=== PATIENT | female | born 1955 | race Hispanic/Latino ===

== ENCOUNTER 2018-07-06 09:24 | Emergency (ER) | payer OTHER ==
--- OUTSIDE RECORDS SUMMARY | 2018-07-06 09:28 | XMS REPORT ---
:1955 [facility] Address [address] [place] [address] Care Team Providers Name Role Phone Unavailable Unavailable Unavailable Problems This patient has no known problems. Allergies, Adverse Reactions, Alerts This patient has no known allergies or adverse reactions. Medications This patient has no known medications.
--- NOTE | 2018-07-06 10:18 | EDPHYS ---
Physician Documentation [facility] Name: Loly Hermosillo Age: 63 yrs Sex: Female : 1955 Arrival Date: 07/06/2018 Time: 09:26 Bed 8 Private MD: out of town, doctor ED Physician Hermilo Rodriguez HPI: 07/06 10:10 This 63 yrs old Female presents to ER via Ambulatory with complaints of Leg ps1 Swelling. 10:10 patient states that she has started a new workout regimen and now has swelling to ps1 medial aspect of right knee. Atraumatic. States that she took one ibuprofen without relief. No fever, chills, rash. . Historical: - Allergies: 09:36 No Known Allergies; aj1 - Home Meds: 09:36 Haloperidol Oral [Active]; Benztropine Mesylate Oral [Active]; Hydroxyzine Oral aj1 [Active]; losartan oral oral [Active]; atorvastatin oral oral [Active]; - PMHx: 09:36 Hypertension; Hyperlipidemia; Anxiety; cyst in right kidney; aj1 - PSHx: 09:36 None; aj1 - Immunization history:: Flu vaccine is not up to date. - Social history:: Smoking status: Patient/guardian denies using tobacco. - Ebola Screening: : Patient denies travel to an Ebola-affected area in the 21 days before illness onset. ROS: 10:10 Constitutional: Negative for fever, chills, and weight loss, Eyes: Negative for injury, ps1 pain, redness, and discharge, ENT: Negative for injury, pain, and discharge, Cardiovascular: Negative for chest pain, palpitations, and edema, Respiratory: Negative for shortness of breath, cough, wheezing, and pleuritic chest pain, Abdomen/GI: Negative for abdominal pain, nausea, vomiting, diarrhea, and constipation, Skin: Negative for injury, rash, and discoloration, Neuro: Negative for headache, weakness, numbness, tingling, and seizure. 10:10 MS/extremity: Positive for pain, swelling, tenderness, of the right knee. Exam: 10:10 Constitutional: This is a well developed, well nourished patient who is awake, alert, ps1 and in no acute distress. Head/Face: Normocephalic, atraumatic. Eyes: Pupils equal round and reactive to light, extra-ocular motions intact. Lids and lashes normal. Conjunctiva and sclera are non-icteric and not injected. ENT: Nares patent. No nasal discharge, no septal abnormalities noted. Tympanic membranes are normal and external auditory canals are clear. Oropharynx with no redness, swelling, or masses, exudates, or evidence of obstruction, uvula midline. Mucous membranes moist. Chest/axilla: Normal chest wall appearance and motion. Nontender with no deformity. No lesions are appreciated. Cardiovascular: Regular rate and rhythm. No gallops, murmurs, or rubs. Normal PMI, no JVD. No pulse deficits. Respiratory: Lungs have equal breath sounds bilaterally, clear to auscultation and percussion. No rales, rhonchi or wheezes noted. No increased work of breathing, no retractions or nasal flaring. Abdomen/GI: Soft, non-tender, with normal bowel sounds. No distension or tympany. No guarding or rebound. No evidence of tenderness throughout. Neuro: Awake and alert, GCS 15, oriented to person, place, time, and situation. Cranial nerves II-XII grossly intact. Sensory grossly intact. Psych: Awake, alert, with orientation to person, place and time. Behavior, mood, and affect are within normal limits. 10:10 Musculoskeletal/extremity: Extremities: grossly normal except: noted in the right knee: pain, There is no evidence of contusion, effusion or rash.. Vital Signs: 09:36 BP 112 / 84; Pulse 94; Resp 18; Temp 97.4; Pulse Ox 96% on R/A; Weight 79.38 kg (R); aj1 Height 5 ft. 4 in. (162.56 cm) (R); Pain 7/10; 09:36 Body Mass Index 30.04 (79.38 kg, 162.56 cm) aj1 MDM: 10:10 Data reviewed: vital signs, nurses notes, and as a result, I will discharge patient. ED ps1 course: no obvious signs of effusion or fracture. Low probability of fx. Likely sprain. Compression. Aleve 550mg bid. . 10:17 Patient medically screened. ps1 Administered Medications: No medications were administered Disposition: 07/06/18 10:17 Discharged to Home. Impression: Sprain of medial collateral ligament of right knee. - Condition is Stable. - Prescriptions for Anaprox DS 550 mg Oral Tablet - take 1 tablet by ORAL route every 12 hours As needed; 20 tablet. - Medication Reconciliation Form, Thank You Letter, Antibiotic Education, Prescription Opioid Use form. - Follow up: Private Physician; When: As needed; Reason: Recheck today's complaints, Continuance of care, Re-evaluation by your physician. Follow up: Emergency Department; When: As needed; Reason: Fever > 102 F, Worsening of condition. - Problem is new. - Symptoms are unchanged. Signatures: Анна Pena RN RN aj1 Raine Wang RN RN ph Hermilo Rodriguez MD MD ps1 Corrections: (The following items were deleted from the chart) 10:45 10:17 07/06/2018 10:17 Discharged to Home. Impression: Sprain of medial collateral ph ligament of right knee. Condition is Stable. Forms are Medication Reconciliation Form, Thank You Letter, Antibiotic Education, Prescription Opioid Use. Follow up: Private Physician; When: As needed; Reason: Recheck today's complaints, Continuance of care, Re-evaluation by your physician. Follow up: Emergency Department; When: As needed; Reason: Fever > 102 F, Worsening of condition. Problem is new. Symptoms are unchanged. ps1
--- NOTE | 2018-07-06 10:18 | ER ---
Nurse's Notes [facility] Name: Loly Hermosillo Age: 63 yrs Sex: Female : 1955 Arrival Date: 07/06/2018 Time: 09:26 Bed 8 Private MD: out of town, doctor Diagnosis: Sprain of medial collateral ligament of right knee Presentation: 07/06 09:33 Presenting complaint: Patient states: "My leg is swollen, I think I pulled a muscle" aj1 Swelling noted to right knee. Patient reports pain with ambulation and with bending left knee. Transition of care: patient was not received from another setting of care. Onset of symptoms was July 03, 2018. Risk Assessment: Do you want to hurt yourself or someone else? Patient reports no desire to harm self or others. Initial Sepsis Screen: Does the patient meet any 2 criteria? No. Patient's initial sepsis screen is negative. Does the patient have a suspected source of infection? No. Patient's initial sepsis screen is negative. Care prior to arrival: None. 09:33 Method Of Arrival: Ambulatory aj1 09:33 Acuity: SULTA[place] 4 aj1 Triage Assessment: 09:36 General: Appears in no apparent distress. uncomfortable, Behavior is calm, cooperative, aj1 appropriate for age. Pain: Complains of pain in right knee Pain currently is 7 out of 10 on a pain scale. Neuro: Level of Consciousness is awake, alert, obeys commands. Cardiovascular: Patient's skin is warm and dry. Respiratory: Airway is patent Respiratory effort is even, unlabored, Respiratory pattern is regular, symmetrical. Historical: - Allergies: 09:36 No Known Allergies; aj1 - Home Meds: 09:36 Haloperidol Oral [Active]; Benztropine Mesylate Oral [Active]; Hydroxyzine Oral aj1 [Active]; losartan oral oral [Active]; atorvastatin oral oral [Active]; - PMHx: 09:36 Hypertension; Hyperlipidemia; Anxiety; cyst in right kidney; aj1 - PSHx: 09:36 None; aj1 - Immunization history:: Flu vaccine is not up to date. - Social history:: Smoking status: Patient/guardian denies using tobacco. - Ebola Screening: : Patient denies travel to an Ebola-affected area in the 21 days before illness onset. Screenin:12 Abuse screen: Denies threats or abuse. Denies injuries from another. Nutritional ph screening: No deficits noted. Tuberculosis screening: No symptoms or risk factors identified. Fall Risk None identified. Assessment: 10:11 General: Appears in no apparent distress. comfortable, well groomed, Behavior is calm, ph cooperative, appropriate for age, Denies fever, feeling ill. Pain: Complains of pain in right knee. Neuro: Level of Consciousness is awake, alert, obeys commands, Oriented to person, place, time, situation. Cardiovascular: Capillary refill < 3 seconds in bilateral fingers toes Patient's skin is warm and dry. Respiratory: Airway is patent Respiratory effort is even, unlabored, Respiratory pattern is regular, symmetrical. Derm: Skin is intact, is healthy with good turgor, Skin is pink, warm \\T\\ dry. Musculoskeletal: Circulation, motion, and sensation intact. Range of motion: intact in all extremities, Swelling present in right knee. Vital Signs: 09:36 BP 112 / 84; Pulse 94; Resp 18; Temp 97.4; Pulse Ox 96% on R/A; Weight 79.38 kg (R); aj1 Height 5 ft. 4 in. (162.56 cm) (R); Pain 7/10; 09:36 Body Mass Index 30.04 (79.38 kg, 162.56 cm) aj1 ED Course: 09:26 Patient arrived in ED. as 09:27 out of town, doctor is Private Physician. as 09:35 Triage completed. aj1 09:36 Arm band placed on Patient placed in an exam room. aj1 09:45 Patient has correct armband on for positive identification. Bed in low position. Call ph light in reach. Side rails up X 1. 09:50 Raine Wang, MINO is Primary Nurse. ph 10:01 Hermilo Rodriguez MD is Attending Physician. ps1 10:12 No provider procedures requiring assistance completed. Patient did not have IV access ph during this emergency room visit. Administered Medications: No medications were administered Outcome: 10:17 Discharge ordered by . ps1 10:43 Discharged to home ambulatory, with friend. ph 10:43 Condition: good 10:43 Discharge instructions given to patient, Instructed on discharge instructions, follow up and referral plans. medication usage, Demonstrated understanding of instructions, follow-up care, medications, Prescriptions given X 1. 10:45 Patient left the ED. ph Signatures: Анна Pena RN RN aj1 Maricruz Poon as Raine Wang RN RN ph Hermilo Rodriguez MD MD ps1
== END 2018-07-06 10:45 | disposition home or self-care (01) ==
LOC: ER 09:24
DX: S83.411A Sprain of medial collateral ligament of right knee, initial encounter (principal); I10 Essential (primary) hypertension; E78.5 Hyperlipidemia, unspecified; F41.9 Anxiety disorder, unspecified
CPT/HCPCS: 99282

== ENCOUNTER 2019-06-29 12:14 | Inpatient (IN) | payer OTHER ==
--- OUTSIDE RECORDS SUMMARY | 2019-06-29 12:15 | XMS REPORT | Summary of Care ---
:1955 Author Organization [facility] Address [address] [place] [id number] Care Team Providers Name Role Phone Dinesh Cervantes [facility], [facility] Primary Care P rovider Reason for Referral MRI/CAT Scan (Routine) Status Reason Specialty Diagnoses / Referred By Referred To Procedures Contact Contact New Request Diagnostic Diagnoses Renal mass, right Cori Villanueva Radiology Procedures CT ABDOMEN PELVIS W WO CONTRAST A, [facility] [address] [place] [address] Reason for Visit Reason Comments Back Pain Encounter Details Date Type Department Care Team Description 05/13/2019 Telephone [facility], Magdalena la A, [facility] - [place] on [address], [address] [place] [address] [place] [address] [phone] Allergies No Known Allergiesdocumented as of this encounter (statuses as of 05/13/2019) Medications Medication Sig Dispensed Refills Start Date End Date Status CHLORHEXIDINE, BULK, 1 Dose. Swish and 0 Active MISC spit 1 cap full by mouth twice daily LOSARTAN POTASSIUM Take 50 mg by 0 Active (LOSARTAN ORAL) mouth daily. ATORVASTATIN CALCIUM Take 20 mg by 0 Active (ATORVASTATIN ORAL) mouth at bedtime. haloperidol 10 mg Take 10 mg by 0 Active tablet mouth at bedtime. hydrOXYzine 25 mg Take 25 mg by 0 Active tablet mouth 2 (two) times daily. BENZTROPINE MESYLATE Take 1 mg by 0 Active (BENZTROPINE ORAL) mouth 2 (two) times daily. sulfamethoxazole-trimet Take 1 tablet by 14 tablet 0 8 Active hoprim (BACTRIM DS) mouth 2 (two) 800-160 mg per times daily. tabletIndications: Urinary tract infection without hematuria, site unspecified documented as of this encounter (statuses as of 05/13/2019) Active Problems Not on filedocumented as of this encounter (statuses as of 05/13/2019) Social History Tobacco Use Types Packs/Day Years Used Date Never Smoker Smokeless Tobacco: Never Used Alcohol Use Drinks/Week oz/Week Comments No Sex Assigned at Date Recorded Not on file Job Start Date Occupation Industry Not on file Not on file Not on file Travel History Travel Start Travel End No recent travel history available. documented as of this encounter Last Filed Vital Signs Not on filedocumented in this encounter Plan of Treatment Date Type Specialty Care Team Description 05/31/2019 Office Visit Urology Cori Villanueva, [facility] [employer] [facility] [address] [address] [phone] Name Type Priority Associated Diagnoses Order S chedule CT ABDOMEN PELVIS W WO IMAGING Routine Renal mass, right Expected: 05/13/2019, CONTRAST Expires: 2020 Health Maintenance Due Date Last Done Comments HEPATITIS C (HCV) SCREEN 1955 DTaP,Tdap,and Td Vaccines (1 - 1967 Tdap) Breast Cancer Screening 1996 (MAMMOGRAM) PAP SMEAR 04/05/2006 04/05/2003 COLONOSCOPY 2006 Zoster Recombinant Vaccine 2006 (SHINGRIX) (1 of 2) INFLUENZA VACCINE (#1) 2018 PNEUMOCOCCAL 0-64 YEARS COMBINED Aged Out No longer eligible based on SERIES patient's age to complete this topic documented as of this encounter Results Not on filedocumented in this encounter Visit Diagnoses Diagnosis Renal mass, right - Primary Unspecified disorder of kidney and urete r documented in this encounter Insurance Payer Benefit Plan / Subscriber ID Effective Phone Address T ype Group Dates [facility] [id number] 2017-Pres Medica re HEALTHCARE - HEALTHCARE ent Adv HM O MANAGED DUAL COMPLETE MEDICARE HMO [place] MEDICAID OF xxxxxxxxx 2018-Pres [phone] [address] Medi caid [facility] [id number] [place] [address] documented as of this encounter
--- OUTSIDE RECORDS SUMMARY | 2019-06-29 12:15 | XMS REPORT ---
:1955 Author Organization [facility] t Address [address] [place] [id number] Care Team Providers Name Role Phone Unavailable Unavailable Unavailable Problems This patient has no known problems. Allergies, Adverse Reactions, Alerts This patient has no known allergies or adverse reactions. Medications This patient has no known medications.
[2019-06-29 13:11] LABS: Absolute Lymphocytes (CBC) 1.3 K/uL (0.7-4.9); Basophils % 0.8 % (0-1.3); Hematocrit 29.5 % (36.0-45.0); Lymphocytes % 23.4 % (15.3-44.8); MPV 7.5 fL (7.6-11.3)
[2019-06-29 13:12] LABS: Protime INR 0.99
--- NOTE | 2019-06-29 13:20 | RAD REPORT ---
EXAM DESCRIPTION: CT - Head Brain Wo Cont - 06/29/2019 1:12 pm CLINICAL HISTORY: MENTAL STATUS CHANGE Headache, drowsiness COMPARISON: No comparisons TECHNIQUE: All CT scans are performed using dose optimization technique as appropriate and may inclu de automated exposure control or mA/KV adjustment according to patient size. FINDINGS: No intracranial hemorrhage, hydrocephalus or extra-axial fluid collection.Moderate periven tricular chronic microvascular ischemic changes suspected.No areas of brain edema or evidence of midl ine shift. The paranasal sinuses and mastoids are clear. The calvarium is intact. IMPRESSION: No acute intracranial abnormality.
[2019-06-29 13:25] LABS: ALT/SGPT 42 U/L (12-78); AST/SGOT 25 U/L (15-37); Albumin 2.5 g/dL (3.4-5.0); Alkaline Phosphatase 94 U/L (45-117); BUN Blood Urea Nitrogen 10 mg/dL (7-18); Bicarbonate 30 mmol/L (21-32); Bilirubin Direct 0.2 mg/dL (0-0.2); Bilirubin Total 0.6 mg/dL (0.2-1.0); Glucose Level 88 mg/dL (74-106); Magnesium 1.6 mg/dL (1.8-2.4); Sodium Level 141 mmol/L (136-145)
[2019-06-29 13:27] LABS: Potassium 2.6 mmol/L (3.5-5.1)
[2019-06-29 13:35] LABS: Urine Blood TRACE (NEG); Urine Glucose NEGATIVE (NEG); Urine Protein 1+ (NEG); Urine pH 5.5 (5.0-7.0)
[2019-06-29 13:39] LABS: Barbiturates NEGATIVE (NEGATIVE); Benzodiazepines NEGATIVE (NEGATIVE); Cocaine NEGATIVE (NEGATIVE); METHAMPHETAM NEGATIVE (NEGATIVE); Methadone NEGATIVE (NEGATIVE); Opiates NEGATIVE (NEGATIVE); Phencyclidine NEGATIVE (NEGATIVE); THC Cannibis NEGATIVE (NEGATIVE)
[2019-06-29] MEDS ORDERED: NA CHLORIDE 0.9% 500 ML ONE (13:50)
[2019-06-29] MEDS ORDERED: POTASSIUM CL SA 10 MEQ TAB PO ONE (13:50)
[2019-06-29] MEDS ORDERED: Magnesium Sulfate 2gm IVPB 2 G/50 ML BAG IV ONE (13:51)
[2019-06-29] MEDS ORDERED: KCL 20 MEQ/100 mL IVPB 20 MEQ/100 ML BAG IV ONE (13:51)
[2019-06-29 13:52] LABS: Urine Bacteria LOADED /HPF (<20); Urine Culture Reflex Order REFLEXED; Urine RBC <5 /HPF (NONE SEEN)
--- NOTE | 2019-06-29 15:04 | EDPHYS ---
Physician Documentation [facility] Name: Loly Hermosillo Age: 64 yrs Sex: Female : 1955 Arrival Date: 06/29/2019 Time: 12:18 Bed 13 Private MD: ED Physician Kush Drake HPI: 06/28 14:47 This 64 yrs old Female presents to ER via EMS with complaints of Altered jr8 Mental Status. 14:47 The patient presents with agitation, confusion. Onset: The symptoms/episode jr8 began/occurred gradually, 1 month(s) ago, and became worse and became persistent. Possible causes: unknown. Associated signs and symptoms: The patient has no apparent associated signs or symptoms. Current symptoms: In the emergency department the patient's symptoms are unchanged from the initial presentation. Patient's baseline: Neuro: alert and fully oriented, Motor: no deficits, Ambulation: walks without assistance, Speech: normal. It is unknown whether or not the patient has had similar symptoms in the past. The patient has not recently seen a physician. Patient with history of bipolar disorder. Family told EMS that she has not acted like this in a long time. Stated that she has had slow decline in mental status and behavioral changes over the past month. Acutely worse recently. Patient alert to person and place. Slurring speech . Historical: - Allergies: 12:28 [place] Carbonate; ca1 12:28 Thorazine; ca1 - Home Meds: 12:28 losartan 50 mg oral tab 1 tab once daily [Active]; Haloperidol 10 mg Oral 1 tab nightly ca1 [Active]; tamsulosin 0.4 mg oral cp24 1 cap once daily [Active]; hydroxyzine HCl 25 mg oral tab 1 tab twice a day [Active]; - PMHx: 12:28 Anxiety; cyst in right kidney; Hyperlipidemia; Hypertension; Bipolar disorder; ca1 - PSHx: 12:28 None; ca1 - Immunization history:: Adult Immunizations up to date. - Social history:: Smoking status: Patient denies any tobacco usage or history of. ROS: 14:47 Eyes: Negative for injury, pain, redness, and discharge, ENT: Negative for injury, jr8 pain, and discharge, Neck: Negative for injury, pain, and swelling, Cardiovascular: Negative for chest pain, palpitations, and edema, Respiratory: Negative for shortness of breath, cough, wheezing, and pleuritic chest pain, Abdomen/GI: Negative for abdominal pain, nausea, vomiting, diarrhea, and constipation, Back: Negative for injury and pain, MS/Extremity: Negative for injury and deformity, Skin: Negative for injury, rash, and discoloration. 14:47 Neuro: Positive for altered mental status. Exam: 14:47 Eyes: Pupils equal round and reactive to light, extra-ocular motions intact. Lids and jr8 lashes normal. Conjunctiva and sclera are non-icteric and not injected. Cornea within normal limits. Periorbital areas with no swelling, redness, or edema. ENT: Nares patent. No nasal discharge, no septal abnormalities noted. Tympanic membranes are normal and external auditory canals are clear. Oropharynx with no redness, swelling, or masses, exudates, or evidence of obstruction, uvula midline. Mucous membranes moist. Neck: Trachea midline, no thyromegaly or masses palpated, and no cervical lymphadenopathy. Supple, full range of motion without nuchal rigidity, or vertebral point tenderness. No Meningismus. Cardiovascular: Regular rate and rhythm with a normal S1 and S2. No gallops, murmurs, or rubs. Normal PMI, no JVD. No pulse deficits. Respiratory: Lungs have equal breath sounds bilaterally, clear to auscultation and percussion. No rales, rhonchi or wheezes noted. No increased work of breathing, no retractions or nasal flaring. Abdomen/GI: Soft, non-tender, with normal bowel sounds. No distension or tympany. No guarding or rebound. No evidence of tenderness throughout. Back: No spinal tenderness. No costovertebral tenderness. Full range of motion. Skin: Warm, dry with normal turgor. Normal color with no rashes, no lesions, and no evidence of cellulitis. MS/ Extremity: Pulses equal, no cyanosis. Neurovascular intact. Full, normal range of motion. 14:47 ECG was reviewed by the Attending Physician. 14:47 Neuro: Orientation: to person, place, Mentation: able to follow commands, slow to respond, confused, Cranial nerves: CN I not tested, CN II- XII are normal as tested, visual edge are intact. extraocular movements are intact, Facial palsy and sensory deficits are absent. Speech is slowed, slurred, Tongue strength is normal, Motor: moves all fours, strength is 5/5 in all extremities, Sensation: is normal, seizure activity, is not displayed by the patient, Abnormal movements: there are no abnormal movements. Vital Signs: 12:19 BP 117 / 85; Pulse 86; Resp 16 S; Temp 98(O); Pulse Ox 100% on R/A; ca1 14:51 BP 103 / 73; Pulse 84; Resp 20; Pulse Ox 100% on R/A; ca1 15:56 BP 108 / 67; Pulse 86; Resp 18 S; Pulse Ox 100% on R/A; ca1 16:27 BP 124 / 64; Pulse 96; Resp 20 S; Pulse Ox 99% on R/A; ca1 MDM: 12:30 Patient medically screened. jr8 14:47 Data reviewed: vital signs, nurses notes, lab test result(s), EKG, radiologic studies, jr8 CT scan. Data interpreted: Pulse oximetry: on room air is 100 %. Interpretation: normal. Counseling: I had a detailed discussion with the patient and/or guardian regarding: the historical points, exam findings, and any diagnostic results supporting the discharge/admit diagnosis, lab results, radiology results. 15:03 Physician consultation: Cosme Garcia DO was called at 15:03, was contacted at 15:03, jr8 regarding admission, to the medical/surgical unit. patient's condition, and will see patient in ED. 06/28 12:32 Order name: Acetaminophen; Complete Time: 13:30 8 06/28 12:32 Order name: Basic Metabolic Panel; Complete Time: 13:30 8 06/28 12:32 Order name: CBC with Diff; Complete Time: 13:30 8 06/28 12:32 Order name: ETOH Level; Complete Time: 13:30 8 06/28 12:32 Order name: Hepatic Function; Complete Time: 13:30 8 06/28 12:32 Order name: PT-INR; Complete Time: 13:30 8 06/28 12:32 Order name: Ptt, Activated; Complete Time: 13:30 8 06/28 12:32 Order name: Salicylate; Complete Time: 13:30 8 06/28 12:32 Order name: Urine Drug Screen; Complete Time: 14:55 8 06/28 12:32 Order name: Urine Microscopic Only; Complete Time: 14:55 jr8 06/28 12:32 Order name: Magnesium; Complete Time: 13:30 8 06/28 12:32 Order name: CT Head Brain wo Cont; Complete Time: 13:30 [facility] 06/28 13:19 Order name: Urine Dipstick--Ancillary (enter results); Complete Time: 14:55 bd 06/28 13:54 Order name: Urine Culture [facility] 06/28 12:32 Order name: EKG; Complete Time: 12:33 [facility] 06/28 12:32 Order name: EKG - Nurse/Tech; Complete Time: 12:52 8 06/28 12:32 Order name: IV Saline Lock; Complete Time: 12:52 [facility] 06/28 12:32 Order name: Labs collected and sent; Complete Time: 12:52 [facility] 06/28 12:32 Order name: Urine Dipstick-Ancillary (obtain specimen); Complete Time: 13:14 8 06/28 12:32 Order name: Straight Cath - Urine; Complete Time: 13:14 [facility] 06/28 15:50 Order name: Social Service Consult EDWA EC:47 Rate is 97 beats/min. Rhythm is regular, Normal Sinus Rhythm. QRS [place] is Normal. NV jr8 interval is normal at 142 msec. QRS interval is normal at 104 msec. QT interval is prolonged at 533 msec. Q waves are Present in lead V1. T waves are Normal. No ST changes noted. Clinical impression: Abnormal EKG without significant change and Prolonged QT. Interpreted by me. Reviewed by me. Administered Medications: 13:45 Drug: Potassium Chloride 40 mEq Route: PO; ca1 15:13 Follow up: Response: No adverse reaction ca1 13:45 Drug: NS 0.9% 1000 ml Route: IV; Rate: 125 ml/hr; Site: right antecubital; ca1 15:13 Follow up: IV Status: Infusion continued upon admission ca1 13:50 Drug: Potassium Chloride 20 mEq Route: IV; Rate: calculated rate; Site: right ca1 antecubital; 16:00 Follow up: Response: No adverse reaction; IV Status: Completed infusion ca1 14:12 Drug: Magnesium Sulfate 2 grams Route: IVPB; Infused Over: 2 hrs; Site: right ca1 antecubital; 15:12 Follow up: Response: No adverse reaction; IV Status: Completed infusion ca1 15:12 Drug: Rocephin 1 grams Route: IV; Rate: calculated rate; Site: right antecubital; ca1 15:30 Follow up: Response: No adverse reaction; IV Status: Completed infusion ca1 Disposition: 06/29 08:17 Co-signature as Attending Physician, Kush Drake MD I agree with the assessment and kdr plan of care. Disposition: 06/29/19 15:03 Hospitalization ordered by Cosme Garcia for Inpatient Admission. Preliminary diagnosis are Altered mental status, unspecified, Urinary tract infection, site not specified. - Bed requested for Telemetry/MedSurg (Inpatient). - Status is Inpatient Admission. ca1 - Condition is Stable. - Problem is new. - Symptoms are unchanged. Signatures: Dispatcher [employer] EDMS Kush Drake MD MD [facility] Bradly Oropeza PA PA jr8 Leticia Valerio RN RN tl1 Nichelle Bermudez RN RN ca1 Corrections: (The following items were deleted from the chart) 06/28 16:11 15:03 Hospitalization Ordered by Cosme Garcia DO for Inpatient Admission. Preliminary tl1 diagnosis is Altered mental status, unspecified; Urinary tract infection, site not specified. Bed requested for Telemetry/MedSurg (Inpatient). Status is Inpatient Admission. Condition is Stable. Problem is new. Symptoms are unchanged. jr8 17:19 16:11 06/29/2019 15:03 Hospitalization Ordered by Cosme Garcia DO for Inpatient ca1 Admission. Preliminary diagnosis is Altered mental status, unspecified; Urinary tract infection, site not specified. Bed requested for Telemetry/MedSurg (Inpatient). Status is Inpatient Admission. Condition is Stable. Problem is new. Symptoms are unchanged. tl1
--- NOTE | 2019-06-29 15:04 | ER ---
Nurse's Notes [facility] Name: Loly Hermosillo Age: 64 yrs Sex: Female : 1955 Arrival Date: 06/29/2019 Time: 12:18 Bed 13 Private MD: Diagnosis: Altered mental status, unspecified;Urinary tract infection, site not specified Presentation: 06/28 12:19 Chief complaint: EMS states: Pt is Bipolar, not cooperating with family, refuses to ca1 eat, laying down on the floor. She keeps destroying her bedroom. They said she has gone for years without symptoms but this past month she has been deteriorating and has gotten worse the past few weeks. Ativan 2mg given IV. Coronavirus screen: Proceed with normal triage. Patient denies a cough. Patient denies shortness of breath or difficulty breathing. Patient denies measured and/or subjective temperature greater than 100.4F prior to today's visit. Patient denies travel on a cruise ship or to a country the [facility] currently lists as an affected area. Patient denies contact with known and/or suspected case of COVID-19. Ebola Screen: Patient negative for fever greater than or equal to 101.5 degrees Fahrenheit, and additional compatible Ebola Virus Disease symptoms Patient denies exposure to infectious person. Patient denies travel to an Ebola-affected area in the 21 days before illness onset. No symptoms or risks identified at this time. Initial Sepsis Screen: Does the patient meet any 2 criteria? No. Patient's initial sepsis screen is negative. Does the patient have a suspected source of infection? No. Patient's initial sepsis screen is negative. Risk Assessment: Do you want to hurt yourself or someone else? Patient reports no desire to harm self or others. Onset of symptoms was June 29, 2019. 12:19 Method Of Arrival: EMS: [facility] ca1 12:19 Acuity: [place] 3 ca1 12:19 Care prior to arrival: Medication(s) given: Ativan 2mg IV initiated. 20 GA, in the left ca1 antecubital area. Triage Assessment: 12:28 General: Appears in no apparent distress. unkempt, Behavior is calm, cooperative, ca1 drowsy. Pain: Denies pain. EENT: No signs and/or symptoms were reported regarding the EENT system. Neuro: Level of Consciousness is obeys commands, lethargic, Oriented to person, place, situation. Cardiovascular: Heart tones S1 S2 present Capillary refill < 3 seconds Patient's skin is warm and dry. Rhythm is sinus rhythm. Respiratory: Airway is patent Respiratory effort is even, unlabored, Respiratory pattern is regular, symmetrical, Breath sounds are clear bilaterally. GI: Abdomen is round non-distended, Bowel sounds present X 4 quads. Abd is soft and non tender X 4 quads. : No signs and/or symptoms were reported regarding the genitourinary system. Derm: Skin is intact, is healthy with good turgor, Skin is pink, warm \T\ dry. Musculoskeletal: Circulation, motion, and sensation intact. Capillary refill < 3 seconds. Historical: - Allergies: 12:28 [place] Carbonate; ca1 12:28 Thorazine; ca1 - Home Meds: 12:28 losartan 50 mg oral tab 1 tab once daily [Active]; Haloperidol 10 mg Oral 1 tab nightly ca1 [Active]; tamsulosin 0.4 mg oral cp24 1 cap once daily [Active]; hydroxyzine HCl 25 mg oral tab 1 tab twice a day [Active]; - PMHx: 12:28 Anxiety; cyst in right kidney; Hyperlipidemia; Hypertension; Bipolar disorder; ca1 - PSHx: 12:28 None; ca1 - Immunization history:: Adult Immunizations up to date. - Social history:: Smoking status: Patient denies any tobacco usage or history of. Screenin:31 Abuse screen: Denies threats or abuse. Denies injuries from another. Nutritional ca1 screening: No deficits noted. Tuberculosis screening: No symptoms or risk factors identified. Fall Risk IV access (20 points). Mental Status- Overestimates/Forgets Limitations (15 pts.). Total Walker Fall Scale indicates Low Risk Score (25-44 pts). Fall prevention measures have been instituted. Side Rails Up X 2 Frequent Obs/Assesments occuring As available Patient and Family Educated on Fall Prevention Program and strategies. Assessment: 12:31 Reassessment: SEE TRIAGE NOTES. ca1 13:15 Reassessment: Patient appears in no apparent distress at this time. No changes from ca1 previously documented assessment. Patient and/or family updated on plan of care and expected duration. Pain level reassessed. 14:33 Reassessment: Patient appears in no apparent distress at this time. No changes from ca1 previously documented assessment. Patient and/or family updated on plan of care and expected duration. Pain level reassessed. 15:29 Reassessment: Patient appears in no apparent distress at this time. No changes from ca1 previously documented assessment. Patient and/or family updated on plan of care and expected duration. Pain level reassessed. Dr. Garcia at bedside. 16:27 Reassessment: Patient appears in no apparent distress at this time. No changes from ca1 previously documented assessment. Patient and/or family updated on plan of care and expected duration. Pain level reassessed. 16:28 Reassessment: Called for report, nurse will call back in 10 minutes. ca1 16:50 General: Appears in no apparent distress. comfortable, Behavior is calm, cooperative, ca1 appropriate for age. Neuro: Level of Consciousness is awake, alert, obeys commands, Oriented to person, place. Vital Signs: 12:19 BP 117 / 85; Pulse 86; Resp 16 S; Temp 98(O); Pulse Ox 100% on R/A; ca1 14:51 BP 103 / 73; Pulse 84; Resp 20; Pulse Ox 100% on R/A; ca1 15:56 BP 108 / 67; Pulse 86; Resp 18 S; Pulse Ox 100% on R/A; ca1 16:27 BP 124 / 64; Pulse 96; Resp 20 S; Pulse Ox 99% on R/A; ca1 ED Course: 12:18 Patient arrived in ED. ca1 12:23 Triage completed. ca1 12:23 Patient has correct armband on for positive identification. Placed in gown. Bed in low sv position. Call light in reach. Side rails up X2. city wellness coordinator on. Pulse ox on. NIBP on. 12:28 Arm band placed on right wrist. ca1 12:30 Bradly Oropeza PA is PHCP. jr8 12:30 Kush Drake MD is Attending Physician. jr8 12:31 Door closed. Noise minimized. Lights dimmed. Warm blanket given. ca1 12:50 Nichelle Bermudez, MINO is Primary Nurse. ca1 12:50 No provider procedures requiring assistance completed. Maintain EMS IV. Dressing ca1 intact. Good blood return noted. Site clean \T\ dry. Gauge \T\ site: g20 LAC. 12:53 Initial lab(s) drawn, by me, sent to lab. Inserted saline lock: 22 gauge in right lt1 antecubital area, using aseptic technique. 13:00 Straight cath inserted, using sterile technique, 16 Fr. Specimen obtained. by Jamilah, ED ca1 Tech Returned gayle urine. Patient tolerated well. 13:13 CT Head Brain wo Cont In Process Unspecified. EDMS 15:03 Cosme Garcia DO is Hospitalizing Provider. jr8 15:30 Patient admitted, IV remains in place. ca1 Administered Medications: 13:45 Drug: Potassium Chloride 40 mEq Route: PO; ca1 15:13 Follow up: Response: No adverse reaction ca1 13:45 Drug: NS 0.9% 1000 ml Route: IV; Rate: 125 ml/hr; Site: right antecubital; ca1 15:13 Follow up: IV Status: Infusion continued upon admission ca1 13:50 Drug: Potassium Chloride 20 mEq Route: IV; Rate: calculated rate; Site: right ca1 antecubital; 16:00 Follow up: Response: No adverse reaction; IV Status: Completed infusion ca1 14:12 Drug: Magnesium Sulfate 2 grams Route: IVPB; Infused Over: 2 hrs; Site: right ca1 antecubital; 15:12 Follow up: Response: No adverse reaction; IV Status: Completed infusion ca1 15:12 Drug: Rocephin 1 grams Route: IV; Rate: calculated rate; Site: right antecubital; ca1 15:30 Follow up: Response: No adverse reaction; IV Status: Completed infusion ca1 Outcome: 15:03 Decision to Hospitalize by Provider. jr8 17:19 Admitted to Med/surg accompanied by norman, via stretcher, room 204, with chart, Report ca1 called to MINO Collier 17:19 Condition: stable 17:19 Instructed on the need for admit. 17:19 Patient left the ED. ca1 Signatures: Dispatcher [employer] EDAL Hemalatha Mccray RN RN sv Roszak, Josh, PA PA jr8 Nichelle Bermudez RN RN ca1 Tran, Leah lt1 Corrections: (The following items were deleted from the chart) 15:29 13:15 Reassessment: Patient appears in no apparent distress at this time. No changes ca1 from previously documented assessment. Patient and/or family updated on plan of care and expected duration. Pain level reassessed. Patient is alert, oriented x 3, equal unlabored respirations, skin warm/dry/pink. ca1 15:29 14:33 Reassessment: Patient appears in no apparent distress at this time. No changes ca1 from previously documented assessment. Patient and/or family updated on plan of care and expected duration. Pain level reassessed. Patient is alert, oriented x 3, equal unlabored respirations, skin warm/dry/pink. ca1 16:50 16:27 Reassessment: Patient appears in no apparent distress at this time. No changes ca1 from previously documented assessment. Patient and/or family updated on plan of care and expected duration. Pain level reassessed. ca1 16:51 16:27 BP 124 / 64; Pulse 96bpm; Resp 20bpm; Pulse Ox 99% RA; ca1 ca1
[2019-06-29] MEDS ORDERED: CEFTRIAXONE/SWI 1gm 1 GM/10 ML SYR ONE (15:08)
--- NOTE | 2019-06-29 15:49 | P.HP ---
Certification for Inpatient Patient admitted to: Observation With expected LOS: <2 Midnights Patient will require the following post-hospital care: Other (Psychiatric evaluation) Practitioner: I am a practitioner with admitting privileges, knowledge of patient current condition, hospital course, and medical plan of care. Services: Services provided to patient in accordance with Admission requirements found in Title 42 Section 412.3 of the Code of Federal Regulations Patient History Date of Service: 06/29/19 Primary Care Provider: Jeffrey Machado NP; [facility] Reason for admission: Altered mental status History of Present Illness: 64-year-old female with history of paranoid schizophrenia, bipolar disorder and hypertension. Patient presented to the emergency room with altered mental status. Patient is not able to give a full history. ER reports patient was brought in due to altered mental status. Apparently mental health officer was sent to evaluate patient. There was some concern of psychosis related to her mental illness. There was no suicide ideation. No significant agitation noted they felt patient need to be sent to the ER for further evaluation of altered mental status. They suspected infectious process as etiology. When I spoke to the daughter the daughter reported that over the past several weeks the patient has not been taking her psychiatric medications. She has been ruled destructive in the house. Daughter feels sees a danger to others. She apparently called [facility] to have the patient evaluated. That is when mental health officer went to visit. In the ER patient was evaluated. CT head unremarkable. Patient found to have UTI. White counts 5.7. Hemoglobin 10.1. Sodium 141, potassium 2.7. Glucose 75. Patient admitted for further evaluation and treatment. When I saw the patient she was more alert. Patient appeared slightly agitated. Patient does not appear septic. Home medications list reviewed: Yes - Past Medical/Surgical History Diabetic: No -: Hypertension -: Paranoid schizophrenia -: Bipolar disorder -: History of UTI Past Surgical History: Unable to obtain Psychosocial/ Personal History: Patient lives at home - Family History Family History: Reviewed- Non-Contributory - Social History Smoking Status: Never smoker Alcohol use: No CD- Drugs: No Caffeine use: No Place of Residence: Home Review of Systems is unable to be obtained Physical Examination - Physical Exam General: Alert, In no apparent distress, Cooperative, Other (Patient with increased agitation.) HEENT: Atraumatic, Normocephalic, Mucous membr. moist/pink Neck: Supple, No Thyromegaly Respiratory: Clear to auscultation bilaterally, Normal air movement Cardiovascular: Normal pulses, Regular rate/rhythm Gastrointestinal: Normal bowel sounds, Soft and benign, Non-distended, No ascites, No tenderness, No masses, No rebound, No guarding Musculoskeletal: No erythema, No tenderness, No warmth Neurological: Normal speech, Normal strength at 5/5 x4 extr, Normal tone, Abnormal affect (Patient with increased anxiety. Patient does not appear suicidal or wanting to hurt others.) - Studies Laboratory Data (last 24 hrs) 06/29/19 12:51: PT 11.7, INR 0.99, APTT 27.2 06/29/19 12:51: WBC 5.7, Hgb 10.1 L, Hct 29.5 L, Plt Count 439 H 06/29/19 12:51: Sodium 141, Potassium 2.6 L*, BUN 10, Creatinine 0.78, Glucose 88, Magnesium 1.6 L, Total Bilirubin 0.6, AST 25, ALT 42, Alkaline Phosphatase 94 Assessment and Plan - Plan Impression: Toxic encephalopathy likely related to UTI Hypokalemia likely from dehydration Bipolar disorder Paranoid schizophrenia Hypertension Plan: Toxic encephalopathy likely related to UTI: Patient will be admitted for further evaluation and treatment. Will obtain blood and urine culture. Patient be started on Rocephin. Will monitor lab closely. Potassium to be replaced. Will continue with IV fluids. Will continue to monitor and assess. Once the patient is medically stable will have MR reassess patient for suicidal ideation, danger to others. Will need to assess if patient will require psychiatric inpatient evaluation and treatment at discharge. Hypokalemia likely from dehydration: Continue IV fluids. Will monitor and replace appropriately. Bipolar disorder: Patient has been non compliant with her medications as her family. Will restart home medication. Will have psychiatry-[facility] evaluate patient once medically stable to determine if patient will require inpatient psych evaluation and treatment. Paranoid schizophrenia: Continue as above Hypertension: Restart home medication. Will monitor closely. Discharge Plan: Home Plan to discharge in: 48 Hours - Advance Directives Does patient have a Living Will: No Does patient have a Durable POA for Healthcare: No - Code Status/Comfort Care Code Status Assessed: No (Will need to assess code status.) Time Spent Managing Pts Care (In Minutes): 55
[2019-06-29] MEDS ORDERED: ACETAMINOPHEN 500 MG TAB PO PRN (17:55)
[2019-06-29] MEDS ORDERED: ONDANSETRON 4 MG/2 ML VIAL IV PRN (17:55)
[2019-06-29] MEDS ORDERED: haloperidoL 5 MG TAB PO PRN (17:55)
[2019-06-29] MEDS: NA CHLORIDE 0.9% 1,000 ML IV SCH (18:12)
[2019-06-29] MEDS: LORazepam 2 MG/ML VIAL IV PRN (18:12)
[2019-06-29 19:38] VITALS: BMI 33.3
[2019-06-29] MEDS: FAMOTIDINE 20 MG TAB PO SCH (20:16)
[2019-06-29] MEDS: ENOXAPARIN 40 MG/0.4 ML SQ SCH (20:24)
[2019-06-30] MEDS ORDERED: POTASSIUM 25 MEQ EFFERV TAB PO ONE ×2 (03:08→09:00)
[2019-06-30] MEDS: NA CHLORIDE 0.9% 1,000 ML IV SCH ×3 (03:55→23:55)
[2019-06-30 05:21] LABS: Absolute Lymphocytes (CBC) 1.2 K/uL (0.7-4.9); Basophils % 0.8 % (0-1.3); Hematocrit 29.3 % (36.0-45.0); Lymphocytes % 20.4 % (15.3-44.8); MPV 7.7 fL (7.6-11.3); RBC Red Blood Cell Count 3.24 M/uL (3.86-4.86)
[2019-06-30] MEDS: LORazepam 2 MG/ML VIAL IV PRN ×3 (05:22→22:23)
[2019-06-30 05:50] LABS: Magnesium 2.1 mg/dL (1.8-2.4); Potassium 3.9 mmol/L (3.5-5.1); Thyroid Stimulating Hormone 3.44 uIU/mL (0.360-3.740)
[2019-06-30] MEDS ORDERED: CEFTRIAXONE/SWI 1gm 1 GM/10 ML SYR IVP SCH (09:00)
[2019-06-30] MEDS: ENOXAPARIN 40 MG/0.4 ML SQ SCH (09:18)
[2019-06-30] MEDS: FAMOTIDINE 20 MG TAB PO SCH ×2 (09:18→21:03)
[2019-06-30] MEDS: LOSARTAN POTASSIUM 50 MG TABLET PO SCH (09:18)
--- NOTE | 2019-06-30 13:01 | EKG ---
Test Date: 2019-06-29 Test Time: 12:49:47 Telephone Directory Distributor Driver: NUHA MEASUREMENT RESULTS: Intervals: Rate: 97 NV: 142 QRSD: 104 QT: 420 QTc: 533 [place]: P: 71 NV: 142 QRS: -11 T: 96 INTERPRETIVE STATEMENTS: Undetermined rhythm Low voltage QRS Cannot rule out Anterior infarct, age undetermined Prolonged QT Abnormal ECG No previous ECG available for comparison Electronically Signed On 06-30-19 12:58:31 CDT by Andrés Rosas
--- NOTE | 2019-06-30 17:11 | P.PN ---
Subjective Date of Service: 06/30/19 Primary Care Provider: Jeffrey Machado NP; [facility] Chief Complaint: Altered mental status Subjective: Improving Physical Examination - Vital Signs Temperature: 96.8 F Blood Pressure: 124/80 Pulse: 87 Respirations: 18 Pulse Ox (%): 100 - Physical Exam General: Alert, Other (Less agitated today) Neck: Supple Respiratory: Clear to auscultation bilaterally, Normal air movement Cardiovascular: Normal pulses, Regular rate/rhythm Gastrointestinal: Normal bowel sounds, No tenderness, No masses, No rebound, No guarding Neurological: Normal speech, Normal strength at 5/5 x4 extr, Abnormal affect (Less agitation.) - Studies Laboratory Data (last 24 hrs) 06/30/19 05:03: Sodium 139, Potassium 3.9, BUN 9, Creatinine 0.75, Glucose 108 H, Magnesium 2.1 D 06/30/19 05:03: WBC 6.0, Hgb 10.1 L, Hct 29.3 L, Plt Count 403 06/30/19 00:25: Potassium 3.1 L Microbiology Data (last 24 hrs): 06/29/19 19:51 Blood - Blood Anaerobic Blood Culture - Final Medications List Reviewed: Yes Assessment & Plan Discharge Plan: Psychiatry Plan to discharge in: 72 Hours Physician Review Additional Text: Impression: Toxic encephalopathy likely related to UTI Hypokalemia likely from dehydration Bipolar disorder Paranoid schizophrenia Hypertension Plan: Toxic encephalopathy likely related to UTI: Continue IV antibiotic therapy. Await blood and urine culture results. Continue IV fluids. Urine culture shows Gram negative rods. Once the patient is medically stable will have [facility] reassess patient for suicidal ideation, danger to others. Will need to assess if patient will require psychiatric inpatient evaluation and treatment at discharge. Case discussed with social work. Hypokalemia likely from dehydration: Continue IV fluids. Will monitor and replace appropriately. Bipolar disorder: Patient has been non compliant with her medications as her family. Continue medication. Will have psychiatry-[facility] evaluate patient once medically stable to determine if patient will require inpatient psych evaluation and treatment. Paranoid schizophrenia: Continue as above Hypertension: Restart home medication. Will monitor closely. Time Spent Managing Pts Care (In Minutes): 55
[2019-06-30] MEDS ORDERED: HALOPERIDOL LACT 5 MG/ML INJ IM PRN (20:44)
[2019-07-01 06:08] LABS: Absolute Lymphocytes (CBC) 1.3 K/uL (0.7-4.9); Basophils % 0.7 % (0-1.3); Hematocrit 27.9 % (36.0-45.0); Lymphocytes % 24.7 % (15.3-44.8); MPV 7.9 fL (7.6-11.3); RBC Red Blood Cell Count 3.12 M/uL (3.86-4.86)
[2019-07-01 06:54] LABS: Magnesium 1.8 mg/dL (1.8-2.4)
[2019-07-01 07:32] LABS: Potassium 2.9 mmol/L (3.5-5.1)
[2019-07-01] MEDS: LOSARTAN POTASSIUM 50 MG TABLET PO SCH (07:47)
[2019-07-01] MEDS: SMZ./TMP. 800/160 MG TABLET PO SCH ×2 (07:47→20:03)
[2019-07-01] MEDS: ENOXAPARIN 40 MG/0.4 ML SQ SCH (07:47)
[2019-07-01] MEDS: FAMOTIDINE 20 MG TAB PO SCH ×2 (07:47→20:02)
[2019-07-01] MEDS ORDERED: POTASSIUM CL 60 MEQ in NA CHLORIDE 0.9% 1,000 ML IV ONE (08:00)
[2019-07-01] MEDS ORDERED: MAGNESIUM SULFATE 1 gm IVPB 1 GM/100 ML BAG IV ONE (09:07)
[2019-07-01] MEDS: LORazepam 2 MG/ML VIAL IV PRN ×2 (10:39→22:25)
--- NOTE | 2019-07-01 18:13 | P.PN ---
Subjective Date of Service: 07/01/19 Primary Care Provider: Jeffrey Machado NP; [facility] Chief Complaint: Altered mental status Subjective: Improving Physical Examination - Vital Signs Temperature: 97.6 F Blood Pressure: 127/79 Pulse: 95 Respirations: 16 Pulse Ox (%): 96 - Physical Exam General: Alert, Other (Still with some anxiety) HEENT: Atraumatic Neck: Supple Respiratory: Clear to auscultation bilaterally, Normal air movement Cardiovascular: Normal pulses, Regular rate/rhythm Neurological: Normal speech, Normal strength at 5/5 x4 extr, Normal tone, Abnormal affect (Increase anxiety) - Studies Microbiology Data (last 24 hrs): 06/29/19 13:07 Clean Catch Urine H[place]gins Count - Final >100,000 CFU/ML. 06/29/19 13:07 Clean Catch Urine - Final Escherichia Coli 06/29/19 19:51 Blood - Blood Anaerobic Blood Culture - Final Medications List Reviewed: Yes Assessment & Plan Discharge Plan: Other (Home versus inpatient psych) Plan to discharge in: 24 Hours Physician Review Additional Text: Impression: Toxic encephalopathy likely related to UTI Hypokalemia likely from dehydration Bipolar disorder Paranoid schizophrenia Hypertension Plan: Toxic encephalopathy likely related to UTI: Will adjust antibiotic therapy. Will review urine culture. Case discussed with pharmacy. Patient appears medically stable. Will have family welfare social work professor contact mental health services to evaluate patient for possible inpatient psychiatry transfer.. There is plan for video conference seen with the patient for psychiatric evaluation and transfer. Hypokalemia likely from dehydration: Discontinue IV fluids. Will monitor and replace appropriately. Bipolar disorder: Patient has been non compliant with her medications as her family. Continue medication. Will have psychiatry-[facility] evaluate patient once m edically stable to determine if patient will require inpatient psych evaluation and treatment. Paranoid schizophrenia: Continue as above Hypertension: Continue home medication. Will monitor closely. Time Spent Managing Pts Care (In Minutes): 55
[2019-07-02] MEDS ORDERED: HALOPERIDOL LACT 5 MG/ML INJ IV ONE ×3 (03:24→14:00)
[2019-07-02 06:19] LABS: Absolute Lymphocytes (CBC) 1.6 K/uL (0.7-4.9); Basophils % 0.8 % (0-1.3); Hematocrit 30.2 % (36.0-45.0); Lymphocytes % 23.9 % (15.3-44.8); MPV 8.2 fL (7.6-11.3); RBC Red Blood Cell Count 3.35 M/uL (3.86-4.86)
[2019-07-02 06:21] LABS: Magnesium 1.8 mg/dL (1.8-2.4); Potassium 3.8 mmol/L (3.5-5.1)
[2019-07-02] MEDS ORDERED: MAGNESIUM SULFATE 1 gm IVPB 1 GM/100 ML BAG IV ONE (08:00)
[2019-07-02] MEDS ORDERED: POTASSIUM CL SA 10 MEQ TAB PO ONE (08:00)
[2019-07-02] MEDS: LORazepam 2 MG/ML VIAL IV PRN ×2 (08:52→20:18)
[2019-07-02] MEDS: SMZ./TMP. 800/160 MG TABLET PO SCH ×2 (08:53→20:17)
[2019-07-02] MEDS: FAMOTIDINE 20 MG TAB PO SCH ×2 (08:53→20:17)
[2019-07-02] MEDS: LOSARTAN POTASSIUM 50 MG TABLET PO SCH (08:54)
[2019-07-02] MEDS: ENOXAPARIN 40 MG/0.4 ML SQ SCH (08:54)
--- NOTE | 2019-07-02 11:36 | P.PN ---
Subjective Date of Service: 07/02/19 Primary Care Provider: Jeffrey Machado NP; [facility] Chief Complaint: Altered mental status Subjective: Improving, Doing well Physical Examination - Vital Signs Temperature: 97.0 F Blood Pressure: 116/73 Pulse: 89 Respirations: 17 Pulse Ox (%): 98 - Physical Exam General: Alert, In no apparent distress, Cooperative HEENT: Atraumatic Neck: Supple Respiratory: Clear to auscultation bilaterally, Normal air movement Cardiovascular: Normal pulses, Regular rate/rhythm Gastrointestinal: Normal bowel sounds Neurological: Normal speech, Normal strength at 5/5 x4 extr, Normal tone, Abnormal affect (less agitated today. No significant agitation. ) - Studies Microbiology Data (last 24 hrs): 06/29/19 13:07 Clean Catch Urine Renick Count - Final >100,000 CFU/ML. 06/29/19 13:07 Clean Catch Urine - Final Escherichia Coli Medications List Reviewed: Yes Assessment & Plan Discharge Plan: Home Physician Review Additional Text: Impression: Toxic encephalopathy likely related to UTI, urine culture-E. Coli Hypokalemia likely from dehydration, resolved Bipolar disorder Paranoid schizophrenia Hypertension Plan: Toxic encephalopathy likely related to UTI, urine culture-E. Coli: Patient now on Bactrim. Patient medically stable at this time. Will reach out to Psychiatry-[facility] for evaluation of patient as the patient has underlying bipolar disorder and paranoid schizophrenia. Social work spoke to somebody yesterday. They were to have a video conference. Would prefer one on one evaluation of patient. Will call [facility] to further discuss. If they are not able to come will consider getting PSYC here if available to assess. I would recommend inpatient PSYC treatment and transfer at this time. Patient is medically stable. Will try to reach out to family. I was able to speak to [facility] screening representative Teresa. Phone number [phone]. Will try to arrange for video conference to evaluate patient. I will update charge nurse to help in this process. Hypokalemia likely from dehydration,resolved: She remains stable. IV fluids discontinued. Bipolar disorder: Patient has been non compliant with her medications as her family. Continue current medication. Spoke with [facility] screening representative this morning. They will do a video conference. Will discuss further with charge nurse to help arrange this. Paranoid schizophrenia: Continue as above Hypertension: Continue home medication. Will monitor closely. Time Spent Managing Pts Care (In Minutes): 55
[2019-07-02] MEDS ORDERED: WATER FOR INJ,STERILE 10 ML IM PRN (23:30)
[2019-07-02] MEDS ORDERED: ZIPRASIDONE MESYLA 20 MG/VIAL IM ONE (23:30)
[2019-07-02] MEDS ORDERED: WATER FOR INJ,STERILE 10 ML ONE (23:44)
[2019-07-03] MEDS: LORazepam 2 MG/ML VIAL IV PRN ×3 (03:29→17:12)
[2019-07-03 07:47] LABS: Magnesium 2.1 mg/dL (1.8-2.4); Potassium 3.9 mmol/L (3.5-5.1)
[2019-07-03] MEDS: ENOXAPARIN 40 MG/0.4 ML SQ SCH (09:01)
[2019-07-03] MEDS: LOSARTAN POTASSIUM 50 MG TABLET PO SCH (09:01)
[2019-07-03] MEDS: FAMOTIDINE 20 MG TAB PO SCH ×2 (09:02→20:41)
[2019-07-03] MEDS: SMZ./TMP. 800/160 MG TABLET PO SCH ×2 (09:02→20:41)
[2019-07-03] MEDS ORDERED: POTASSIUM CL SA 10 MEQ TAB PO ONE (10:00)
--- NOTE | 2019-07-03 11:43 | P.PN ---
Subjective Date of Service: 07/03/19 Primary Care Provider: Jeffrey Machado NP; [facility] Chief Complaint: Altered mental status Subjective: Improving (BP still slightly elevated) Physical Examination - Vital Signs Temperature: 97.5 F Blood Pressure: 163/88 Pulse: 91 Respirations: 20 Pulse Ox (%): 93 - Physical Exam General: Alert, Other (still with increased anxiety) Neck: Supple Respiratory: Clear to auscultation bilaterally, Normal air movement Cardiovascular: Normal pulses, Regular rate/rhythm Neurological: Normal speech, Normal strength at 5/5 x4 extr, Normal tone, Abnormal affect - Studies Medications List Reviewed: Yes Assessment & Plan Discharge Plan: Psychiatry Plan to discharge in: 24 Hours Physician Review Additional Text: Impression: Toxic encephalopathy likely related to UTI, urine culture-E. Coli Hypokalemia likely from dehydration, resolved Bipolar disorder Paranoid schizophrenia Hypertension Plan: Toxic encephalopathy likely related to UTI, urine culture-E. Coli: Patient now on Bactrim. She will need 3 day treatment for UTI. Patient medically stable at this time. [facility] has evaluated patient. They are recommending inpatient psych evaluation. Currently trying to reach out to multiple inpatient facilities for acceptance. I was able to speak to [facility] patient admitting representative Teresa. Phone number [phone]. Continue physical therapy. Encourage ambulation. Hypokalemia likely from dehydration,resolved: Resolved. Bipolar disorder: Patient has been non compliant with her medications as her family. Continue current medication. Spoke with [facility] patient admitting representative yesterday. She is recommending inpatient psych evaluation and treatment. Currently trying to reach out to multiple inpatient facilities for acceptance. Patient medically stable to be discharged to facility once approved. Paranoid schizophrenia: Continue as above Hypertension: Slightly elevated. Will add metoprolol 25 mg daily. Patient currently on losartan 25 mg daily. Time Spent Managing Pts Care (In Minutes): 55
[2019-07-03] MEDS ORDERED: LORazepam 2 MG/ML VIAL IV ONE (13:00)
[2019-07-03 23:48] VITALS: BP 147/98; TEMP 98.2
[2019-07-04 00:39] VITALS: O2SAT 96
[2019-07-04] MEDS: LORazepam 2 MG/ML VIAL IV PRN (02:37)
[2019-07-04 05:56] LABS: Potassium 4.9 mmol/L (3.5-5.1)
--- NOTE | 2019-07-04 08:58 | P.DS ---
Admission Date: 06/30/19 Discharge Date: 07/04/19 Primary Care Provider: Jeffrey Machado NP; [facility] Disposition: TRANSFR TO OTHER-PSY/CD/REHAB Discharge Condition: GOOD Reason for Admission: Altered mental status Consultations: PS[facility]C-[facility] Procedures: CT Head: Medical Problem List: Toxic encephalopathy likely related to UTI, urine culture-E. Coli Hypokalemia likely from dehydration, resolved Bipolar disorder Paranoid schizophrenia Hypertension Brief History of Present Illness: 64-year-old female with history of paranoid schizophrenia, bipolar disorder and hypertension. Patient presented to the emergency room with altered mental status. Patient is not able to give a full history. ER reports patient was brought in due to altered mental status. Apparently mental health officer was sent to evaluate patient. There was some concern of psychosis related to her mental illness. There was no suicide ideation. No significant agitation noted they felt patient need to be sent to the ER for further evaluation of altered mental status. They suspected infectious process as etiology. When I spoke to the daughter the daughter reported that over the past several weeks the patient has not been taking her psychiatric medications. She has been ruled destructive in the house. Daughter feels sees a danger to others. She apparently called [facility] to have the patient evaluated. That is when mental health officer went to visit. In the ER patient was evaluated. CT head unremarkable. Patient found to have UTI. White counts 5.7. Hemoglobin 10.1. Sodium 141, potassium 2.7. Glucose 75. Patient admitted for further evaluation and treatment. When I saw the patient she was more alert. Patient appeared slightly agitated. Patient does not appear septic. Hospital Course: Patient presented with altered mental status. Patient with underlying bipolar disorder, paranoid schizophrenia and hypertension. Mental health officer when out to the home as family reported that she was being very destructive. She was sent to the ER for further evaluation as they felt altered mental status was related to something else. She was found to have toxic encephalopathy related to UTI. Urine culture was positive for E coli. She was treated in the course of her stay. Her condition improved. Patient was back to her baseline mental status. [facility] evaluated the patient as she is seen by them as an outpatient. [facility] recommended inpatient psych facility transfer to continue further evaluation and treatment. Case discussed with psychiatrist from [facility]. Psychiatrist has accepted the patient. Patient transferr ed to the facility continue care. Patient still slightly agitated currently on Haldol. Patient mainly is in bed. Patient required sitter but she is able to ambulate. Mild hallucinations noted. Patient medically stable for transfer. At discharge patient will continue with Bactrim DS 1 pill twice daily for 3 more days. UTI prevention will be provided. Patient currently on Haldol at night. Further evaluation and treatment by inpatient psychiatry will be done. For her hypertension patient will continue with losartan 25 mg daily. At this time patient being transferred to inpatient psych. Vital Signs/Physical Exam: Temp Pulse Resp BP Pulse Ox 98.2 F 91 H 20 147/98 H 91 07/03/19 23:47 07/03/19 23:47 07/03/19 23:47 07/03/19 23:47 07/03/19 23:47 General: Alert, In no apparent distress, Cooperative, Other (increased anxiety. primarily in bed. able to ambulate but aid is present) HEENT: Atraumatic Neck: Supple Respiratory: Clear to auscultation bilaterally, Normal air movement Cardiovascular: Normal pulses, Regular rate/rhythm Gastrointestinal: Normal bowel sounds, Soft and benign, Non-distended Musculoskeletal: No erythema, No tenderness, No warmth Integumentary: No tenderness/swelling, No erythema, No warmth, No cyanosis Neurological: Normal speech, Normal strength at 5/5 x4 extr, Abnormal affect (increased anxiety. less agitation.) Laboratory Data at Discharge: WBC 6.7 K/uL (4.3-10.9) D 07/02/19 05:21 Hgb 10.3 g/dL (12.0-15.0) L 07/02/19 05:21 Hct 30.2 % (36.0-45.0) L 07/02/19 05:21 Plt Count 402 K/uL (152-406) 07/02/19 05:21 PT 11.7 SECONDS (9.5-12.5) 06/29/19 12:51 INR 0.99 06/29/19 12:51 APTT 27.2 SECONDS (24.3-36.9) 06/29/19 12:51 Sodium 131 mmol/L (136-145) L 07/04/19 05:14 Potassium 4.9 mmol/L (3.5-5.1) 07/04/19 05:14 BUN 8 mg/dL (7-18) 07/04/19 05:14 Creatinine 0.94 mg/dL (0.55-1.3) 07/04/19 05:14 Glucose 97 mg/dL (74-106) 07/04/19 05:14 Magnesium 2.1 mg/dL (1.8-2.4) 07/03/19 07:22 Total Bilirubin 0.6 mg/dL (0.2-1.0) 06/29/19 12:51 AST 25 U/L (15-37) 06/29/19 12:51 ALT 42 U/L (12-78) 06/29/19 12:51 Alkaline Phosphatase 94 U/L (45-117) 06/29/19 12:51 Home Medications: Losartan Potassium 50 mg PO DAILY 07/02/19 haloperidoL [Haldol*] 10 mg PO DAILY 07/02/19 Sulfamethoxazole/Trimethoprim [Bactrim Ds Tablet] 1 each PO BID #6 tablet 07/04/19 New Medications: Sulfamethoxazole/Trimethoprim [Bactrim Ds Tablet] 1 each PO BID #6 tablet Patient Discharge Instructions: Patient will be transferred to inpatient psych facility to continue further evaluation and treatment. Patient currently on Haldol at night. Patient with underlying hypertension. Patient may continue with losartan 25 mg daily. Patient with UTI-urine culture positive for E coli. Patient will continue with Bactrim D 1 pill twice a day for 3 more days. UTI prevention education will be provided. Diet: AHA Activity: Fall precautions Time spent managing pt's care (in minutes): 55
[2019-07-04] MEDS ORDERED: METOPROLOL TAR 25 MG TAB PO SCH (12:00)
== END 2019-07-04 07:06 | DRG 689 ==
LOC: ER 12:14 → ERHOLD 15:30 → 2ND 17:16 → OBSVTOIN 06-30 10:58
PROVIDERS: ADMIT Family Medicine; ATTEND Family Medicine
DX: N39.0 Urinary tract infection, site not specified (principal); G92 Toxic encephalopathy; F20.0 Paranoid schizophrenia; I10 Essential (primary) hypertension; E87.6 Hypokalemia; E86.0 Dehydration; E78.5 Hyperlipidemia, unspecified; F29 Unspecified psychosis not due to a substance or known physiological condition; F31.9 Bipolar disorder, unspecified; Z88.8 Allergy status to other drugs, medicaments and biological substances; Z79.899 Other long term (current) drug therapy; B96.20 Unspecified Escherichia coli [E. coli] as the cause of diseases classified elsewhere
CPT/HCPCS: 36415; 51702; 70450; 80048; 80076; 80307; 80320; 80329; 81003; 81015; 83735; 84132; 84439; 84443; 85025; 85610; 85730; 87040; 87077; 87086; 87088; 87186; 93005; 96365; 96367; 97116; 97161; 99285; G0378; J0696; J1630; J1650; J3475; J3486; J7030; J7040

== ENCOUNTER 2020-02-07 12:38 | Inpatient (IN) | payer OTHER ==
--- OUTSIDE RECORDS SUMMARY | 2020-02-07 13:09 | XMS REPORT | Summary of Care ---
:1955 Author Name Green Address [facility] Unavailable , Care Team Providers Name Role Phone Green Unavailable Unavailable BARBARA SINGH [place] Unavailable Unavailable Unavailable Unavailable Unavailable Functional Status Name Dates Details Functional status health issues are not documented Status: Name Dates Details Cognitive status health issues are not documented Status: Problems Name Dates Details Pain of left femur (733.90, M89.8X5) Sta tus: Active Closed displaced intertrochanteric fract ure of left femur, initial encounter (820.21, S72.142A) Status: Active Medications Name Dates Details Medications not documented Allergies and Adverse Reactions Name Dates Details Allergy history not documented Status: Procedures Procedure Dates Details Post Op Promis 29 Survey Date: 19-Oct-2019 Immunization Name Dates Details Immunizations not documented Social History Name Dates Details Tobacco smoking consumption unknown (finding) Vital Signs Date Test Result Details No Known Vitals to report Results Date Description Value Details Results not documented Plan of Care Name Dates Details Planned Observations Planned Goals not documented Planned Encounters Appointment; JANNIE CASTREJON APRN On: 17-Nov-2019 9:45 Instructions Name Dates Details Instructions not documented Encounters Appointment; VINICIO JIMENEZ M.D. On: 27-Sep-2019 9:00 Encounter Diagnosis: Problem not documented Appointment; JANNIE CASTREJON APRN On: 13-Oct-2019 10:00 Encounter Diagnosis: Problem not documented
--- OUTSIDE RECORDS SUMMARY | 2020-02-07 13:09 | XMS REPORT | Summary of Care ---
:1955 Author Name LUCÍA VIC Address Unavailable Unavailable , Care Team Providers Name Role Phone LUCÍA HO Unavailable Unavailable BARBARA SINGH [place] Unavailable Unavailable Unavailable Unavailable Unavailable Functional Status [...] to report Results Date Description Value Details [id number] [U] XRAY HIP UNILATERAL MIN 2 VWS LEFT 7 3502 XR HIP UNILATERAL MIN 2 VWS LEFT Images acquired, not reported on this accession number. Plan of Care Name Dates Details Planned Observations Planned Goals not documented Interventions Provided Labs/Procedures/Imaging[U] XRAY HIP UNILATERAL MIN 2 VWS LEFT [id number]; Done: 17 Nov 2019SuPanfilo w/Wheels; To Be Done: 17 Nov 2019PlanXray's reviewed with PhysicianWe discussed the importance of continued exercise and conditioning Walker given to patient todayDiscussed fall prevention and safetyPatient [place] and will f/u with physician closer to home for future needs.Opportunity for questions was given.Verbalized understanding of plan. Instructions Name Dates Details Instructions not documented Encounters Appointment; VINICIO JIMENEZ M.D. On: 27-Sep-2019 9:00 Encounter Diagnosis: Problem not documented Appointment; JANNIE CASTREJON APRN On: 13-Oct-2019 10:00 Encounter Diagnosis: Problem not documented Appointment; JANNIE CASTREJON APRN On: 17-Nov-2019 9:45 Encounter Diagnosis: Problem not documented
--- OUTSIDE RECORDS SUMMARY | 2020-02-07 13:09 | XMS REPORT | Summary of Care ---
:1955 Author Name LUCÍA VIC Address Unavailable Unavailable , Care Team Providers Name Role Phone LUCÍA HO Unavailable Unavailable BARBARA SINGH [place] Unavailable Unavailable Unavailable Unavailable Unavailable Functional Status [...] to report Results Date Description Value Details [id number] [U] XRAY HIP UNILATERAL MIN 2 VWS LEFT 7 3502 XR HIP UNILATERAL MIN 2 VWS LEFT Images acquired, not reported on this accession number. Plan of Care Name Dates Details Planned Observations Planned Goals not documented Interventions Provided Labs/Procedures/Imaging[U] XRAY HIP UNILATERAL MIN 2 VWS LEFT [id number]; Done: 17 Nov 2019SuPanfilo w/Wheels; To Be Done: 17 Nov 2019PlanXray's reviewed with PhysicianWe discussed the importance of continued exercise and conditioning Walker given to patient todayDiscussed fall prevention and safetyPatient is moving to [place] next week and will f/u with physician closer to home for future needs.Opportunity for questions was given.Verbalized understanding of plan. Instructions Name Dates Details Instructions not documented Encounters Appointment; VINICIO JIMENEZ M.D. On: 27-Sep-2019 9:00 Encounter Diagnosis: Problem not documented Appointment; JANNIE CASTREJON APRN On: 13-Oct-2019 10:00 Encounter Diagnosis: Problem not documented Appointment; JANNEI CASTREJON APRN On: 17-Nov-2019 9:45 Encounter Diagnosis: Problem not documented
--- OUTSIDE RECORDS SUMMARY | 2020-02-07 13:09 | XMS REPORT | Summary of Care ---
:1955 Author Name Rodolfo Garcia Address Unavailable Unavailable , Care Team Providers Name Role Phone LUCÍA HO Unavailable Unavailable BARBARA SINGH [place] Unavailable Unavailable Unavailable Unavailable Unavailable Functional Status [...] to report Results Date Description Value Details [id number] [U] XRAY HIP UNILATERAL MIN 2 VWS LEFT 7 3502 XR HIP UNILATERAL MIN 2 VWS LEFT Images acquired, not reported on this accession number. Plan of Care Name Dates Details Planned Observations Planned Goals not documented Interventions Provided Labs/Procedures/Imaging[U] XRAY HIP UNILATERAL MIN 2 VWS LEFT [id number]; Done: 17 Nov 2019SuPanfilo w/Wheels; To Be Done: 17 Nov 2019 Instructions Name Dates Details Instructions not documented Encounters Appointment; VINICIO JIMENEZ M.D. On: 27-Sep-2019 9:00 Encounter Diagnosis: Problem not documented Appointment; JANNIE CASTREJON APRN On: 13-Oct-2019 10:00 Encounter Diagnosis: Problem not documented Appointment; JANNIE CASTREJON APRN On: 17-Nov-2019 9:45 Encounter Diagnosis: Problem not documented
--- OUTSIDE RECORDS SUMMARY | 2020-02-07 13:09 | XMS REPORT | Summary of Care ---
:1955 Author Name Rodolfo Garcia Address Unavailable Unavailable , Care Team Providers Name Role Phone LUCÍA HO Unavailable Unavailable BARBARA SINGH [place] Unavailable Unavailable Unavailable Unavailable Unavailable Functional Status [...] to report Results Date Description Value Details [id number] [U] XRAY HIP UNILATERAL MIN 2 VWS LEFT 7 3502 XR HIP UNILATERAL MIN 2 VWS LEFT Images acquired, not reported on this accession number. Plan of Care Name Dates Details Planned Observations Planned Goals not documented Interventions Provided Labs/Procedures/Imaging[U] XRAY HIP UNILATERAL MIN 2 VWS LEFT [id number]; Done: 17 Nov 2019 Instructions Name Dates Details Instructions not documented Encounters Appointment; VINICIO JIMENEZ M.D. On: 27-Sep-2019 9:00 Encounter Diagnosis: Problem not documented Appointment; JANNIE CASTREJON APRN On: 13-Oct-2019 10:00 Encounter Diagnosis: Problem not documented Appointment; JANNIE CASTREJON APRN On: 17-Nov-2019 9:45 Encounter Diagnosis: Problem not documented
--- OUTSIDE RECORDS SUMMARY | 2020-02-07 13:11 | XMS REPORT | Continuity of Care Document ---
:1955 Author Organization [facility] t Address [address] [place] [address] Care Team Providers Name Role Phone Stacey RN, L Attending Clinician Unavailable LUCÍA Attending Clinician Unavailable BARBARA Attending Clinician Unavailable Problems Condition Condition Condition Status Onset Resolution Last Treating Co mments Source Name Details Category Date Date Treatment Clinician Date Pain of Pain of Problem Active [facility] left femur left femur [facility] [place] [facility] Closed Closed Problem Active [facility] displaced displaced [facility] [facility] fracture fracture ans of left of left femur, femur, initial initial encounter encounter Allergies, Adverse Reactions, Alerts This patient has no known allergies or adverse reactions. Medications This patient has no known medications. Procedures Procedure Date / Time Performed Performing Clinician Sourc e Post Op Promis 29 2019-10-19 00:00:00 [facility] [U] XRAY HIP 2019-10-12 00:00:00 [place] [facility] [place] UNILATERAL MIN 2 VWS Physicians LEFT [id number] Encounters Start End Encounter Admission Attending Care Care Encounter Source Date/Time Date/Time Type Type Clinicians Facility Department ID 2020-02-06 2020-02-06 Transition Gretchen Ibarra [id number] 00:00:00 00:00:00 of Care Gris Gonsalves [id number] [place] [id number] 2019-11-17 2019-11-17 Appointmen TRES CASTREJON [facility] [id number] Univers 09:45:00 09:45:00 t; [facility] 2019-10-13 2019-10-13 Appointmen [facility]ES [facility]RE[facility] [id number] Univers 10:00:00 10:00:00 t; JANNIE CASTREJON APRN [facility], [address] 2019-09-27 2019-09-27 Appointmen VINICIO JIMENEZ, [facility] [id number] Univers 09:00:00 09:00:00 t; Hussain JIMENEZ M.D. [facility] Results Test Description Test Time Test Comments Results Result Sour e Comments [U] XRAY HIP 2019-11-17 [facility] o f UNILATERAL MIN 2 10:36:00 [facility] not [facility] LEFT [id number] reported on Physician s this accession number.
--- OUTSIDE RECORDS SUMMARY | 2020-02-07 13:11 | XMS REPORT | Summary of Care ---
:1955 Author Organization [facility] Address [address] [place] [id number] Care Team Providers Name Role Phone Gissel Jackson Primary Care Provider Reason for Visit Reason Comments Transition Of Care Encounter Details Date Type Department Care Team Description 02/06/2020 Transition [facility] Care [facility] [address] [address] Allergies No Known Allergiesdocumented as of this encounter (statuses as of 02/07/2020) Medications Medication Sig Dispensed Refills Start Date End Date Status LOSARTAN POTASSIUM Take 50 mg by 0 Active (LOSARTAN ORAL) mouth daily. ATORVASTATIN CALCIUM Take 20 mg by 0 Active (ATORVASTATIN ORAL) mouth at bedtime. BENZTROPINE MESYLATE Take 1 mg by 0 Active (BENZTROPINE ORAL) mouth 2 (two) times daily. documented as of this encounter (statuses as of 02/07/2020) Active Problems Problem Noted Date Hyponatremia 01/30/2020 Obesity (BMI 30-39.9) 01/30/2020 documented as of this encounter (statuses as of 02/07/2020) Social History Tobacco Use Types Packs/Day Years Used Date Never Smoker Smokeless Tobacco: Never Used Alcohol Use Drinks/Week oz/Week Comments No Sex Assigned at Date Recorded Not on file COVID-19 Exposure Response Date Recorded In the last month, have you been in contact Unable to assess 01/29/2020 6:44 PM RADIOGRAPHER CARDIAC CATHETERIZATION with someone who was confirmed or suspected to have Coronavirus / COVID-19? documented as of this encounter Last Filed Vital Signs Not on filedocumented in this encounter Miscellaneous Notes Telephone Encounter - Gris Ibarra RN - 02/07/2020 10:55 AM CST TRANSITIONAL CARE MANAGEMENT ASSESSMENT 02/07/2020 Loly Hermosillo [id number] Loly Hermosillo is a 64 year old /White female was admitted on 01/29/20 to [facility] ([facility]. She was discharged on 02/04/20 with discharge disposition of HR- Routine Discharge. Admitting Physician: Irina Bashir Discharge Diagnosis: Linked Episodes Type: Episode: Status: Noted: Resolved: Last update: Updated by: TRANSITION OF CARE tcm Active 02/03/2020 02/07/2020 10:54 AM Gris Ibarra RN Comments:02/03/2020 TCM Eyl-nglr-nv-face outreach documentation: Discharge Assessment Chart Assessed: 02/07/20 TCM Outreach Completed: 02/07/20 Care Transitions Nurse CM attempted to reach patient via telephone. No answer, voicemail full/not set up. Unable to leave message. THIERRY Maurice, RN, CCRN Liquor Runner- DEERK Future Appointments: OGRAPHER CARDIAC CATHETERIZATION Telephone Encounter - Gris Ibarra RN - 02/06/2020 4:26 PM RADIOGRAPHER CARDIAC CATHETERIZATION TRANSITIONAL CARE MANAGEMENT ASSESSMENT 02/06/2020 Loly Hermosillo [id number] Loly Hermosillo is a 64 year old /White female was admitted on 01/29/20 to [facility] ([facility]. She was discharged on 02/04/20 with discharge disposition of HR- Routine Discharge. Admitting Physician: Irina Bashir Discharge Diagnosis: Hyponatremia SIADH No linked episodes TCM Bvx-kjjl-ru-face outreach documentation: No valid phone number, unable to complete DEREK call. THIERRY Maurice, RN, CCRN Liquor Runner- DEREK Future Appointments: OGRAPHER CARDIAC CATHETERIZATION documented in this encounter Plan of Treatment Health Maintenance Due Date Last Done Comments HEPATITIS C (HCV) SCREEN 1955 Depression Screening 1968 DTaP,Tdap,and Td Vaccines (1 - 1975 Tdap) Breast Cancer Screening 1996 (MAMMOGRAM) PAP SMEAR 04/05/2006 04/05/2003 COLON CANCER SCREENING ANNUAL 2006 FIT/FOBT COLON CANCER SCREENING FIT DNA 2006 EVERY 3 YEARS COLON CANCER SCREENING 2006 SIGMOIDOSCOPY EVERY 5 YEARS COLONOSCOPY 2006 Colorectal Cancer Screening 2006 Zoster Recombinant Vaccine 2006 (SHINGRIX) (1 of 2) INFLUENZA VACCINE (#1) 2019 PNEUMOCOCCAL 0-64 YEARS COMBINED Aged Out No longer eligible based on SERIES patient's age to complete this topic documented as of this encounter Results Not on filedocumented in this encounter Insurance Payer Benefit Plan / Subscriber ID Effective Phone Address T e Group Dates [facility] [id number] 2017-Pres [facility]ARE ent Adv HM O MANAGED DUAL COMPLETE MEDICARE HMO [employer] [id number] 2008-Pres [address] [facility] ent [id number] [place] [address] [facility] MEDICAID OF [id number] 2019-Pre [phone] [address] [facility] [place] sent [phone] [place] [address] documented as of this encounter Advance Directives Name Relationship Healthcare Agent Communication Relationship Lizette Graham Child Health Care Agent Darleen Graham Sibling [facility] [phone] Brenda Care Agent (Mobile)
--- OUTSIDE RECORDS SUMMARY | 2020-02-07 13:11 | XMS REPORT | Summary of Care ---
:1955 Author Organization [facility] - [facility] Address [address] [place] [id number] Care Team Providers Name Role Phone Rodger Jackson Primary Care Provider Reason for Referral (Routine) Status Reason Specialty Diagnoses / Referred By Referred To Procedures Contact Contact Open IM-NEPHROLOGY Diagnoses Hyponatremia Agraharkar, Procedures Discharge Follow-Up: Specialty Service IM-NEPHROLOGY; 1 Week MD Heath [address] [place] [address] (Routine) Status Reason Specialty Diagnoses / Referred By Referred To Procedures Contact Contact Open PN-PSYCHIATRY Diagnoses Hyponatremia Pettit, Lola, Procedures Discharge Follow-Up: Specialty Service PN-PSYCHIATRY; 1 Week ALANA [address] [place], [place] [address] (Routine) Status Reason Specialty Diagnoses / Procedures Referred By C ontact Referred To Contact Open Diagnoses Hyponatremia Lola Pettit, Rodger Jackson Procedures Discharge Follow-up: PCP RODGER JACKSON; 3-5 Days ALANA [address] [facility] [address] [place] [address] [facility] [place], [place] [address] Phone: Radiology Services (STAT) Status Reason Specialty Diagnoses / Referred By Referred To Procedures Contact Contact New Request Diagnostic Diagnoses Hyponatremia Krysten, Radiology Procedures XR KUB MD Irina [address] [place] [id number] Radiology Services (STAT) Status Reason Specialty Diagnoses / Referred By Referred To Procedures Contact Contact New Request Diagnostic Diagnoses Hyponatremia Krysten, Radiology Procedures XR CHEST 1 VW MD Irina [address] [place] [phone] MRI/CAT Scan (STAT) Status Reason Specialty Diagnoses / Referred By Referred To Procedures Contact Contact New Request Diagnostic Diagnoses Lynette Johnson Radiology Procedures CT CERVICAL SPINE WO CONTRAST G, AUTOMATIC QUILLING MACHINE OPERATOR [id number] [place] [address] MRI/CAT Scan (STAT) Status Reason Specialty Diagnoses / Referred By Referred To Procedures Contact Contact New Request Diagnostic Diagnoses Lynette Johnson Radiology Procedures CT Head W/O Contrast G, AUTOMATIC QUILLING MACHINE OPERATOR [address] [id number] [place] [address] Reason for Visit Reason Comments Vomiting Fall Auth/Cert Status Reason Specialty Diagnoses / Referred By Referred To Procedures Contact Contact Emergency Medicine [facility] Em ergency Dept [address] [place] [address] Fax: Encounter Details Date Type Department Care Team Description 01/29/2020 - Hospital Encounter [facility] Galileo Rojas a G, AUTOMATIC QUILLING MACHINE OPERATOR [id number] [place], [place] [phone] Hyponatremia 02/04/2020 Medicine/Surgery [facility] Irina Bashir MD [address] [place] [address] [id number] Faustino Perez MD [address] [place] [address] [phone] [place] [address] Allergies No Known Allergiesdocumented as of this encounter (statuses as of 02/04/2020) Medications Medication Sig Dispensed Refills Start Date End Date Status LOSARTAN POTASSIUM Take 50 mg by 0 Active (LOSARTAN ORAL) mouth daily. ATORVASTATIN Take 20 mg by 0 Act mela CALCIUM mouth at (ATORVASTATIN ORAL) bedtime. BENZTROPINE Take 1 mg by 0 Activ e MESYLATE mouth 2 (two) (BENZTROPINE ORAL) times daily. CHLORHEXIDINE, 1 Dose. Swish 0 02/02/2020 Discontinued BULK, MISC and spit 1 cap full by mouth twice daily haloperidol 10 mg Take 10 mg by 0 02/02/20 20 Discontinued tablet mouth at bedtime. hydrOXYzine 25 mg Take 25 mg by 0 02/02/20 20 Discontinued tablet mouth 2 (two) times daily. sulfamethoxazole-tr Take 1 tablet 14 tablet 0 08/13/201702/01 Discontinued imethoprim (BACTRIM by mouth 2 DS) 800-160 mg per (two) times tabletIndications: daily. Urinary tract infection without hematuria, site unspecified documented as of this encounter (statuses as of 02/04/2020) Active Problems Problem Noted Date Hyponatremia 01/30/2020 Obesity (BMI 30-39.9) 01/30/2020 documented as of this encounter (statuses as of 02/04/2020) Social History Tobacco Use Types Packs/Day Years Used Date Never Smoker Smokeless Tobacco: Never Used Alcohol Use Drinks/Week oz/Week Comments No Sex Assigned at Date Recorded Not on file COVID-19 Exposure Response Date Recorded In the last month, have you been in contact Unable to assess 01/29/2020 6:44 PM PSYCHOLOGIST [employer]RI[employer]ATIONAL with someone who was confirmed or suspected to have Coronavirus / COVID-19? documented as of this encounter Last Filed Vital Signs Vital Sign Reading Time Taken Comments Blood Pressure 112/69 02/04/2020 3:32 AM PSYCHOLOGIST [employer]RIAL [employer]GANIZATIONAL Pulse 75 02/04/2020 3:32 AM PSYCHOLOGIST [employer]RIAL [employer]GANIZATIONAL Temperature 36.6 C (97.9 F) 02/04/2020 3:32 AM PSYCHOLOGIST [employer]RIAL [employer]GANIZATIONAL Respiratory Rate 17 02/04/2020 3:32 AM PSYCHOLOGIST INDUSTRIAL ORGANIZATIONAL Oxygen Saturation 93% 02/04/2020 3:32 AM PSYCHOLOGIST INDUSTRIAL ORGANIZATIONAL Inhaled Oxygen Concentration - - Weight 102.1 kg (225 lb) 01/29/2020 6:58 PM PSYCHOLOGIST INDUSTRIAL ORGANIZATIONAL Height 167.6 cm (5' 6") 01/30/2020 12:30 AM PSYCHOLOGIST INDUSTRIAL ORGANIZATIONAL Body Mass Index 36.32 01/29/2020 6:58 PM PSYCHOLOGIST IND[employer]RIAL [employer]GANIZATIONAL documented in this encounter Discharge Summaries Lola Pettit PA-C - 02/02/2020 10:25 AM CST [facility] Discharge Summary Admission Date: 01/29/2020 Discharge Date: 02/03/2020 Attending Physician: Faustino Perez MD Discharge Physician: Lola Pettit PA-C for Dr. Perez Primary Care Physician at Discharge: Rodger Jackson [phone] Consultants: Orders Placed This Encounter CONSULT NEPHROLOGY CONSULT ADULT PHYSICAL THERAPY CONSULT ADULT OCCUPATIONAL THERAPY Discharge Follow-up: PCP RODGER JACKSON; 3-5 Days Presenting Problem/History of Present Illness: stupor Primary Discharge Diagnosis: Hyponatremia SIADH Hospital Course: 1. 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 BPD I May need medication adjustment due to severe hyponatremia Multiple admissions 3. Acute metabolic encephalopathy Due to hyponatremia 4. 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 02/02 Psych consulted and deemed that patient does not have capacity to make decisions Patient will return to [place] today BMP remains stable Daughter not answering when called x2 Discussed with case management Discussed with patient at bedside and she is aware Discharge Disposition: PCP in 3-5 days to repeat labs psych as outpatient Medications at Discharge: Loly Hermosillo [place] Medication Instructions ZEINAB:[id number] Printed on:02/02/20 1025 Medication Information ATORVASTATIN CALCIUM (ATORVASTATIN ORAL) Take 20 mg by mouth at bedtime. BENZTROPINE MESYLATE (BENZTROPINE ORAL) Take 1 mg by mouth 2 (two) times daily. LOSARTAN POTASSIUM (LOSARTAN ORAL) Take 50 mg by mouth daily. Patient Instructions: Discharge Procedure Orders Discharge Follow-up: PCP RODGER JACKSON; 3-5 Days Order Specific Question Answer Comments To PCP: RODGER JACKSON [[id number]] Patient's Preferred Location: [place] Discharge Disposition: Home Health not related to Admit, (ARS) When (Patients with risk for unplanned readmission score over 16 or those noted as Hospital Dependent should follow up within 7 days with PCP or primary DX specialist): 3-5 Days Risk of Unplanned Readmission:( Score greater than 16 indicates high risk) 13 Regular Diet; Texture: Regular. Order Specific Question Answer Comments Texture Regular. Diabetic: Unobtainable Discharge Condition - Order Specific Question Answer Comments Discharge Condition: GOOD Discharge Activity Order Specific Question Answer Comments Discharge Activity: As Tolerated Discharge Follow-Up: Specialty Service PN-PSYCHIATRY; 1 Week Order Comments: With her own psychiatrist Order Specific Question Answer Comments Specialty: PN-PSYCHIATRY [40] Patient's Preferred Location: [place] Discharge Disposition: Home Health not related to Admit, (ARS) When (Patients with risk for unplanned readmission score over 16 or those noted as Hospital Dependent should follow up within 7 days with PCP or primary DX specialist): 1 Week Risk of Unplanned Readmission:( Score greater than 16 indicates high risk) 13 Discharge Follow-Up: Specialty Service IM-NEPHROLOGY; 1 Week Order Specific Question Answer Comments Specialty: IM-NEPHROLOGY [18] Patient's Preferred Location: [place] Discharge Disposition: Home Health not related to Admit, (ARS) When (Patients with risk for unplanned readmission score over 16 or those noted as Hospital Dependent should follow up within 7 days with PCP or primary DX specialist): 1 Week Risk of Unplanned Readmission:( Score greater than 16 indicates high risk) 13 VTE Propylaxis- Was ordered during hospitalization ? Discharge planning including time spent reviewing the chart, preparing the discharge, discussing theplan of care with patient, staff and consultants was 35 minutes. HOLOGIST [employer] Associated attestation - Consuelo Hancock MD - 02/03/2020 1:59 PM PSYCHOLOGIST [employer]GANIZATIONAL Consuelo Hancock MD [facility] Internal Medicine documented in this encounter Discharge Instructions AttachmentsThe following attachments cannot be sent through Care Everywhere. Anemia (Citizen Of [place])Bariatric (Obesity) Surgery, Discharge Instructions for (Citizen Of [place])Healthcare Providers Who Specialize in Obesity (Citizen Of [place])Dehydration (Adult) (Citizen Of [place])Atorvastatin tablets (Citizen Of [place])documented in this encounter Progress Notes Lacey Bess RN - 02/03/2020 5:09 PM PSYCHOLOGIST [employer]USTRIAL [employer]GANIZATIONAL Care Management Discharge Disposition Note (DCDN) -2-1 Interventions: Disease specific education;Intensive medication reconciliation/management;Home visit/home health referral;Clear discharge plan;Follow-up appointments;Follow-up phone calls -2- Providers: Physician;Drywall Taper/Supervisor Assembly Stock;Nurse 5-2-1 Patient Capacity Improvements: Transportation arrangements Discharge Plan for ongoing care and services: Home Health (HH);Home/Caregiver Home Patient Choice completed for referred services: Yes Discussed with patient/patients family involved in decision making: Patient or family caregiver understands, and agrees with discharge plan Patient's family or support contact: Discharge Plan: Home Health (HH);Home/Caregiver Home Receiving facility was provided the following clinical documentation at discharge- CM Facesheet, Consult notes, Labs, Progress Notes, MAR: DME location: Other DME location: Durable Medical Equipment: Home Health location: [place] [address] (P) [phone] (F) [phone]. Discharge location(s): Home Health location: [place] [address] (P) [phone] (F) [phone]. Community resources/referrals made or provided to patient: Resources/Referrals: Mental Status: Psychosocial issues and/or concerns resulting in patient being a high risk for re-admission: Manage ADL indepentdly: Yes Living Arrangement: Apartment Other living arrangement: Address of living arrangement: [id number], [place] [address] Funding Resources: Medicare Replacement;Medicaid Has patient been referred to [facility] [place]? Nursing informed of discharge plan: CHP referral sent? CM medication request completed (if appropriate): PCP: Transportation: Wheelchair Van Prior authorization obtained for ambulance: Authorization number: CPT code: Discharge Medications Will the patient be able to obtain his medications? Does the patient have transportation to to obtain the prescription medications? CM Medication Request completed (if appropriate): Name of RN informed: Expected discharge date: 02/02/2020 Time: Midday [20] Additional Information: CM/SW Name & Contact number: Lacey Bess RN Ph. [phone] The following information has been provided to the facility noted above: reason for the patient discharge or transfer; patients physical and psychosocial status; summary of care, treatment, servicesprovided to patient; and the patient progress toward goals. acey Bess RN - 02/03/2020 3:44 PM PSYCHOLOGIST [employer]GAN[employer]ATIONAL Loly Hermosillo [id number] 1955 RE: Care Management Patient Choice Notification Your doctor has recommended that you have post-hospital care services at discharge. You can choose the provider you want, regardless of its relationship with [facility]. We will contact any of the agencieswithin the [facility] network, or any other agency upon your request. Based on where you live and agency service areas, a list was generated from: Your insurance company's in-network provider list Disclosure: [facility] owns or is affiliated with the following facilities/agencies: [facility] (snf and rehabilitation) If you are being referred to a home health agency or snf facility, you will also be given a [facility] Beneficiary Notification Letter (Kaptphe-hp-Hpcl Profile Supplement) informing you about [facility]'s preferred partners. Patient Choice Acknowledgement I, Loly Hermosillo / authorized health and safety representative, am aware that I have choice in selecting post-hospital care providers. [facility] has given me a list of providers in the area available to me and/or my authorized health and safety representative. My choice(s) are listed below: ? HH: [facility] Staff [address] (Ph) [phone] (F) [phone] Your signature on this form indicates that you have been given the following information: ? I have been advised of my right to choose the providers I wish ? If snf facilities, long-term acute care hospitals, personal care homes, or home healthagencies were recommended, I was given a list of facilities/agencies in my geographic area that deliver these services or ? I have pre-selected or am an established client with a facility/agency and choose to initiate/continue services verbal with daughter 02/03/20 Patient/Guardian/Responsible Democrat Signature Date Lacey Hutton RN - 02/03/2020 1:58 PM CSTCARE MANAGEMENT NOTE Spoke with patient, sister and daughter about LTC facility versus home. Ultimate decision was made for home with daughter for home health. [facility] doesn't service her area so daughter is OK with [facility] Relief in [place], faxed order. Pt will need WC Van ride home. Scheduled for 1500. Lacey Bess RN, BSN, CRRN Dean Of Graduate Studies [facility] [employer] Lacey Hutton RN - 02/03/2020 10:32 AM CSTCARE MANAGEMENT NOTE Attempted to call daughter yesterday afternoon to discuss psych consult, no answer and no ability toleave voice mail. Have tried to call daughter x4 this morning, no answer, no ability to leave voice mail. Sent pager message to her phone. Called sister per patient's request who also did not answer, let voice mail asking for call back. Lacey Bess RN, BSN, CRRN Dean Of Graduate Studies [facility] [employer] Heath Stephenson MD - 02/03/2020 9:24 AM CST [facility] Nephrology Progress Note 01/31/2020 9:16 AM Cristine Hermosillo is a 64 year old female with significant psychiatry history on multiple psychotropicmedications, who presented to [facility] ED with AMS at home. Per charted history patient has been in multiple hospitals and facilities over the past one year, has had issues with bipolar disorder. In the ED patient was found to be hyponatremic and lethargic. She was given IVF by ED AUTOMATIC QUILLING MACHINE OPERATOR and transferred to [facility] for admission. Patient is currently drowsy, but arousable, following commands and protecting airway. She was found to be severely hyponatremic with a serum sodium of 111 mEq/L hence this renal consult. Patient has been started on NS at 30 cc per hour and 4 hourly sodium determination. Patient now appears awake, alert and quite coherent. According to the family, patient is a compulsivewater drinker and has been asking water. Also she is taking many psych medications. Today she alert awake and oriented. She is receiving D5W at 150 cc per hour. Objective Vitals Vitals: 02/02/20200302/03/20 0016 02/03/20 0442 02/03/20 0756 BP: 117/78 108/75 110/75 126/84 Patient Position: Sitting Sitting Sitting Sitting BP CUFF SIZE: Adult Large Adult Large Adult Large Adult Large Pulse: 85 73 84 78 Resp: 18 20 16 18 Temp: 36.5 C (97.7 F) 36.9 C (98.4 F) 36.6 C (97.8 F) 36.5 C (97.7 F) TempSrc: Oral Oral Oral Oral SpO2: 96% 97% 98% 90% Weight: Height: I/O No intake/output data recorded. I/O last 3 completed shifts: In: 240 [Oral:240] Out: 2300 [Urine:2300] Physical Exam General: Appropriate for age, no acute distress, well-developed and well-nourished. HENT: Head: Normocephalic and atraumatic. Eyes: Conjunctivae and EOM are normal. Pupils are equal, round, and reactive to light. Neck: Neck supple. No jugular venous distention Cardiovascular: Normal rate, rhythm and heart sounds. No gallop, rub or murmur. Chest: CTA. No wheezes or rales. Abdominal: Soft. BS are normal. Extremities: Normal range of motion, no edema, tenderness or deformity. Neurological: Alert and oriented. Cranial nerves intact Psych: Appropriate mood and response Medications Current Facility-Administered Medications Medication Dose Route Frequency Last Rate Last Admin acetaminophen (TYLENOL) tablet 650 mg 650 mg Oral Q6HPRN 650 mg at 02/02/202009 enoxaparin (LOVENOX) injection 40 mg 40 mg Subcutaneous Q24H 40 mg at 02/02/202009 atorvastatin (LIPITOR) tablet 20 mg 20 mg Oral QHS 20 mg at 02/02/202009 dextrose 50 % in water (D50W) injection 25 mL 25 mL Slow IV Push PRN docusate (COLACE) capsule 100 mg 100 mg Oral BID 100 mg at 02/03/20 08 glucagon (GLUCAGEN DIAGNOSTIC KIT) injection 1 mg 1 mg Intramuscular PRN ipratropium-albuteroL (DUONEB) 0.5 mg-3 mg(2.5 mg base)/3 mL nebulizer solution 3 mL 3 mL Inhalation Q6HPRN losartan (COZAAR) tablet 50 mg 50 mg Oral DAILY 50 mg at 02/03/20 08 ondansetron (ZOFRAN (PF)) injection 4 mg 4 mg Slow IV Push Q6HPRN Labs and Radiology CMP NA (mmol/L) Date Value 02/03/2020 132 (L) 02/02/2020 133 (L) 02/01/2020 131 (L) 01/31/2020 132 (L) 01/31/2020 125 (L) K (mmol/L) Date Value 02/03/2020 3.7 02/02/2020 3.8 02/01/2020 3.6 01/31/2020 3.9 01/31/2020 3.2 (L) CALCIUM (mg/dL) Date Value 02/03/2020 9.0 02/02/2020 9.0 02/01/2020 9.0 01/31/2020 9.1 01/31/2020 8.5 (L) CL (mmol/L) Date Value 02/03/2020 99 02/02/2020 101 02/01/2020 99 01/31/2020 101 01/31/2020 91 (L) BUN (mg/dL) Date Value 02/03/2020 14 02/02/2020 10 02/01/2020 9 01/31/2020 8 01/31/2020 9 CREATININE (mg/dL) Date Value 02/03/2020 0.75 02/02/2020 0.67 02/01/2020 0.72 01/31/2020 0.59 01/31/2020 0.64 GLUCOSE (mg/dL) Date Value 02/03/2020 103 02/02/2020 100 02/01/2020 119 (H) 01/31/2020 96 01/31/2020 107 CO2 TOTAL (mmol/L) Date Value 02/03/2020 26 02/02/2020 25 02/01/2020 23 01/31/2020 23 01/31/2020 25 ALBUMIN (g/dL) Date Value 01/30/2020 3.6 01/29/2020 3.7 T PROTEIN (g/dL) Date Value 01/30/2020 6.7 01/29/2020 6.5 TOTAL BILI (mg/dL) Date Value 01/30/2020 0.9 01/29/2020 0.8 BILI UNCON (mg/dL) Date Value 01/30/2020 0.8 01/29/2020 0.8 BILI CONJ (mg/dL) Date Value 01/30/2020 0.0 01/29/2020 0.0 ALTv (U/L) Date Value 01/30/2020 15 01/29/2020 13 AST(SGOT) (U/L) Date Value 01/30/2020 19 01/29/2020 19 ALK PHOS (U/L) Date Value 01/30/2020 166 (H) 01/29/2020 172 (H) PHOSPHORUS Date Value Ref Range Status 01/30/2020 2.8 2.5 - 5.0 mg/dL Final CBC withoutdiff WBC (10*3/L) Date Value 02/01/2020 5.22 01/31/2020 4.91 01/30/2020 6.69 01/29/2020 6.39 HGB (g/dL) Date Value 02/01/2020 11.3 (L) 01/31/2020 10.3 (L) 01/30/2020 10.2 (L) 01/29/2020 10.1 (L) HCT (%) Date Value 02/01/2020 33.2 (L) 01/31/2020 28.6 (L) 01/30/2020 27.4 (L) 01/29/2020 27.8 (L) MCV (fL) Date Value 02/01/2020 88.3 01/31/2020 85.1 01/30/2020 83.8 01/29/2020 84.8 PLT (10*3/L) Date Value 02/01/2020 268 01/31/2020 226 01/30/2020 169 01/29/2020 189 No results found for: UPROTEIN No results found for: UPH No results found for: UGLUCOSE No results found for: UKETONES No results found for: UBILI No results found for: UBLOOD No results found for: UUROBILIN No results found for: ULEUKEST No results found for: UNITRITE No results found for: USPGRAV Xr Chest 1 Vw Result Date: 01/30/2020 Impression: 1. No acute abnormalities evident. 2. Tortuosity of the thoracic aorta may reflect atherosclerosis or hypertension. AFC: [id number] RL: [address] Cervical Spine Wo Contrast Result Date: 01/30/2020 No acute intracranial abnormality. No acute fracture or traumatic malalignment of the cervical spine. Preliminary Report Dictated by Resident: Joseluis Heart MD., have reviewed thisstudy and agree with the above report. Ct Head W/o Contrast Result Date: 01/30/2020 No acute intracranial abnormality. No acute fracture or traumatic malalignment of the cervical spine. Preliminary Report Dictated by Resident: Joseluis Heart MD., have reviewed thisstudy and agree with the above report. Xr Kub Result Date: 01/30/2020 Impression: 1. No evidence of bowel obstruction. 2. Extensive colonic stool suggests constipation. RL: [id number] AFC: [id number] End of Report Problem List: Problem Obesity (Bmi 30-39.9) Assessment Severe Hyponatremia Hypochloremia Hypomagnesemia Compulsive water drinker Likely SIADH Hypokalemia: Will replace. Plan I agree that the correction of sodium is bit rapid but was without any intervention except restricting free water intake. So the correction is mostly physiological and may not require reversal or even negate free water restriction. Will cut down the infusion to 50 mls per hour this will avoid further rise of sodium or slow the rate of correction.. 02/01/20: Patient seen and examined. In the recliner and does not like that. She wants to be in bed. No new complaints and not asking for water. She still is getting D5W and now that can be stopped. Her serum sodium is almost normalized and once the infusion is stopped will be normalized. Renal alexander no other suggestions. 02/02/20: Patient seen and examined. Doing well. No new complaints. She wants to go home and does not want to be in a senior living. Serum sodium trending towards normal. Will follow. 02/03/20: Patient seen and examined. I gather that she is for discharge today. She continues to be hypotensivethat very well could be reset osmostat as the serum sodium is marginally low. Renal alexander ok to DC. Since her daughter is not responding, she feels that her sister needs to be contacted and she thinks she has her number. I asked her that it is better that she calls. Heath Stephenson MD [facility] Adjunct rn perinatal [facility] eslie Landers OTA - 02/02/2020 4:34 PM PSYCHOLOGIST [employer] OCCUPATIONAL THERAPY NOTE: Discharge Recommendations: Therapy Needs and Potential:- Patient would benefit from continued skilled occupational therapy services to address: Decline in basic activities of daily living, Decline in instrumental activities of daily living, Decline in cognition, Decreased strength and Decreased endurance - Patient demonstrates good potential to improve and meet therapy goals with further skilled occupational therapy services. - Patient reports she is motivated to improve their B/IADLs and return to their previous level of function, however demos self limiting behavior with OOB activity at this time. - Patient demonstrates ability to tolerate at least 30-60 minutes of active participation in occupational therapy. - Patient able to follow commands: 1-step Yes, Multi-step No, Inconsistencies Yes Challenges to Home Transition:- Requires physical assistance for BADLS - Requires physical assistance for IADLS - Requires supervision or verbal cues for BADLS - Limited caregiver availability - Decreased safety awareness/judgement - Increased risk of falls Equipment Recommendations:Bedside commode, Tub transfer bench, Grab bars, Hand held shower and Precautions: Weight bearing status: NA General: PPE Utilized: Gloves and Surgical mask and Fall Bracing: N/A S: Patient agreeable to participate in occupational therapy. Cleared by RN for OT follow up treatment. PAIN Pre-treatment: denies pain Post-treatment: denies pain O: Patient found semireclining in bed. Vital signs stable and Bed alarm engaged, nursing staff notified. . Patient seen this date for the following: ADL Training Grooming: SBA/Setup, standing at sink with use of RW Toilet Transfer: SBA/Setup. Use of RW and grab bars Patient educated about the following: Adaptive equipment , ADL training, Compensatory techniques/adaptive strategies, Energy conservation, Fall prevention, Relaxation/breathing techniques, Role of OT and Safety awareness. Therapeutic Exercise/Procedure Educated Patient about Deep breathing General strengthening and Towel/dowel for LIZZY UE: Patient instructed on Shoulder flexion/extension/abduction/adduction, Elbow flexion/extension, scapular protra ction/retraction sitting EOB unsupported Patient/caregiver instructed to perform HEP 10 times per day, 10-15 repetitions. Patient/caregiver returns demonstration x 10 repetitions as follows: Tactile and verbal cues provided for correct technique. Provided patient/caregiver with comprehensive HEP along with detailed instructions (visual/verbaldemonstration) on how to correctly perform each exercise. Educated about the importance of complying with all exercises to help increase overall strength, endurance, flexibility, and ROM for self-care independence. Patient/caregiver verbalized understanding to all discussed. Functional Motor Treatment Patient engaged in the following bilateral UE dynamic activities to improve functional performance: Reaching outside of [place]MENT[place] in various planes. Patient transferred from supine to sitting EOB unsupported SBA <> standing with use of RW SBA, no LOB noted Patient left semireclining in bed with call martinez in reach. Vital signs stable and Bed alarm engaged, nursing staff notified. . A: Patient exhibited Good participation in therapy and responded well to treatment this session. Patient is progressing toward goal(s) 2 and 3. Patient met goal(s) 1, 4, 5 and 6. Poor endurance and Persistent weakness remain(s) a limiting factor. Patient continues to present with Decreased independence with ADL, Decreased strength/endurance for functional activity, Impaired safety awareness and Impaired Cognition and will benefit from continued OT services to address above areas and improve functional status. P: Functional motor treatment, Patient/Caregivier Education, Equipment recommendations, Daily livingactivities, Therapeutic exercises and Neuromuscular Re-Education MAIRA Coleman Supervising OTR Rina Ruiz Total Timed Treatment Codes: 48 Min Total Treatment Time: 48 Min Lacey Hutton RN - 02/02/2020 3:13 PM [facility] MANAGEMENT NOTE Spoke with daughter who states her mother just had been in a facility for 90 days and if she can't take care of herself she can't go home. She does not like nearby and her mother will not be staying with her. She asked for a call from physician to discuss her mothers status, discussed with physician who did call daughter. The facility patient was at [facility] and called facility who statespatient had been there for 90 days and used her skilled days, she would be medicaid pending. They are willing to accept her back if patient is willing to go back. Discussed with daughter who was OK with this. Daughter says patient can't remember to take her medications at home, recently spent some time in psychiatric wards until they couldn't keep her anymore. She feels patient is not decisional Or competent. Pt was AAOx3 for physician this morning but per nursing not always so. Pt is refusing to go back to a facility. Pt used a Christy Steady to go to restroom with tech earlier. CM discussed with patient her not being safe to go home alone right now. Pt states she has enough friends. CM discussed her friendsnot being there at night or helping her to the bathroom when she needed help just today. Pt says shecan do it but she's not going to a senior living. Pending psych consult for determination of patient's competency. If patient is competent she can refuse SNF and CM can set up HH and make APS referral. If patient is not competent daughter can decide to send her to the facility again. Lacey Bess, RN, BSN, CRRN Dean Of Graduate Studies [facility] [place] Heath Degroot MD - 02/02/2020 10:07 AM CST [facility] Nephrology Progress Note 01/31/2020 9:16 AM Subjective Loly Hermosillo is a 64 year old female with significant psychiatry history on multiple psychotropicmedications, who presented to [facility] ED with AMS at home. Per charted history patient has been in multiple hospitals and facilities over the past one year, has had issues with bipolar disorder. In the ED patient was found to be hyponatremic and lethargic. She was given IVF by ED AUTOMATIC QUILLING MACHINE OPERATOR and transferred to [facility] for admission. Patient is currently drowsy, but arousable, following commands and protecting airway. She was found to be severely hyponatremic with a serum sodium of 111 mEq/L hence this renal consult. Patient has been started on NS at 30 cc per hour and 4 hourly sodium determination. Patient now appears awake, alert and quite coherent. According to the family, patient is a compulsivewater drinker and has been asking water. Also she is taking many psych medications. Today she alert awake and oriented. She is receiving D5W at 150 cc per hour. Objective Vitals Vitals: 02/02/20 0007 02/02/20 0324 02/02/20 0816 02/02/20 0900 BP: (!) 136/98 120/86 123/83 Patient Position: Sitting Sitting Sitting BP CUFF SIZE: Adult Large Adult Large Adult Large Pulse: 86 75 82 Resp: 18 18 18 Temp: 36.8 C (98.2 F) 36.6 C (97.9 F) 36.6 C (97.9 F) TempSrc: Oral Oral Oral SpO2: 90% 93% (!) 89% 91% Weight: Height: I/O I/O this shift: In: - Out: 800 [Urine:800] I/O last 3 completed shifts: In: 550 [Oral:550] Out: 2000 [Urine:2000] Physical Exam General: Appropriate for age, no acute distress, well-developed and well-nourished. HENT: Head: Normocephalic and atraumatic. Eyes: Conjunctivae and EOM are normal. Pupils are equal, round, and reactive to light. Neck: Neck supple. No jugular venous distention Cardiovascular: Normal rate, rhythm and heart sounds. No gallop, rub or murmur. Chest: CTA. No wheezes or rales. Abdominal: Soft. BS are normal. Extremities: Normal range of motion, no edema, tenderness or deformity. Neurological: Alert and oriented. Cranial nerves intact Psych: Appropriate mood and response Medications Current Facility-Administered Medications Medication Dose Route Frequency Last Rate Last Admin acetaminophen (TYLENOL) tablet 650 mg 650 mg Oral Q6HPRN 650 mg at 02/01/20 0012 enoxaparin (LOVENOX) injection 40 mg 40 mg Subcutaneous Q24H 40 mg at 02/01/202046 atorvastatin (LIPITOR) tablet 20 mg 20 mg Oral QHS 20 mg at 02/01/202046 dextrose 50 % in water (D50W) injection 25 mL 25 mL Slow IV Push PRN docusate (COLACE) capsule 100 mg 100 mg Oral BID 100 mg at 02/02/20 09 glucagon (GLUCAGEN DIAGNOSTIC KIT) injection 1 mg 1 mg Intramuscular PRN ipratropium-albuteroL (DUONEB) 0.5 mg-3 mg(2.5 mg base)/3 mL nebulizer solution 3 mL 3 mL Inhalation Q6HPRN losartan (COZAAR) tablet 50 mg 50 mg Oral DAILY 50 mg at 02/02/20 09 ondansetron (ZOFRAN (PF)) injection 4 mg 4 mg Slow IV Push Q6HPRN Labs and Radiology CMP NA (mmol/L) Date Value 02/02/2020 133 (L) 02/01/2020 131 (L) 01/31/2020 132 (L) 01/31/2020 125 (L) 01/31/2020 126 (L) K (mmol/L) Date Value 02/02/2020 3.8 02/01/2020 3.6 01/31/2020 3.9 01/31/2020 3.2 (L) 01/31/2020 3.1 (L) CALCIUM (mg/dL) Date Value 02/02/2020 9.0 02/01/2020 9.0 01/31/2020 9.1 01/31/2020 8.5 (L) 01/31/2020 8.5 (L) CL (mmol/L) Date Value 02/02/2020 101 02/01/2020 99 01/31/2020 101 01/31/2020 91 (L) 01/31/2020 92 (L) BUN (mg/dL) Date Value 02/02/2020 10 02/01/2020 9 01/31/2020 8 01/31/2020 9 01/31/2020 8 CREATININE (mg/dL) Date Value 02/02/2020 0.67 02/01/2020 0.72 01/31/2020 0.59 01/31/2020 0.64 01/31/2020 0.63 GLUCOSE (mg/dL) Date Value 02/02/2020 100 02/01/2020 119 (H) 01/31/2020 96 01/31/2020 107 01/31/2020 104 CO2 TOTAL (mmol/L) Date Value 02/02/2020 25 02/01/2020 23 01/31/2020 23 01/31/2020 25 01/31/2020 26 ALBUMIN (g/dL) Date Value 01/30/2020 3.6 01/29/2020 3.7 T PROTEIN (g/dL) Date Value 01/30/2020 6.7 01/29/2020 6.5 TOTAL BILI (mg/dL) Date Value 01/30/2020 0.9 01/29/2020 0.8 BILI UNCON (mg/dL) Date Value 01/30/2020 0.8 01/29/2020 0.8 BILI CONJ (mg/dL) Date Value 01/30/2020 0.0 01/29/2020 0.0 ALTv (U/L) Date Value 01/30/2020 15 01/29/2020 13 AST(SGOT) (U/L) Date Value 01/30/2020 19 01/29/2020 19 ALK PHOS (U/L) Date Value 01/30/2020 166 (H) 01/29/2020 172 (H) PHOSPHORUS Date Value Ref Range Status 01/30/2020 2.8 2.5 - 5.0 mg/dL Final CBC withoutdiff WBC (10*3/L) Date Value 02/01/2020 5.22 01/31/2020 4.91 01/30/2020 6.69 01/29/2020 6.39 HGB (g/dL) Date Value 02/01/2020 11.3 (L) 01/31/2020 10.3 (L) 01/30/2020 10.2 (L) 01/29/2020 10.1 (L) HCT (%) Date Value 02/01/2020 33.2 (L) 01/31/2020 28.6 (L) 01/30/2020 27.4 (L) 01/29/2020 27.8 (L) MCV (fL) Date Value 02/01/2020 88.3 01/31/2020 85.1 01/30/2020 83.8 01/29/2020 84.8 PLT (10*3/L) Date Value 02/01/2020 268 01/31/2020 226 01/30/2020 169 01/29/2020 189 No results found for: UPROTEIN No results found for: UPH No results found for: UGLUCOSE No results found for: UKETONES No results found for: UBILI No results found for: UBLOOD No results found for: UUROBILIN No results found for: ULEUKEST No results found for: UNITRITE No results found for: USPGRAV Xr Chest 1 Vw Result Date: 01/30/2020 Impression: 1. No acute abnormalities evident. 2. Tortuosity of the thoracic aorta may reflect atherosclerosis or hypertension. AFC: [id number] RL: [id number] Cervical Spine Wo Contrast Result Date: 01/30/2020 No acute intracranial abnormality. No acute fracture or traumatic malalignment of the cervical spine. Preliminary Report Dictated by Resident: Joseluis Heart MD., have reviewed thisstudy and agree with the above report. Ct Head W/o Contrast Result Date: 01/30/2020 No acute intracranial abnormality. No acute fracture or traumatic malalignment of the cervical spine. Preliminary Report Dictated by Resident: Joseluis Heart MD., have reviewed thisstudy and agree with the above report. Xr Kub Result Date: 01/30/2020 Impression: 1. No evidence of bowel obstruction. 2. Extensive colonic stool suggests constipation. 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 Plan I agree that the correction of sodium is bit rapid but was without any intervention except restricting free water intake. So the correction is mostly physiological and may not require reversal or even negate free water restriction. Will cut down the infusion to 50 mls per hour this will avoid further rise of sodium or slow the rate of correction.. 02/01/20: Patient seen and examined. In the recliner and does not like that. She wants to be in bed. No new complaints and not asking for water. She still is getting D5W and now that can be stopped. Her serum sodium is almost normalized and once the infusion is stopped will be normalized. Renal alexander no other suggestions. 02/02/20: Patient seen and examined. Doing well. No new complaints. She wants to go home and does not want to be in a senior living. Serum sodium trending towards normal. Will follow. Heath Stephenson MD FACP [facility] Adjunct rn perinatal [facility] uMontana Kaminski MD - 02/01/2020 1:53 PM PSYCH[employer]IST [employer] Pulmonary and Critical Care Medicine Critical Care Consult/Progress Note Date of Service: 02/01/2020 ICU Day: #2 Last 24 hour events (major events): No acute issues overnight. Na improved. Hemodynamically stable. Transfer to floor today. REVIEW OF SYSTEMS (-)=Negative,(+)=Positive General: (-) fever, (-) chills Skin: (-) rash, (-) lesion HEENT: (-) headache, (-) change in hearing Neck: (-) pain, (-) difficulty swallowing Heme: (-) bleeding disorder Resp: (-) cough, (-) shortness of breath Cardio: (-) chest pain, (-) palpitations GI: (-) abdominal pain, (-) nausea, (-) vomiting : (-) dysuria, (-) hematuria Endo: (-) heat intolerance, (-) diabetes, (-) cold intolerance Neuro: (-) numbness, (-) tingling Back: (-) pain, (-)spasms SOLE: (-) muscle pain, (-) joint pain Psych: (-) anxiety, (-) depression Lines (with dates): PIV Webber: 01/30/2020 Intake/Output: Intake/Output Summary (Last 24 hours) at 02/01/2020 1353 Last data filed at 02/01/2020 0536 Gross per 24 hour Intake 1000 ml Output 1300 ml Net -300 ml PHYSICAL EXAMINATION Vitals: 02/01/20 0500 02/01/20 0600 02/01/20 0800 02/01/20 1200 BP: 101/63 105/60 115/76 137/79 Pulse: 89 86 88 84 Resp: 19 (!) 48 20 18 Temp: 37.2 C (99 F) 37.2 C (99 F) 36.4 C (97.6 F) 36.8 C (98.3 F) TempSrc: Oral Oral SpO2: 99% 95% 100% 100% Weight: Height: General: alert and oriented x 4 (person, place, date/time and situation); no apparent distress HEENT: pupils equal, round, reactive to light; extraocular movements intact; oropharynx clear; moistmucous membranes, normocephalic atraumatic Neck: supple, no lymphadenopathy, no bruits, no JVD Lungs: clear to auscultation bilaterally Cardio: S1, S2 normal; no murmurs, rubs or gallops Abdomen: soft; non-tender; non-distended; normoactive bowel sounds : not examined Rectal: not examined Extremities: no clubbing, cyanosis, or edema Skin: no rashes Neuro: cranial nerves II through XII grossly intact; sensation grossly intact; muscle strength 5 outof 5 in all four extremities Labs (pertinent only)/Imaging: Recent Results (from the past 24 hour(s)) BASIC METABOLIC PANEL (NA, K, CL, CO2, GLUCOSE, BUN, CREATININE, CA) Collection Time: 01/31/20 5:48 PM Result Value Ref Range NA 132 (L) 135 - 145 mmol/L K 3.9 3.5 - 5.0 mmol/L CL 101 98 - 108 mmol/L CO2 TOTAL 23 23 - 31 mmol/L AGAP 8 2 - 16 BUN 8 7 - 23 mg/dL GLUCOSE 96 70 - 110 mg/dL CREATININE 0.59 0.50 - 1.04 mg/dL CALCIUM 9.1 8.6 - 10.6 mg/dL eGFR Calculation (Non-) 102.9 mL/min/1.73m2 eGFR Calculation () 124.8 mL/min/1.73m2 CBC WITH DIFF Collection Time: 02/01/20 5:31 AM Result Value Ref Range WBC 5.22 4.30 - 11.10 10*3/L RBC 3.76 (L) 3.93 - 5.25 10*6/L HGB 11.3 (L) 11.6 - 15.0 g/dL HCT 33.2 (L) 35.7 - 45.2 % MCV 88.3 80.6 - 95.5 fL MCH 30.1 25.9 - 32.8 pg MCHC 34.0 31.6 - 35.1 g/dL RDW-SD 41.9 39.0 - 49.9 fL RDW-CV 13.1 12.0 - 15.5 % PLT 268 166 - 358 10*3/L MPV 9.7 9.5 - 12.9 fL NRBC/100 WBC 0.0 0.0 - 10.0 /100 WBCs NRBC x10^3 <0.01 10*3/L GRAN MAT (NEUT) % 45.0 % IMM GRAN % 0.40 % LYMPH % 38.1 % MONO % 12.6 % EOS % 3.3 % BASO % 0.6 % GRAN MAT x10^3(ANC) 2.35 1.88 - 7.09 10*3/uL IMM GRAN x10^3 <0.03 0.00 - 0.06 10*3/uL LYMPH x10^3 1.99 1.32 - 3.29 10*3/uL MONO x10^3 0.66 0.33 - 0.92 10*3/uL EOS x10^3 0.17 0.03 - 0.39 10*3/uL BASO x10^3 0.03 0.01 - 0.07 10*3/uL BASIC METABOLIC PANEL (NA, K, CL, CO2, GLUCOSE, BUN, CREATININE, CA) Collection Time: 02/01/20 5:31 AM Result Value Ref Range NA 131 (L) 135 - 145 mmol/L K 3.6 3.5 - 5.0 mmol/L CL 99 98 - 108 mmol/L CO2 TOTAL 23 23 - 31 mmol/L AGAP 9 2 - 16 BUN 9 7 - 23 mg/dL GLUCOSE 119 (H) 70 - 110 mg/dL CREATININE 0.72 0.50 - 1.04 mg/dL CALCIUM 9.0 8.6 - 10.6 mg/dL eGFR Calculation (Non-) 81.8 mL/min/1.73m2 eGFR Calculation () 99.2 mL/min/1.73m2 Xr Chest 1 Vw Result Date: 01/30/2020 Impression: 1. No acute abnormalities evident. 2. Tortuosity of the thoracic aorta may reflect atherosclerosis or hypertension. AFC: [id number] RL: [address] Cervical Spine Wo Contrast Result Date: 01/30/2020 No acute intracranial abnormality. No acute fracture or traumatic malalignment of the cervical spine. Preliminary Report Dictated by Resident: Joseluis Heart MD., have reviewed thisstudy and agree with the above report. Ct Head W/o Contrast Result Date: 01/30/2020 No acute intracranial abnormality. No acute fracture or traumatic malalignment of the cervical spine. Preliminary Report Dictated by Resident: Joseluis Heart MD., have reviewed thisstudy and agree with the above report. Xr Kub Result Date: 01/30/2020 Impression: 1. No evidence of bowel obstruction. 2. Extensive colonic stool suggests constipation. 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 Improvement with fluid restriction. Continue and transfer to floor today. ID: #No active issues Heme: #Anemia of chronic disease Endo: #No active issues MSK: #Deconditioning - PT OT ICU Patient Safety Checklist: Nutrition: Regular / NPO / Cardiac / Diabetic Pain: Tylenol for minimal pain, Melvin 5 for moderate and Morphine for severe / breakthrough pain /fentanyl infusion + PRN pushes Sedation: N/A / Propofol / Precedex / Versed Ulcer prophylaxis: Pepcid / PPI / not required DVT / PE prophylaxis: SCD / Heparin / Lovenox SAT/SBT: In the AM, per protocol / not a candidate / not required Mobility: Early mobilization is highly encouraged - OT/PT consulted Vascular access: PIVs / CVC / PICC Webber: In place Code status: Full / DNR / Hospice / Comfort measures Next of kin: Partner / spouse / sibling / parent Fall risk: High / Moderate Restraint: Not required at this juncture / Required due to patient's attempt to remove lifesaving lines and catheters Pressure Ulcer: No sign of pressure ulcer on my today's examination / Prognosis: Good / Fair / Poor Condition: Critical / Serious / Fair Medications: All medications were reviewed in details and required changes were made Disposition: ICU / IMU Due to a high probability of clinically significant, life threatening deterioration, the patient required my highest level of preparedness to intervene emergently and I personally spent 35 minutes of critical care time directly and personally managing the patient. This critical care time included obtaining a history; examining the patient; pulse oximetry; ordering and review of studies; arranging urgent treatment with development of a management plan; evaluation of patient's response to treatment; frequent reassessment; and, discussions with other providers. This critical care time was performed to assess and manage the high probability of imminent, life-threatening deterioration that could result in multi-organ failure. It was exclusive of separately billable procedures and treating other patients and teaching time. Montana Stewart MD Pulmonary and Critical Care Medicine [facility] [employer] Siri Trujillo, VACUUM FORMING MACHINE OPERATOR - 02/01/2020 10:28 AM CSTPhysical Therapy Progress Note: Discharge Recommendations: Therapy Needs and Potential: Patient would benefit from continued physical therapy services to address: decline in bed mobility decline in transfers decline in gait and/or balance decreased strength decreased range of motion decreased endurance Patient demonstrates good potential to improve and meet therapy goals with further physical therapy services. Patient appears motivated to improve their functional mobility and return to their previous levelof function. Patient demonstrates ability to tolerate atleast 30-60 minutes of physical therapy with active participation. Challenges to Home Transition: increased risk of falls decreased caregiver availability Equipment recommendations: TBD as patient OOB mobility is assessed PAIN: -Pain Description: aching -Pain Location: right leg, lower back -Pain rating before treatment: does not rate, After treatment: does not rate -Pain Management: Nursing Notified PRECAUTIONS: Weight Bearing Precaution: WBAT General Precautions: PPE used:Gloves and Surgical mask, General, Fall, Lines/Tubes, Webber catheter, IV x 1 Bracing/Cast present or required:N/A S: Patient agreeable to working with PT. RN clear PT to work with patient. O: Patient met Semi reclined in bed. Patient seen for the following: Bed mobility: educated patient on logroll technique to help decrease lower back pain Rolling: SBA/Setup Cued provided for correct logroll technique Supine to sit: SBA/Setup Scooting to edge of bed: SBA/Setup analyzed patient's static/dynamic sitting balance: Fair + Transfers: Sit to stand: CGA using Rolling Walker Stand to sit: CGA using Rolling Walker Static/dynamic standing balance: Fair Verbal cueing provided for correct hand placement and correct use of AD cued provided for postural adjustment Gait: Assisted patient with ambulation as follows: 4 feet using Rolling Walker and CGA Patient presenting with Step-through gait pattern. with minimal instability and no LOB Cued provided for rolling walker management and lizzy LE sequence Cued provided for postural adjustment Therapeutic exercise: instructed patient in the following: ankle pumps, long arc quads, seated marching patient instructed to perform HEP 3 times per day, 10 repetitions. introduced sitting therex above to help improve lizzy LE strength Educated the importance of compliance with performance of all exercises to help with increasing overall strength, endurance, flexibility, and ROM patient verbalizing understanding to all discussed Patient provided with preferred teaching of verbal information on functional mobility, gait training, rolling walker education, logroll technique, lizzy LE therex, balance, and safety awareness. Shows readiness to learn. Verbal instruction teaching provided. Individual is able to read and verbalizes unde rstanding of teaching provided. After session, patient Up in chair, Bullock alarm in place and turned on and call martinez provided. RN notified. A: Patient tolerated session well. Patient progressing toward goals #1, #2, #3, #4. Patient with improved functional mobility since evaluation. However, patient limited with gait due to c/o fatigue. P: PT will - attempt to progress ambulation next session. Total Timed Tx Codes in Minutes: 33 Min Total Treatment Time in Minutes: 33 Min Siri Trujillo PTA Supervising PT Wen Mooney PT [employer] Heath Stephenson MD - 02/01/2020 10:18 AM CST [facility] Nephrology Progress Note 01/31/2020 9:16 AM Cristine eHrmosillo is a 64 year old female with significant psychiatry history on multiple psychotropicmedications, who presented to [facility] ED with AMS at home. Per charted history patient has been in multiple hospitals and facilities over the past one year, has had issues with bipolar disorder. In the ED patient was found to be hyponatremic and lethargic. She was given IVF by ED AUTOMATIC QUILLING MACHINE OPERATOR and transferred to [facility] for admission. Patient is currently drowsy, but arousable, following commands and protecting airway. She was found to be severely hyponatremic with a serum sodium of 111 mEq/L hence this renal consult. Patient has been started on NS at 30 cc per hour and 4 hourly sodium determination. Patient now appears awake, alert and quite coherent. According to the family, patient is a compulsivewater drinker and has been asking water. Also she is taking many psych medications. Today she alert awake and oriented. She is receiving D5W at 150 cc per hour. Objective Vitals Vitals: 02/01/20 0400 02/01/20 0500 02/01/20 0600 02/01/20 0800 BP: 94/62 101/63 105/60 115/76 Pulse: 86 89 86 88 Resp: 20 19 (!) 48 20 Temp: 37.1 C (98.8 F) 37.2 C (99 F) 37.2 C (99 F) 36.4 C (97.6 F) TempSrc: Oral SpO2: 99% 99% 95% 100% Weight: Height: I/O No intake/output data recorded. I/O last 3 completed shifts: In: 1250 [Oral:700; I.V.:550] Out: 2800 [Urine:2800] Physical Exam General: Appropriate for age, no acute distress, well-developed and well-nourished. HENT: Head: Normocephalic and atraumatic. Eyes: Conjunctivae and EOM are normal. Pupils are equal, round, and reactive to light. Neck: Neck supple. No jugular venous distention Cardiovascular: Normal rate, rhythm and heart sounds. No gallop, rub or murmur. Chest: CTA. No wheezes or rales. Abdominal: Soft. BS are normal. Extremities: Normal range of motion, no edema, tenderness or deformity. Neurological: Alert and oriented. Cranial nerves intact Psych: Appropriate mood and response Medications Current Facility-Administered Medications Medication Dose Route Frequency Last Rate Last Admin acetaminophen (TYLENOL) tablet 650 mg 650 mg Oral Q6HPRN 650 mg at 02/01/20 0012 D5W IV infusion 1,000 mL 1,000 mL IV Infusion CONTINUOUS 50 mL/hr at 01/31/202028 1,000 mL at 01/31/202028 enoxaparin (LOVENOX) injection 40 mg 40 mg Subcutaneous Q24H 40 mg at 01/31/202023 atorvastatin (LIPITOR) tablet 20 mg 20 mg Oral QHS 20 mg at 01/31/202023 dextrose 50 % in water (D50W) injection 25 mL 25 mL Slow IV Push PRN docusate (COLACE) capsule 100 mg 100 mg Oral BID 100 mg at 01/31/202023 glucagon (GLUCAGEN DIAGNOSTIC KIT) injection 1 mg 1 mg Intramuscular PRN ipratropium-albuteroL (DUONEB) 0.5 mg-3 mg(2.5 mg base)/3 mL nebulizer solution 3 mL 3 mL Inhalation Q6HPRN losartan (COZAAR) tablet 50 mg 50 mg Oral DAILY Stopped at 02/01/20 0900 ondansetron (ZOFRAN (PF)) injection 4 mg 4 mg Slow IV Push Q6HPRN Labs and Radiology CMP NA (mmol/L) Date Value 02/01/2020 131 (L) 01/31/2020 132 (L) 01/31/2020 125 (L) 01/31/2020 126 (L) 01/30/2020 125 (L) K (mmol/L) Date Value 02/01/2020 3.6 01/31/2020 3.9 01/31/2020 3.2 (L) 01/31/2020 3.1 (L) 01/30/2020 3.0 (L) CALCIUM (mg/dL) Date Value 02/01/2020 9.0 01/31/2020 9.1 01/31/2020 8.5 (L) 01/31/2020 8.5 (L) 01/30/2020 8.5 (L) CL (mmol/L) Date Value 02/01/2020 99 01/31/2020 101 01/31/2020 91 (L) 01/31/2020 92 (L) 01/30/2020 92 (L) BUN (mg/dL) Date Value 02/01/2020 9 01/31/2020 8 01/31/2020 9 01/31/2020 8 01/30/2020 8 CREATININE (mg/dL) Date Value 02/01/2020 0.72 01/31/2020 0.59 01/31/2020 0.64 01/31/2020 0.63 01/30/2020 0.61 GLUCOSE (mg/dL) Date Value 02/01/2020 119 (H) 01/31/2020 96 01/31/2020 107 01/31/2020 104 01/30/2020 95 CO2 TOTAL (mmol/L) Date Value 02/01/2020 23 01/31/2020 23 01/31/2020 25 01/31/2020 26 01/30/2020 25 ALBUMIN (g/dL) Date Value 01/30/2020 3.6 01/29/2020 3.7 T PROTEIN (g/dL) Date Value 01/30/2020 6.7 01/29/2020 6.5 TOTAL BILI (mg/dL) Date Value 01/30/2020 0.9 01/29/2020 0.8 BILI UNCON (mg/dL) Date Value 01/30/2020 0.8 01/29/2020 0.8 BILI CONJ (mg/dL) Date Value 01/30/2020 0.0 01/29/2020 0.0 ALTv (U/L) Date Value 01/30/2020 15 01/29/2020 13 AST(SGOT) (U/L) Date Value 01/30/2020 19 01/29/2020 19 ALK PHOS (U/L) Date Value 01/30/2020 166 (H) 01/29/2020 172 (H) PHOSPHORUS Date Value Ref Range Status 01/30/2020 2.8 2.5 - 5.0 mg/dL Final CBC withoutdiff WBC (10*3/L) Date Value 02/01/2020 5.22 01/31/2020 4.91 01/30/2020 6.69 01/29/2020 6.39 HGB (g/dL) Date Value 02/01/2020 11.3 (L) 01/31/2020 10.3 (L) 01/30/2020 10.2 (L) 01/29/2020 10.1 (L) HCT (%) Date Value 02/01/2020 33.2 (L) 01/31/2020 28.6 (L) 01/30/2020 27.4 (L) 01/29/2020 27.8 (L) MCV (fL) Date Value 02/01/2020 88.3 01/31/2020 85.1 01/30/2020 83.8 01/29/2020 84.8 PLT (10*3/L) Date Value 02/01/2020 268 01/31/2020 226 01/30/2020 169 01/29/2020 189 No results found for: UPROTEIN No results found for: UPH No results found for: UGLUCOSE No results found for: UKETONES No results found for: UBILI No results found for: UBLOOD No results found for: UUROBILIN No results found for: ULEUKEST No results found for: UNITRITE No results found for: USPGRAV Xr Chest 1 Vw Result Date: 01/30/2020 Impression: 1. No acute abnormalities evident. 2. Tortuosity of the thoracic aorta may reflect atherosclerosis or hypertension. [facility]: [id number] RL: [id number] Cervical Spine Wo Contrast Result Date: 01/30/2020 No acute intracranial abnormality. No acute fracture or traumatic malalignment of the cervical spine. Preliminary Report Dictated by Resident: Mike Andres I, Joseluis Denson MD., have reviewed thisstudy and agree with the above report. Ct Head W/o Contrast Result Date: 01/30/2020 No acute intracranial abnormality. No acute fracture or traumatic malalignment of the cervical spine. Preliminary Report Dictated by Resident: Mike Andres I, Joseluis Denson MD., have reviewed thisstudy and agree with the above report. Xr Kub Result Date: 01/30/2020 Impression: 1. No evidence of bowel obstruction. 2. Extensive colonic stool suggests constipation. RL: [id number] AFC: [id number] End of Report Problem List: Problem Obesity (Bmi 30-39.9) Assessment Severe Hyponatremia Hypochloremia Hypomagnesemia Compulsive water drinker Likely SIADH Hypokalemia: Will replace. Plan I agree that the correction of sodium is bit rapid but was without any intervention except restricting free water intake. So the correction is mostly physiological and may not require reversal or even negate free water restriction. Will cut down the infusion to 50 mls per hour this will avoid further rise of sodium or slow the rate of correction.. 02/01/20: Patient seen and examined. In the recliner and does not like that. She wants to be in bed. No new complaints and not asking for water. She still is getting D5W and now that can be stopped. Her serum sodium is almost normalized and once the infusion is stopped will be normalized. Renal alexander no other suggestions. Heath Stephenson MD [facility] Adjunct rn perinatal [facility] austino Perez MD - 01/31/2020 9:55 AM CST [facility] Progress Note Dr. Faustino Perez MD 01/31/2020 9:56 AM Subjective: Chart reviewed. Patient seen in follow up for mental status due to hyponatremia Objective: Vitals: 01/31/20 0600 01/31/20 0700 01/31/20 0800 01/31/20 0900 BP: 111/67 102/68 112/76 Pulse: 75 76 80 74 Resp: 19 24 (!) 62 24 Temp: 36.7 C (98.1 F) 36.7 C (98.1 F) 36.8 C (98.2 F) 37 C (98.6 F) TempSrc: SpO2: 100% 100% 97% 100% Weight: Height: General: awake, alert, no distress HEENT: NC, AT, PERRLA, EOMI, MMM, anicteric sclera Neck: no JVD/lymphadenopathy CV: RRR, no murmurs, rubs, gallops Lungs: clear to auscultation bilaterally Abdomen: soft, NT, ND, (+)BS Skin: no rashes Extremities: no clubbing, cyanosis, edema Neuro: CN 2-12 intact, no focal deficits Psych: oriented x 3, normal affect Current Facility-Administered Medications: acetaminophen (TYLENOL) tablet 650 mg, 650 mg, Oral, Q6HPRN, Estephania Fitzpatrick MD, 650 mg at 01/31/20 0110 D5W IV infusion 1,000 mL, 1,000 mL, IV Infusion, CONTINUOUS, Estephania Fitzpatrick MD, Last Rate:125 mL/hr at 01/31/20 0547, 1,000 mL at 01/31/20 0547 enoxaparin (LOVENOX) injection 40 mg, 40 mg, Subcutaneous, Q24H, Montana Turcios MD atorvastatin (LIPITOR) tablet 20 mg, 20 mg, Oral, QHS, Consuelo Hancock MD dextrose 50 % in water (D50W) injection 25 mL, 25 mL, Slow IV Push, PRN, Irina Bashir MD docusate (COLACE) capsule 100 mg, 100 mg, Oral, BID, Irina Bashir MD, 100 mg at 01/31/20 0915 glucagon (GLUCAGEN DIAGNOSTIC KIT) injection 1 mg, 1 mg, Intramuscular, PRN, Irina Bashir MD ipratropium-albuteroL (DUONEB) 0.5 mg-3 mg(2.5 mg base)/3 mL nebulizer solution 3 mL, 3 mL, Inhalation, Q6HPRN, Irina Bashir MD losartan (COZAAR) tablet 50 mg, 50 mg, Oral, DAILY, Consuelo Hancock MD, 50 mg at 01/31/20 0915 ondansetron (ZOFRAN (PF)) injection 4 mg, 4 mg, Slow IV Push, Q6HPRN, Irina Bashir MD Labs Lab Results Component Value Date WBC 4.91 01/31/2020 HGB 10.3 (L) 01/31/2020 HCT 28.6 (L) 01/31/2020 PLT 226 01/31/2020 ALT 15 01/30/2020 AST 19 01/30/2020 NA 125 (L) 01/31/2020 K 3.2 (L) 01/31/2020 CL 91 (L) 01/31/2020 BUN 9 01/31/2020 A/P Loly Hermosillo is a 64 year old female admitted with: 1. 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 BPD I May need medication adjustment due to severe hyponatremia Multiple admissions 3. Acute metabolic encephalopathy Due to hyponatremia 4. 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 Faustino Perez [phone] [id number] signed by Faustino Perez MD at 01/31/2020 10:30 AM Heath Dixon MD - 01/31/2020 9:15 AM CST [facility] Nephrology Progress Note 01/31/2020 9:16 AM Subjective Loly Hermosillo is a 64 year old female with significant psychiatry history on multiple psychotropicmedications, who presented to [facility] ED with AMS at home. Per charted history patient has been in multiple hospitals and facilities over the past one year, has had issues with bipolar disorder. In the ED patient was found to be hyponatremic and lethargic. She was given IVF by ED [employer]IC [employer]ACH[employer]PERATOR and transferred to [facility] for admission. Patient is currently drowsy, but arousable, following commands and protecting airway. She was found to be severely hyponatremic with a serum sodium of 111 mEq/L hence this renal consult. Patient has been started on NS at 30 cc per hour and 4 hourly sodium determination. Patient now appears awake, alert and quite coherent. According to the family, patient is a compulsivewater drinker and has been asking water. Also she is taking many psych medications. Today she alert awake and oriented. She is receiving D5W at 150 cc per hour. Objective Vitals Vitals: 01/31/20 0300 01/31/20 0400 01/31/20 0500 01/31/20 0600 BP: 100/58 117/75 109/60 111/67 Pulse: 74 73 73 75 Resp: 8 12 16 19 Temp: 36.7 C (98.1 F) 36.6 C (97.9 F) 36.6 C (97.9 F) 36.7 C (98.1 F) TempSrc: SpO2: 100% 99% 98% 100% Weight: Height: I/O No intake/output data recorded. I/O last 3 completed shifts: In: 1026 [Oral:300; I.V.:726] Out: 3450 [Urine:3150; Emesis:300] Physical Exam General: Appropriate for age, no acute distress, well-developed and well-nourished. HENT: Head: Normocephalic and atraumatic. Eyes: Conjunctivae and EOM are normal. Pupils are equal, round, and reactive to light. Neck: Neck supple. No jugular venous distention Cardiovascular: Normal rate, rhythm and heart sounds. No gallop, rub or murmur. Chest: CTA. No wheezes or rales. Abdominal: Soft. BS are normal. Extremities: Normal range of motion, no edema, tenderness or deformity. Neurological: Alert and oriented. Cranial nerves intact Psych: Appropriate mood and response Medications Current Facility-Administered Medications Medication Dose Route Frequency Last Rate Last Admin acetaminophen (TYLENOL) tablet 650 mg 650 mg Oral Q6HPRN 650 mg at 01/31/20 0110 D5W IV infusion 1,000 mL 1,000 mL IV Infusion CONTINUOUS 125 mL/hr at 01/31/20 0547 1,000 mL at104/02/19 0547 atorvastatin (LIPITOR) tablet 20 mg 20 mg Oral QHS dextrose 50 % in water (D50W) injection 25 mL 25 mL Slow IV Push PRN docusate (COLACE) capsule 100 mg 100 mg Oral BID 100 mg at 01/31/20 0915 glucagon (GLUCAGEN DIAGNOSTIC KIT) injection 1 mg 1 mg Intramuscular PRN heparin (porcine) injection 5,000 Units 5,000 Units Subcutaneous Q8H 5,000 Units at 01/31/20 0556 ipratropium-albuteroL (DUONEB) 0.5 mg-3 mg(2.5 mg base)/3 mL nebulizer solution 3 mL 3 mL Inhalation Q6HPRN losartan (COZAAR) tablet 50 mg 50 mg Oral DAILY 50 mg at 01/31/20 0915 ondansetron (ZOFRAN (PF)) injection 4 mg 4 mg Slow IV Push Q6HPRN pantoprazole (PROTONIX) EC tablet 20 mg 20 mg Oral DAILY 20 mg at 01/31/20 0915 Labs and Radiology CMP NA (mmol/L) Date Value 01/31/2020 125 (L) 01/31/2020 126 (L) 01/30/2020 125 (L) 01/30/2020 124 (L) 01/30/2020 115 (LL) K (mmol/L) Date Value 01/31/2020 3.2 (L) 01/31/2020 3.1 (L) 01/30/2020 3.0 (L) 01/30/2020 3.5 01/30/2020 3.6 CALCIUM (mg/dL) Date Value 01/31/2020 8.5 (L) 01/31/2020 8.5 (L) 01/30/2020 8.5 (L) 01/30/2020 8.5 (L) 01/30/2020 8.0 (L) CL (mmol/L) Date Value 01/31/2020 91 (L) 01/31/2020 92 (L) 01/30/2020 92 (L) 01/30/2020 91 (L) 01/30/2020 82 (L) BUN (mg/dL) Date Value 01/31/2020 9 01/31/2020 8 01/30/2020 8 01/30/2020 7 01/30/2020 7 CREATININE (mg/dL) Date Value 01/31/2020 0.64 01/31/2020 0.63 01/30/2020 0.61 01/30/2020 0.59 01/30/2020 0.48 (L) GLUCOSE (mg/dL) Date Value 01/31/2020 107 01/31/2020 104 01/30/2020 95 01/30/2020 90 01/30/2020 109 CO2 TOTAL (mmol/L) Date Value 01/31/2020 25 01/31/2020 26 01/30/2020 25 01/30/2020 25 01/30/2020 24 ALBUMIN (g/dL) Date Value 01/30/2020 3.6 01/29/2020 3.7 T PROTEIN (g/dL) Date Value 01/30/2020 6.7 01/29/2020 6.5 TOTAL BILI (mg/dL) Date Value 01/30/2020 0.9 01/29/2020 0.8 BILI UNCON (mg/dL) Date Value 01/30/2020 0.8 01/29/2020 0.8 BILI CONJ (mg/dL) Date Value 01/30/2020 0.0 01/29/2020 0.0 ALTv (U/L) Date Value 01/30/2020 15 01/29/2020 13 AST(SGOT) (U/L) Date Value 01/30/2020 19 01/29/2020 19 ALK PHOS (U/L) Date Value 01/30/2020 166 (H) 01/29/2020 172 (H) PHOSPHORUS Date Value Ref Range Status 01/30/2020 2.8 2.5 - 5.0 mg/dL Final CBC withoutdiff WBC (10*3/L) Date Value 01/31/2020 4.91 01/30/2020 6.69 01/29/2020 6.39 HGB (g/dL) Date Value 01/31/2020 10.3 (L) 01/30/2020 10.2 (L) 01/29/2020 10.1 (L) HCT (%) Date Value 01/31/2020 28.6 (L) 01/30/2020 27.4 (L) 01/29/2020 27.8 (L) MCV (fL) Date Value 01/31/2020 85.1 01/30/2020 83.8 01/29/2020 84.8 PLT (10*3/L) Date Value 01/31/2020 226 01/30/2020 169 01/29/2020 189 No results found for: UPROTEIN No results found for: UPH No results found for: UGLUCOSE No results found for: UKETONES No results found for: UBILI No results found for: UBLOOD No results found for: UUROBILIN No results found for: ULEUKEST No results found for: UNITRITE No results found for: USPGRAV Xr Chest 1 Vw Result Date: 01/30/2020 Impression: 1. No acute abnormalities evident. 2. Tortuosity of the thoracic aorta may reflect atherosclerosis or hypertension. AFC: [id number] RL: [address] Cervical Spine Wo Contrast Result Date: 01/30/2020 No acute intracranial abnormality. No acute fracture or traumatic malalignment of the cervical spine. Preliminary Report Dictated by Resident: Joseluis Heart MD., have reviewed thisstudy and agree with the above report. Ct Head W/o Contrast Result Date: 01/30/2020 No acute intracranial abnormality. No acute fracture or traumatic malalignment of the cervical spine. Preliminary Report Dictated by Resident: Joseluis Heart MD., have reviewed thisstudy and agree with the above report. Xr Kub Result Date: 01/30/2020 Impression: 1. No evidence of bowel obstruction. 2. Extensive colonic stool suggests constipation. RL: [id number] AFC: [id number] End of Report Problem List: Problem Obesity (Bmi 30-39.9) Assessment Severe Hyponatremia Hypochloremia Hypomagnesemia Compulsive water drinker Likely SIADH Hypokalemia: Will replace. Plan I agree that the correction of sodium is bit rapid but was without any intervention except restricting free water intake. So the correction is mostly physiological and may not require reversal or even negate free water restriction. Will cut down the infusion to 50 mls per hour this will avoid further rise of sodium or slow the rate of correction.. Heath Stephenson MD FACP [facility] Adjunct rn perinatal [facility] ontana Turcios MD - 01/31/2020 8:36 AM PSYCHOLOGIST [employer] Pulmonary and Critical Care Medicine Critical Care Consult/Progress Note Date of Service: 01/31/2020 ICU Day: #1 Last 24 hour events (major events): No acute issues overnight. Na trending up, placed on D5W. No other issues reported. REVIEW OF SYSTEMS (-)=Negative,(+)=Positive General: (-) fever, (-) chills Skin: (-) rash, (-) lesion HEENT: (-) headache, (-) change in hearing Neck: (-) pain, (-) difficulty swallowing Heme: (-) bleeding disorder Resp: (-) cough, (-) shortness of breath Cardio: (-) chest pain, (-) palpitations GI: (-) abdominal pain, (-) nausea, (-) vomiting : (-) dysuria, (-) hematuria Endo: (-) heat intolerance, (-) diabetes, (-) cold intolerance Neuro: (-) numbness, (-) tingling Back: (-) pain, (-)spasms SOLE: (-) muscle pain, (-) joint pain Psych: (-) anxiety, (-) depression Lines (with dates): ELY Webber: 01/30/2020 Intake/Output: Intake/Output Summary (Last 24 hours) at 01/31/2020 0836 Last data filed at 01/31/2020 0547 Gross per 24 hour Intake 1026 ml Output 3450 ml Net -2424 ml PHYSICAL EXAMINATION Vitals: 01/31/20 0300 01/31/20 0400 01/31/20 0500 01/31/20 0600 BP: 100/58 117/75 109/60 111/67 Pulse: 74 73 73 75 Resp: 8 12 16 19 Temp: 36.7 C (98.1 F) 36.6 C (97.9 F) 36.6 C (97.9 F) 36.7 C (98.1 F) TempSrc: SpO2: 100% 99% 98% 100% Weight: Height: General: alert and oriented x 4 (person, place, date/time and situation); no apparent distress HEENT: pupils equal, round, reactive to light; extraocular movements intact; oropharynx clear; moistmucous membranes, normocephalic atraumatic Neck: supple, no lymphadenopathy, no bruits, no JVD Lungs: clear to auscultation bilaterally Cardio: S1, S2 normal; no murmurs, rubs or gallops Abdomen: soft; non-tender; non-distended; normoactive bowel sounds : not examined Rectal: not examined Extremities: no clubbing, cyanosis, or edema Skin: no rashes Neuro: cranial nerves II through XII grossly intact; sensation grossly intact; muscle strength 5 outof 5 in all four extremities Labs (pertinent only)/Imaging: Recent Results (from the past 24 hour(s)) BASIC METABOLIC PANEL (NA, K, CL, CO2, GLUCOSE, BUN, CREATININE, CA) Collection Time: 01/30/20 9:10 AM Result Value Ref Range NA 114 (LL) 135 - 145 mmol/L K 3.7 3.5 - 5.0 mmol/L CL 82 (L) 98 - 108 mmol/L CO2 TOTAL 22 (L) 23 - 31 mmol/L AGAP 10 2 - 16 BUN 8 7 - 23 mg/dL GLUCOSE 123 (H) 70 - 110 mg/dL CREATININE 0.47 (L) 0.50 - 1.04 mg/dL CALCIUM 8.0 (L) 8.6 - 10.6 mg/dL eGFR Calculation (Non-) 133.8 mL/min/1.73m2 eGFR Calculation () 162.2 mL/min/1.73m2 BASIC METABOLIC PANEL (NA, K, CL, CO2, GLUCOSE, BUN, CREATININE, CA) Collection Time: 01/30/20 12:25 PM Result Value Ref Range NA 115 (LL) 135 - 145 mmol/L K 3.6 3.5 - 5.0 mmol/L CL 82 (L) 98 - 108 mmol/L CO2 TOTAL 24 23 - 31 mmol/L AGAP 9 2 - 16 BUN 7 7 - 23 mg/dL GLUCOSE 109 70 - 110 mg/dL CREATININE 0.48 (L) 0.50 - 1.04 mg/dL CALCIUM 8.0 (L) 8.6 - 10.6 mg/dL eGFR Calculation (Non-) 130.6 mL/min/1.73m2 eGFR Calculation () 158.3 mL/min/1.73m2 SODIUM, URINE RANDOM Collection Time: 01/30/20 12:25 PM Result Value Ref Range NA URINE 77 mmol/L BASIC METABOLIC PANEL (NA, K, CL, CO2, GLUCOSE, BUN, CREATININE, CA) Collection Time: 01/30/20 5:01 PM Result Value Ref Range NA 124 (L) 135 - 145 mmol/L K 3.5 3.5 - 5.0 mmol/L CL 91 (L) 98 - 108 mmol/L CO2 TOTAL 25 23 - 31 mmol/L AGAP 8 2 - 16 BUN 7 7 - 23 mg/dL GLUCOSE 90 70 - 110 mg/dL CREATININE 0.59 0.50 - 1.04 mg/dL CALCIUM 8.5 (L) 8.6 - 10.6 mg/dL eGFR Calculation (Non-) 102.9 mL/min/1.73m2 eGFR Calculation () 124.8 mL/min/1.73m2 BASIC METABOLIC PANEL (NA, K, CL, CO2, GLUCOSE, BUN, CREATININE, CA) Collection Time: 01/30/20 9:51 PM Result Value Ref Range NA 125 (L) 135 - 145 mmol/L K 3.0 (L) 3.5 - 5.0 mmol/L CL 92 (L) 98 - 108 mmol/L CO2 TOTAL 25 23 - 31 mmol/L AGAP 8 2 - 16 BUN 8 7 - 23 mg/dL GLUCOSE 95 70 - 110 mg/dL CREATININE 0.61 0.50 - 1.04 mg/dL CALCIUM 8.5 (L) 8.6 - 10.6 mg/dL eGFR Calculation (Non-) 99.1 mL/min/1.73m2 eGFR Calculation () 120.1 mL/min/1.73m2 BASIC METABOLIC PANEL (NA, K, CL, CO2, GLUCOSE, BUN, CREATININE, CA) Collection Time: 01/31/20 12:38 AM Result Value Ref Range NA 126 (L) 135 - 145 mmol/L K 3.1 (L) 3.5 - 5.0 mmol/L CL 92 (L) 98 - 108 mmol/L CO2 TOTAL 26 23 - 31 mmol/L AGAP 8 2 - 16 BUN 8 7 - 23 mg/dL GLUCOSE 104 70 - 110 mg/dL CREATININE 0.63 0.50 - 1.04 mg/dL CALCIUM 8.5 (L) 8.6 - 10.6 mg/dL eGFR Calculation (Non-) 95.4 mL/min/1.73m2 eGFR Calculation () 115.7 mL/min/1.73m2 BASIC METABOLIC PANEL (NA, K, CL, CO2, GLUCOSE, BUN, CREATININE, CA) Collection Time: 01/31/20 4:04 AM Result Value Ref Range NA 125 (L) 135 - 145 mmol/L K 3.2 (L) 3.5 - 5.0 mmol/L CL 91 (L) 98 - 108 mmol/L CO2 TOTAL 25 23 - 31 mmol/L AGAP 9 2 - 16 BUN 9 7 - 23 mg/dL GLUCOSE 107 70 - 110 mg/dL CREATININE 0.64 0.50 - 1.04 mg/dL CALCIUM 8.5 (L) 8.6 - 10.6 mg/dL eGFR Calculation (Non-) 93.7 mL/min/1.73m2 eGFR Calculation () 113.6 mL/min/1.73m2 CBC WITH DIFF Collection Time: 01/31/20 4:04 AM Result Value Ref Range WBC 4.91 4.30 - 11.10 10*3/L RBC 3.36 (L) 3.93 - 5.25 10*6/L HGB 10.3 (L) 11.6 - 15.0 g/dL HCT 28.6 (L) 35.7 - 45.2 % MCV 85.1 80.6 - 95.5 fL MCH 30.7 25.9 - 32.8 pg MCHC 36.0 (H) 31.6 - 35.1 g/dL RDW-SD 39.2 39.0 - 49.9 fL RDW-CV 12.6 12.0 - 15.5 % PLT 226 166 - 358 10*3/L MPV 10.0 9.5 - 12.9 fL NRBC/100 WBC 0.0 0.0 - 10.0 /100 WBCs NRBC x10^3 <0.01 10*3/L GRAN MAT (NEUT) % 47.1 % IMM GRAN % 0.20 % LYMPH % 39.9 % MONO % 10.0 % EOS % 2.2 % BASO % 0.6 % GRAN MAT x10^3(ANC) 2.31 1.88 - 7.09 10*3/uL IMM GRAN x10^3 <0.03 0.00 - 0.06 10*3/uL LYMPH x10^3 1.96 1.32 - 3.29 10*3/uL MONO x10^3 0.49 0.33 - 0.92 10*3/uL EOS x10^3 0.11 0.03 - 0.39 10*3/uL BASO x10^3 0.03 0.01 - 0.07 10*3/uL MAGNESIUM Collection Time: 01/31/20 4:04 AM Result Value Ref Range MAGNESIUM 2.2 1.7 - 2.4 mg/dL Xr Chest 1 Vw Result Date: 01/30/2020 Impression: 1. No acute abnormalities evident. 2. Tortuosity of the thoracic aorta may reflect atherosclerosis or hypertension. AFC: [id number] RL: [address] Cervical Spine Wo Contrast Result Date: 01/30/2020 No acute intracranial abnormality. No acute fracture or traumatic malalignment of the cervical spine. Preliminary Report Dictated by Resident: Joseluis Heart MD., have reviewed thisstudy and agree with the above report. Ct Head W/o Contrast Result Date: 01/30/2020 No acute intracranial abnormality. No acute fracture or traumatic malalignment of the cervical spine. Preliminary Report Dictated by Resident: Joseluis Heart MD., have reviewed thisstudy and agree with the above report. Xr Kub Result Date: 01/30/2020 Impression: 1. No evidence of bowel obstruction. 2. Extensive colonic stool suggests constipation. RL: [id number] AFC: [id number] End of Report I have reviewed all labs and imaging Assessment/Plan: Loly Hermosillo is a 64 year old female Neuro: #Analgesia and sedation #Delirium management - Avoid deliriogenic medications (benzodiazepines, ambien, anticholinergics and fluoroquinolones) #Bipolar disorder - CV: #Hypertension - On losartan, can restart if required Respiratory: #Acute hypoxemic respiratory failure - No oxygen requirements at this time - Monitor GI: #Stress ulcer prophylaxis - Not required #Nutrition - Regular diet with fluid restriction Renal: #Hyponatremia #Hypokalemia #Hypochloremia - Nephrology consulted; agree that D5W is unnecessary, can cut down and monitor BMP - 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 - Fluid restriction and monitor for symptoms ID: #No active issues Heme: #Anemia of chronic disease Endo: #No active issues MSK: #Deconditioning - PT OT ICU Patient Safety Checklist: Nutrition: Regular / NPO / Cardiac / Diabetic Pain: Tylenol for minimal pain, Melvin 5 for moderate and Morphine for severe / breakthrough pain /fentanyl infusion + PRN pushes Sedation: N/A / Propofol / Precedex / Versed Ulcer prophylaxis: Pepcid / PPI / not required DVT / PE prophylaxis: SCD / Heparin / Lovenox SAT/SBT: In the AM, per protocol / not a candidate / not required Mobility: Early mobilization is highly encouraged - OT/PT consulted Vascular access: PIVs / CVC / PICC Webber: In place Code status: Full / DNR / Hospice / Comfort measures Next of kin: Partner / spouse / sibling / parent Fall risk: High / Moderate Restraint: Not required at this juncture / Required due to patient's attempt to remove lifesaving lines and catheters Pressure Ulcer: No sign of pressure ulcer on my today's examination / Prognosis: Good / Fair / Poor Condition: Critical / Serious / Fair Medications: All medications were reviewed in details and required changes were made Disposition: ICU / IMU Due to a high probability of clinically significant, life threatening deterioration, the patient required my highest level of preparedness to intervene emergently and I personally spent 35 minutes of critical care time directly and personally managing the patient. This critical care time included obtaining a history; examining the patient; pulse oximetry; ordering and review of studies; arranging urgent treatment with development of a management plan; evaluation of patient's response to treatment; frequent reassessment; and, discussions with other providers. This critical care time was performed to assess and manage the high probability of imminent, life-threatening deterioration that could result in multi-organ failure. It was exclusive of separately billable procedures and treating other patients and teaching time. Montana Stewart MD Pulmonary and Critical Care Medicine [facility] Loy Vaca SW - 01/30/2020 2:25 PM CSTCare Management Social Functional Assessment Patient Name: Loly Hermosillo Age: [age] year old Sex: female Previous admit date: N/A Current diagnosis and co-morbidities: SEVERE HYPONATREMIA Readmission Questions: Was patient discharged from any acute care hospital within the last 30 days: No Social Functional Assessment: Primary language spoken/preferred: Citizen Of [place] Information given by: Child Name and phone number of person giving information: OTILIO BUCKLEY DAUGHTER [phone] Patient's support system: Child Name and number of support system: OTILIO BUCKLEY DAUGHTER [phone] Primary Bend Sorter: Self;Child MPOA: Same as support system Living Arrangement: Apartment Address of living arrangement : [id number], [facility] [address] Persons living in home: Self;Child Names & numbers of persons living in home: OTILIO BUCKLEY DAUGHTER [phone] Barriers to returning home: Declining function Baseline functional status- ambulation: Requires minimal to moderate assistance Functional status-baseline personal care: Requires minimal to moderate assistance Baseline functional status- driving: Dependent Baseline functional status- grocery shopping: Requires minimal to moderate assistance Functional status-baseline housekeeping: Requires minimal to moderate assistance Functional status-baseline meal prep: Requires minimal to moderate assistance Current functional status same as prior: No Current functional status- ambulation: Dependent Current functional status- personal care: Dependent Current functional status- driving: Dependent Current functional status- grocery shopping: Dependent Current functional status-house keeping: Dependent Current functional status- meal preparation: Dependent Do you have a PCP?: Yes Name of PCP: RODGER JACKSON MD Home Health Care Agency: Yes Name of Home Health Agency: [facility] (Initial Referral) [address] [place] [address] () [phone] (F) [phone] Previous or current Home Health Care Agency: Current Provider Services: No(PT DAUGHTER STATES THAT [facility] IS APPLYING FOR PROVIDER SERVICES) DME Company: No Equipment: Shower bench;[facility] Hemodialysis: No Funding Resources: Medicare Replacement;Medicaid Medicare Replacement name and information: [facility] MEDICARE Prescription coverage plan: Medicare Part D;Medicaid unlimited slots Pharmacy where meds are filled: Other Other pharmacy: [facility] Anticipated services prior to disharge: Continue Medical Eval;Reassess prior to discharge;PT/OT/ST Expected mode of discharge transportation: Family Name and phone number of the friend or family member picking up the patient: OTILIO [phone] Additional Recommendations for DC: DC HOME WITH DAUGHTER WITH [facility]. [facility] H[facility] PT WAS DC ON Thursday01/27/20 FROM SNF Additional info required for discharge planning: Pending medical evaluation;Pending P/T O/T recommendation Recommended discharge plan: Home;Update/Resume HH orders SFA Complete: Social Functional Assessment complete: Yes Alcohol Use Screening (AUDIT-C) How often do you have a drink containing alcohol?: Never SCORE: 0 Role of Care Management explained. CHELO Murphy [employer] documented in this encounter H&P Notes Irina Bashir MD - 01/30/2020 12:23 AM CST Critical Care Medicine History and Physical Note Date of Service: 01/30/2020 00:23 ICU day: 1 Intubation Day: 0 CHIEF COMPLAINT: altered mental status HISTORY OF PRESENT ILLNESS Loly Hermosillo is a 64 year old female with significant psychiatry history on multiple psychotropicmedications, who presented to [facility] ED with AMS at home. Per charted history patient has been in multiple hospitals and facilities over the past one year, has had issues with bipolar disorder. In the ED patient was found to be hyponatremic and lethargic. 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 Patient is currently drowsy, but arousable, following commands and protecting airway. PAST MEDICAL HISTORY History reviewed. No pertinent past medical history. PAST SURGICAL HISTORY History reviewed. No pertinent surgical history. FAMILY HISTORY No family history on file. SOCIAL HISTORY Social History Socioeconomic History Marital status: Spouse name: Not on file Number of children: Not on file Years of education: Not on file Highest education level: Not on file Occupational History Not on file Social Needs Financial resource strain: Not on file Food insecurity Worry: Not on file Inability: Not on file Transportation needs Medical: Not on file Non-medical: Not on file Tobacco Use Smoking status: Never Smoker Smokeless tobacco: Never Used Substance and Sexual Activity Alcohol use: No Drug use: No Sexual activity: Never Lifestyle Physical activity Days per week: Not on file Minutes per session: Not on file Stress: Not on file Relationships Social connections Talks on phone: Not on file Gets together: Not on file Attends yarsanism service: Not on file Active member of club or organization: Not on file Attends meetings of clubs or organizations: Not on file Relationship status: Not on file Intimate partner violence Fear of current or ex partner: Not on file Emotionally abused: Not on file Physically abused: Not on file Forced sexual activity: Not on file Other Topics Concern Not on file Social History Narrative Not on file ALLERGIES No Known Allergies REVIEW OF SYSTEMS Unobtainable PHYSICAL EXAMINATION Vitals: 01/29/20 2036 01/29/20 2146 01/29/20 2200 01/29/20 2245 BP: (!) 154/96 112/78 97/73 129/88 Pulse: 88 71 71 79 Resp: 14 15 14 16 Temp: SpO2: 97% 94% 96% 95% Weight: General: well developed, well nourished, disoriented, not in distress HEENT: normocephalic atraumatic, pupils equal, round, reactive to light Neck: supple, no lymphadenopathy, no bruits, no JVD Lungs: clear to auscultation bilaterally Cardio: S1, S2 normal; no murmurs, rubs or gallops, regular rate and rhythm Abdomen: soft; non-tender; non-distended; normoactive bowel sounds : not examined Rectal: not examined Extremities: no clubbing, cyanosis, or edema Skin: no rashes Neuro: confused, follows commands Labs (pertinent only)/Imaging: Recent Results (from the past 24 hour(s)) CBC with Differential Collection Time: 01/29/20 7:28 PM Result Value Ref Range WBC 6.39 4.30 - 11.10 10*3/L RBC 3.28 (L) 3.93 - 5.25 10*6/L HGB 10.1 (L) 11.6 - 15.0 g/dL HCT 27.8 (L) 35.7 - 45.2 % MCV 84.8 80.6 - 95.5 fL MCH 30.8 25.9 - 32.8 pg MCHC 36.3 (H) 31.6 - 35.1 g/dL RDW-SD 37.3 (L) 39.0 - 49.9 fL RDW-CV 12.2 12.0 - 15.5 % PLT 189 166 - 358 10*3/L MPV 10.0 9.5 - 12.9 fL NRBC/100 WBC 0.0 0.0 - 10.0 /100 WBCs NRBC x10^3 <0.01 10*3/L GRAN MAT (NEUT) % 74.0 % IMM GRAN % 0.50 % LYMPH % 14.4 % MONO % 9.4 % EOS % 1.4 % BASO % 0.3 % GRAN MAT x10^3(ANC) 4.73 1.88 - 7.09 10*3/uL IMM GRAN x10^3 0.03 0.00 - 0.06 10*3/uL LYMPH x10^3 0.92 (L) 1.32 - 3.29 10*3/uL MONO x10^3 0.60 0.33 - 0.92 10*3/uL EOS x10^3 0.09 0.03 - 0.39 10*3/uL BASO x10^3 <0.03 0.01 - 0.07 10*3/uL Basic Metabolic Panel (NA, K, CL, CO2, GLUCOSE, BUN, CREATININE, CA) Collection Time: 01/29/20 7:28 PM Result Value Ref Range NA 111 (LL) 135 - 145 mmol/L K 3.6 3.5 - 5.0 mmol/L CL 79 (L) 98 - 108 mmol/L CO2 TOTAL 25 23 - 31 mmol/L AGAP 7 2 - 16 BUN 14 7 - 23 mg/dL GLUCOSE 116 (H) 70 - 110 mg/dL CREATININE 0.56 0.50 - 1.04 mg/dL CALCIUM 8.2 (L) 8.6 - 10.6 mg/dL eGFR Calculation (Non-) 109.3 mL/min/1.73m2 eGFR Calculation () 132.5 mL/min/1.73m2 Hepatic Function Panel (ALB, T.PRO, BILI T, BU/BC, ALT, AST, ALK PHOS) Collection Time: 01/29/20 7:28 PM Result Value Ref Range TOTAL BILI 0.8 0.1 - 1.1 mg/dL BILI UNCON 0.8 0.1 - 1.1 mg/dL BILI CONJ 0.0 0.0 - 0.3 mg/dL T PROTEIN 6.5 6.3 - 8.2 g/dL ALBUMIN 3.7 3.5 - 5.0 g/dL ALK PHOS 172 (H) 34 - 122 U/L ALTv 13 5 - 35 U/L AST(SGOT) 19 13 - 40 U/L Lipase Serum Collection Time: 01/29/20 7:28 PM Result Value Ref Range LIPASE 30 0 - 220 U/L Troponin I Collection Time: 01/29/20 7:28 PM Result Value Ref Range TROPONIN I <0.012 <=0.034 ng/mL Ethanol Level Collection Time: 01/29/20 7:28 PM Result Value Ref Range ALCOHOL <10 mg/dL Prothrombin Time (PT) / INR Collection Time: 01/29/20 7:28 PM Result Value Ref Range PROTIME PATIENT 13.2 12.0 - 14.7 Seconds INR 1.1 aPTT Collection Time: 01/29/20 7:28 PM Result Value Ref Range APTT Patient 26 23 - 38 Seconds MAGNESIUM Collection Time: 01/29/20 7:28 PM Result Value Ref Range MAGNESIUM 1.6 (L) 1.7 - 2.4 mg/dL PHOSPHORUS Collection Time: 01/29/20 7:28 PM Result Value Ref Range PHOSPHORUS 3.2 2.5 - 5.0 mg/dL ADC / LCC - DRUG SCREEN TRIAGE Collection Time: 01/29/20 7:29 PM Result Value Ref Range BENZO U Presumptive Positive (A) Negative YENNY U Negative Negative AMPHET Negative Negative THC Negative Negative METHADONE Negative Negative Meth U Negative Negative OPIATES Negative Negative Cocaine Metabolite Negative Negative PROPOXY Negative Negative Tric U Negative Negative PCP Negative Negative OXYCOD Negative Negative COVID-19 (ID NOW RAPID TESTING) Collection Time: 01/29/20 7:29 PM Specimen: NASOPHARYNGEAL SWAB Result Value Ref Range SARS-CoV-2 Rapid ID NOW Not Detected Not Detected BLOOD CULTURE SCREEN Collection Time: 01/29/20 7:45 PM Specimen: VENOUS; Blood Result Value Ref Range Blood Culture-Aerobic Culture In Progress No growth Blood Culture-Anaerobic Culture In Progress No growth AC ABG + LACTIC ACID Collection Time: 01/29/20 8:03 PM Result Value Ref Range PH 7.50 (H) 7.35 - 7.45 PCO2 31 (L) 35 - 45 mmHg PO2 67 (L) 80 - 100 mmHg HCO3 24 22 - 26 mEq/L BE 1.5 -3.0 - 3.0 mEq/L LACTIC ACID 0.74 mmol/L POCT GLUCOSE (AUTOMATED) Collection Time: 01/29/20 8:12 PM Result Value Ref Range POCT GLU 123 (H) 70 - 110 mg/dL BLOOD CULTURE SCREEN Collection Time: 01/29/20 8:15 PM Specimen: VENOUS; Blood Result Value Ref Range Blood Culture-Aerobic Culture In Progress No growth Blood Culture-Anaerobic Culture In Progress No growth POCT GLUCOSE(AGE >30DAYS) Collection Time: 01/29/20 8:32 PM Result Value Ref Range POCT Glu (age>30days) 123 (A) 70 - 110 mg/dL No final results containing an impression from the past 2 days were found. Current Facility-Administered Medications: dextrose 50 % in water (D50W) injection 25 mL, 25 mL, Slow IV Push, PRN, Irina Bashir MD glucagon (GLUCAGEN DIAGNOSTIC KIT) injection 1 mg, 1 mg, Intramuscular, PRN, Irina Bashir MD heparin (porcine) injection 5,000 Units, 5,000 Units, Subcutaneous, Q8H, Irina Bashir MD ipratropium-albuteroL (DUONEB) 0.5 mg-3 mg(2.5 mg base)/3 mL nebulizer solution 3 mL, 3 mL, Inhalation, Q6HPRN, Irina Bashir MD pantoprazole (PROTONIX) 40 mg in NaCl 0.9% (NS) 100 mL MINI-BAG, 40 mg, IV Piggyback, Q24H, Irina Bashir MD NaCl 0.9% (NS) IV infusion 1,000 mL, 1,000 mL, Intravenous, CONTINUOUS, Lynette Rojas, AUTOMATIC QUILLING MACHINE OPERATOR, Last Rate: 250 mL/hr at 01/29/202257, 1,000 mL at 01/29/202257 Assessment/Plan: Loly Hermosillo is a 64 year old female Neuro: Altered mental status most likely due to hyponatremia with sodium of 111, CT head and cervical spine negative for any acute pathology, c/w neuro checks, urine toxicology positive for benzodiazepines, and monitor in ICU. CV: No active issues Respiratory: Acute respiratory failure with hypoxia noted on ABG, keep SpO2>92%, get CXR now and ABG. GI: No active issues : Hyponatremia in setting of anti psychotic treatment now with AMS, add IVNS at 30 cc/hr, BMP Q4H,nephrology consulted, slow increase in Na, 8 meq in 24 hours. Check urine electrolytes. ID: No active issues Heme:No active issues= Endo:No active issues MSK:No active issues Ventilator Bundle: Sedation/Analgesia + RASS: N/A Stress ulcer prophylaxis:PPI DVT prophylaxis: Heparin Nutrition:NPO Code status:Full Disposition:ICU Irina Bashir MD [employer] documented in this encounter Consult Notes Wendi Lee, RD - 02/03/2020 12:07 PM CST MEDICAL NUTRITION THERAPY FOLLOW UP NOTE NUTRITION ASSESSMENT: Pt with ok appetite. No N/V/D/C reported. PO Intake: 50-75% Dx: Active Problems: Hyponatremia Obesity (BMI 30-39.9) PMH/PSH: History reviewed. No pertinent past medical history. History reviewed. No pertinent surgical history. Medications: Scheduled meds: enoxaparin (LOVENOX) SC Syringe, 40 mg, Q24H atorvastatin, 20 mg, QHS docusate, 100 mg, BID losartan, 50 mg, DAILY IV meds: PRN meds: acetaminophen, 650 mg, Q6HPRN dextrose 50 % in water (D50W), 25 mL, PRN glucagon, 1 mg, PRN ipratropium-albuteroL, 3 mL, Q6HPRN ondansetron, 4 mg, Q6HPRN Lab and Medical Test Results: CBC: Recent Labs 02/01/20 0531 WBC 5.22 HGB 11.3* HCT 33.2* Diabetes Related Labs: Recent Labs 02/03/20 0148 GLU 103 No results found for: [id number], HGBA1C Intake/Output Summary (Last 24 hours) at 02/03/2020 1207 Last data filed at 02/03/2020 0512 Gross per 24 hour Intake 240 ml Output 1500 ml Net -1260 ml Weight History: Wt Readings from Last 3 Encounters: 01/29/20 102.1 kg (225 lb) 05/25/18 80 kg (176 lb 6.4 oz) 08/06/17 84.4 kg (186 lb) Current Dietary Order(s): Regular Diet; Texture: Regular Regular Diet; Texture: Regular. Nutrition Diagnosis: No nutrition diagnosis at this time. Nutrition Interventions: 1. Continue with current medical nutrition therapy. 2. Monitor po intake, weight, labs Goals: 1. Patient will consume at least 75% of meals during admission Nutrition Monitoring and Evaluation: A registered dietitian will f/u as indicated to report nutrition related information and to revise the recommended nutrition intervention(s); please call with questions or concerns, thank-you. Anticipated d/c needs: Regular Diet Wendi Lee RD,PHILLY Clinical Dietitian Office: [phone] regory Miles MD - 02/03/2020 7:45 AM CSTAssociated Order(s): CONSULT PSYCHIATRY DEPARTMENT OF PSYCHIATRY AND BEHAVIORAL SCIENCE Inpatient Psych/Consult Evaluation [id number] Loly Hermosillo 1955 [id number] [facility] [address] 02/03/2020 REASON FOR CONSULT: "Reason for consult - please give recommendation or opinion on: Competency " REQUESTING PHYSICIAN/ CONTACT INFORMATION: RACHEAL Pettit CHIEF COMPLAINT: "I want to go home." HISTORY OF PRESENT ILLNESS: Loly Hermosillo is a 64 year old woman with a history per chart review of mood disorder admitted foraltered mental status with electrolyte abnormalities. Mental status improved with treatment, psychiatry consulted for evaluation of the patient's capacity to determine disposition. Per chart review, primary services recommend facility for continued therapy and management of medicines, with daughter in agreement on discussion, since she notes the patient cannot care for herself nor manage her own medicines. On interview, the patient is oriented to person, place, and time. When asked about what brought herto the hospital, she explains she fell because she was "sick," but when asked what conditions were making her sick or made her fall she does not know. She cannot relate her diagnoses or treatment while here. She does not know what disposition the treatment team recommends nor why when asked. She prefers to go home to "get established and get better," but cannot relate any risks of going home when asked. When asked her plan to continue to get better, the patient cannot elaborate. She recalls a history of anxiety and was previously on psychotropics, but is unsure if they helped, denies current mood/anxiety concerns and would prefer to establish outpatient before considering starting a medicine if indicated. PAST PSYCHIATRIC HISTORY: The patient recalls an unspecified anxiety disorder with previous treatment with unknown medicine through [facility], medicine discontinued because the patient missed her last appointment; per chart review, patient previously on haldol; she is unsure of benefit of medicine, unsure of she would like to starta psychotropic, and would prefer to establish outpatient with another clinic first. Per chart review, the patient has a history of bipolar disorder and hospitalizations. PAST MEDICAL HISTORY: History reviewed. No pertinent past medical history. History reviewed. No pertinent surgical history. MEDICATIONS: Current Facility-Administered Medications Medication Dose Route Frequency Last Rate Last Admin acetaminophen (TYLENOL) tablet 650 mg 650 mg Oral Q6HPRN 650 mg at 02/02/202009 enoxaparin (LOVENOX) injection 40 mg 40 mg Subcutaneous Q24H 40 mg at 02/02/202009 atorvastatin (LIPITOR) tablet 20 mg 20 mg Oral QHS 20 mg at 02/02/202009 dextrose 50 % in water (D50W) injection 25 mL 25 mL Slow IV Push PRN docusate (COLACE) capsule 100 mg 100 mg Oral BID 100 mg at 02/02/202009 glucagon (GLUCAGEN DIAGNOSTIC KIT) injection 1 mg 1 mg Intramuscular PRN ipratropium-albuteroL (DUONEB) 0.5 mg-3 mg(2.5 mg base)/3 mL nebulizer solution 3 mL 3 mL Inhalation Q6HPRN losartan (COZAAR) tablet 50 mg 50 mg Oral DAILY 50 mg at 02/02/20 0902 ondansetron (ZOFRAN (PF)) injection 4 mg 4 mg Slow IV Push Q6HPRN SIDE EFFECTS/ALLERGIES: No Known Allergies SOCIAL HISTORY: Previously in nursing facility. Medicaid pending per chart. FAMILY PSYCHIATRIC HISTORY: Denies FAMILY MEDICAL HISTORY: No family history on file. VITAL SIGNS: BP 110/75 (Patient Position: Sitting, BP CUFF SIZE: Adult Large) | Pulse 84 | Temp 36.6 C (97.8 F) (Oral) | Resp 16 | Ht 1.676 m (5' 6") | Wt 102.1 kg (225 lb) | SpO2 98% | BMI 36.32 kg/m LAB DATA CBC BMP PT/INR WBC (10*3/L) Date Value 02/01/2020 5.22 NA (mmol/L) Date Value 02/03/2020 132 (L) No results found for: PT RBC (10*6/L) Date Value 02/01/2020 3.76 (L) K (mmol/L) Date Value 02/03/2020 3.7 INR (no units) Date Value 01/30/2020 1.0 PLT (10*3/L) Date Value 02/01/2020 268 CALCIUM (mg/dL) Date Value 02/03/2020 9.0 HGB (g/dL) Date Value 02/01/2020 11.3 (L) CL (mmol/L) Date Value 02/03/2020 99 aPTT HCT (%) Date Value 02/01/2020 33.2 (L) BUN (mg/dL) Date Value 02/03/2020 14 APTT Patient (Seconds) Date Value 01/30/2020 29 CREATININE (mg/dL) Date Value 02/03/2020 0.75 MENTAL STATUS EXAM: The patient is not interested in talking at length at this time. Calm demeanor, limited psychomotormovement. Speech is soft and strained with limited mouth movement. Good eye contact, lying in bed in no apparent distress with limited grooming in hospital gown. [place] mood with blunted affect. Alert, oriented to person, place, and time, with impaired recall of recent events. Thought processes are logical, linear, and coherent, with content: denies suicidal thoughts, denies homicidal thoughts, denies hallucinations or delusions. Insight poor (cannot recall why in the hospital or dispo treatment team recommends), judgment poor (cannot relate plan to "get better") ASSESSMENT/FORMULATION: Loly Hermosillo is a 64 year old woman with a history of an unspecified anxiety disorder and mood disorder with no current acute symptoms and no interest in starting psychotropics [facility]. The patient cannot recall the cause for her hospitalization (i.e., her diagnoses and treatment), nor can she recall the disposition recommended by primary team, nor can she relate her plan forhow she continues to recover and heal once she returns home. For these reasons, she does not have the capacity to determine her own disposition at this time. DIAGNOSES/PLAN: 1) unspecified anxiety disorder / history of bipolar disorder - no acute concerns on interview and chart review, the patient prefers to establish outpatient before restarting medicines, so recommend establishing with outpatient for reassessment to guide diagnosisand treatment 2) capacity evaluation -the patient does not have the capacity to determine disposition at this time, so a surrogate is needed - Patient recommended to follow up with [facility] Outpatient Psychiatry ([place]): [phone], ([place]): [phone] or [facility]: or [facility]: or [facility]: [phone] s/p hospital discharge. - No more psychiatric intervention is needed at this moment, psychiatry will sign off. Please contact the psychiatry consult pager with any questions. I am the attending, and I personally examined this patient. Gregory Miles MD [employer] Issac Nicole, OT - 01/31/2020 3:02 PM CSTAssociated Order(s): CONSULT ADULT OCCUPATIONAL THERAPY OT GENERAL EVALUATION Consult received via [employer], EMR reviewed and evaluation completed 01/31/20. Patient referred to occupational therapy for evaluation and treatment secondary to severe hyponatremia. Patient agreeable to participate in occupational therapy. Discharge Recommendations: Therapy Needs and Potential:- Patient would benefit from continued skilled occupational therapy services to address: Decline in basic activities of daily living, Decline in instrumental activities of daily living, Decline in cognition, Decreased strength and Decreased endurance - Patient demonstrates good potential to improve and meet therapy goals with further skilled occupational therapy services. - Patient reports she is motivated to improve their B/IADLs and return to their previous level of function, however demos self limiting behavior with OOB activity at this time. - Patient demonstrates ability to tolerate at least 30-60 minutes of active participation in occupational therapy. - Patient able to follow commands: 1-step Yes, Multi-step No, Inconsistencies Yes Challenges to Home Transition:- Requires physical assistance for BADLS - Requires physical assistance for IADLS - Requires supervision or verbal cues for BADLS - Limited caregiver availability - Decreased safety awareness/judgement - Increased risk of falls Equipment Recommendations:Bedside commode, Tub transfer bench, Grab bars, Hand held shower and I certify that Loly Hermosillo is under my care and that I had a [id number] encounter with this patient on: 01/31/20 . The primary reason for the durable medical equipment: limited functional mobility, high fall/safety risk. I am recomending that, based on my findings, the following is medically necessary durable medical equipment: 3 in 1 bedside commode. Height: Ht Readings from Last 1 Encounters: 01/30/20 5' 6" (1.676 m) Weight: Wt Readings from Last 1 Encounters: 01/29/20 225 lb (102.1 kg) Duration of need: 99 months. Patient does not have access to regular toilet facilities because he/she is confined to: A single room. PLAN OF CARE: At least 2x/week Precautions: Weight bearing status: NA General: PPE Utilized: Gloves and Surgical mask and Fall Bracing: N/A Current Occupational Performance and/or Treatment: Feeding: SBA/Setup Grooming: SBA/Setup for facial hygiene LB Dressing: Dependent to manage LIZZY socks Toileting Hygiene: Dependent, webber catheter Functional Mobility: Pt scoots HOB SBA. Pt refuses to complete OOB at this time despite encouragement from therapist secondary to stomach ache, pain in BLEs, and fatigue from previous PT session. Nursing notified. Patient/caregiver educated on: General strengthening and Role of OT Patient left semireclining in bed with call martinez in reach. Vital signs stable . Please, see full evaluation below for more detail. OT EVALUATION: 64 year old female Admit date: 01/29/2020 Date of onset: 01/29/2020 Admit Diagnosis: SEVERE HYPONATREMIA OT Diagnosis: Impaired BADL independence, Impaired IADL independence, Weakness, Activity intolerance, Decreased endurance, Impaired self-care mobility and Impaired cognition PMH: History reviewed. No pertinent past medical history. PSH: History reviewed. No pertinent surgical history. PAIN: Before assessment: 10/02 After assessment: 10/02 Location: abdomen, right leg and left leg Pain Management: Nursing Notified OCCUPATIONAL ROLES/HOME ENVIRONMENT: Home environment: Upstairs apartment with elevator access, patient lives alone however reports daughter as been assisting recently as needed. Bathroom access: Yes Bathroom setup: Combo Occupation(s): Disabled Function prior to admission: Pt reports prior to fall and stay at SNF, she was Household ambulation,Assistance with IADL and Modified independent with BADLs. Daughter has been providing assist at homesince discharge from SNF on 01/26. Equipment prior to admission: 4 wheeled walker, patient states instead of shower chair she has chairthat she uses on outside of shower so it doesn't rust PERFORMANCE SKILLS/FACTORS: UE Muscle Tone: bilateral WNL UE ROM: bilateral AROM WFL UE Strength: LIZZY UE 3+/5 Hand dominance: right Dexterity/Coordination: bilateral Intact Endurance - Sitting: NT Standing: NT Sitting Balance - Static: NT Dynamic: NT Standing: Balance - Static NT Dynamic: NT Dizziness: No Skin Integrity: No breakdown noted Sensation: bilateral Intact to light touch Oral Motor: Poor dentition Communication: Able to verbalize needs Yes Other: patient frequently off topic, perseverating on ordering dinner though nurse and nurse already told patient he had ordered multiple times Vision: WFL Yes Other: N/A Hearing: good; no issues reported COGNITION: Orientation: person, place, date/time and situation Follows Commands: 1-step Yes Multi-step No Inconsistencies Yes Safety Awareness/Judgment: Fair and Requires frequent cueing Pt highly distractible and frequently off topic, requires cueing for redirection and attention totask. Noted perseveration on certain topics and deficits with short term memory requiring frequent repetition. PROBLEM LIST: Decreased independence with ADL, Decreased strength/endurance for functional activity,Impaired safety awareness and Impaired Cognition REHAB POTENTIAL/PROGNOSIS: fair PATIENT/FAMILY GOALS: to get better and return home TREATMENT/INTERVENTION PLAN: Functional motor treatment, Patient/Caregivier Education, Equipment recommendations, Daily living activities, Therapeutic exercises and Neuromuscular Re-Education GOAL(S): By discharge, patient will increase independence in daily living skills as follows: 1 Patient will perform 3 in 1 BSC transfer with SBA/Setup. 2 Patient will perform UB dressing with SBA/Setup. 3 Patient will perform LB dressing with minimal assistance. 4 Patient will complete grooming tasks with SBA/Setup while seated. 5 Patient will increase endurance for functional activity as evidenced by ability to sustain 20 minutes of active participation. 6 Patient/caregiver will verbalize/demonstrate understanding/proficiency in the following home programs: Adaptive equipment , ADL training, Fall prevention, General strengthening and Relaxation/breathing techniques PATIENT-FAMILY TEACHING Patient provided with preferred teaching of verbal information on General strengthening and Role of OT. Barriers to learning include self limiting behaviors. Verbal instruction teaching provided. Individual needs reinforcement of teaching. Rodrigo NicoleDIMASR Pager [phone] Total Timed Treatment Codes: 5 Min Total Treatment Time: 15 Min Patient Complexity Level High - An occupational therapy evaluation of high complexity was completed using the above tests and measures. The following information was obtained: An occupational profile and medical and therapy history, including review of medical and/or therapy records and extensive favian tional review of physical, cognitive, or psychosocial history related to current functional performance, Various standardized and non-standardized assessments were used to identify at least 5 or more performance deficits related to physical, cognitive, or psychosocial skills that result in activity limitations and/or participation restrictions and Clinical decision-making is of high analytic complexity, which includes an analysis of the patient profile, analysis of data from comprehensive assessment(s), and consideration of multiple treatment options. Patient present with comorbidities that affect occupational performance. Significant modification of tasks or assistance (e.g., physical or verbal) with assessment(s) is necessary to enable patient to complete evaluation component. Janet Jett PT - 01/31/2020 1:51 PM CSTAssociated Order(s): CONSULT ADULT PHYSICAL THERAPY Patient agreeable to working with physical therapy. Patient met Semi reclined in bed. PHYSICAL THERAPY EVALUATION Consult received, chart reviewed and evaluation complete this date. Patient is referred to PT for evaluation and treatment. Patient is a 64 year old female who presents to hospital for SEVERE HYPONATREMIA. Discharge Recommendations: Therapy Needs and Potential: Patient would benefit from continued physical therapy services to address: decline in bed mobility decline in transfers decline in gait and/or balance decreased strength decreased range of motion decreased endurance Patient demonstrates good potential to improve and meet therapy goals with further physical therapy services. Patient appears motivated to improve their functional mobility and return to their previous levelof function. Patient demonstrates ability to tolerate atleast 30-60 minutes of physical therapy with active participation. Challenges to Home Transition: increased risk of falls decreased caregiver availability Equipment recommendations: TBD as patient OOB mobility is assessed Current Functional Status and/or Treatment:Functional mobility training, Transfer training, Gait training, Patient/Family/Caregiver education, Therapeutic exercise and Neuromuscular Re-Education Bed Mobility: Supine-sit: Minimal assist for trunk and cueing for technique with use of bedrails Patient sitting EOB x 5 minutes and reports lightheadedness. Patient educated on focused breathing however reports still feeling lightheaded. BP assessed at 135/68. Patient requesting to return to supine Sit to supine: Modified independent Therapeutic exercise: patient educated in Adaptive equipment , Compensatory techniques/adaptive strategies, Deep breathing, Energy conservation, Fall prevention and General strengthening., instructed patient in the following: ankle pumps, heel slides, hip abduction/adduction, straight leg raises, bilateral LE bridging- patient instructed to do x30 every day and she reported understanding. After session, patient Semi reclined in bed. Call button provided. PLAN OF CARE: At least 2 times per week, once or twice a day (while in hospital) per patient's tolerance and medical needs. See below for complete details. Admit Date: 01/29/2020 Hospital Diagnosis:SEVERE HYPONATREMIA PT Diagnosis: Difficulty walking, Weakness, Malaise/fatigue, Pain and Abnormality of gait and balance Weight Bearing Precaution: WBAT General Precautions: PPE used:Gloves and Surgical mask, General, Fall,Webber catheter, IV , all lines/tubes for vitals monitoring in ICU Bracing/Cast present or required:N/A PMH: History reviewed. No pertinent past medical history. PSH: History reviewed. No pertinent surgical history. Prior Living Situation: lives alone and apartment ([address]), elevators DME: Four wheeled walker with seat Prior level of Mobility: community ambulation Subjective: Patient reports that she was independent prior however she was recently admitted to the hospital and discharged to SNF where she was receiving PT and then she discharged home and reports that she had a fall and passed out. She was then using a Rollator. Patient/Family Goals: to get better and return home. Patient/Family verbalizes understanding of condition: Yes PAIN: -Pain Description: aching -Pain Location: head, lower back, right leg and left leg -Pain rating before treatment: 8, After treatment: 8 COMMUNICATION Primary Language: Citizen Of [place] Able to Verbalize needs: Yes Vision:good; no issues reported Hearing:good; no issues reported ORIENTATION/COGNITION: Oriented to: person and place Awake: Yes Alert: Yes Dizzy: No Follows Commands: Yes 1-Step Yes Multi-Step Yes Inconsistent: No NEUROLOGICAL Light Touch: within functional limits bilateral LE BALANCE: Sitting: Static: Good Dynamic: Fair+ Standing: Static: NT Dynamic: NT RANGE OF MOTION: within functional limits bilateral LE STRENGTH: 3/5 (F), bilateral LE ENDURANCE: Poor plus, Room air SKIN INTEGRITY: intact PROBLEM LIST: Decline in bed mobility, Decline in gait, Decline in transfers, Decreased strength, Decreased endurance, Decreased balance and Pain ASSESSMENT: Patient is a 64 year old female seen secondary to the above listed diagnosis. Patient would benefit from continued PT to address the above listed deficits to maximize independence and safety with functional mobility. Rehabilitation Potential: good Goals: The following goals are to maximize independence and safety with functional mobility to eventually return to prior living situation and prior functional status. Upon discharge, patient and/or family will demonstrate the followin. Supine-sit: Independent 2. sit-stand: Modified independent 3. Modified independent with ambulation, Feet: 250 using least assistive device. 4. Demonstrate or verbalize understanding of home exercise program in order to continue with their rehab on their own. Treatment Plan: Gait training, Therapeutic exercise, Transfer training, Balance training, Bed mobility training, Equipment needs assessment and Safety education, patient/caregiver education PATIENT EDUCATION: Patient provided with preferred teaching of verbal information on role of PT, plan of care, goals, safety. Shows readiness to learn. Verbal instruction teaching provided. Individual is able to read and verbalizes understanding of teaching provided. Total Time Tx Codes in Minutes: 19 min Total Treatment Time in Minutes: 28 min JANTE ENAMORADO PT, DPT [employer] Wendi Lee RD - 01/30/2020 11:29 AM CST MEDICAL NUTRITION THERAPY ASSESSMENT NOTE Reason for Encounter: Nutritional Risk Screening Nutritional Risk Screening: NRS: Reduced Dietary Intake and NRS: Disease Severity Dx: Active Problems: Hyponatremia Obesity (BMI 30-39.9) PMH/PSH: History reviewed. No pertinent past medical history. History reviewed. No pertinent surgical history. NUTRITION ASSESSMENT Pt currently unable to answer questions appropriate 2' AMS, but RN reports mentation is improving. Per RN, last emesis was last night. PO intake: NPO GI and Nutrition Related Findings: Symptoms: Vomiting Difficulty: N/A GI tract alteration: N/A Alternative means of nutrition: N/A General (documented on admission) N/A Malnutrition Assessment: Nutritional Diagnosis: None SGA Rating: At Risk Medications: Scheduled meds: atorvastatin, 20 mg, QHS docusate, 100 mg, BID heparin (porcine) 5,000 units subcutaneous injection, 5,000 Units, Q8H [START ON 01/31/2020] losartan, 50 mg, DAILY [START ON 01/31/2020] pantoprazole, 20 mg, DAILY IV meds: PRN meds: dextrose 50 % in water (D50W), 25 mL, PRN glucagon, 1 mg, PRN ipratropium-albuteroL, 3 mL, Q6HPRN ondansetron, 4 mg, Q6HPRN Lab and Medical Test Results: CBC: Recent Labs 01/30/20 0041 WBC 6.69 HGB 10.2* HCT 27.4* Diabetes Related Labs: Recent Labs 01/30/20 0910 GLU 123* No results found for: YOQUAAB2V, HGBA1C FSBS: 123 BMP: Recent Labs 01/29/20 1928 01/30/20 0041 01/30/20 0910 NA 111* 112* < > 114* K 3.6 3.2* < > 3.7 CL 79* 81* < > 82* MG 1.6* 1.3* -- -- PHOS 3.2 2.8 -- -- BUN 14 10 < > 8 CREAT 0.56 0.39* < > 0.47* EGFR 109.3 166.0 < > 133.8 CA 8.2* 7.8* < > 8.0* LIPASE 30 -- -- -- < > = values in this interval not displayed. Lipid Panel: No results for input(s): CHOL, LDL, HDL, TRIG in the last 72 hours. Intake/Output Summary (Last 24 hours) at 01/30/2020 1129 Last data filed at 01/30/2020 0600 Gross per 24 hour Intake 100 ml Output 3850 ml Net -3750 ml Anthropometrics Age: [age] year old Sex: female Ht Readings from Last 1 Encounters: 01/30/20 1.676 m (5' 6") BMI: Body mass index is 36.32 kg/m. (Obesity (BMI 30-39.9)) Weight History: Wt Readings from Last 3 Encounters: 01/29/20 102.1 kg (225 lb) 05/25/18 80 kg (176 lb 6.4 oz) 08/06/17 84.4 kg (186 lb) Estimated Energy Needs Calories: 2324-9987 kcal/day; [place]-St. Jeor current weight x 1.2-1.4 PAL - 250 kcals per day for weight loss Protein: 70-82 g/day, 1.2-1.4 g/kg IBW Fluid: 2987-1475 ml/day or per MD/Medical Team; adjust per acute needs Current Dietary Order(s): Orders Placed This Encounter Procedures NPO Except Meds Diet. EMR Documented Food Allergies/Intolerance/Cultural Preferences: No Known Allergies Nutrition Diagnosis: PES Inadequate oral food/beverage intake related to AMS as evidenced by NPO status. Nutrition Intervention: 1. Recommend advance to clear liquids to full liquids to regular diet as tolerated, when medically appropriate 2. Monitor po intake, weight, labs Goals: 1. Patient will consume at least 75% of meals during admission Nutrition Monitoring and Evaluation: A registered dietitian will f/u in as indicated and review patients progress towards nutrition goals, report nutrition related information and to revise the nutrition recommendations and interventions Discharge Needs: Regular diet Wendi Lee RD, [facility] Clinical Dietitian Office Consuelo Feliciano MD - 01/30/2020 10:48 AM CST [facility] CONSULT NOTE Loly Hermosillo [id number] CHIEF COMPLAINT: ams HISTORY OF PRESENT ILLNESS Loly Hermosillo is a 64 year old female w hx of bipolar do and multiple hospitalizations this year for varying things. She was brought in by EMS for AMS. Unsure of who called or what the backstory is as patient doesn't remember. Currently she seems better, complaining of back pain from lying in bed all night. Denies SI or HI. PMH: Bipolar disorder Obesity PSH: reviewed FamHX: reviewed SocHX: No etoh or smoking ALLERGIES: No Known Allergies MEDICATIONS No current facility-administered medications on file prior to encounter. Current Outpatient Medications on File Prior to Encounter Medication Sig Dispense Refill sulfamethoxazole-trimethoprim (BACTRIM DS) 800-160 mg per tablet Take 1 tablet by mouth 2 (two) times daily. 14 tablet 0 ATORVASTATIN CALCIUM (ATORVASTATIN ORAL) Take 20 mg by mouth at bedtime. BENZTROPINE MESYLATE (BENZTROPINE ORAL) Take 1 mg by mouth 2 (two) times daily. CHLORHEXIDINE, BULK, MISC 1 Dose. Swish and spit 1 cap full by mouth twice daily haloperidol 10 mg tablet Take 10 mg by mouth at bedtime. hydrOXYzine 25 mg tablet Take 25 mg by mouth 2 (two) times daily. LOSARTAN POTASSIUM (LOSARTAN ORAL) Take 50 mg by mouth daily. REVIEW OF SYSTEMS (-)=Negative,(+)=Positive General: (-) fever, (-) chills, (-) weight loss, (-) weight gain Skin: (-) rash, (-) lesion HEENT: (-) headache, (-) change in hearing, (-) change in vision, (-) nasal discharge Neck: (-) pain, (-) difficulty swallowing, (-) mass Heme: (-) bleeding disorder Resp: (-) cough, (-) shortness of breath, (-) dyspnea on exertion Cardio: (-) chest pain, (-) palpitations, (-) syncope GI: (-) abdominal pain, (-) nausea, (-) vomiting, (-) diarrhea, (-) constipation : (-) dysuria, (-) hematuria, (-) increased frequency, (-) difficulty urinating Endo: (-) heat intolerance, (-) diabetes, (-) cold intolerance, (-) polyuria, (- ) polydipsia Neuro: (-) numbness, (-) tingling, (-) weakness Back: (-) pain, (-)spasms SOLE: (-) muscle pain, (-) joint pain, (-) claudication Psych: (-) anxiety, (-) depression, (-) psychiatric disorder PHYSICAL EXAMINATION BP (!) 144/90 | Pulse 81 | Temp 36.3 C (97.3 F) | Resp 17 | Ht 1.676 m (5' 6") | Wt 102.1 kg (225 lb) | SpO2 100% | BMI 36.32 kg/m General: alert and oriented x 4 (person, place, date/time and situation); no apparent distress HEENT: pupils equal, round, reactive to light; extraocular movements intact; oropharynx clear; moistmucous membranes Neck: supple, no lymphadenopathy, no bruits, no JVD Lungs: clear to auscultation bilaterally, no wheezing rhonchi or rales, normal work of breathing Cardio: S1, S2 normal; no murmurs, rubs or gallops Abdomen: soft; non-tender; non-distended; normoactive bowel sounds Rectal: normal tone, no hemorrhoids, no masses Extremities: no clubbing, cyanosis, or edema Skin: no rashes Neuro: cranial nerves II through XII grossly intact; sensation grossly intact; muscle strength 5 outof 5 in all four extremities LABS - reviewed pertinent labs as below: Recent Results (from the past 24 hour(s)) CBC with Differential Collection Time: 01/29/20 7:28 PM Result Value Ref Range WBC 6.39 4.30 - 11.10 10*3/L RBC 3.28 (L) 3.93 - 5.25 10*6/L HGB 10.1 (L) 11.6 - 15.0 g/dL HCT 27.8 (L) 35.7 - 45.2 % MCV 84.8 80.6 - 95.5 fL MCH 30.8 25.9 - 32.8 pg MCHC 36.3 (H) 31.6 - 35.1 g/dL RDW-SD 37.3 (L) 39.0 - 49.9 fL RDW-CV 12.2 12.0 - 15.5 % PLT 189 166 - 358 10*3/L MPV 10.0 9.5 - 12.9 fL NRBC/100 WBC 0.0 0.0 - 10.0 /100 WBCs NRBC x10^3 <0.01 10*3/L GRAN MAT (NEUT) % 74.0 % IMM GRAN % 0.50 % LYMPH % 14.4 % MONO % 9.4 % EOS % 1.4 % BASO % 0.3 % GRAN MAT x10^3(ANC) 4.73 1.88 - 7.09 10*3/uL IMM GRAN x10^3 0.03 0.00 - 0.06 10*3/uL LYMPH x10^3 0.92 (L) 1.32 - 3.29 10*3/uL MONO x10^3 0.60 0.33 - 0.92 10*3/uL EOS x10^3 0.09 0.03 - 0.39 10*3/uL BASO x10^3 <0.03 0.01 - 0.07 10*3/uL Basic Metabolic Panel (NA, K, CL, CO2, GLUCOSE, BUN, CREATININE, CA) Collection Time: 01/29/20 7:28 PM Result Value Ref Range NA 111 (LL) 135 - 145 mmol/L K 3.6 3.5 - 5.0 mmol/L CL 79 (L) 98 - 108 mmol/L CO2 TOTAL 25 23 - 31 mmol/L AGAP 7 2 - 16 BUN 14 7 - 23 mg/dL GLUCOSE 116 (H) 70 - 110 mg/dL CREATININE 0.56 0.50 - 1.04 mg/dL CALCIUM 8.2 (L) 8.6 - 10.6 mg/dL eGFR Calculation (Non-) 109.3 mL/min/1.73m2 eGFR Calculation () 132.5 mL/min/1.73m2 Hepatic Function Panel (ALB, T.PRO, BILI T, BU/BC, ALT, AST, ALK PHOS) Collection Time: 01/29/20 7:28 PM Result Value Ref Range TOTAL BILI 0.8 0.1 - 1.1 mg/dL BILI UNCON 0.8 0.1 - 1.1 mg/dL BILI CONJ 0.0 0.0 - 0.3 mg/dL T PROTEIN 6.5 6.3 - 8.2 g/dL ALBUMIN 3.7 3.5 - 5.0 g/dL ALK PHOS 172 (H) 34 - 122 U/L ALTv 13 5 - 35 U/L AST(SGOT) 19 13 - 40 U/L Lipase Serum Collection Time: 01/29/20 7:28 PM Result Value Ref Range LIPASE 30 0 - 220 U/L Troponin I Collection Time: 01/29/20 7:28 PM Result Value Ref Range TROPONIN I <0.012 <=0.034 ng/mL Ethanol Level Collection Time: 01/29/20 7:28 PM Result Value Ref Range ALCOHOL <10 mg/dL Prothrombin Time (PT) / INR Collection Time: 01/29/20 7:28 PM Result Value Ref Range PROTIME PATIENT 13.2 12.0 - 14.7 Seconds INR 1.1 aPTT Collection Time: 01/29/20 7:28 PM Result Value Ref Range APTT Patient 26 23 - 38 Seconds MAGNESIUM Collection Time: 01/29/20 7:28 PM Result Value Ref Range MAGNESIUM 1.6 (L) 1.7 - 2.4 mg/dL PHOSPHORUS Collection Time: 01/29/20 7:28 PM Result Value Ref Range PHOSPHORUS 3.2 2.5 - 5.0 mg/dL ADC / LCC - DRUG SCREEN TRIAGE Collection Time: 01/29/20 7:29 PM Result Value Ref Range BENZO U Presumptive Positive (A) Negative YENNY U Negative Negative AMPHET Negative Negative THC Negative Negative METHADONE Negative Negative Meth U Negative Negative OPIATES Negative Negative Cocaine Metabolite Negative Negative PROPOXY Negative Negative Tric U Negative Negative PCP Negative Negative OXYCOD Negative Negative COVID-19 (ID NOW RAPID TESTING) Collection Time: 01/29/20 7:29 PM Specimen: NASOPHARYNGEAL SWAB Result Value Ref Range SARS-CoV-2 Rapid ID NOW Not Detected Not Detected BLOOD CULTURE SCREEN Collection Time: 01/29/20 7:45 PM Specimen: VENOUS; Blood Result Value Ref Range Blood Culture-Aerobic Culture In Progress No growth Blood Culture-Anaerobic Culture In Progress No growth AC ABG + LACTIC ACID Collection Time: 01/29/20 8:03 PM Result Value Ref Range PH 7.50 (H) 7.35 - 7.45 PCO2 31 (L) 35 - 45 mmHg PO2 67 (L) 80 - 100 mmHg HCO3 24 22 - 26 mEq/L BE 1.5 -3.0 - 3.0 mEq/L LACTIC ACID 0.74 mmol/L POCT GLUCOSE (AUTOMATED) Collection Time: 01/29/20 8:12 PM Result Value Ref Range POCT GLU 123 (H) 70 - 110 mg/dL BLOOD CULTURE SCREEN Collection Time: 01/29/20 8:15 PM Specimen: VENOUS; Blood Result Value Ref Range Blood Culture-Aerobic Culture In Progress No growth Blood Culture-Anaerobic Culture In Progress No growth OSMOLALITY SERUM Collection Time: 01/29/20 8:21 PM Result Value Ref Range OSMOLALITY 236 (LL) 278 - 305 mOsm/kg OSMOLALITY URINE Collection Time: 01/29/20 8:23 PM Result Value Ref Range OSMO U 272 50-1,100 mOsm/kg POCT GLUCOSE(AGE >30DAYS) Collection Time: 01/29/20 8:32 PM Result Value Ref Range POCT Glu (age>30days) 123 (A) 70 - 110 mg/dL CBC with Differential Collection Time: 01/30/20 12:41 AM Result Value Ref Range WBC 6.69 4.30 - 11.10 10*3/L RBC 3.27 (L) 3.93 - 5.25 10*6/L HGB 10.2 (L) 11.6 - 15.0 g/dL HCT 27.4 (L) 35.7 - 45.2 % MCV 83.8 80.6 - 95.5 fL MCH 31.2 25.9 - 32.8 pg MCHC 37.2 (H) 31.6 - 35.1 g/dL RDW-SD 37.2 (L) 39.0 - 49.9 fL RDW-CV 12.2 12.0 - 15.5 % PLT 169 166 - 358 10*3/L MPV 9.7 9.5 - 12.9 fL NRBC/100 WBC 0.0 0.0 - 10.0 /100 WBCs NRBC x10^3 <0.01 10*3/L GRAN MAT (NEUT) % 80.7 % IMM GRAN % 0.30 % LYMPH % 12.4 % MONO % 6.0 % EOS % 0.3 % BASO % 0.3 % GRAN MAT x10^3(ANC) 5.40 1.88 - 7.09 10*3/uL IMM GRAN x10^3 <0.03 0.00 - 0.06 10*3/uL LYMPH x10^3 0.83 (L) 1.32 - 3.29 10*3/uL MONO x10^3 0.40 0.33 - 0.92 10*3/uL EOS x10^3 <0.03 (L) 0.03 - 0.39 10*3/uL BASO x10^3 <0.03 0.01 - 0.07 10*3/uL aPTT Collection Time: 01/30/20 12:41 AM Result Value Ref Range APTT Patient 29 26 - 36 Seconds Prothrombin Time / INR Collection Time: 01/30/20 12:41 AM Result Value Ref Range PROTIME PATIENT 11.7 10.1 - 12.6 Seconds INR 1.0 Basic Metabolic Panel (NA, K, CL, CO2, Glucose, BUN, Creatinine, CA) Collection Time: 01/30/20 12:41 AM Result Value Ref Range NA 112 (LL) 135 - 145 mmol/L K 3.2 (L) 3.5 - 5.0 mmol/L CL 81 (L) 98 - 108 mmol/L CO2 TOTAL 19 (L) 23 - 31 mmol/L AGAP 12 2 - 16 BUN 10 7 - 23 mg/dL GLUCOSE 163 (H) 70 - 110 mg/dL CREATININE 0.39 (L) 0.50 - 1.04 mg/dL CALCIUM 7.8 (L) 8.6 - 10.6 mg/dL eGFR Calculation (Non-) 166.0 mL/min/1.73m2 eGFR Calculation () 201.2 mL/min/1.73m2 Magnesium Serum Collection Time: 01/30/20 12:41 AM Result Value Ref Range MAGNESIUM 1.3 (L) 1.7 - 2.4 mg/dL Phosphorus Serum Collection Time: 01/30/20 12:41 AM Result Value Ref Range PHOSPHORUS 2.8 2.5 - 5.0 mg/dL Hepatic Function Panel (ALB, T.PRO, BILI T, BU/BC, ALT, AST, ALK, PHOS) Collection Time: 01/30/20 12:41 AM Result Value Ref Range TOTAL BILI 0.9 0.1 - 1.1 mg/dL BILI UNCON 0.8 0.1 - 1.1 mg/dL BILI CONJ 0.0 0.0 - 0.3 mg/dL T PROTEIN 6.7 6.3 - 8.2 g/dL ALBUMIN 3.6 3.5 - 5.0 g/dL ALK PHOS 166 (H) 34 - 122 U/L ALTv 15 5 - 35 U/L AST(SGOT) 19 13 - 40 U/L Acute Care Arterial Blood Gas. Collection Time: 01/30/20 12:42 AM Result Value Ref Range PH 7.41 7.35 - 7.45 PCO2 35 35 - 45 mmHg PO2 78 (L) 80 - 100 mmHg HCO3 21 (L) 22 - 26 mEq/L BE -2.8 -3.0 - 3.0 mEq/L BASIC METABOLIC PANEL (NA, K, CL, CO2, GLUCOSE, BUN, CREATININE, CA) Collection Time: 01/30/20 5:15 AM Result Value Ref Range NA 112 (LL) 135 - 145 mmol/L K 3.6 3.5 - 5.0 mmol/L CL 81 (L) 98 - 108 mmol/L CO2 TOTAL 21 (L) 23 - 31 mmol/L AGAP 10 2 - 16 BUN 9 7 - 23 mg/dL GLUCOSE 151 (H) 70 - 110 mg/dL CREATININE 0.45 (L) 0.50 - 1.04 mg/dL CALCIUM 7.9 (L) 8.6 - 10.6 mg/dL eGFR Calculation (Non-) 140.7 mL/min/1.73m2 eGFR Calculation () 170.6 mL/min/1.73m2 BASIC METABOLIC PANEL (NA, K, CL, CO2, GLUCOSE, BUN, CREATININE, CA) Collection Time: 01/30/20 9:10 AM Result Value Ref Range NA 114 (LL) 135 - 145 mmol/L K 3.7 3.5 - 5.0 mmol/L CL 82 (L) 98 - 108 mmol/L CO2 TOTAL 22 (L) 23 - 31 mmol/L AGAP 10 2 - 16 BUN 8 7 - 23 mg/dL GLUCOSE 123 (H) 70 - 110 mg/dL CREATININE 0.47 (L) 0.50 - 1.04 mg/dL CALCIUM 8.0 (L) 8.6 - 10.6 mg/dL eGFR Calculation (Non-) 133.8 mL/min/1.73m2 eGFR Calculation () 162.2 mL/min/1.73m2 Intake/Output Summary (Last 24 hours) at 01/30/2020 1048 Last data filed at 01/30/2020 0600 Gross per 24 hour Intake 100 ml Output 3850 ml Net -3750 ml IMAGING - reviewed, pertinent results as below: Xr Chest 1 Vw Result Date: 01/30/2020 Impression: 1. No acute abnormalities evident. 2. Tortuosity of the thoracic aorta may reflect atherosclerosis or hypertension. AFC: [id number] RL: [id number] Cervical Spine Wo Contrast Result Date: 01/30/2020 No acute intracranial abnormality. No acute fracture or traumatic malalignment of the cervical spine. Preliminary Report Dictated by Resident: Joseluis Heart MD., have reviewed thisstudy and agree with the above report. Ct Head W/o Contrast Result Date: 01/30/2020 No acute intracranial abnormality. No acute fracture or traumatic malalignment of the cervical spine. Preliminary Report Dictated by Resident: Joseluis Heart MD., have reviewed thisstudy and agree with the above report. Xr Kub Result Date: 01/30/2020 Impression: 1. No evidence of bowel obstruction. 2. Extensive colonic stool suggests constipation. RL: [id number] AFC: [id number] End of Report SSMENT/PLAN Loly Hermosillo is a 64 year old female with PMH as listed above, admitted to the hospital with: 1. 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 BPD I May need medication adjustment due to severe hyponatremia Multiple admissions 3. Acute metabolic encephalopathy Due to hyponatremia 4. Hip Pain Fracture previously this year Pain control Consuelo Hancock MD [facility] Internal Medicine [employer] Heath Stephenson MD - 01/30/2020 9:31 AM CSTAssociated Order(s): CONSULT NEPHROLOGY [facility] Nephrology Consult Note 01/30/2020 9:32 AM Subjective Admission Date: 01/29/2020 Consult Date: 01/30/20 Reason for Consult Severe Hyponatremia Requesting Provider Faustino Perez MD Chief Complaint Acute Confusional State. History of Present Illness Loly Hermosillo is a 64 year old female with significant psychiatry history on multiple psychotropicmedications, who presented to [facility] ED with AMS at home. Per charted history patient has been in multiple hospitals and facilities over the past one year, has had issues with bipolar disorder. In the ED patient was found to be hyponatremic and lethargic. 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 Patient is currently drowsy, but arousable, following commands and protecting airway. She was found to be severely hyponatremic with a serum sodium of 111 mEq/L hence this renal consult. Patient has been started on NS at 30 cc per hour and 4 hourly sodium determination. Patient now appears awake, alert and quite coherent. According to the family, patient is a compulsive water drinker and has been asking water. Also she is taking many psych medications. History reviewed. No pertinent past medical history. History reviewed. No pertinent surgical history. Medications Prior to Admission Medication Sig Dispense Refill Last Dose sulfamethoxazole-trimethoprim (BACTRIM DS) 800-160 mg per tablet Take 1 tablet by mouth 2 (two) times daily. 14 tablet 0 ATORVASTATIN CALCIUM (ATORVASTATIN ORAL) Take 20 mg by mouth at bedtime. BENZTROPINE MESYLATE (BENZTROPINE ORAL) Take 1 mg by mouth 2 (two) times daily. CHLORHEXIDINE, BULK, MISC 1 Dose. Swish and spit 1 cap full by mouth twice daily haloperidol 10 mg tablet Take 10 mg by mouth at bedtime. hydrOXYzine 25 mg tablet Take 25 mg by mouth 2 (two) times daily. LOSARTAN POTASSIUM (LOSARTAN ORAL) Take 50 mg by mouth daily. Current Facility-Administered Medications Medication Dose Route Frequency Last Rate Last Admin dextrose 50 % in water (D50W) injection 25 mL 25 mL Slow IV Push PRN docusate (COLACE) capsule 100 mg 100 mg Oral BID 100 mg at 01/30/20 0818 glucagon (GLUCAGEN DIAGNOSTIC KIT) injection 1 mg 1 mg Intramuscular PRN heparin (porcine) injection 5,000 Units 5,000 Units Subcutaneous Q8H 5,000 Units at 01/30/20 0519 ipratropium-albuteroL (DUONEB) 0.5 mg-3 mg(2.5 mg base)/3 mL nebulizer solution 3 mL 3 mL Inhalation Q6HPRN ondansetron (ZOFRAN (PF)) injection 4 mg 4 mg Slow IV Push Q6HPRN pantoprazole (PROTONIX) 40 mg in NaCl 0.9% (NS) 100 mL MINI-BAG 40 mg IV Piggyback Q24H 40 mgat 01/30/20 0124 No Known Allergies No family history on file. Social History Socioeconomic History Marital status: Spouse name: Not on file Number of children: Not on file Years of education: Not on file Highest education level: Not on file Occupational History Not on file Social Needs Financial resource strain: Not on file Food insecurity Worry: Not on file Inability: Not on file Transportation needs Medical: Not on file Non-medical: Not on file Tobacco Use Smoking status: Never Smoker Smokeless tobacco: Never Used Substance and Sexual Activity Alcohol use: No Drug use: No Sexual activity: Never Lifestyle Physical activity Days per week: Not on file Minutes per session: Not on file Stress: Not on file Relationships Social connections Talks on phone: Not on file Gets together: Not on file Attends yarsanism service: Not on file Active member of club or organization: Not on file Attends meetings of clubs or organizations: Not on file Relationship status: Not on file Intimate partner violence Fear of current or ex partner: Not on file Emotionally abused: Not on file Physically abused: Not on file Forced sexual activity: Not on file Other Topics Concern Not on file Social History Narrative Not on file Review of Systems A 12 point ROS was performed and pertinent positives as per HPI. Objective Physical Exam General: Appropriate for age, no acute distress, well-developed and well-nourished. HENT: Head: Normocephalic and atraumatic. Eyes: Conjunctivae and EOM are normal. Pupils are equal, round, and reactive to light. Neck: Neck supple. No jugular venous distention Cardiovascular: Normal rate, rhythm and heart sounds. No gallop, rub or murmur. Chest: CTA. No wheezes or rales. Abdominal: Soft. BS are normal. Extremities: Normal range of motion, no edema, tenderness or deformity. Neurological: Alert and oriented. Cranial nerves intact Labs/Radiology/Diagnostics .curr CMP NA (mmol/L) Date Value 01/30/2020 112 (LL) 01/30/2020 112 (LL) 01/29/2020 111 (LL) K (mmol/L) Date Value 01/30/2020 3.6 01/30/2020 3.2 (L) 01/29/2020 3.6 CALCIUM (mg/dL) Date Value 01/30/2020 7.9 (L) 01/30/2020 7.8 (L) 01/29/2020 8.2 (L) CL (mmol/L) Date Value 01/30/2020 81 (L) 01/30/2020 81 (L) 01/29/2020 79 (L) BUN (mg/dL) Date Value 01/30/2020 9 01/30/2020 10 01/29/2020 14 CREATININE (mg/dL) Date Value 01/30/2020 0.45 (L) 01/30/2020 0.39 (L) 01/29/2020 0.56 GLUCOSE (mg/dL) Date Value 01/30/2020 151 (H) 01/30/2020 163 (H) 01/29/2020 116 (H) CO2 TOTAL (mmol/L) Date Value 01/30/2020 21 (L) 01/30/2020 19 (L) 01/29/2020 25 ALBUMIN (g/dL) Date Value 01/30/2020 3.6 01/29/2020 3.7 T PROTEIN (g/dL) Date Value 01/30/2020 6.7 01/29/2020 6.5 TOTAL BILI (mg/dL) Date Value 01/30/2020 0.9 01/29/2020 0.8 BILI UNCON (mg/dL) Date Value 01/30/2020 0.8 01/29/2020 0.8 BILI CONJ (mg/dL) Date Value 01/30/2020 0.0 01/29/2020 0.0 ALTv (U/L) Date Value 01/30/2020 15 01/29/2020 13 AST(SGOT) (U/L) Date Value 01/30/2020 19 01/29/2020 19 ALK PHOS (U/L) Date Value 01/30/2020 166 (H) 01/29/2020 172 (H) PHOSPHORUS Date Value Ref Range Status 01/30/2020 2.8 2.5 - 5.0 mg/dL Final CBC withoutdiff WBC (10*3/L) Date Value 01/30/2020 6.69 01/29/2020 6.39 HGB (g/dL) Date Value 01/30/2020 10.2 (L) 01/29/2020 10.1 (L) HCT (%) Date Value 01/30/2020 27.4 (L) 01/29/2020 27.8 (L) MCV (fL) Date Value 01/30/2020 83.8 01/29/2020 84.8 PLT (10*3/L) Date Value 01/30/2020 169 01/29/2020 189 No results found for: UPROTEIN No results found for: UPH No results found for: UGLUCOSE No results found for: UKETONES No results found for: UBILI No results found for: UBLOOD No results found for: UUROBILIN No results found for: ULEUKEST No results found for: UNITRITE No results found for: USPGRAV Xr Chest 1 Vw Result Date: 01/30/2020 Impression: 1. No acute abnormalities evident. 2. Tortuosity of the thoracic aorta may reflect atherosclerosis or hypertension. AFC: [id number] RL: [address] Cervical Spine Wo Contrast Result Date: 01/30/2020 No acute intracranial abnormality. No acute fracture or traumatic malalignment of the cervical spine. Preliminary Report Dictated by Resident: Joseluis Heart MD., have reviewed thisstudy and agree with the above report. Ct Head W/o Contrast Result Date: 01/30/2020 No acute intracranial abnormality. No acute fracture or traumatic malalignment of the cervical spine. Preliminary Report Dictated by Resident: Joseluis Heart MD., have reviewed thisstudy and agree with the above report. Xr Kub Result Date: 01/30/2020 Impression: 1. No evidence of bowel obstruction. 2. Extensive colonic stool suggests constipation. RL: [id number] AFC: [id number] End of Report Problem List Problem Obesity (Bmi 30-39.9) Impression and Plan Severe Hyponatremia Hypochloremia Hypomagnesemia Compulsive water drinker Likely SIADH I will order STAT SPOT serum sodium and osmolality. Strict free water restriction to 1 liter May want to with hold saline infusion Discussed with Dr. Noel. We both agreed with the plan of care. Finally thank you very much for this consult, I will be happy to follow this patient with you. Heath Stephenson MD [facility] Adjunct rn perinatal [facility] documented in this encounter Nursing Notes Annie Orlando RN - 02/01/2020 3:24 PM CSTTelephone called daughter April to inform her that to has been moved to [place] [facility] rm [id number]. She verbalized understanding. documented in this encounter ED Notes Corina Zarate RN - 01/29/2020 6:51 PM CSTSummary: Triage CC: Patient brought in by EMS for vomiting, EMS was called for lift assist initially they were assisted and called the family called back and stated she was vomiting. Unknown if any injury from the fall. 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 Patient is aware of where she is but is lethargic. Patient did vomit again after medication was given. Daughter is suppose to call with more information PMHx: Bipolar and kidney cyst PSH: unknown MEDS: unknown LMP: NA Tetanus: unknown Awake, alert, oriented, resp reg unlabored, skin warm, color appropriate for race, moves all ext without difficulty, unknown if normally ambulates Appears in no distress ynette Rojas NP - 01/29/2020 6:45 PM CSTAssociated Order(s): Critical CarePost- Procedure Diagnose(s): Stupor; Acute hyponatremia; Hypomagnesemia; Hypochloremia; Respiratory alkalosis [facility] EMERGENCY DEPARTMENT ENCOUNTER Patient Name: Loly Hermosillo Date of : 1955 64 year old Treatment Room: TR11/TR11 Primary Care Physician: Lindsey Cervantes [facility] Patient Escorted by: Self [9] Mode of Arrival: EMS - [place] [51] EMS Treatment Prior to ED Arrival: VACUUM FORMING MACHINE OPERATOR treatment: Antipyretic;Saline lock VACUUM FORMING MACHINE OPERATOR treatment comments: phenagran 12.5mg Chief complaint Chief Complaint Patient presents with Vomiting Fall History of present illness Loly Hermosillo is a 64 year old female who is brought in by EMS from home, unresponsive except to pain. EMS reports called to her house earlier today for a fall assist , called back a second time for AMS and vomiting. No further information. Attempted to call home phone , no answer, called contact # of child and non-working number. GCS of 7, localizes pain. History provided by: EMS personnel Altered mental status Presenting symptoms: unresponsiveness Severity: Severe Most recent episode: Today Episode number: unable to determine rest of history Past Medical History No past medical history on file. Past Surgical History No past surgical history on file. Medications Ativan 1mg q8 hrs Tamsulosin 0.4 qd Haldol 5 mg hs Benztropine 1mg bid Tegretol 400 mg TID Thorazine 50 mg TID Lactulose 10 ml QD Allergies No Known Allergies Review of Systems Review of Systems Unable to perform ROS: Other Genitourinary: Dysuria: GCS 7. Physical Exam BP 129/88 | Pulse 79 | Temp 35.8 C (96.5 F) | Resp 16 | Wt 102.1 kg (225 lb) | SpO2 95% | BMI 36.32 kg/m Physical Exam Vitals signs and nursing note reviewed. Constitutional: Appearance: She is ill-appearing. HENT: Head: Comments: Right Ear: Tympanic membrane normal. Left Ear: Tympanic membrane normal. Nose: Nose normal. Mouth/Throat: Mouth: Mucous membranes are moist. Comments: + gag reflex Eyes: Pupils: Pupils are equal, round, and reactive to light. Cardiovascular: Rate and Rhythm: Normal rate. Pulses: Normal pulses. Heart sounds: Normal heart sounds. No murmur. No friction rub. No gallop. Pulmonary: Effort: Pulmonary effort is normal. No respiratory distress. Breath sounds: Normal breath sounds. No stridor. No wheezing, rhonchi or rales. Chest: Chest wall: No tenderness. Abdominal: General: Bowel sounds are normal. There is no distension. Musculoskeletal: Right lower leg: No edema. Left lower leg: No edema. Skin: General: Skin is warm and dry. Capillary Refill: Capillary refill takes less than 2 seconds. Coloration: Skin is pale. Findings: No erythema or rash. Neurological: Mental Status: She is unresponsive. GCS: GCS eye subscore is 1. GCS verbal subscore is 1. GCS motor subscore is 4. Psychiatric: Comments: Unable to determine GCS7 Labs and Studies Reviewed: Severe hyponatremia , hypochloremia, hypomagnesia , hypocalcemia , mild anemia . UDS + benzo's on ativan, ABG respiratory alkalosis Recent Results (from the past 24 hour(s)) CBC with Differential Collection Time: 01/29/20 7:28 PM Result Value Ref Range WBC 6.39 4.30 - 11.10 10*3/L RBC 3.28 (L) 3.93 - 5.25 10*6/L HGB 10.1 (L) 11.6 - 15.0 g/dL HCT 27.8 (L) 35.7 - 45.2 % MCV 84.8 80.6 - 95.5 fL MCH 30.8 25.9 - 32.8 pg MCHC 36.3 (H) 31.6 - 35.1 g/dL RDW-SD 37.3 (L) 39.0 - 49.9 fL RDW-CV 12.2 12.0 - 15.5 % PLT 189 166 - 358 10*3/L MPV 10.0 9.5 - 12.9 fL NRBC/100 WBC 0.0 0.0 - 10.0 /100 WBCs NRBC x10^3 <0.01 10*3/L GRAN MAT (NEUT) % 74.0 % IMM GRAN % 0.50 % LYMPH % 14.4 % MONO % 9.4 % EOS % 1.4 % BASO % 0.3 % GRAN MAT x10^3(ANC) 4.73 1.88 - 7.09 10*3/uL IMM GRAN x10^3 0.03 0.00 - 0.06 10*3/uL LYMPH x10^3 0.92 (L) 1.32 - 3.29 10*3/uL MONO x10^3 0.60 0.33 - 0.92 10*3/uL EOS x10^3 0.09 0.03 - 0.39 10*3/uL BASO x10^3 <0.03 0.01 - 0.07 10*3/uL Basic Metabolic Panel (NA, K, CL, CO2, GLUCOSE, BUN, CREATININE, CA) Collection Time: 01/29/20 7:28 PM Result Value Ref Range NA 111 (LL) 135 - 145 mmol/L K 3.6 3.5 - 5.0 mmol/L CL 79 (L) 98 - 108 mmol/L CO2 TOTAL 25 23 - 31 mmol/L AGAP 7 2 - 16 BUN 14 7 - 23 mg/dL GLUCOSE 116 (H) 70 - 110 mg/dL CREATININE 0.56 0.50 - 1.04 mg/dL CALCIUM 8.2 (L) 8.6 - 10.6 mg/dL eGFR Calculation (Non-) 109.3 mL/min/1.73m2 eGFR Calculation () 132.5 mL/min/1.73m2 Hepatic Function Panel (ALB, T.PRO, BILI T, BU/BC, ALT, AST, ALK PHOS) Collection Time: 01/29/20 7:28 PM Result Value Ref Range TOTAL BILI 0.8 0.1 - 1.1 mg/dL BILI UNCON 0.8 0.1 - 1.1 mg/dL BILI CONJ 0.0 0.0 - 0.3 mg/dL T PROTEIN 6.5 6.3 - 8.2 g/dL ALBUMIN 3.7 3.5 - 5.0 g/dL ALK PHOS 172 (H) 34 - 122 U/L ALTv 13 5 - 35 U/L AST(SGOT) 19 13 - 40 U/L Lipase Serum Collection Time: 01/29/20 7:28 PM Result Value Ref Range LIPASE 30 0 - 220 U/L Troponin I Collection Time: 01/29/20 7:28 PM Result Value Ref Range TROPONIN I <0.012 <=0.034 ng/mL Ethanol Level Collection Time: 01/29/20 7:28 PM Result Value Ref Range ALCOHOL <10 mg/dL Prothrombin Time (PT) / INR Collection Time: 01/29/20 7:28 PM Result Value Ref Range PROTIME PATIENT 13.2 12.0 - 14.7 Seconds INR 1.1 aPTT Collection Time: 01/29/20 7:28 PM Result Value Ref Range APTT Patient 26 23 - 38 Seconds MAGNESIUM Collection Time: 01/29/20 7:28 PM Result Value Ref Range MAGNESIUM 1.6 (L) 1.7 - 2.4 mg/dL PHOSPHORUS Collection Time: 01/29/20 7:28 PM Result Value Ref Range PHOSPHORUS 3.2 2.5 - 5.0 mg/dL ADC / LCC - DRUG SCREEN TRIAGE Collection Time: 01/29/20 7:29 PM Result Value Ref Range BENZO U Presumptive Positive (A) Negative YENNY U Negative Negative AMPHET Negative Negative THC Negative Negative METHADONE Negative Negative Meth U Negative Negative OPIATES Negative Negative Cocaine Metabolite Negative Negative PROPOXY Negative Negative Tric U Negative Negative PCP Negative Negative OXYCOD Negative Negative COVID-19 (ID NOW RAPID TESTING) Collection Time: 01/29/20 7:29 PM Specimen: NASOPHARYNGEAL SWAB Result Value Ref Range SARS-CoV-2 Rapid ID NOW Not Detected Not Detected BLOOD CULTURE SCREEN Collection Time: 01/29/20 7:45 PM Specimen: VENOUS; Blood Result Value Ref Range Blood Culture-Aerobic Culture In Progress No growth Blood Culture-Anaerobic Culture In Progress No growth AC ABG + LACTIC ACID Collection Time: 01/29/20 8:03 PM Result Value Ref Range PH 7.50 (H) 7.35 - 7.45 PCO2 31 (L) 35 - 45 mmHg PO2 67 (L) 80 - 100 mmHg HCO3 24 22 - 26 mEq/L BE 1.5 -3.0 - 3.0 mEq/L LACTIC ACID 0.74 mmol/L POCT GLUCOSE (AUTOMATED) Collection Time: 01/29/20 8:12 PM Result Value Ref Range POCT GLU 123 (H) 70 - 110 mg/dL POCT GLUCOSE(AGE >30DAYS) Collection Time: 01/29/20 8:32 PM Result Value Ref Range POCT Glu (age>30days) 123 (A) 70 - 110 mg/dL Hospital Encounter on 01/29/20 CT Head W/O Contrast Narrative Exam: CT HEAD WITHOUT CONTRAST Exam: CT C-SPINE WITHOUT CONTRAST HISTORY: Altered mental status (AMS), unclear cause COMPARISON: None. TECHNIQUE: Routine CTs of the head and cervical spine were performed without intravenous contrast, and coronal and sagittal reformatted images were generated. FINDINGS: CT HEAD: The ventricles and cerebral sulci are normal in caliber and configuration. No hydrocephalus, midline shift or pathological extra-axial fluid collection is present. The basal cisterns are unremarkable. There is no acute intracranial hemorrhage or significant mass effect. No acute transcortical infarct. Chronic appearing but age indeterminant right anterior capsule lacunar infarct is noted. Mild scattered deep and periventricular white matter hypoattenuating foci are noted most prominent in the right frontal centrum semiovale. Findings are nonspecific but likely represent microvascular ischemic changes. No calvarial fracture. The mastoid air cells and visualized paranasal air sinuses are clear. 0.6 cm mid occipital enostosis is noted. CT CERVICAL SPINE: Mild straightening of the normal anatomic cervical lordosis is noted. The vertebral bodies are normal in height and alignment. No facet fracture or subluxation is present. The craniocervical junction is intact. No more than mild spondylotic changes of the cervical spine are noted. Mild nonspecific thickening of the cervical esophagus is noted. The prevertebral soft tissues are unremarkable. Impression Technically age indeterminate right anterior capsule lacunar infarct. If high clinical suspicion for acute ischemia, MRI can be obtained for further evaluation. No transcortical infarct, intracranial hemorrhage, or extra axial fluid collection. No acute fracture or traumatic malalignment of the cervical spine. Preliminary Report Dictated by Resident: Mike Andres CT CERVICAL SPINE WO CONTRAST Narrative Exam: CT HEAD WITHOUT CONTRAST Exam: CT C-SPINE WITHOUT CONTRAST HISTORY: Altered mental status (AMS), unclear cause COMPARISON: None. TECHNIQUE: Routine CTs of the head and cervical spine were performed without intravenous contrast, and coronal and sagittal reformatted images were generated. FINDINGS: CT HEAD: The ventricles and cerebral sulci are normal in caliber and configuration. No hydrocephalus, midline shift or pathological extra-axial fluid collection is present. The basal cisterns are unremarkable. There is no acute intracranial hemorrhage or significant mass effect. No acute transcortical infarct. Chronic appearing but age indeterminant right anterior capsule lacunar infarct is noted. Mild scattered deep and periventricular white matter hypoattenuating foci are noted most prominent in the right frontal centrum semiovale. Findings are nonspecific but likely represent microvascular ischemic changes. No calvarial fracture. The mastoid air cells and visualized paranasal air sinuses are clear. 0.6 cm mid occipital enostosis is noted. CT CERVICAL SPINE: Mild straightening of the normal anatomic cervical lordosis is noted. The vertebral bodies are normal in height and alignment. No facet fracture or subluxation is present. The craniocervical junction is intact. No more than mild spondylotic changes of the cervical spine are noted. Mild nonspecific thickening of the cervical esophagus is noted. The prevertebral soft tissues are unremarkable. Impression Technically age indeterminate right anterior capsule lacunar infarct. If high clinical suspicion for acute ischemia, MRI can be obtained for further evaluation. No transcortical infarct, intracranial hemorrhage, or extra axial fluid collection. No acute fracture or traumatic malalignment of the cervical spine. Preliminary Report Dictated by Resident: Mike Andres Orders and Treatments Orders Placed This Encounter Procedures Critical Care CT Head W/O Contrast CT CERVICAL SPINE WO CONTRAST CBC with Differential Basic Metabolic Panel (NA, K, CL, CO2, GLUCOSE, BUN, CREATININE, CA) Hepatic Function Panel (ALB, T.PRO, BILI T, BU/BC, ALT, AST, ALK PHOS) Lipase Serum Troponin I Ethanol Level Prothrombin Time (PT) / INR aPTT ADC / LCC - DRUG SCREEN TRIAGE POCT GLUCOSE(AGE >30DAYS) AC ABG + LACTIC ACID MAGNESIUM PHOSPHORUS BLOOD CULTURE SCREEN BLOOD CULTURE SCREEN URINE CULTURE COVID-19 (ID NOW RAPID TESTING) LAB ONLY COVID INTERPRETATION OSMOLALITY SERUM OSMOLALITY URINE POCT GLUCOSE (AUTOMATED) CARBAMZEPINE, FREE AND TOTAL Orders Placed This Encounter Medications NaCl 0.9% (NS) bolus infusion 1,000 mL naloxone (NARCAN) injection 1 mg DISCONTD: sodium chloride 3 % HYPERTONIC infusion 500 mL DISCONTD: sodium chloride 2 % HYPERTONIC infusion 500 mL DISCONTD: NaCl 0.9% (NS) IV infusion 250 mL ondansetron (ZOFRAN (PF)) injection 4 mg NaCl 0.9% (NS) IV infusion 1,000 mL Notes Loly Hermosillo is a 64 year old female who is brought in by EMS from home, unresponsive except to pain. EMS reports called to her house earlier today for a fall assist , called back a second time forAMS and vomiting. No further information. Attempted to call home phone , no answer, called contact #of child and non-working number. GCS of 7, localizes pain. Plan: CT Head W/O Contrast XR CERVICAL SPINE 2 VW CBC with Differential Basic Metabolic Panel (NA, K, CL, CO2, GLUCOSE, BUN, CREATININE, CA) Hepatic Function Panel (ALB, T.PRO, BILI T, BU/BC, ALT, AST, ALK PHOS) Lipase Serum Troponin I Ethanol Level Prothrombin Time (PT) / INR aPTT ADC / LCC - DRUG SCREEN TRIAGE POCT GLUCOSE(AGE >30DAYS) AC ABG + LACTIC ACID Lactic Acid Whole Blood MAGNESIUM PHOSPHORUS BLOOD CULTURE SCREEN BLOOD CULTURE SCREEN URINE CULTURE COVID-19 (ID NOW RAPID TESTING) Orders Placed This Encounter Medications NaCl 0.9% (NS) bolus infusion 1,000 mL naloxone (NARCAN) injection 1 mg ED Course as of Jan 28 2315 Sun Jan 29, [id number] Bashir ICU Fiscal Specialist [facility] who recommends discontinue hypertonic saline and transfer , he will accept. [PD] 2050 Spoke with daughter who has no preference as to placement. [PD] 2045 Contacted [facility] regarding transfer [PD] 1944 Spoke with daughter April Buckley @ [phone] who reports mother came to stay with her last Thursday ( 2 days ago) She has been in and out of multiple hospitals / mental health facilities/ and SNF for the past 8 months . Daughter mentions bi-polar history, and kidney issue, unclear as to what,also mentions blood pressure issues but not on any meds for that. Today mother went to lay down andupon her daughter going to wake her found her on the floor by the bed. Loly told her she rolled off the bed. 911 was called to assist with lifting off floor but she began vomiting what her daughter thinks was blood prior to EMS arrival. Denies history of ETOH/ drug use/ cirrhosis . No prior historyof GI bleed . Daughter notes mother was awake alert and talking prior to getting in the ambulance, but looked pale and confused upon leaving in EMS [PD] ED Course User Index [PD] Lynette Rojas NP Procedures Critical Care Performed by: Lynette Rojas NP Authorized by: Lynette Rojas NP Critical care provider statement: Critical care time (minutes): 40 Critical care was necessary to treat or prevent imminent or life-threatening deterioration of the following conditions: Circulatory failure, PLASMA SPECIALIST failure or compromise, dehydration, endocrine crisis and metabolic crisis Critical care was time spent personally by me on the following activities: Ordering and performing treatments and interventions, ordering and review of laboratory studies, ordering and review of radiographic studies, development of treatment plan with patient or surrogate, discussions with consultants, evaluation of patient's response to treatment, examination of patient and obtaining history frompatient or surrogate I assumed direction of critical care for this patient from another provider in my specialty: no EKG normal sinus rhythm , LBBB rate of 80 bpm,QTc 491, no prior to compare. Abnormal EKG Sa O2 RA 95% Diagnosis ICD-10-CM ICD-9-CM 1. Stupor R40.1 780.09 2. Acute hyponatremia E87.1 276.1 3. Hypomagnesemia E83.42 275.2 4. Hypochloremia E87.8 276.9 5. Respiratory alkalosis E87.3 276.3 6. Anemia, unspecified type D64.9 285.9 MDM MDM Reviewed: previous chart, nursing note and vitals Patient Vitals for the past 24 hrs: BP Temp Pulse Resp SpO2 Weight 01/29/20 2245 129/88 79 16 95 % 01/29/202199 97/73 71 14 96 % 01/29/202145 112/78 71 15 94 % 01/29/202035 (!) 154/96 88 14 97 % 01/29/202013 123/84 72 10 97 % 01/29/20 1932 77 01/29/20 1858 110/77 35.8 C (96.5 F) 84 14 95 % 102.1 kg (225 lb) No history of polydipsia, perhaps hyponatremia secondary to her multiple antipsychotics Repeat GCS following narcan and one liter of fluid, 13, opens eyes to verbal stimuli, confused but follows commands , will need frequent redirection . Contacted daughter to advised of transfer to [facility] Disposition and Condition ED Disposition ED Disposition Condition Comment Transfer - [facility]/Obs Lynette Rojas [employer]- Faculty [facility] T6 HOLOGIST [employer]GANIZATIONAL Associated attestation - Berry Pandya MD - 01/31/2020 7:26 PM CSTAddendum I was personally available for consultation in the Emergency Department during this encounter and patient evaluation by SANTA Rojas. documented in this encounter Miscellaneous Notes Nursing Note - Amira Estrada RN - 02/04/2020 7:12 AM CSTContacted April patient's daughter by charge nurse Flako Noguera,informing her that patient is on her way home with wheelchair one by the [facility]adian. ursing Note - Amira Estrada RN - 02/04/2020 6:54 AM CSTPatient left the unit at this time,per wheelchair escorted by EMT in stable condition with all her belongings and paper works. ursing Note - Mahi Lopes RN - 02/03/2020 10:29 PM CSTSummary: supervisor This nurse called daughter to update on status of nut picker by Kyra. Daughter verbalized understanding. Kyra will pick Ms. Hermosillo up between 0700 - 0800 tomorrow morning to transport home. are Plan - Ebony Tripathi RN - 02/03/2020 11:09 AM PSYCHOLOGIST INDUSTRIAL ORGANIZATIONAL Problem: Falls, Risk of Goal: Absence of falls Outcome: Adequate for discharge Problem: Infection, Risk of or Actual Goal: Absence of infection Outcome: Adequate for discharge Problem: Mental Status - Impaired, Risk of Goal: Mental status restored to baseline Outcome: Adequate for discharge Goal: Absence of physical injury Outcome: Adequate for discharge Problem: Pain Goal: Control of pain at or below patient's documented comfort goal Outcome: Adequate for discharge Problem: Respiratory Function - Impaired Goal: Able to cough effectively Outcome: Adequate for discharge Goal: Adequate oxygenation Outcome: Adequate for discharge Goal: Adequate work of breathing Outcome: Adequate for discharge Goal: Patent airway Outcome: Adequate for discharge are Plan - Amira Estrada RN - 02/02/2020 9:25 PM PSYCHOLOGIST INDUSTRIAL ORGANIZATIONAL Problem: Falls, Risk of Goal: Absence of falls Outcome: Progressing as expected Problem: Infection, Risk of or Actual Goal: Absence of infection Outcome: Progressing as expected Problem: Mental Status - Impaired, Risk of Goal: Mental status restored to baseline Outcome: Progressing as expected Goal: Absence of physical injury Outcome: Progressing as expected Problem: Pain Goal: Control of pain at or below patient's documented comfort goal Outcome: Progressing as expected Problem: Respiratory Function - Impaired Goal: Able to cough effectively Outcome: Progressing as expected Goal: Adequate oxygenation Outcome: Progressing as expected Goal: Adequate work of breathing Outcome: Progressing as expected Goal: Patent airway Outcome: Progressing as expected Problem: Tissue Perfusion - Altered, Risk of Goal: Hemodynamically stable Outcome: Progressing as expected are Anselmo - Ebony Tripathi RN - 02/02/2020 4:36 PM PSYCHOLOGIST INDUSTRIAL ORGANIZATIONAL Problem: Falls, Risk of Goal: Absence of falls Outcome: Progressing as expected Problem: Infection, Risk of or Actual Goal: Absence of infection Outcome: Progressing as expected Problem: Mental Status - Impaired, Risk of Goal: Mental status restored to baseline Outcome: Progressing as expected Goal: Absence of physical injury Outcome: Progressing as expected Problem: Pain Goal: Control of pain at or below patient's documented comfort goal Outcome: Progressing as expected Problem: Respiratory Function - Impaired Goal: Able to cough effectively Outcome: Progressing as expected Goal: Adequate oxygenation Outcome: Progressing as expected Goal: Adequate work of breathing Outcome: Progressing as expected Goal: Patent airway Outcome: Progressing as expected are Plan - Adwoa Tapia RN - 02/01/2020 8:47 PM PSYCHOLOGIST INDUSTRIAL ORGANIZATIONAL Problem: Falls, Risk of Goal: Absence of falls Outcome: Progressing as expected Problem: Infection, Risk of or Actual Goal: Absence of infection Outcome: Progressing as expected Problem: Mental Status - Impaired, Risk of Goal: Mental status restored to baseline Outcome: Progressing as expected Goal: Absence of physical injury Outcome: Progressing as expected Problem: Pain Goal: Control of pain at or below patient's documented comfort goal Outcome: Progressing as expected Problem: Respiratory Function - Impaired Goal: Able to cough effectively Outcome: Progressing as expected Goal: Adequate oxygenation Outcome: Progressing as expected Goal: Adequate work of breathing Outcome: Progressing as expected Goal: Patent airway Outcome: Progressing as expected Problem: Tissue Perfusion - Altered, Risk of Goal: Hemodynamically stable Outcome: Progressing as expected are Socorro Miller RN - 02/01/2020 5:16 PM PSYCHOLOGIST INDUSTRIAL ORGANIZATIONAL Problem: Falls, Risk of Goal: Absence of falls Outcome: Progressing as expected Problem: Infection, Risk of or Actual Goal: Absence of infection Outcome: Progressing as expected Problem: Mental Status - Impaired, Risk of Goal: Mental status restored to baseline Outcome: Progressing as expected Goal: Absence of physical injury Outcome: Progressing as expected Problem: Pain Goal: Control of pain at or below patient's documented comfort goal Outcome: Progressing as expected Problem: Respiratory Function - Impaired Goal: Able to cough effectively Outcome: Progressing as expected Goal: Adequate oxygenation Outcome: Progressing as expected Goal: Adequate work of breathing Outcome: Progressing as expected Goal: Patent airway Outcome: Progressing as expected Problem: Tissue Perfusion - Altered, Risk of Goal: Hemodynamically stable Outcome: Progressing as expected are Plan - Augie Velasquez RN - 01/31/2020 7:51 PM PSYCHOLOGIST INDUSTRIAL ORGANIZATIONAL Problem: Falls, Risk of Goal: Absence of falls Outcome: Progressing as expected Problem: Infection, Risk of or Actual Goal: Absence of infection Outcome: Progressing as expected Problem: Mental Status - Impaired, Risk of Goal: Mental status restored to baseline Outcome: Progressing as expected Goal: Absence of physical injury Outcome: Progressing as expected Problem: Pain Goal: Control of pain at or below patient's documented comfort goal Outcome: Progressing as expected Problem: Respiratory Function - Impaired Goal: Able to cough effectively Outcome: Progressing as expected Goal: Adequate oxygenation Outcome: Progressing as expected Goal: Adequate work of breathing Outcome: Progressing as expected Goal: Patent airway Outcome: Progressing as expected are Plan - Zehra Muhammad RN - 01/30/2020 11:02 PM PSYCHOLOGIST INDUSTRIAL ORGANIZATIONAL Problem: Falls, Risk of Goal: Absence of falls Outcome: Progressing as expected Problem: Infection, Risk of or Actual Goal: Absence of infection Outcome: Progressing as expected Problem: Mental Status - Impaired, Risk of Goal: Mental status restored to baseline Outcome: Progressing as expected Goal: Absence of physical injury Outcome: Progressing as expected Problem: Pain Goal: Control of pain at or below patient's documented comfort goal Outcome: Progressing as expected Problem: Respiratory Function - Impaired Goal: Able to cough effectively Outcome: Progressing as expected Goal: Adequate oxygenation Outcome: Progressing as expected Goal: Adequate work of breathing Outcome: Progressing as expected Goal: Patent airway Outcome: Progressing as expected Problem: Tissue Perfusion - Altered, Risk of Goal: Hemodynamically stable Outcome: Progressing as expected are Plan - Anaid Stuart RN - 01/30/2020 8:43 AM CSTCare plan updated are Plan - Fran Montes RN - 01/30/2020 2:16 AM PSYCHOLOGIST INDUSTRIAL ORGANIZATIONAL Problem: Falls, Risk of Goal: Absence of falls Outcome: Progressing as expected Problem: Pain Goal: Control of pain at or below patient's documented comfort goal Outcome: Progressing as expected Problem: Respiratory Function - Impaired Goal: Able to cough effectively Outcome: Progressing as expected Goal: Adequate oxygenation Outcome: Progressing as expected Goal: Adequate work of breathing Outcome: Progressing as expected Goal: Patent airway Outcome: Progressing as expected Problem: Tissue Perfusion - Altered, Risk of Goal: Hemodynamically stable Outcome: Progressing as expected D Nurse Note - Corina Zarate RN - 01/29/2020 11:18 PM CSTSummary: Admit transfer Patient admitted to [address] [place] [address] for diagnosis of Hyponatremia Patient agrees to admission, discussed plan of care with patient and family. Patient is awake, alert, oriented, resp reg unlabored, color appropriate for race, PIV intact No adverse reaction to medications administered while in ED Belongings with patient to unit Report to [facility] and MINO Love at [facility] D Nurse Note - Corina Zarate RN - 01/29/2020 11:02 PM CSTSummary: report called Report called to MINO Love in [facility]. D Nurse Note - Corina Zarate RN - 01/29/2020 11:00 PM CSTSummary: EMS [facility] ambulance here to take patient to [facility]. Patient was transferred over to the stretcher and vomited. Patient given zofran 4mg SIVP, new liter of fluid hung on a dial a flow to run at 250 ml/hr. D Nurse Note - Corina Zarate RN - 01/29/2020 9:47 PM CSTPatient sleeping at this no distress patient to be transferred to [facility]. D Nurse Note - Aisha Guillen PCT - 01/29/2020 9:40 PM CSTSpoke with [facility] E[facility] 40-45 minutes. HOLOGIST INDUSTRIAL ORGANIZATIONAL ED Nurse Note - Corina Zarate RN - 01/29/2020 8:51 PM CSTSummary: patient safety Patient seen taking off clothes and trying to get out of bed, patient is still confused but awakening more after Narcan. Patient safety considered and patient moved to the front room 4 where patient can be seen more clearly. Attempted to call pharmacy for IV fluids and no answer, COA called and informed COA will contact pharmacy to get IV fluids of hypertonic infusion. D Nurse Note - Corina Zarate RN - 01/29/2020 7:53 PM CSTSummary: gag reflex and ABG Patient returned from CT still sleeping Patient has gag reflex and ABG with lactic being drawn at this time D Nurse Note - Corina Zarate RN - 01/29/2020 7:34 PM CSTSummary: provider recieving more information Provider An talking with family to get more information about the patient due to patient not being able to give information due to GCS D Nurse Note - Corina Zarate RN - 01/29/2020 7:33 PM CSTSummary: To CT Patient taken to CT via strecher D Nurse Note - Corina Zarate RN - 01/29/2020 7:00 PM CSTSummary: patient arrival Patient arrived via EMS for vomiting patient has vomit on herself, patient placed on the monitor andin a gown and provided with a blanket. documented in this encounter Plan of Treatment Name Type Priority Associated Diagnoses Order S chedule Transfusion Reaction LAB Routine FOR FOL LOW-UP TESTING Investigation until disconti nued starting 2019 Urinalysis (Spun) LAB NEEMA FOR FOLLOW -UP TESTING until discontin ued starting 2019 SODIUM URINE LAB NEEMA ONCE for 1 Occu rrences starting 2019 until 0 Health Maintenance Due Date Last Done Comments [...] this topic documented as of this encounter Procedures Procedure Name Priority Date/Time Associated Diagnosis Comme nts BASIC METABOLIC PANEL Routine 02/03/2020 1:48 Re sults for this (NA, K, CL, CO2, AM PSYCHOLOGIST INDUSTRIAL ORGANIZATIONAL procedure a re in GLUCOSE, BUN, the results CREATININE, CA) section. BASIC METABOLIC PANEL Routine 02/02/2020 3:37 Re sults for this (NA, K, CL, CO2, AM PSYCHOLOGIST INDUSTRIAL ORGANIZATIONAL procedure a re in GLUCOSE, BUN, the results CREATININE, CA) section. CBC WITH DIFF NEEMA 02/01/2020 5:31 Results fo r this AM PSYCHOLOGIST [employer]USTRIAL [employer]GANIZATIONAL procedure are i n the results section. BASIC METABOLIC PANEL NEEMA 02/01/2020 5:31 Re sults for this (NA, K, CL, CO2, AM PSYCHOLOGIST INDUSTRIAL ORGANIZATIONAL procedure a re in GLUCOSE, BUN, the results CREATININE, CA) section. BASIC METABOLIC PANEL NEEMA 01/31/2020 5:48 Re sults for this (NA, K, CL, CO2, PM PSYCHOLOGIST INDUSTRIAL ORGANIZATIONAL procedure a re in GLUCOSE, BUN, the results CREATININE, CA) section. CBC WITH DIFF [facility] 01/31/2020 4:04 Results fo r this AM PSYCHOLOGIST INDUSTRIAL ORGANIZATIONAL procedure are i n the results section. BASIC METABOLIC PANEL [facility] 01/31/2020 4:04 Re sults for this (NA, K, CL, CO2, AM PSYCHOLOGIST INDUSTRIAL ORGANIZATIONAL procedure a re in GLUCOSE, BUN, the results CREATININE, CA) section. MAGNESIUM NEEMA 01/31/2020 4:04 Results for this AM PSYCHOLOGIST INDUSTRIAL ORGANIZATIONAL procedure are i n the results section. BASIC METABOLIC PANEL [facility] 01/31/2020 12:38 Re sults for this (NA, K, CL, CO2, AM PSYCHOLOGIST INDUSTRIAL ORGANIZATIONAL procedure a re in GLUCOSE, BUN, the results CREATININE, CA) section. BASIC METABOLIC PANEL [facility] 01/30/2020 9:51 Re sults for this (NA, K, CL, CO2, PM PSYCHOLOGIST INDUSTRIAL ORGANIZATIONAL procedure a re in GLUCOSE, BUN, the results CREATININE, CA) section. BASIC METABOLIC PANEL [facility] 01/30/2020 5:01 Re sults for this (NA, K, CL, CO2, PM PSYCHOLOGIST INDUSTRIAL ORGANIZATIONAL procedure a re in GLUCOSE, BUN, the results CREATININE, CA) section. SODIUM, URINE RANDOM [facility] 01/30/2020 12:25 Res ults for this PM PSYCHOLOGIST INDUSTRIAL [employer]GANIZATIONAL procedure are i n the results section. BASIC METABOLIC PANEL [facility] 01/30/2020 12:25 Re sults for this (NA, K, CL, CO2, PM PSYCHOLOGIST INDUSTRIAL ORGANIZATIONAL procedure a re in GLUCOSE, BUN, the results CREATININE, CA) section. BASIC METABOLIC PANEL [facility] 01/30/2020 9:10 Re sults for this (NA, K, CL, CO2, AM PSYCHOLOGIST INDUSTRIAL ORGANIZATIONAL procedure a re in GLUCOSE, BUN, the results CREATININE, CA) section. EXTRA TUBE LAV [facility] 01/30/2020 5:15 AM PSYCHOLOGIST INDUSTRIAL ORGANIZATIONAL BASIC METABOLIC PANEL [facility] 01/30/2020 5:15 Re sults for this (NA, K, CL, CO2, AM PSYCHOLOGIST INDUSTRIAL ORGANIZATIONAL procedure a re in GLUCOSE, BUN, the results CREATININE, CA) section. XR KUB STAT 01/30/2020 1:29 Hyponatremia Results for this AM PSYCHOLOGIST [employer]GAN[employer]ATIONAL procedure are i n the results section. XR CHEST 1 VW STAT 01/30/2020 12:45 Hyponatremia Results fo r this AM PSYCHOLOGIST [employer]RI[employer]GANIZATIONAL procedure are i n the results section. ACUTE CARE ARTERIAL STAT 01/30/2020 12:42 Resu lts for this BLOOD GAS AM PSYCHOLOGIST [employer]GAN[employer]ATIONAL procedure are i n the results section. ACTIVATED PARTIAL STAT 01/30/2020 12:41 Result s for this THRMPLAS JANIYA AM PSYCHOLOGIST INDUSTRIAL ORGANIZATIONAL procedure are i n the results section. PROTHROMBIN TIME / INR STAT 01/30/2020 12:41 R esults for this AM PSYCHOLOGIST [employer]GANIZATIONAL procedure are i n the results section. CBC WITH DIFF STAT 01/30/2020 12:41 Results fo r this AM PSYCHOLOGIST [employer]GANIZATIONAL procedure are i n the results section. BASIC METABOLIC PANEL STAT 01/30/2020 12:41 Re sults for this (NA, K, CL, CO2, AM PSYCHOLOGIST INDUSTRIAL ORGANIZATIONAL procedure a re in GLUCOSE, BUN, the results CREATININE, CA) section. HEPATIC FUNCTION PANEL STAT 01/30/2020 12:41 R esults for this ([id number]) AM PSYCHOLOGIST [employer]USTRIAL [employer]GANIZATIONAL procedure are i n (ALB,T.PRO,BILI the results T,BU/BC,ALT,AST,ALK section. PHOS) MAGNESIUM STAT 01/30/2020 12:41 Results for this AM PSYCHOLOGIST [employer]GANIZATIONAL procedure are i n the results section. PHOSPHORUS STAT 01/30/2020 12:41 Results for this AM PSYCHOLOGIST [employer]GAN[employer]ATIONAL procedure are i n the results section. HOSPITAL ADMISSION Routine 01/30/2020 12:01 [facility] [place] - MEDICARE AM PSYCHOLOGIST INDUSTRIAL ORGANIZATIONAL PATIENTS RIGHTS IMPORTANT MESSAGE CARBAMZEPINE, FREE AND STAT 01/29/2020 9:06 Stupor R esults for this TOTAL PM PSYCHOLOGIST [employer]GAN[employer]ATIONAL procedure are i n the results section. POCT GLUCOSE(AGE NEEMA 01/29/2020 8:32 Stupor Results for this >30DAYS) PM PSYCHOLOGIST [employer]ATIONAL procedure are i n the results section. OSMOLALITY URINE STAT 01/29/2020 8:23 Stupor Results for this PM PSYCHOLOGIST [employer] procedure are i n the results section. OSMOLALITY SERUM STAT 01/29/2020 8:21 Stupor Results for this PM PSYCH[employer] procedure are i n the results section. BLOOD CULTURE SCREEN STAT 01/29/2020 8:15 Stupor Res ults for this PM PSYCHOLOGIST [employer]GAN[employer]ATIONAL procedure are i n the results section. POCT GLUCOSE Routine 01/29/2020 8:12 Results for this (AUTOMATED) PM PSYCHOLOGIST [employer]ATIONAL procedure are i n the results section. AC ABG + LACTIC ACID STAT 01/29/2020 8:03 Stupor Res ults for this PM PSYCHOLOGIST [employer]GAN[employer]ATIONAL procedure are i n the results section. BLOOD CULTURE SCREEN STAT 01/29/2020 7:45 Stupor Res ults for this PM PSYCHOLOGIST [employer]RI[employer]GANIZATIONAL procedure are i n the results section. CT CERVICAL SPINE WO STAT 01/29/2020 7:43 Stupor Res ults for this CONTRAST PM PSYCHOLOGIST [employer]GAN[employer]ATIONAL procedure are i n the results section. CT HEAD WO CONTRAST STAT 01/29/2020 7:42 Stupor Resu lts for this PM PSYCHOLOGIST [employer]ATIONAL procedure are i n the results section. LAB ONLY COVID Routine 01/29/2020 7:29 Stupor Results f or this INTERPRETATION PM PSYCHOLOGIST [employer]ATIONAL procedure are in the results section. COVID-19 (ID NOW RAPID STAT 01/29/2020 7:29 Stupor R esults for this TESTING) PM PSYCHOLOGIST [employer]ATIONAL procedure are i n the results section. ADC / LCC - DRUG STAT 01/29/2020 7:29 Stupor Results for this SCREEN TRIAGE PM PSYCHOLOGIST [employer]ATIONAL procedure are in the results section. URINE CULTURE STAT 01/29/2020 7:29 Stupor Results fo r this PM PSYCHOLOGIST [employer]ATIONAL procedure are i n the results section. ACTIVATED PARTIAL STAT 01/29/2020 7:28 Stupor Result s for this THRMPLAS JANIYA PM PSYCHOLOGIST [employer]RI[employer]IZATIONAL procedure are i n the results section. PROTHROMBIN TIME / INR STAT 01/29/2020 7:28 Stupor R esults for this PM PSYCHOLOGIST [employer]ATIONAL procedure are i n the results section. CBC WITH DIFF STAT 01/29/2020 7:28 Stupor Results fo r this PM PSYCHOLOGIST [employer]ATIONAL procedure are i n the results section. ETHANOL STAT 01/29/2020 7:28 Stupor Results for this PM PSYCHOLOGIST [employer]ATIONAL procedure are i n the results section. BASIC METABOLIC PANEL STAT 01/29/2020 7:28 Stupor Re sults for this (NA, K, CL, CO2, PM PSYCHOLOGIST [employer]RIAL [employer]GANIZATIONAL procedure a re in GLUCOSE, BUN, the results CREATININE, CA) section. HEPATIC FUNCTION PANEL STAT 01/29/2020 7:28 Stupor R esults for this ([id number]) PM PSYCHOLOGIST [employer]GANIZATIONAL procedure are i n (ALB,T.PRO,BILI the results T,BU/BC,ALT,AST,ALK section. PHOS) TROPONIN I STAT 01/29/2020 7:28 Stupor Results for this PM PSYCHOLOGIST [employer]ATIONAL procedure are i n the results section. MAGNESIUM STAT 01/29/2020 7:28 Stupor Results for this PM PSYCHOLOG[employer] procedure are i n the results section. LIPASE STAT 01/29/2020 7:28 Stupor Results for this PM PSYCHOLOGIST [employer]ATIONAL procedure are i n the results section. PHOSPHORUS STAT 01/29/2020 7:28 Stupor Results for this PM PSYCHOLOGIST [employer]ATIONAL procedure are i n the results section. HB ECG ROUTINE & STAT 01/29/2020 7:12 Stupor RHYTHM STRIP PM PSYCHOLOGIST [employer]GANIZATIONAL CRITICAL CARE Routine 01/29/2020 6:45 Stupor Results for this PM PSYCHOLOGIST [employer]ATIONAL Acute hyponatrem ia procedure are in Hypomagnesemia the results Hypochloremia section. Respiratory alkalosis EM[facility]Y [facility] Routine 01/29/2020 12:01 AGREEMENTS AND AM PSYCHOLOGIST INDUSTRIAL ORGANIZATIONAL AUTHORIZATIONS documented in this encounter Results BASIC METABOLIC PANEL (NA, K, CL, CO2, GLUCOSE, BUN, CREATININE, CA) (02/03/2020 1:48 AM PSYCHOLOGIST INDUSTRIAL ORGANIZATIONAL) [facility] NA 132 (L) 135 - 145 [facility] mmol/L [facility] K 3.7 3.5 - 5.0 [facility] mmol/L [facility] CL 99 98 - 108 mmol/L [facility] CO2 TOTAL 26 23 - 31 mmol/L [facility] AGAP 7 2 - 16 [facility] BUN 14 7 - 23 mg/dL [facility] GLUCOSE 103 70 - 110 mg/dL [facility] CREATININE 0.75 0.50 - 1.04 [facility] mg/dL [facility] CALCIUM 9.0 8.6 - 10.6 [facility] mg/dL [facility] eGFR Calculation 78.0 mL/min/1.73m2 [facility] (Non- [facility]) NEON eGFR Calculation 94.6 mL/min/1.73m2 [facility] () [facility] Specimen Blood - ARM, RIGHT Narrative Performed At [facility] [employer] Rate [facility] (GFR) and Staging of Kidney Disease* NEON + + --+ + | GFR (mL/min/1.73 m2) | With Kidney Damage | Without Kidney Damage + + --+ + | >90 | Stage one | Normal + + --+ + | 60-89 | Stage two | Decreased GFR + + --+ + | 30-59 | Stage three | Stage three + + --+ + | 15-29 | Stage four | Stage four + + --+ + | <15 (or dialysis) | Stage five | Stage five + + --+ + *Each stage assumes the associated GFR level has been in effect for at least three months. Stages 1 to 5, with or without kidney disease, indicate chronic kidney disease. Notes: Determination of stages one and two (with eGFR >59mL/min/1.73 m2) requires estimation of kidney damage for at least three months as defined by structural or functional abnormalities of the kidney, manifested by either: Pathological abnormalities or Markers of kidney damage (including abnormalities in the composition of the blood or urine or abnormalities in imaging tests). Performing Organization Address City/State/Zipcode Phone Number [facility] CLIA: [id number] [place] [address] [facility] [address] BASIC METABOLIC PANEL (NA, K, CL, CO2, GLUCOSE, BUN, CREATININE, CA) (02/02/2020 3:37 AM PSYCHOLOGIST [employer]ATIONAL) [facility] NA 133 (L) 135 - 145 [facility] mmol/L [facility] K 3.8 3.5 - 5.0 [facility] mmol/L [facility] CL 101 98 - 108 mmol/L [facility] CO2 TOTAL 25 23 - 31 mmol/L [facility] AGAP 7 2 - 16 [facility] BUN 10 7 - 23 mg/dL [facility] GLUCOSE 100 70 - 110 mg/dL [facility] CREATININE 0.67 0.50 - 1.04 [facility] mg/dL [facility] CALCIUM 9.0 8.6 - 10.6 [facility] mg/dL [facility] eGFR Calculation 88.9 mL/min/1.73m2 [facility] (Non- [facility]) NEON eGFR Calculation 107.7 mL/min/1.73m2 [facility] () [facility] Specimen Blood - ARM, LEFT Narrative Performed At [facility] [employer] [facility] (GFR) and Staging of Kidney Disease* NEON + + --+ + | GFR (mL/min/1.73 m2) | With Kidney Damage | Without Kidney Damage + + --+ + | >90 | Stage one | Normal + + --+ + | 60-89 | Stage two | Decreased GFR + + --+ + | 30-59 | Stage three | Stage three + + --+ + | 15-29 | Stage four | Stage four + + --+ + | <15 (or dialysis) | Stage five | Stage five + + --+ + *Each stage assumes the associated GFR level has been in effect for at least three months. Stages 1 to 5, with or without kidney disease, indicate chronic kidney disease. Notes: Determination of stages one and two (with eGFR >59mL/min/1.73 m2) requires estimation of kidney damage for at least three months as defined by structural or functional abnormalities of the kidney, manifested by either: Pathological abnormalities or Markers of kidney damage (including abnormalities in the composition of the blood or urine or abnormalities in imaging tests). Performing Organization Address City/State/Zipcode Phone Number [facility] CLIA: [id number] [place] [address] [facility] [address] BASIC METABOLIC PANEL (NA, K, CL, CO2, GLUCOSE, BUN, CREATININE, CA) (02/01/2020 5:31 AM PSYCHOLOGIST [employer]ATIONAL) Pathologist [facility] NA 131 (L) 135 - 145 [facility] mmol/L [facility] K 3.6 3.5 - 5.0 [facility] mmol/L [facility] CL 99 98 - 108 mmol/L [facility] CO2 TOTAL 23 23 - 31 mmol/L [facility] AGAP 9 2 - 16 [facility] BUN 9 7 - 23 mg/dL [facility] GLUCOSE 119 (H) 70 - 110 mg/dL [facility] CREATININE 0.72 0.50 - 1.04 [facility] mg/dL [facility] CALCIUM 9.0 8.6 - 10.6 [facility] mg/dL [facility] eGFR Calculation 81.8 mL/min/1.73m2 [facility] (Non- [facility] Citizen Of [place]) NEON eGFR Calculation 99.2 mL/min/1.73m2 [facility] () [facility] Specimen Blood - HAND, LEFT Narrative Performed At [facility] [employer] Rate [facility] (GFR) and Staging of Kidney Disease* CAMPUS + + --+ + | GFR (mL/min/1.73 m2) | With Kidney Damage | Without Kidney Damage + + --+ + | >90 | Stage one | Normal + + --+ + | 60-89 | Stage two | Decreased GFR + + --+ + | 30-59 | Stage three | Stage three + + --+ + | 15-29 | Stage four | Stage four + + --+ + | <15 (or dialysis) | Stage five | Stage five + + --+ + *Each stage assumes the associated GFR level has been in effect for at least three months. Stages 1 to 5, with or without kidney disease, indicate chronic kidney disease. Notes: Determination of stages one and two (with eGFR >59mL/min/1.73 m2) requires estimation of kidney damage for at least three months as defined by structural or functional abnormalities of the kidney, manifested by either: Pathological abnormalities or Markers of kidney damage (including abnormalities in the composition of the blood or urine or abnormalities in imaging tests). Performing Organization Address City/State/Zipcode Phone Number [facility] CLIA: [id number] [place] [address] [facility] [address] CBC WITH DIFF (02/01/2020 5:31 AM PSYCHOLOGIST [employer]ATIONAL) [facility] WBC 5.22 4.30 - 11.10 [facility] 10*3/L [facility] RBC 3.76 (L) 3.93 - 5.25 [facility] 10*6/L [facility] HGB 11.3 (L) 11.6 - 15.0 [facility] g/dL [facility] HCT 33.2 (L) 35.7 - 45.2 % [facility] MCV 88.3 80.6 - 95.5 fL [facility] MCH 30.1 25.9 - 32.8 pg [facility] MCHC 34.0 31.6 - 35.1 [facility] g/dL [facility] RDW-SD 41.9 39.0 - 49.9 fL [facility] RDW-CV 13.1 12.0 - 15.5 % [facility] PLT 268 166 - 358 [facility] 10*3/L [facility] MPV 9.7 9.5 - 12.9 fL [facility] NRBC/100 WBC 0.0 0.0 - 10.0 /100 [facility] WBCs [facility] NRBC x10^3 <0.01 10*3/L [facility] GRAN MAT (NEUT) % 45.0 % [facility] I[facility] GRAN % 0.40 % [facility] LYMPH % 38.1 % [facility] MONO % 12.6 % [facility] EOS % 3.3 % [facility] BASO % 0.6 % [facility] GRAN MAT x10^3(ANC) 2.35 1.88 - 7.09 [facility] 10*3/uL [facility] I[facility] GRAN x10^3 <0.03 0.00 - 0.06 [facility] 10*3/uL [facility] LYMPH x10^3 1.99 1.32 - 3.29 [facility] 10*3/uL [facility] MONO x10^3 0.66 0.33 - 0.92 [facility] 10*3/uL [facility] EOS x10^3 0.17 0.03 - 0.39 [facility] 10*3/uL [facility] BASO x10^3 0.03 0.01 - 0.07 [facility] 10*3/uL [facility] Specimen Blood - HAND, LEFT Performing Organization Address City/State/Zipcode Phone Number [facility] CLIA: [id number] [place] [address] [facility] [address] BASIC METABOLIC PANEL (NA, K, CL, CO2, GLUCOSE, BUN, CREATININE, CA) (01/31/2020 5:48 PM PSYCHOLOGIST [employer]GAN[employer]ATIONAL) [facility] NA 132 (L) 135 - 145 [facility] mmol/L [facility] K 3.9 3.5 - 5.0 [facility] mmol/L [facility] CL 101 98 - 108 mmol/L [facility] CO2 TOTAL 23 23 - 31 mmol/L [facility] AGAP 8 2 - 16 [facility] BUN 8 7 - 23 mg/dL [facility] GLUCOSE 96 70 - 110 mg/dL [facility] CREATININE 0.59 0.50 - 1.04 [facility] mg/dL [facility] CALCIUM 9.1 8.6 - 10.6 [facility] mg/dL [facility] eGFR Calculation 102.9 mL/min/1.73m2 [facility] (Non- [facility]) NEON eGFR Calculation 124.8 mL/min/1.73m2 [facility] () [facility] Specimen Blood - ARM, LEFT Narrative Performed At [facility] [employer] Rate [facility] (GFR) and Staging of Kidney Disease* CAMPUS + + --+ + | GFR (mL/min/1.73 m2) | With Kidney Damage | Without Kidney Damage + + --+ + | >90 | Stage one | Normal + + --+ + | 60-89 | Stage two | Decreased GFR + + --+ + | 30-59 | Stage three | Stage three + + --+ + | 15-29 | Stage four | Stage four + + --+ + | <15 (or dialysis) | Stage five | Stage five + + --+ + *Each stage assumes the associated GFR level has been in effect for at least three months. Stages 1 to 5, with or without kidney disease, indicate chronic kidney disease. Notes: Determination of stages one and two (with eGFR >59mL/min/1.73 m2) requires estimation of kidney damage for at least three months as defined by structural or functional abnormalities of the kidney, manifested by either: Pathological abnormalities or Markers of kidney damage (including abnormalities in the composition of the blood or urine or abnormalities in imaging tests). Performing Organization Address City/[facility] Phone Number [facility] CLIA: [id number] [place] [address] [facility] [address] MAGNESIUM (01/31/2020 4:04 AM PSYCHOLOGIST [employer]ATIONAL) Pathologist Sig nature MAGNESIUM 2.2 1.7 - 2.4 mg/dL [facility] Specimen Blood - ARM, LEFT Performing Organization Address [facility]/Zipcode Phone Number [facility] CLIA: [id number] [place] [address] [facility] [address] CBC WITH DIFF (01/31/2020 4:04 AM PSYCHOLOGIST [employer]ATIONAL) Pathologist Sig nature WBC 4.91 4.30 - 11.10 [facility] 10*3/L [facility] RBC 3.36 (L) 3.93 - 5.25 [facility] 10*6/L [facility] HGB 10.3 (L) 11.6 - 15.0 [facility] g/dL [facility] HCT 28.6 (L) 35.7 - 45.2 % [facility] MCV 85.1 80.6 - 95.5 fL [facility] MCH 30.7 25.9 - 32.8 pg [facility] MCHC 36.0 (H) 31.6 - 35.1 [facility] g/dL [facility] RDW-SD 39.2 39.0 - 49.9 fL [facility] RDW-CV 12.6 12.0 - 15.5 % [facility] PLT 226 166 - 358 [facility] 10*3/L [facility] MPV 10.0 9.5 - 12.9 fL [facility] NRBC/100 WBC 0.0 0.0 - 10.0 /100 [facility] WBCs [facility] NRBC x10^3 <0.01 10*3/L [facility] GRAN MAT (NEUT) % 47.1 % [facility] IMM GRAN % 0.20 % [facility] LYMPH % 39.9 % [facility] MONO % 10.0 % [facility] EOS % 2.2 % [facility] BASO % 0.6 % [facility] GRAN MAT x10^3(ANC) 2.31 1.88 - 7.09 [facility] 10*3/uL [facility] I[facility]AN x10^3 <0.03 0.00 - 0.06 [facility] 10*3/uL [facility] LYMPH x10^3 1.96 1.32 - 3.29 [facility] 10*3/uL [facility] MONO x10^3 0.49 0.33 - 0.92 [facility] 10*3/uL [facility] EOS x10^3 0.11 0.03 - 0.39 [facility] 10*3/uL [facility] BASO x10^3 0.03 0.01 - 0.07 [facility] 10*3/uL [facility] Specimen Blood - ARM, LEFT Performing Organization Address City/State/Zipcode Phone Number [facility] CLIA: [id number] [place] [address] [facility] [address] BASIC METABOLIC PANEL (NA, K, CL, CO2, GLUCOSE, BUN, CREATININE, CA) (01/31/2020 4:04 AM PSYCHOLOGIST [employer]GANIZATIONAL) Pathologist [facility] nature NA 125 (L) 135 - 145 [facility] mmol/L [facility] K 3.2 (L) 3.5 - 5.0 [facility] mmol/L [facility] CL 91 (L) 98 - 108 mmol/L [facility] CO2 TOTAL 25 23 - 31 mmol/L [facility] AGAP 9 2 - 16 [facility] BUN 9 7 - 23 mg/dL [facility] GLUCOSE 107 70 - 110 mg/dL [facility] CREATININE 0.64 0.50 - 1.04 [facility] mg/dL [facility] CALCIUM 8.5 (L) 8.6 - 10.6 [facility] mg/dL [facility] eGFR Calculation 93.7 mL/min/1.73m2 [facility] (Non- [facility] Citizen Of [place]) NEON eGFR Calculation 113.6 mL/min/1.73m2 [facility] () [facility] Specimen Blood - ARM, LEFT Narrative Performed At [facility] (GFR) and Staging of Kidney Disease* CAMPUS + + --+ + | GFR (mL/min/1.73 m2) | With Kidney Damage | Without Kidney Damage + + --+ + | >90 | Stage one | Normal + + --+ + | 60-89 | Stage two | Decreased GFR + + --+ + | 30-59 | Stage three | Stage three + + --+ + | 15-29 | Stage four | Stage four + + --+ + | <15 (or dialysis) | Stage five | Stage five + + --+ + *Each stage assumes the associated GFR level has been in effect for at least three months. Stages 1 to 5, with or without kidney disease, indicate chronic kidney disease. Notes: Determination of stages one and two (with eGFR >59mL/min/1.73 m2) requires estimation of kidney damage for at least three months as defined by structural or functional abnormalities of the kidney, manifested by either: Pathological abnormalities or Markers of kidney damage (including abnormalities in the composition of the blood or urine or abnormalities in imaging tests). Performing Organization Address City/State/Zipcode Phone Number [facility] CLIA: [id number] [place] [address] [facility] [address] BASIC METABOLIC PANEL (NA, K, CL, CO2, GLUCOSE, BUN, CREATININE, CA) (01/31/2020 12:38 AM PSYCHOLOGIST [employer]ATIONAL) Pathologist [facility] nature NA 126 (L) 135 - 145 [facility] mmol/L [facility] K 3.1 (L) 3.5 - 5.0 [facility] mmol/L [facility] CL 92 (L) 98 - 108 mmol/L [facility] CO2 TOTAL 26 23 - 31 mmol/L [facility] AGAP 8 2 - 16 [facility] BUN 8 7 - 23 mg/dL [facility] GLUCOSE 104 70 - 110 mg/dL [facility] CREATININE 0.63 0.50 - 1.04 [facility] mg/dL [facility] CALCIUM 8.5 (L) 8.6 - 10.6 [facility] mg/dL [facility] eGFR Calculation 95.4 mL/min/1.73m2 [facility] (Non- [facility]) NEON eGFR Calculation 115.7 mL/min/1.73m2 [facility] () [facility] Specimen Blood - ARM, LEFT Narrative Performed At [facility] [employer] Rate [facility] (GFR) and Staging of Kidney Disease* NEON + + --+ + | GFR (mL/min/1.73 m2) | With Kidney Damage | Without Kidney Damage + + --+ + | >90 | Stage one | Normal + + --+ + | 60-89 | Stage two | Decreased GFR + + --+ + | 30-59 | Stage three | Stage three + + --+ + | 15-29 | Stage four | Stage four + + --+ + | <15 (or dialysis) | Stage five | Stage five + + --+ + *Each stage assumes the associated GFR level has been in effect for at least three months. Stages 1 to 5, with or without kidney disease, indicate chronic kidney disease. Notes: Determination of stages one and two (with eGFR >59mL/min/1.73 m2) requires estimation of kidney damage for at least three months as defined by structural or functional abnormalities of the kidney, manifested by either: Pathological abnormalities or Markers of kidney damage (including abnormalities in the composition of the blood or urine or abnormalities in imaging tests). Performing Organization Address City/State/Zipcode Phone Number [facility] CLIA: [id number] [place] [address] [facility] [address] BASIC METABOLIC PANEL (NA, K, CL, CO2, GLUCOSE, BUN, CREATININE, CA) (01/30/2020 9:51 PM PSYCHOLOGIST [employer]RIAL [employer]GANIZATIONAL) [facility] NA 125 (L) 135 - 145 [facility] mmol/L [facility] K 3.0 (L) 3.5 - 5.0 [facility] mmol/L [facility] CL 92 (L) 98 - 108 mmol/L [facility] CO2 TOTAL 25 23 - 31 mmol/L [facility] AGAP 8 2 - 16 [facility] BUN 8 7 - 23 mg/dL [facility] GLUCOSE 95 70 - 110 mg/dL [facility] CREATININE 0.61 0.50 - 1.04 [facility] mg/dL [facility] CALCIUM 8.5 (L) 8.6 - 10.6 [facility] mg/dL [facility] eGFR Calculation 99.1 mL/min/1.73m2 [facility] (Non- [facility] Citizen Of The [place]) NEON eGFR Calculation 120.1 mL/min/1.73m2 [facility] () [facility] Specimen Blood - ARM, LEFT Narrative Performed At [facility] [employer] [facility] (GFR) and Staging of Kidney Disease* CAMPUS + + --+ + | GFR (mL/min/1.73 m2) | With Kidney Damage | Without Kidney Damage + + --+ + | >90 | Stage one | Normal + + --+ + | 60-89 | Stage two | Decreased GFR + + --+ + | 30-59 | Stage three | Stage three + + --+ + | 15-29 | Stage four | Stage four + + --+ + | <15 (or dialysis) | Stage five | Stage five + + --+ + *Each stage assumes the associated GFR level has been in effect for at least three months. Stages 1 to 5, with or without kidney disease, indicate chronic kidney disease. Notes: Determination of stages one and two (with eGFR >59mL/min/1.73 m2) requires estimation of kidney damage for at least three months as defined by structural or functional abnormalities of the kidney, manifested by either: Pathological abnormalities or Markers of kidney damage (including abnormalities in the composition of the blood or urine or abnormalities in imaging tests). Performing Organization Address City/State/Zipcode Phone Number [facility] CLIA: [id number] [place] [address] [facility] [address] BASIC METABOLIC PANEL (NA, K, CL, CO2, GLUCOSE, BUN, CREATININE, CA) (01/30/2020 5:01 PM PSYCHOLOGIST [employer]ATIONAL) Pathologist [facility] NA 124 (L) 135 - 145 [facility] mmol/L [facility] K 3.5 3.5 - 5.0 [facility] mmol/L [facility] CL 91 (L) 98 - 108 mmol/L [facility] CO2 TOTAL 25 23 - 31 mmol/L [facility] AGAP 8 2 - 16 [facility] BUN 7 7 - 23 mg/dL [facility] GLUCOSE 90 70 - 110 mg/dL [facility] CREATININE 0.59 0.50 - 1.04 [facility] mg/dL [facility] CALCIUM 8.5 (L) 8.6 - 10.6 [facility] mg/dL [facility] eGFR Calculation 102.9 mL/min/1.73m2 [facility] (Non- [facility] Citizen Of The [place]) NEON eGFR Calculation 124.8 mL/min/1.73m2 [facility] () [facility] Specimen Blood - ARM, LEFT Narrative Performed At [facility] [employer] [facility] (GFR) and Staging of Kidney Disease* CAMPUS + + --+ + | GFR (mL/min/1.73 m2) | With Kidney Damage | Without Kidney Damage + + --+ + | >90 | Stage one | Normal + + --+ + | 60-89 | Stage two | Decreased GFR + + --+ + | 30-59 | Stage three | Stage three + + --+ + | 15-29 | Stage four | Stage four + + --+ + | <15 (or dialysis) | Stage five | Stage five + + --+ + *Each stage assumes the associated GFR level has been in effect for at least three months. Stages 1 to 5, with or without kidney disease, indicate chronic kidney disease. Notes: Determination of stages one and two (with eGFR >59mL/min/1.73 m2) requires estimation of kidney damage for at least three months as defined by structural or functional abnormalities of the kidney, manifested by either: Pathological abnormalities or Markers of kidney damage (including abnormalities in the composition of the blood or urine or abnormalities in imaging tests). Performing Organization Address City/[facility]/Zipcode Phone Number [facility] CLIA: [id number] [place] [address] [facility] [address] SODIUM, URINE RANDOM (01/30/2020 12:25 PM PSYCHOLOGIST [employer]) Pathologist Sig nature NA URINE 77 mmol/L [facility] Specimen Urine - URINE, CLEAN CATCH Performing Organization Address [facility]/Zipcode Phone Number [facility] [facility] CLIA: [id number] [place] [address] [facility] [address] BASIC METABOLIC PANEL (NA, K, CL, CO2, GLUCOSE, BUN, CREATININE, CA) (01/30/2020 12:25 PM PSYCHOLOGIST [employer]ATIONAL) NA 115 (LL) 135 - 145 [facility] mmol/L [facility] K 3.6 3.5 - 5.0 [facility] mmol/L [facility] CL 82 (L) 98 - 108 mmol/L [facility] CO2 TOTAL 24 23 - 31 mmol/L [facility] AGAP 9 2 - 16 [facility] BUN 7 7 - 23 mg/dL [facility] GLUCOSE 109 70 - 110 mg/dL [facility] CREATININE 0.48 (L) 0.50 - 1.04 [facility] mg/dL [facility] CALCIUM 8.0 (L) 8.6 - 10.6 [facility] mg/dL [facility] eGFR Calculation 130.6 mL/min/1.73m2 [facility] (Non- [facility]) NEON eGFR Calculation 158.3 mL/min/1.73m2 [facility] () [facility] Specimen Blood - ARM, LEFT Narrative Performed At [facility] Glomerular Filtration Rate [facility] (GFR) and Staging of Kidney Disease* NEON + + --+ + | GFR (mL/min/1.73 m2) | With Kidney Damage | Without Kidney Damage + + --+ + | >90 | Stage one | Normal + + --+ + | 60-89 | Stage two | Decreased GFR + + --+ + | 30-59 | Stage three | Stage three + + --+ + | 15-29 | Stage four | Stage four + + --+ + | <15 (or dialysis) | Stage five | Stage five + + --+ + *Each stage assumes the associated GFR level has been in effect for at least three months. Stages 1 to 5, with or without kidney disease, indicate chronic kidney disease. Notes: Determination of stages one and two (with eGFR >59mL/min/1.73 m2) requires estimation of kidney damage for at least three months as defined by structural or functional abnormalities of the kidney, manifested by either: Pathological abnormalities or Markers of kidney damage (including abnormalities in the composition of the blood or urine or abnormalities in imaging tests). Performing Organization Address City/State/Zipcode Phone Number [facility] CLIA: [id number] [place] [address] [facility] [address] BASIC METABOLIC PANEL (NA, K, CL, CO2, GLUCOSE, BUN, CREATININE, CA) (01/30/2020 9:10 AM PSYCHOLOGIST [employer]) NA 114 (LL) 135 - 145 [facility] mmol/L [facility] K 3.7 3.5 - 5.0 [facility] mmol/L [facility] CL 82 (L) 98 - 108 mmol/L [facility] CO2 TOTAL 22 (L) 23 - 31 mmol/L [facility] AGAP 10 2 - 16 [facility] BUN 8 7 - 23 mg/dL [facility] GLUCOSE 123 (H) 70 - 110 mg/dL [facility] CREATININE 0.47 (L) 0.50 - 1.04 [facility] mg/dL [facility] CALCIUM 8.0 (L) 8.6 - 10.6 [facility] mg/dL [facility] eGFR Calculation 133.8 mL/min/1.73m2 [facility] (Non- [facility] Citizen Of [place]) NEON eGFR Calculation 162.2 mL/min/1.73m2 [facility] () [facility] Specimen Blood - ARM, LEFT Narrative Performed At [facility] (GFR) and Staging of Kidney Disease* NEON + + --+ + | GFR (mL/min/1.73 m2) | With Kidney Damage | Without Kidney Damage + + --+ + | >90 | Stage one | Normal + + --+ + | 60-89 | Stage two | Decreased GFR + + --+ + | 30-59 | Stage three | Stage three + + --+ + | 15-29 | Stage four | Stage four + + --+ + | <15 (or dialysis) | Stage five | Stage five + + --+ + *Each stage assumes the associated GFR level has been in effect for at least three months. Stages 1 to 5, with or without kidney disease, indicate chronic kidney disease. Notes: Determination of stages one and two (with eGFR >59mL/min/1.73 m2) requires estimation of kidney damage for at least three months as defined by structural or functional abnormalities of the kidney, manifested by either: Pathological abnormalities or Markers of kidney damage (including abnormalities in the composition of the blood or urine or abnormalities in imaging tests). Performing Organization Address City/[facility]/Zipcode Phone Number [facility] CLIA: [id number] [place], [place] [address] [facility] [address] EXTRA TUBE LAV (01/30/2020 5:15 AM PSYCHOLOGIST [employer]) Specimen Blood Performing Organization Address [facility]/Zipcode Phone Number [facility] CLIA: [id number] [place] [address] [facility] [address] BASIC METABOLIC PANEL (NA, K, CL, CO2, GLUCOSE, BUN, CREATININE, CA) (01/30/2020 5:15 AM PSYCHOLOGIST [employer]ATIONAL) NA 112 (LL) 135 - 145 [facility] mmol/L [facility] K 3.6 3.5 - 5.0 [facility] mmol/L [facility] CL 81 (L) 98 - 108 mmol/L [facility] CO2 TOTAL 21 (L) 23 - 31 mmol/L [facility] AGAP 10 2 - 16 [facility] BUN 9 7 - 23 mg/dL [facility] GLUCOSE 151 (H) 70 - 110 mg/dL [facility] CREATININE 0.45 (L) 0.50 - 1.04 [facility] mg/dL [facility] CALCIUM 7.9 (L) 8.6 - 10.6 [facility] mg/dL [facility] eGFR Calculation 140.7 mL/min/1.73m2 [facility] (Non- [facility] Citizen Of [place]) NEON eGFR Calculation 170.6 mL/min/1.73m2 [facility] () [facility] Specimen Blood - ARM, LEFT Narrative Performed At [facility] (GFR) and Staging of Kidney Disease* CAMPUS + + --+ + | GFR (mL/min/1.73 m2) | With Kidney Damage | Without Kidney Damage + + --+ + | >90 | Stage one | Normal + + --+ + | 60-89 | Stage two | Decreased GFR + + --+ + | 30-59 | Stage three | Stage three + + --+ + | 15-29 | Stage four | Stage four + + --+ + | <15 (or dialysis) | Stage five | Stage five + + --+ + *Each stage assumes the associated GFR level has been in effect for at least three months. Stages 1 to 5, with or without kidney disease, indicate chronic kidney disease. Notes: Determination of stages one and two (with eGFR >59mL/min/1.73 m2) requires estimation of kidney damage for at least three months as defined by structural or functional abnormalities of the kidney, manifested by either: Pathological abnormalities or Markers of kidney damage (including abnormalities in the composition of the blood or urine or abnormalities in imaging tests). Performing Organization Address City/State/Zipcode Phone Number [facility] CLIA: [id number] [place] [address] [facility] [address] XR KUB (01/30/2020 1:29 AM PSYCHOLOGIST [employer]ATIONAL) Specimen Impressions Performed At Impression: PACS/VR/DOSE 1. No evidence of bowel obstruction. 2. Extensive colonic stool suggests cons tipation. RL: [id number] AFC: [id number] End of Report 1 :48 AM Narrative Performed At Exam: Abdomen (1 View), 01/30/2020 1:15 A M. PACS/VR/DOSE Ordering Physician: IRINA BASHIR. History: Vomiting. Technique: One view of the abdomen. Comparison: None. Findings: There is no organomegaly or abdominal mass effect. Pso as and renal outlines are unremarkable. There is no abnormal abdominal calci fication. Bowel gas pattern is nonobstructive. There is extensive colonic stool. Calcifications in the pelvis likely represent phlebolit hs. Visualized lungs are clear. Osseous structures show degenerative changes. There is diffuse osteopenia. There are changes of left hip internal f ixation. Procedure Note [facility], Radiant Results Inft User - 2019 1:49 AM PSYCHOLOGIST [employer]IZATIONAL Exam: Abdomen (1 View), 01/30/2020 1:15 AM. Ordering Physician: IRINA BASHIR. History: Vomiting. Technique: One view of the abdomen. Comparison: None. Findings: There is no organomegaly or abdominal ma ss effect. Psoas and renal outlines are unremarkable. There is no abnormal a bdominal calcification. Bowel gas pattern is nonobstructive. There is exte nsive colonic stool. Calcifications in the pelvis likely represent phlebolit hs. Visualized lungs are clear. Osseous structures show degenerative kayy nges. There is diffuse osteopenia. There are changes of left hip internal f ixation. IMPRESSION Impression: 1. No evidence of bowel obstruction. 2. Extensive colonic stool suggests cons tipation. RL: [id number] AFC: [id number] End of Report Performing Organization Address City/State/Zipcode Phone Number PACS/VR/DOSE XR CHEST 1 VW (01/30/2020 12:45 AM PSYCHOLOGIST [employer]) Specimen Impressions Performed At Impression: PACS/VR/DOSE 1. No acute abnormalities evident. 2. Tortuosity of the thoracic aorta may reflect atherosclerosis or hypertension. AFC: [id number] RL: [id number] End of Report 20 1:01 AM Narrative Performed At This result has an attachment that is no t available. Ordering Physician: IRINA BASHIR PACS/VR/DOSE History: Hyponatremia. Hypoxia. Technique: Chest, single view Comparison: None Findings: The lungs are clear. No pleural effusions are evident. Heart size is normal. Tortuosity of the thoracic aorta is noted, wit h displacement of the trachea to the right. No acute bony abnormalities are evident. Procedure Note [facility], Radiant Results Inft User - 2019 1:02 AM PSYCHOLOGIST [employer]GANIZATIONAL Ordering Physician: IRINA BSAHIR History: Hyponatremia. Hypoxia. Technique: Chest, single view Comparison: None Findings: The lungs are clear. No pleural effusion s are evident. Heart size is normal. Tortuosity of the thoracic aorta is noted, with displacement of the trachea to the right. No acute bony abno rmalities are evident. IMPRESSION Impression: 1. No acute abnormalities evident. 2. Tortuosity of the thoracic aorta may reflect atherosclerosis or hypertension. AFC: [id number] RL: [id number] End of Report Performing Organization Address City/State/Zipcode Phone Number PACS/VR/DOSE Acute Care Arterial Blood Gas. (01/30/2020 12:42 AM PSYCHOLOGIST [employer]ATIONAL) [facility] PH 7.41 7.35 - 7.45 [facility] PCO2 35 35 - 45 mmHg [facility] PO2 78 (L) 80 - 100 mmHg [facility] HCO3 21 (L) 22 - 26 mEq/L [facility] BE -2.8 -3.0 - 3.0 mEq/L [facility] Specimen Blood - ARM, RIGHT Performing Organization Address City/[facility]/Zipcode Phone Number [facility] CLIA: [id number] [place] [address] [facility] [address] Hepatic Function Panel (ALB, T.PRO, BILI T, BU/BC, ALT, AST, ALK, PHOS) (01/30/2020 12:41 AM PSYCHOLOGIST [employer]RIAL [employer]GANIZATIONAL) [facility] TOTAL BILI 0.9 0.1 - 1.1 mg/dL [facility] BILI UNCON 0.8 0.1 - 1.1 mg/dL [facility] BILI CONJ 0.0 0.0 - 0.3 mg/dL [facility] T PROTEIN 6.7 6.3 - 8.2 g/dL [facility] ALBUMIN 3.6 3.5 - 5.0 g/dL [facility] ALK PHOS 166 (H) 34 - 122 U/L [facility] ALTv 15 5 - 35 U/L [facility] AST(SGOT) 19 13 - 40 U/L [facility] Specimen Blood - ARTERIAL Performing Organization Address City/[facility]/Zipcode Phone Number [facility] CLIA: [id number] [place] [address] [facility] [address] Phosphorus Serum (01/30/2020 12:41 AM PSYCHOLOGIST [employer]) Pathologist Sig nature PHOSPHORUS 2.8 2.5 - 5.0 mg/dL [facility] Specimen Blood - ARTERIAL Performing Organization Address City/[facility] Phone Number [facility] CLIA: [id number] [place] [address] [facility] [address] Magnesium Serum (01/30/2020 12:41 AM PSYCHOLOGIST [employer]) Pathologist Sig nature MAGNESIUM 1.3 (L) 1.7 - 2.4 mg/dL [facility] Specimen Blood - ARTERIAL Performing Organization Address City/[facility] Phone Number [facility] CLIA: [id number] [place] [address] [facility] [address] Basic Metabolic Panel (NA, K, CL, CO2, Glucose, BUN, Creatinine, CA) (01/30/2020 12:41 AM PSYCHOLOGIST [employer]GANIZATIONAL) NA 112 (LL) 135 - 145 [facility] mmol/L [facility] K 3.2 (L) 3.5 - 5.0 [facility] mmol/L [facility] CL 81 (L) 98 - 108 mmol/L [facility] CO2 TOTAL 19 (L) 23 - 31 mmol/L [facility] AGAP 12 2 - 16 [facility] BUN 10 7 - 23 mg/dL [facility] GLUCOSE 163 (H) 70 - 110 mg/dL [facility] CREATININE 0.39 (L) 0.50 - 1.04 [facility] mg/dL [facility] CALCIUM 7.8 (L) 8.6 - 10.6 [facility] mg/dL [facility] eGFR Calculation 166.0 mL/min/1.73m2 [facility] (Non- [facility] Citizen Of [place]) NEON eGFR Calculation 201.2 mL/min/1.73m2 [facility] () [facility] Specimen Blood - ARTERIAL Narrative Performed At [facility] (GFR) and Staging of Kidney Disease* CAMPUS + + --+ + | GFR (mL/min/1.73 m2) | With Kidney Damage | Without Kidney Damage + + --+ + | >90 | Stage one | Normal + + --+ + | 60-89 | Stage two | Decreased GFR + + --+ + | 30-59 | Stage three | Stage three + + --+ + | 15-29 | Stage four | Stage four + + --+ + | <15 (or dialysis) | Stage five | Stage five + + --+ + *Each stage assumes the associated GFR level has been in effect for at least three months. Stages 1 to 5, with or without kidney disease, indicate chronic kidney disease. Notes: Determination of stages one and two (with eGFR >59mL/min/1.73 m2) requires estimation of kidney damage for at least three months as defined by structural or functional abnormalities of the kidney, manifested by either: Pathological abnormalities or Markers of kidney damage (including abnormalities in the composition of the blood or urine or abnormalities in imaging tests). Performing Organization Address City/State/Zipcode Phone Number [facility] CLIA: [id number] [place] [address] [facility] [address] Prothrombin Time / INR (01/30/2020 12:41 AM PSYCHOLOGIST [employer]ATIONAL) PROTIME PATIENT 11.7 10.1 - 12.6 [facility] Seconds [facility] INR 1.0Comment: Normal [facility] INR <1.1; Warfarin [facility] Therapeutic range [facility] 2.0 to 3.0 or 2.5 to 3.5, depending upon the indications. Specimen Blood - ARTERIAL Performing Organization Address City/State/Zipcode Phone Number [facility] CLIA: [id number] [place] [address] [facility] [address] aPTT (01/30/2020 12:41 AM PSYCHOLOGIST [employer]ATIONAL) Pathologist Sig nature APTT Patient 29 26 - 36 Seconds [facility] Specimen Blood - ARTERIAL Performing Organization Address City/[facility]/Zipcode Phone Number [facility] CLIA: [id number] [place] [address] [facility] [address] CBC with Differential (01/30/2020 12:41 AM PSYCHOLOGIST [employer]) Pathologist [facility] nature WBC 6.69 4.30 - 11.10 [facility] 10*3/L [facility] RBC 3.27 (L) 3.93 - 5.25 [facility] 10*6/L [facility] HGB 10.2 (L) 11.6 - 15.0 [facility] g/dL [facility] HCT 27.4 (L) 35.7 - 45.2 % [facility] MCV 83.8 80.6 - 95.5 fL [facility] MCH 31.2 25.9 - 32.8 pg [facility] MCHC 37.2 (H) 31.6 - 35.1 [facility] g/dL [facility] RDW-SD 37.2 (L) 39.0 - 49.9 fL [facility] RDW-CV 12.2 12.0 - 15.5 % [facility] PLT 169 166 - 358 [facility] 10*3/L [facility] MPV 9.7 9.5 - 12.9 fL [facility] NRBC/100 WBC 0.0 0.0 - 10.0 /100 [facility] WBCs [facility] NRBC x10^3 <0.01 10*3/L [facility] GRAN MAT (NEUT) % 80.7 % [facility] IMM GRAN % 0.30 % [facility] LYMPH % 12.4 % [facility] MONO % 6.0 % [facility] EOS % 0.3 % [facility] BASO % 0.3 % [facility] GRAN MAT x10^3(ANC) 5.40 1.88 - 7.09 [facility] 10*3/uL [facility] IMM GRAN x10^3 <0.03 0.00 - 0.06 [facility] 10*3/uL [facility] LYMPH x10^3 0.83 (L) 1.32 - 3.29 [facility] 10*3/uL [facility] MONO x10^3 0.40 0.33 - 0.92 [facility] 10*3/uL [facility] EOS x10^3 <0.03 (L) 0.03 - 0.39 [facility] 10*3/uL [facility] BASO x10^3 <0.03 0.01 - 0.07 [facility] 10*3/uL [facility] Specimen Blood - ARTERIAL Performing Organization Address City/State/Zipcode Phone Number [facility] CLIA: [id number] [place] [address] [facility] [address] CARBAMZEPINE, FREE AND TOTAL (01/29/2020 9:06 PM PSYCHOLOGIST [employer]ATIONAL) Carbamazepine, Total 16.6 (H) 4.0 - 12.0 [facility] Comment: ug/mL Total drug analysis is used as first line testing to d etermine adequate dosing. Free drug analysis is used after adeq uate dosing has been established for the at risk patient (renal, h epatic, protein diseases etc.) to determine the degree of prot ein binding problems to more specifically adjust dosage. Carbamazepine, Free 3.8 (H) 1.0 - 3.0 [facility] ug/mL % Free Carbamazepine 22.9 8.0 - 35.0 % [facility] Comment: INTERPRETIVE INFORMATION: Carbamazepine, Free and Tota l, Serum or Plasma The therapeutic range is based on serum pre-dose (trou gh) draw at steady-state concentration. Free carbamazepine may be important to monitor in patients with altered or unpredictable prot ein binding capacity. Carbamazepine is also subject to drug-drug i nteractions due to displacement of protein binding and extensive m etabolism. Cross-reactivity with metabolites may account for diff erences in carbamazepine among analytical methods. Calculating pe rcent free attempts to minimize differences in assay cross-reacti vity and may be useful in dose optimization. A rare adverse drug reaction to carbamazepine therapy includes Blackmon-Jean syndrome or toxic epidermal necrolysis . Patients of ancestry with the presence of the HLA-B*15:02 have an increased risk for this carbamazepine-induced life-thr eatening reaction. Pharmacogenetic testing for HLA-B*15:02 is r ecommended for patients at risk for carbamazepine hypersensitivit y prior to treatment. This information has been included in the F DA-approved label for carbamazepine (https://www.accessdata.fda.gov/scripts/cder/daf/index .cfm?event=ov erview.process&fkiMnnsPu=894376) and guideline from [facility] Clinical Pharmacogenetics Implementation Consortium (https://www.pharmgkb.org/guidelines) [c4cast.com test code 4746433, HLA-B*15:02 Genotyping, Carbamazepine Hypersensitivity .] A combination of therapeutic drug monitoring with HLA-B* 15:02 pharmacogenetics genotyping may benefit patients who a re at increased risk for developing carbamazepine-induced ad verse events due to rare genotypes other than HLA-B*15:02 variant maggie sheffield. Performed By: [facility] [address] [place] [address] [employer] Developer: Jennifer Dee MD Specimen Blood - HAND, LEFT Performing Organization Address City/State/Zipcode Phone Number [address] [phone] POCT GLUCOSE(AGE >30DAYS) (01/29/2020 8:32 PM PSYCHOLOGIST [employer]ATIONAL) [facility] POCT Glu (age>30days) 123 (A) 70 - 110 mg/dL Specimen Blood - VENOUS OSMOLALITY URINE (01/29/2020 8:23 PM PSYCHOLOGIST [employer]AL [employer]GANIZATIONAL) [facility] OSMO U 272 50-1,100 mOsm/kg [facility] Specimen Urine - URINE, CATHETERIZED Performing Organization Address [facility] Phone Number [facility] CLIA: [id number] [place] [address] [address] [facility] OSMOLALITY SERUM (01/29/2020 8:21 PM PSYCHOLOGIST [employer]ATIONAL) Pathologist Sig nature OSMOLALITY 236 (LL) 278 - 305 mOsm/kg [facility] S Specimen Blood - ARM, RIGHT Performing Organization Address [facility] Phone Number [facility] CLIA: [id number] [place] [address] [address] [facility] BLOOD CULTURE SCREEN (01/29/2020 8:15 PM PSYCHOLOGIST [employer]RI[employer]GAN[employer]ATIONAL) Blood No organisms isolated No growth [facility] Culture-Aerobic Comment: [facility] Previous preliminary verifie d result was Culture In Progress on 01/30/2020 at 0001 PSYCHOLOGIST [employer] LAB[facility]ORY Previous preliminary verifie d result was No growth at 24 hours on 01/30/2020 at 2101 PS[employer]CHOLOGIST [employer] Previous preliminary verifie d result was No growth at 48 hours on 01/31/2020 at 2101 PS[employer]CHOLOGIST [employer] Previous preliminary verifie d result was No growth at 72 hours on 02/01/2020 at 2101 PS[employer]OLOGIST [employer] Blood No organisms isolated No growth [facility] Culture-Anaerobic Comment: [facility] Previous preliminary verifie d result was Culture In Progress on 01/30/2020 at 0001 PSYCHOLOGIST [employer]ATIONAL LABORATORY Previous preliminary verifie d result was No growth at 24 hours on 01/30/2020 at 2101 PS[employer]CHOLOGIST [employer] Previous preliminary verifie d result was No growth at 48 hours on 01/31/2020 at 2101 PSYCHOLOGIST [employer]ATIONAL Previous preliminary verifie d result was No growth at 72 hours on 02/01/2020 at 2101 PSYCHOLOGIST [employer]ATIONAL Specimen Blood - VENOUS Performing Organization Address [facility] [place] Phone Number [facility] CLIA: [id number] [place], [place] [id number] LABORATORY [address] POCT GLUCOSE (AUTOMATED) (01/29/2020 8:12 PM PSYCHOLOGIST [employer]) Pathologist [facility] nature POCT GLU 123 (H) 70 - 110 mg/dL [facility]OR[facility] Specimen Blood Performing Organization Address City/[facility] Phone Number [facility] CLIA: [id number] [place] [address] [place] [address] AC ABG + LACTIC ACID (01/29/2020 8:03 PM PSYCHOLOG[employer]) Pathologist Sig nature PH 7.50 (H) 7.35 - 7.45 [facility] PCO2 31 (L) 35 - 45 mmHg [facility] PO2 67 (L) 80 - 100 mmHg [facility] HCO3 24 22 - 26 mEq/L [facility] BE 1.5 -3.0 - 3.0 mEq/L [facility] LABORATORY LACTIC ACID 0.74 mmol/L [facility] Specimen Blood - ARM, RIGHT Performing Organization Address [facility] Phone Number [facility] CLIA: [id number] [place] [address] BLOOD CULTURE SCREEN (01/29/2020 7:45 PM PSYCHOLOGIST [employer]) Blood No organisms isolated No growth [facility] Culture-Aerobic Comment: [facility] Previous preliminary verifie d result was Culture In Progress on 01/29/2020 at 2301 PS[employer]CHOLOGIST [employer] LABORATORY Previous preliminary verifie d result was No growth at 24 hours on 01/30/2020 at 2000 PSYCHOLOGIST [employer] Previous preliminary verifie d result was No growth at 48 hours on 01/31/2020 at 2000 PSYCHOLOGIST [employer] Previous preliminary verifie d result was No growth at 72 hours on 02/01/2020 at 2000 PSYCHOLOGIST [employer]ATIONAL Blood No organisms isolated No growth [facility] Culture-Anaerobic Comment: [facility] Previous preliminary verifie d result was Culture In Progress on 01/29/2020 at 2301 PSYCHOLOGIST [employer] LABORATORY Previous preliminary verifie d result was No growth at 24 hours on 01/30/2020 at 2000 PSYCHOLOGIST [employer] Previous preliminary verifie d result was No growth at 48 hours on 01/31/2020 at 2000 PSYCHOLOGIST [employer] Previous preliminary verifie d result was No growth at 72 hours on 02/01/2020 at 2000 PSYCHOLOGIST [employer] Specimen Blood - VENOUS Performing Organization Address [facility] Phone Number [facility] CLIA: [id number] [place] [address] [place] [address] CT CERVICAL SPINE WO CONTRAST (01/29/2020 7:43 PM PSYCHOLOGIST [employer]) Specimen Impressions Performed At PACS/VR/DOSE No acute intracranial abnormality. No acute fracture or traumatic malalignm ent of the cervical spine. Preliminary Report Dictated by Resident: Mike Andres I, Joseluis Denson MD., have reviewed this study and a gree with the above report. Narrative Performed At Exam: CT HEAD WITHOUT CONTRAST PACS/VR/DOSE Exam: CT C-SPINE WITHOUT CONTRAST HISTORY: Altered mental status (AMS), un clear cause COMPARISON: None. TECHNIQUE: Routine CTs of the head and c ervical spine were performed without intravenous contrast, and coronal and sagittal reformatted images were generated. FINDINGS: CT HEAD: The ventricles and cerebral sulci are normal in calibe r and configuration. No hydrocephalus, midline shift or patho logical extra-axial fluid collection is present. The basal cistern s are unremarkable. There is no acute intracranial hemorrhag e or significant mass effect. No acute transcortical infarct. Few scattered hypodensiti es in the bilateral cerebral white matter, nonspecific likel y present microvascular ischemic changes. Hypodensity is in bilateral basal ganglia lik chantal represent remote lacunar infarcts. No calvarial fracture. The mastoid air cells and visua lized paranasal air sinuses are clear. 0.6 cm mid occipital enostosis is noted. CT CERVICAL SPINE: Mild straightening of the normal anatomic cervical soumya dosis is noted. The vertebral bodies are normal in height and alignment. N o facet fracture or subluxation is present. The craniocervic al junction is intact. Mild spondylotic changes at C5-C6 manife sted by disc space narrowing and marginal osteophytes. Disc spaces are ot herwise a preserved. Mild nonspecific thickening of the cervi yara esophagus is noted. The prevertebral soft tissues are unremarkab le. Procedure Note [facility], Radiant Results Inft User - 2019 9:00 AM PSYCHOLOGIST [employer]GAN[employer]ATIONAL Exam: CT HEAD WITHOUT CONTRAST Exam: CT C-SPINE WITHOUT CONTRAST HISTORY: Altered mental status (AMS), un clear cause COMPARISON: None. TECHNIQUE: Routine CTs of the head and c ervical spine were performed without intravenous contrast, and tapia l and sagittal reformatted images were generated. FINDINGS: CT HEAD: The ventricles and cerebral sulci are no rmal in caliber and configuration. No hydrocephalus, midline shift or patho logical extra-axial fluid collection is present. The basal cistern s are unremarkable. There is no acute intracranial hemorrhag e or significant mass effect. No acute transcortical infarct. Few scatter ed hypodensities in the bilateral cerebral white matter, nonspecific likel y present microvascular ischemic changes. Hypodensity is in bilateral bas al ganglia likely represent remote lacunar infarcts. No calvarial fracture. The mastoid air c ells and visualized paranasal air sinuses are clear. 0.6 cm mid occipital enostosis is noted. CT CERVICAL SPINE: Mild straightening of the normal anatomi c cervical lordosis is noted. The vertebral bodies are normal in height an d alignment. No facet fracture or subluxation is present. The craniocervic al junction is intact. Mild spondylotic changes at C5-C6 manife sted by disc space narrowing and marginal osteophytes. Disc spaces are ot herwise a preserved. Mild nonspecific thickening of the cervi yara esophagus is noted. The prevertebral soft tissues are unremarkab le. IMPRESSION No acute intracranial abnormality. No acute fracture or traumatic malalignm ent of the cervical spine. Preliminary Report Dictated by Resident: Joseluis Heart MD., have reviewed th is study and agree with the above report. Performing Organization Address City/State/Zipcode Phone Number PACS/VR/DOSE CT Head W/O Contrast (01/29/2020 7:42 PM PSYCHOLOGIST [employer]) Specimen Impressions Performed At PACS/VR/DOSE No acute intracranial abnormality. No acute fracture or traumatic malalignm ent of the cervical spine. Preliminary Report Dictated by Resident: Joseluis Heart MD., have reviewed this study and a gree with the above report. Narrative Performed At Exam: CT HEAD WITHOUT CONTRAST PACS/VR/DOSE Exam: CT C-SPINE WITHOUT CONTRAST HISTORY: Altered mental status (AMS), un clear cause COMPARISON: None. TECHNIQUE: Routine CTs of the head and c ervical spine were performed without intravenous contrast, and coronal and sagittal reformatted images were generated. FINDINGS: CT HEAD: The ventricles and cerebral sulci are normal in calibe r and configuration. No hydrocephalus, midline shift or patho logical extra-axial fluid collection is present. The basal cistern s are unremarkable. There is no acute intracranial hemorrhag e or significant mass effect. No acute transcortical infarct. Few scattered hypodensiti es in the bilateral cerebral white matter, nonspecific likel y present microvascular ischemic changes. Hypodensity is in bilateral basal ganglia lik chantal represent remote lacunar infarcts. No calvarial fracture. The mastoid air cells and visua lized paranasal air sinuses are clear. 0.6 cm mid occipital enostosis is noted. CT CERVICAL SPINE: Mild straightening of the normal anatomic cervical soumya dosis is noted. The vertebral bodies are normal in height and alignment. N o facet fracture or subluxation is present. The craniocervic al junction is intact. Mild spondylotic changes at C5-C6 manife sted by disc space narrowing and marginal osteophytes. Disc spaces are ot herwise a preserved. Mild nonspecific thickening of the cervi yara esophagus is noted. The prevertebral soft tissues are unremarkab le. Procedure Note [facility], Radiant Results Inft User - 2019 9:00 AM PSYCHOLOGIST [employer]ATIONAL Exam: CT HEAD WITHOUT CONTRAST Exam: CT C-SPINE WITHOUT CONTRAST HISTORY: Altered mental status (AMS), un clear cause COMPARISON: None. TECHNIQUE: Routine CTs of the head and c ervical spine were performed without intravenous contrast, and tapia l and sagittal reformatted images were generated. FINDINGS: CT HEAD: The ventricles and cerebral sulci are no rmal in caliber and configuration. No hydrocephalus, midline shift or patho logical extra-axial fluid collection is present. The basal cistern s are unremarkable. There is no acute intracranial hemorrhag e or significant mass effect. No acute transcortical infarct. Few scatter ed hypodensities in the bilateral cerebral white matter, nonspecific likel y present microvascular ischemic changes. Hypodensity is in bilateral bas al ganglia likely represent remote lacunar infarcts. No calvarial fracture. The mastoid air c ells and visualized paranasal air sinuses are clear. 0.6 cm mid occipital enostosis is noted. CT CERVICAL SPINE: Mild straightening of the normal anatomi c cervical lordosis is noted. The vertebral bodies are normal in height an d alignment. No facet fracture or subluxation is present. The craniocervic al junction is intact. Mild spondylotic changes at C5-C6 manife sted by disc space narrowing and marginal osteophytes. Disc spaces are ot herwise a preserved. Mild nonspecific thickening of the cervi yara esophagus is noted. The prevertebral soft tissues are unremarkab le. IMPRESSION No acute intracranial abnormality. No acute fracture or traumatic malalignm ent of the cervical spine. Preliminary Report Dictated by Resident: Mike Andres I, Joseluis Denson MD., have reviewed th is study and agree with the above report. Performing Organization Address City/State/Zipcode Phone Number PACS/VR/DOSE LAB ONLY COVID INTERPRETATION (01/29/2020 7:29 PM PSYCHOLOGIST [employer]) COVID DMT Interpretation/Recommendations: [facility] LABO RATORY Interpretation SERVICES Molecular NAAT Tests for Active Infection with the KAYLEEN S-CoV-2 Virus: This result indicates that t he patient has tested negative on one occasion for the SARS-CoV-2 virus that causes COVID-19 illness. This most likely indicates that the patient does not have an active infe ction with the SARS-CoV-2 vi destiny. However, infection is not completely ruled out as the false negative rate for molecular NAAT testing using a nasopharyngeal sample can be up to 30%, mostly dependent on the timing of sample collect ion in relation to illness onset and any deficiencies in sampling techniques. If the patient continues to have persistent or worsening symptoms concerning for COVID-19 illnes s, a repeat NAAT test (PCR, Rapid ID Now, etc.) should be performed, at which time the SARS-CoV-2 virus - if present - may have reached a detectable viral load (usually peaking by the end of the first week of symptoms). Tests for IgM and/or IgG Antibodies to SARS-CoV-2 Viru s: Testing for IgM and IgG anti bodies 1-3 weeks after illness onset will indicate whether the patient has produced antibodies to the virus. At this time, it is not known if the production of antibodies - s pecifically IgG antibodies - indicates whether the patient is immune to future infections with the SARS-CoV-2 virus. Interpretation Result Comments: These interpretation comment s are based upon aggregate COVID-19 test results pooled from [facility]. They apply to the following tests offered at [facility] and assume the acceptable specimen type(s) were used: A. Tests for the Identification of SARS-CoV-2 RNA (Mol ecular NAAT Tests): - SARS-CoV-2 PCR assays including Mccausland Aptima, Mccausland Fusion, Granado RealTime, and Quantum Xpert Xpress. - SARS-CoV-2 Rapid ID NOW by the RI NOW as say. B. Tests for the Identification of SARS-CoV-2 Antibodi es: - Chemiluminesce nt immunoassays including Access SARS-CoV-2 IgM (DXI 600), VITROS Yqhy-VDDI-UfA-2 IgG (Vitros 5600 and Vitros 3600), and Granado SARS-CoV-2 IgG (EMERGENCY ROOM ORDERLY I System). These interpretations are au topopulated into [employer] based on computerized algorithms matching an interpretation code to the patient's set of test results, and a clinical pathologist evaluates the comments for accuracy. However, thes e comments do not consider testing a patient may have had outside of the [facility] system. If results for COVID-19 infection continue to be negative in the context of a suspected viral respiratory illness, i t is possible the patient may have an infection with another respiratory virus. Influenza testing and a respiratory pathogen panel if clinically indicated may be beneficial i n this setting. If there con tinues to be a high degree of clinical suspicion for COVID-19 illness despite multiple negative tests on nasopharyngeal specimens, then it may be necessary to test the patien t for the SARS-CoV-2 virus u sing lower respiratory tract samples (such as sputum, bronchoalveolar lavage fluid (BAL), tracheal aspirate, etc.). COVID Results SARS-CoV-2 Rapid ID NOW (no units) [facility] LABORATORY Date Value SERVICES 01/29/2020 Not Detected Specimen Swab - NASOPHARYNGEAL SWAB Performing Organization Address City/State/Zipcode Phone Number [facility] LABORATORY SERVICES CLIA: [id number] [place] [address] [place] [address] COVID-19 (ID NOW RAPID TESTING) (01/29/2020 7:29 PM PSYCHOLOGIST [employer]) SARS-CoV-2 Rapid ID Not Detected Not Detected [facility] LAB[facility] Specimen Swab - NASOPHARYNGEAL SWAB Narrative Performed At [facility] COVID-19 Assay is an isothermal nucleic [facility] LAB[facility]ORY acid amplification test intended for the qualitative detection of nucleic acid from SARS-CoV-2 viral RNA in nasopharyngeal (AUTOMATIC QUILLING MACHINE OPERATOR) specimens. It is used under Emergency Use Authorization (EUA) by FDA. The limit of detection (LOD) of the assay is 125 Genome Equivalents/mL. A positive result is indicative of the presence of SARS-CoV-2 RNA. Clinical correlation with patient history and other diagnostic information is necessary to determine patient infection status. A negative (Not Detected) result does not preclude SARS-CoV-2 infection. In patients with clinical symptoms and other tests that are consistent with SARS-CoV-2 infection, negative results should be treated as presumptive negative and a new specimen should be tested with alternative PCR molecular test. Invalid: Please collect a new specimen for repeat patient testing if clinically indicated. Performing Organization Address [facility]/Zipcode Phone Number [facility] CLIA: [id number] [place] [address] URINE CULTURE (01/29/2020 7:29 PM PSYCHOLOGIST [employer]) Pathologist Sig nature URINE CULTURE No aerobic growth [facility] LAB[facility]AT[facility] (< 1000 CFU/mL) SERVICES Specimen Urine - URINE, CATHETERIZED Performing Organization Address City/[facility]/Zipcode Phone Number [facility]ORATORY SERVICES CLIA: [id number] [place] [address] [place] [address] ADC / LCC - DRUG SCREEN TRIAGE (01/29/2020 7:29 PM PSYCHOLOGIST [employer]) BENZO U Presumptive Negative [facility] Positive (A) HOSPITAL LABORATORY YENNY U Negative Negative [facility] AMPHET Negative Negative [facility] THC Negative Negative [facility] METHADONE Negative Negative [facility] Meth U Negative Negative [facility] OPIATES Negative Negative [facility] Cocaine Metabolite Negative Negative [facility] PROPOXY Negative Negative [facility] Tric U Negative Negative [facility] PCP Negative Negative [facility] OXYCOD Negative Negative [facility] Specimen Urine - URINE, CLEAN CATCH Narrative Performed At Urine Drug Cutoff Ranges [facility] Benzodiazepines: 150 ng/mL Barbiturates: 200 ng/mL Amphetamine: 500 ng/mL Cannabinoids: 50 ng/mL Methadone: 200 ng/mL Methamphetamine: 500 ng/mL Opiates: 100 ng/mL or 2000 ng/mL Cocaine: 150 ng/mL Propoxyphene: 300 ng/mL Tricyclics: 300 ng/mL Oxycodone: 100 ng/mL PCP: 25 ng/mL The results are to be used only for medical (i.e., treatment) purposes. Unconfirmed screening results must not be used for non-medical purposes (e.g., employment testing, legal testing). Performing Organization Address [facility] Phone Number [facility] CLIA: [id number] [place] [address] PHOSPHORUS (01/29/2020 7:28 PM PSYCHOLOGIST [employer]) Pathologist Sig nature PHOSPHORUS 3.2 2.5 - 5.0 mg/dL [facility] LAB[facility] Specimen Blood - ARM, RIGHT Performing Organization Address [facility] [place] Phone Number [facility] CLIA: [id number] [place] [address] MAGNESIUM (01/29/2020 7:28 PM PSYCHOLOGIST [employer]) Pathologist Sig nature MAGNESIUM 1.6 (L) 1.7 - 2.4 mg/dL [facility] Specimen Blood - ARM, RIGHT Performing Organization Address [facility] [place] Phone Number [facility] CLIA: [id number] [place] [address] aPTT (01/29/2020 7:28 PM PSYCHOLOGIST [employer]) Pathologist Sig nature APTT Patient 26 23 - 38 Seconds [facility] LABOR[facility] Specimen Blood - ARM, RIGHT Narrative Performed At The [facility] patient population mean normal value [facility] for aPTT is 30 seconds. Performing Organization Address [facility] [place] Phone Number [facility] CLIA: [id number] [place] [address] Prothrombin Time (PT) / INR (01/29/2020 7:28 PM PSYCHOLOGIST [employer]ATIONAL) PROTIME PATIENT 13.2 12.0 - 14.7 [facility] LABORATORY INR 1.1Comment: Normal [facility] INR <1.1; Warfarin [facility] Therapeutic range LABORATORY 2.0 to 3.0 or 2.5 to 3.5, depending upon the indications. Specimen Blood - ARM, RIGHT Performing Organization Address [facility] Phone Number [facility] CLIA: [id number] [place] [address] Ethanol Level (01/29/2020 7:28 PM PSYCHOLOGIST [employer]) Pathologist Sig nature ALCOHOL <10 mg/dL [facility] Specimen Blood - ARM, RIGHT Narrative Performed At <10 Negative [facility] LAB[facility] 50-100 Toxic >100 Depression of PLASMA SPECIALIST >400 Fatalities Reported Performing Organization Address [facility] Phone Number [facility] CLIA: [id number] [place] [address] Troponin I (01/29/2020 7:28 PM PSYCHOLOGIST [employer]) Pathologist Sig nature TROPONIN I <0.012 <=0.034 ng/mL [facility] LAB[facility] Specimen Blood - ARM, RIGHT Narrative Performed At Equal or Less than 0.034 ng/ml---Normal [facility] Note: Cardiac troponin begins to rise 3-4 hours after the onset of ischemia. Repeat in 4-6 hours if the sample was drawn within 3-4 hours of the onset of the symptom and found normal. Between 0.035 and 0.120 ng/mL--- Borderline. Questionable myocardial injury or necros is Note: Serial measurement may be necessary to confirm or exclude the diagnosis of myocardial injury or necrosis; Clinical correlation (symptoms, EKGs, imaging studies, and others) required; Repeat in 4-6 hours if clinically indicated. Equal or Higher than 0.121 ng/mL---Abnormal. Myocardial Injury or Necrosis Likely Biotin has been reported to cause a negative bias, interpret results relative to patient's use of biotin. Performing Organization Address [facility] Phone Number [facility] CLIA: [id number] [place] [address] Lipase Serum (01/29/2020 7:28 PM PSYCHOLOGIST [employer]) Pathologist Sig nature LIPASE 30 0 - 220 U/L [facility] LAB[facility] Specimen Blood - ARM, RIGHT Performing Organization Address [facility] [place] Phone Number [facility] CLIA: [id number] [place] [address] LABORATORY [address] [facility] Hepatic Function Panel (ALB, T.PRO, BILI T, BU/BC, ALT, AST, ALK PHOS) (01/29/2020 7:28 PM PSYCHOLOGIST [employer]ATIONAL) Pathologist Sig nature TOTAL BILI 0.8 0.1 - 1.1 mg/dL [facility] BILI UNCON 0.8 0.1 - 1.1 mg/dL [facility] BILI CONJ 0.0 0.0 - 0.3 mg/dL [facility] T PROTEIN 6.5 6.3 - 8.2 g/dL [facility] ALBUMIN 3.7 3.5 - 5.0 g/dL [facility] ALK PHOS 172 (H) 34 - 122 U/L [facility] ALTv 13 5 - 35 U/L [facility] AST(SGOT) 19 13 - 40 U/L [facility] Specimen Blood - ARM, RIGHT Performing Organization Address City/State/Zipcode Phone Number [facility] CLIA: [id number] [place] [address] LABORATORY [address] [facility] Basic Metabolic Panel (NA, K, CL, CO2, GLUCOSE, BUN, CREATININE, CA) (01/29/2020 7:28 PM PSYCHOLOGIST [employer]GANIZATIONAL) NA 111 (LL) 135 - 145 [facility] mmol/L [facility] LABORATORY K 3.6 3.5 - 5.0 [facility] mmol/L [facility] LABORATORY CL 79 (L) 98 - 108 mmol/L [facility] CO2 TOTAL 25 23 - 31 mmol/L [facility] AGAP 7 2 - 16 [facility] BUN 14 7 - 23 mg/dL [facility] GLUCOSE 116 (H) 70 - 110 mg/dL [facility] CREATININE 0.56 0.50 - 1.04 [facility] mg/dL [facility] CALCIUM 8.2 (L) 8.6 - 10.6 [facility] mg/dL [facility] eGFR Calculation 109.3 mL/min/1.73m2 [facility] (Non- HOSPITAL LABORATORY Citizen Of [place]) eGFR Calculation 132.5 mL/min/1.73m2 [facility] Specimen Blood - ARM, RIGHT Narrative Performed At Association of Glomerular Filtration Rate (GFR) [facility] and Staging of Kidney Disease* + + +- + | GFR (mL/min/1.73 m2) | With Kidney Damage | Without Kidney Damage + + +- + | >90 | Stage one | Normal + + +- + | 60-89 | Stage two | Decreased GFR + + +- + | 30-59 | Stage three | Stage three + + +- + | 15-29 | Stage four | Stage four + + +- + | <15 (or dialysis) | Stage five | Stage five + + +- + *Each stage assumes the associated GFR level has been in effect for at least three months. Stages 1 to 5, with or without kidney disease, indicate chronic kidney disease. Notes: Determination of stages one and two (with eGFR >59mL/min/1.73 m2) requires estimation of kidney damage for at least three months as defined by structural or functional abnormalities of the kidney, manifested by either: Pathological abnormalities or Markers of kidney damage (including abnormalities in the composition of the blood or urine or abnormalities in imaging tests). Performing Organization Address City/State/Zipcode Phone Number [facility] CLIA: [id number] [place], [place] [id number] LABORATORY [address] CBC with Differential (01/29/2020 7:28 PM PSYCHOLOGIST [employer]) [facility] WBC 6.39 4.30 - 11.10 [facility] 10*3/L [facility] RBC 3.28 (L) 3.93 - 5.25 [facility] 10*6/L [facility] HGB 10.1 (L) 11.6 - 15.0 [facility] g/dL [facility] HCT 27.8 (L) 35.7 - 45.2 % [facility] MCV 84.8 80.6 - 95.5 fL [facility] MCH 30.8 25.9 - 32.8 pg [facility] MCHC 36.3 (H) 31.6 - 35.1 [facility] g/dL [facility] RDW-SD 37.3 (L) 39.0 - 49.9 fL [facility] RDW-CV 12.2 12.0 - 15.5 % [facility] PLT 189 166 - 358 [facility] 10*3/L HOSPITAL LAB[facility]ATORY MPV 10.0 9.5 - 12.9 fL [facility] NRBC/100 WBC 0.0 0.0 - 10.0 /100 [facility] WBCs [facility] NRBC x10^3 <0.01 10*3/L [facility] GRAN MAT (NEUT) % 74.0 % [facility] IMM GRAN % 0.50 % [facility] LYMPH % 14.4 % [facility] MONO % 9.4 % [facility] EOS % 1.4 % [facility] BASO % 0.3 % [facility] GRAN MAT x10^3(ANC) 4.73 1.88 - 7.09 [facility] 10*3/uL [facility] IMM GRAN x10^3 0.03 0.00 - 0.06 [facility] 10*3/uL [facility] LYMPH x10^3 0.92 (L) 1.32 - 3.29 [facility] 10*3/uL [facility] MONO x10^3 0.60 0.33 - 0.92 [facility] 10*3/uL [facility] EOS x10^3 0.09 0.03 - 0.39 [facility] 10*3/uL [facility] BASO x10^3 <0.03 0.01 - 0.07 [facility] 10*3/uL [facility] Specimen Blood - ARM, RIGHT Performing Organization Address City/State/Zipcode Phone Number [facility] CLIA: [id number] [place] [address] LABORATORY [address] Critical Care (01/29/2020 6:45 PM PSYCHOLOGIST [employer]ATIONAL) Narrative Performed At Lynette Rojas NP 01/29/2020 11: 31 PM Critical Care Performed by: Lynette Rojas NP Authorized by: Lynette Rojas NP Critical care provider statement: Critical care time (minutes): 40 Critical care was necessary to treat or prevent imminent or life-threatening deterioration of the following condit ions: Circulatory failure, PLASMA SPECIALIST failure or compromise, dehy dration, endocrine crisis and metabolic crisis Critical care was time spent personal ly by me on the following activities: Ordering and performing tr eatments and interventions, ordering and review of laboratory studie s, ordering and review of radiographic studies, development of rosalva atment plan with patient or surrogate, discussions with consultants, evaluation of patient's response to treatment, examination of patient and obtaining his tory from patient or surrogate I assumed direction of critical care for this patient from another provider in my specialty: no documented in this encounter Visit Diagnoses Diagnosis Stupor - Primary Other alteration of consciousness Acute hyponatremia Hyposmolality and/or hyponatremia Hypomagnesemia Disorders of magnesium metabolism Hypochloremia Electrolyte and fluid disorders not else where classified Respiratory alkalosis Alkalosis Anemia, unspecified type Hyponatremia Hyposmolality and/or hyponatremia Obesity (BMI 30-39.9) Obesity, unspecified documented in this encounter Administered Medications Medication Order MAR Action Action Date Dose Rate Site acetaminophen (TYLENOL) tablet Given 02/02/2020 8:10 PM PSYCHOLOGIST [employer] 650 mg 650 mg 650 mg, Oral, Q6HPRN, Starting Thu01/31/20 at 0105, Until Discontinued, Routine, Pain (scale 1-3) Given 02/01/2020 12:12 AM PSYCHOLOGIST [employer] 650 mg Given 01/31/2020 1:10 AM PSYCHOLOGIST [employer]AL [employer]ATIONAL 650 mg atorvastatin (LIPITOR) tablet 20 mg Given 02/03/2020 8:14 PM PSYCHOLOGIST [employer]ATIONAL 20 mg 20 mg, Oral, QHS, First dose on Thu01/30/20 at 2100, Until Discontinued Given 02/02/2020 8:10 PM PSYCHOLOGIST [employer] 20 mg Given 02/01/2020 8:47 PM PSYCHOLOGIST [employer]ATIONAL 20 mg dextrose 50 % in water (D50W) injection 25 mL 25 mL, Slow IV Push, PRN, Starting Thu04/01/19 at 0023, Until Discontinued, NEEMA, Blood Glucose < or = 70 mg/dL and patien t is unable to swallow or has mental status changes. docusate (COLACE) capsule 100 mg Given 02/03/2020 8:14 PM PSYCHOLOGIST [employer] 100 mg 100 mg, Oral, BID, First dose on Thu01/30/20 at 0800, Until Discontinued, Routine Given 02/03/2020 8:19 AM PSYCHOLOGIST [employer] 100 mg Given 02/02/2020 8:10 PM PSYCHOLOGIST [employer]ATIONAL 100 mg enoxaparin (LOVENOX) injection 40 mg Given 02/03/2020 8:14 PM PSYCHOLOGIST [employer]ATIONAL 40 mg Abdo men-SC 40 mg, Subcutaneous, Q24H, First dose (after last modification) on Thu01/31/20 at 2000, Until Discontinued, Routine Given 02/02/2020 8:10 PM PSYCHOLOGIST [employer]GAN[employer]ATIONAL 40 mg Abdo men-SC Given 02/01/2020 8:47 PM PSYCHOLOGIST [employer]AL [employer]GAN[employer]ATIONAL 40 mg Abdo men-SC glucagon (GLUCAGEN DIAGNOSTIC KIT) injec tion 1 mg 1 mg, Intramuscular, PRN, Starting Thu04/01/19 at 0023, Until Discontinued, NEEMA, Blood Glucose < or = 70 mg/dL and patient is unable to swallow or has mental changes. ipratropium-albuteroL (DUONEB) 0.5 mg-3 mg(2.5 mg base)/3 mL nebulizer solution 3 mL 3 mL, Inhalation, Q6HPRN, Starting Thu01/30/20 at 0024 , Until Discontinued, Routine, Wheezing losartan (COZAAR) tablet 50 mg Given 02/03/2020 8:19 AM PSYCHOLOGIST [employer] 50 mg 50 mg, Oral, DAILY, First dose on Thu01/31/20 at 0900, Until Discontinued Given 02/02/2020 9:02 AM PSYCHOLOGIST [employer] 50 mg Given 01/31/2020 9:15 AM PSYCHOLOGIST [employer]AL [employer]GAN[employer]ATIONAL 50 mg ondansetron (ZOFRAN (PF)) injection 4 mg 4 mg, Slow IV Push, Q6HPRN, Starting Thu01/30/20 at 0452, Until Discontinued, NEEMA, Nausea and Vomiting (N/V) Medication Order MAR Action Action Date Dose Rate Site D5W IV infusion 1,000 mL New Bag 01/30/2020 7:30 PM PSYCHOLOGIST [employer] 1,000 mL 50 mL/hr at 50 mL/hr, IV Infusion, CONTINUOUS, Starting Thu01/30/20 at 2000, Until Thu01/30/20 at 2229, Routine D5W IV infusion 1,000 mL Rate Change 01/30/2020 10:32 PM PSYCHOLOGIST [employer] 75 mL/hr at 75 mL/hr, IV Infusion, CONTINUOUS, Starting Thu01/30/20 at 2230, Until Thu01/31/20 at 0106, Routine D5W IV infusion 1,000 mL New Bag 01/31/2020 8:29 PM PSYCHOLOGIST [employer] 1,000 mL 50 mL/hr at 125 mL/hr, IV Infusion, CONTINUOUS, Starting Thu01/31/20 at 0115, Until Thu02/01/20 at 1142, Routine Dose/Rate Verify 01/31/2020 10:00 AM PSYCHOLOGIST [employer]ATIONAL 50 mL/hr New Bag 01/31/2020 5:47 AM PSYCHOLOGIST [employer]AL [employer]GAN[employer]ATIONAL 1,000 mL 125 mL/hr heparin (porcine) injection Given 01/31/2020 5:56 AM PSYCHOLOGIST [employer]GAN[employer]ATIONAL 5,000 Units Abdomen-SC 5,000 Units 5,000 Units, Subcutaneous, Q8H, First dose on Thu01/30/20 at 0600, Until Discontinued, Routine Given 01/30/2020 10:02 PM PSYCHOLOGIST [employer]ATIONAL 5,000 Units Abdo men-SC Given 01/30/2020 5:05 PM PSYCHOLOGIST [employer]RIAL [employer]GAN[employer]ATIONAL 5,000 Units Abdo men-SC KCL (KLOR-CON M20) tablet 40 mEq Given 01/31/2020 10:10 AM PSYCHOLOGIST [employer]RIAL [employer]GAN[employer]ATIONAL 40 mEq 40 mEq, Oral, ONCE, 1 dose, [facility] 01/31/20 at 1015, Routine KCL 10 mEq/50 mL Piggyback 10 mEq Given 01/30/2020 2:51 AM PSYCHOLOGIST [employer]RIAL [employer]GAN[employer]ATIONAL 10 mEq 10 mEq, IV Piggyback, ONCE, 1 dose, Thu01/30/20 at 0330, 50 mL magnesium sulfate in water 2 gram/50 mL (4 %) New Bag 2:51 AM PSYCHOLOGIST [employer]RIAL [employer]GANIZATIONAL 2 g infusion 2 g 2 g, IV Piggyback, ONCE, 1 dose, Thu01/30/20 at 0330, Routine NaCl 0.9% (NS) bolus infusion New Bag 01/29/2020 8:13 PM PSYCHOLOGIST [employer]ATIONAL 1,000 mL 999 mL/hr 1,000 mL at 999 mL/hr, 1,000 mL, IV Infusion, ONCE, 1 dose, [facility] 01/29/20 at 1915, NEEMA NaCl 0.9% (NS) IV infusion 1,000 New Bag 01/29/2020 10:[address] 1,000 mL 250 mL/hr mL at 250 mL/hr, Intravenous, CONTINUOUS, Starting [facility] 01/29/20 at 2300, Until Thu01/30/20 at 0033, NEEMA NaCl 0.9% (NS) IV infusion 1,000 New Bag 01/30/2020 1:[address] 1,000 mL 30 mL/hr mL at 30 mL/hr, IV Infusion, ONCE, 1 dose, [facility] 01/30/20 at 0215, Routine NaCl 0.9% (NS) IV infusion 1,000 New Bag 01/30/2020 8:[address] 1,000 mL 30 mL/hr mL at 30 mL/hr, IV Infusion, ONCE, 1 dose, Thu01/30/20 at 0800, Routine naloxone (NARCAN) injection 1 mg Given 01/29/2020 8:13 PM PSYCHOLOGIST [employer] 1 mg Righ t Arm 1 mg, Slow IV Push, ONCE, 1 dose, 01/29/20 at 2015, NEEMA ondansetron (ZOFRAN (PF)) injection 4 mg Given 01/29/2020 10:56 PM PSYCHOLOGIST [employer]ATIONAL 4 mg 4 mg, Slow IV Push, ONCE, 1 dose, 01/29/20 at 2300, NEEMA pantoprazole (PROTONIX) 40 mg in NaCl 0.9% Given 01/30/2020 1:2 4 AM PSYCHOLOGIST [employer]ATIONAL 40 mg (NS) 100 mL MINI-BAG 40 mg, IV Piggyback, Q24H, 3 doses, First dose on Thu01/30/20 at 0030, Last dose on Thu02/01/20 at 0030, 100 mL pantoprazole (PROTONIX) EC tablet 20 mg Given 01/31/2020 9:15 AM PSYCHOLOGIST [employer]ATIONAL 20 mg 20 mg, Oral, DAILY, First dose on Thu01/31/20 at 0900, Until Discontinued, Routine documented in this encounter Additional Health Concerns Infection Onset Date Last Indicated Resolved Time COVID-19 Rule Out 01/29/2020 01/29/2020 01/29/2020 8: 14 PM PSYCHOLOGIST [employer] documented as of this encounter Insurance Payer Benefit Plan / Subscriber ID Effective Phone Address T e Group Dates [facility] [id number] 2017-Pres [facility] - HEALTHCARE ent Adv HM O MANAGED DUAL COMPLETE MEDICARE HMO [facility] MEDICAID OF [id number] 2019-Pre [phone] Medi caid [place] sent [phone] [place] [address] documented as of this encounter Advance Directives Name Relationship Healthcare Agent Communication Relationship Otilio Buckley Child Health Care Agent Darleen Buckley Sibling First [facility] Brenda Care Agent (Mobile)
--- OUTSIDE RECORDS SUMMARY | 2020-02-07 13:11 | XMS REPORT | Summary of Care ---
:1955 Author Organization [facility] Address [address] [place] [address] Care Team Providers Name Role Phone Gissel Jackson Primary Care Provider Reason for Visit Reason Comments Transition Of Care Encounter Details Date Type Department Care Team Description 02/06/2020 Transition of Care [facility] [address] [address] Allergies No Known Allergiesdocumented as of this encounter (statuses as of 02/06/2020) Medications Medication Sig Dispensed Refills Start Date End Date Status LOSARTAN POTASSIUM Take 50 mg by 0 Active (LOSARTAN ORAL) mouth daily. ATORVASTATIN CALCIUM Take 20 mg by 0 Active (ATORVASTATIN ORAL) mouth at bedtime. BENZTROPINE MESYLATE Take 1 mg by 0 Active (BENZTROPINE ORAL) mouth 2 (two) times daily. documented as of this encounter (statuses as of 02/06/2020) Active Problems Problem Noted Date Hyponatremia 01/30/2020 Obesity (BMI 30-39.9) 01/30/2020 documented as of this encounter (statuses as of 02/06/2020) Social History Tobacco Use Types Packs/Day Years Used Date Never Smoker Smokeless Tobacco: Never Used Alcohol Use Drinks/Week oz/Week Comments No Sex Assigned at Date Recorded Not on file COVID-19 Exposure Response Date Recorded In the last month, have you been in contact Unable to assess 01/29/2020 6:44 PM SPECIAL INVESTIGATION UNIT INVESTIGATOR with someone who was confirmed or suspected to have Coronavirus / COVID-19? documented as of this encounter Last Filed Vital Signs Not on filedocumented in this encounter Miscellaneous Notes Telephone Encounter - Gris Ibarra RN - 02/06/2020 4:26 PM SPECIAL INVESTIGATION UNIT INVESTIGATOR TRANSITIONAL CARE MANAGEMENT ASSESSMENT 02/06/2020 Loly Hermosillo [id number] Loly Hermosillo is a 64 year old /White female was admitted on 01/29/20 to [facility] 4B. She was discharged on 02/04/20 with discharge disposition of HR- Routine Discharge. Admitting Physician: Irina Bashir Discharge Diagnosis: Hyponatremia SIADH No linked episodes TCM [id number] outreach documentation: No valid phone number, unable to complete DEREK call. THIERRY Maurice, RN, CCRN Concert Or Lecture Hall Manager- DEREK Future Appointments: IAL INVESTIGATION UNIT INVESTIGATOR documented in this encounter Plan of Treatment Health Maintenance Due Date Last Done Comments HEPATITIS C (HCV) SCREEN 1955 Depression Screening 1968 DTaP,Tdap,and Td Vaccines ( - 1975 Tdap) Breast Cancer Screening 1996 [...] Effective Phone Address T ype Group Dates [facility] [id number] 2017-Pres Medica re HEALTHCARE - HEALTHCARE ent Adv HM O MANAGED DUAL COMPLETE MEDICARE HMO [employer] [id number] 2008-Pres [address] Medicaid [facility] ent [id number] [place] [address] [facility] MEDICAID OF [id number] 2019-Pre [phone] Medi caid [place] sent [phone] [place] [address] documented as of this encounter Advance Directives Name Relationship Healthcare Agent Communication Relationship Lizette Graham Child Health Care Agent Darleen Graham Sibling First [facility] Care Agent (Mobile)
[2020-02-07] MEDS ORDERED: NA CHLORIDE 0.9% 1,000 ML ONE (13:12)
[2020-02-07] MEDS ORDERED: FOLIC ACID 5 MG/ML VIAL ONE (13:14)
[2020-02-07 13:23] LABS: Absolute Lymphocytes (CBC) 1.3 K/uL (0.7-4.9); Basophils % 0.6 % (0-1.3); Hematocrit 30.7 % (36.0-45.0); MPV 7.8 fL (7.6-11.3); RBC Red Blood Cell Count 3.37 M/uL (3.86-4.86)
[2020-02-07 13:27] LABS: Protime INR 0.91
--- NOTE | 2020-02-07 13:37 | RAD REPORT ---
EXAM DESCRIPTION: CT - Head Brain Wo Cont - 02/07/2020 1:18 pm CLINICAL HISTORY: TIA COMPARISON: June 2019 TECHNIQUE: Computed axial tomography of the head was obtained. IV contrast was not requested. All CT scans are performed using dose optimization technique as appropriate and may include automated exposure control or mA/KV adjustment according to patient size. FINDINGS: An intracranial bleed is not seen . The ventricles are normal in caliber. No extra-axial fluid collection is noted. Mild to moderate low-density areas within periventricular, deep and subcortical white matter likely r epresent ischemic changes secondary to small vessel disease. Fluid within the sinuses/ mastoids is not seen. IMPRESSION: No acute intracranial abnormality is seen. If patient's symptoms persist MRI of the bra in would be recommended.
[2020-02-07 13:40] LABS: ALT/SGPT 15 U/L (12-78); AST/SGOT 8 U/L (15-37); Albumin 3.3 g/dL (3.4-5.0); Alkaline Phosphatase 179 U/L (45-117); BUN Blood Urea Nitrogen 17 mg/dL (7-18); Bicarbonate 27 mmol/L (21-32); Bilirubin Direct < 0.1 mg/dL (0-0.2); Bilirubin Total 0.2 mg/dL (0.2-1.0); C-Reactive Protein 7.56 mg/L (<3.00); Glucose Level 119 mg/dL (74-106); Magnesium 2.1 mg/dL (1.8-2.4); NT PRO-BNP 415 pg/mL (<125); Potassium 3.9 mmol/L (3.5-5.1); Protein, Total 6.7 g/dL (6.4-8.2); Sodium Level 132 mmol/L (136-145); Troponin (Emerg Dept Use Only) < 0.02 ng/mL (0.0-0.045)
--- NOTE | 2020-02-07 15:39 | RAD REPORT ---
EXAM DESCRIPTION: [place] Single View02/07/2020 2:20 pm CLINICAL HISTORY: cough COMPARISON: none FINDINGS: The lungs appear clear of acute infiltrate. The heart is normal size IMPRESSION: No acute abnormalities displayed
--- NOTE | 2020-02-07 16:23 | EDPHYS ---
Physician Documentation [facility] Name: Loly Hermosillo Age: 64 yrs Sex: Female : 1955 Arrival Date: 02/07/2020 Time: 12:42 Bed 8 Private MD: ED Physician Mack Gamez HPI: 02/06 15:27 This 64 yrs old Female presents to ER via EMS with complaints of Fall Injury. kayy 15:27 The patient's problem is reported as altered mental status, disoriented to confused, kayy weakness, that is generalized. Onset: The symptoms/episode began/occurred 2 day(s) ago. Duration: The episode is continuous. Context: the episode(s) was witnessed, by family. The symptoms are alleviated by nothing. The symptoms are aggravated by walking. Associated signs and symptoms: Pertinent positives: lightheadedness, weakness. Severity of symptoms: At their worst the symptoms were mild moderate in the emergency department the symptoms are unchanged. Patient's baseline: Neuro: alert and fully oriented, Motor: no deficits, Ambulation: unable to walk, multiple falls. The patient has experienced similar episodes in the past, a few times. Historical: - Allergies: 12:58 [place] Carbonate; ph 12:58 thorazine; ph - Home Meds: 12:58 losartan 50 mg Oral tab 1 tab once daily [Active]; atorvastatin oral oral [Active]; ph Docusate Sodium Oral [Active]; benztropine Oral [Active]; Metoprolol Tartrate Oral [Active]; Thioridazine Oral [Active]; Lorazepam Oral [Active]; Carbamazepine Oral [Active]; - PMHx: 12:58 Anxiety; Bipolar disorder; cyst in right kidney; Hyperlipidemia; Hypertension; ph - PSHx: 12:58 R hip; ph - Immunization history:: Adult Immunizations unknown. - Social history:: Smoking status: Patient denies any tobacco usage or history of. - Family history:: not pertinent. ROS: 15:27 Constitutional: Negative for fever, chills, and weight loss, Eyes: Negative for injury, kayy pain, redness, and discharge, ENT: Negative for injury, pain, and discharge, Neck: Negative for injury, pain, and swelling, Cardiovascular: Negative for chest pain, palpitations, and edema, Respiratory: Negative for shortness of breath, cough, wheezing, and pleuritic chest pain, Abdomen/GI: Negative for abdominal pain, nausea, vomiting, diarrhea, and constipation, Back: Negative for injury and pain, : Negative for injury, bleeding, discharge, and swelling, MS/Extremity: Negative for injury and deformity, Skin: Negative for injury, rash, and discoloration, Psych: Negative for depression, anxiety, suicide ideation, homicidal ideation, and hallucinations, Allergy/Immunology: Negative for hives, rash, and allergies, Endocrine: Negative for neck swelling, polydipsia, polyuria, polyphagia, and marked weight changes, Hematologic/Lymphatic: Negative for swollen nodes, abnormal bleeding, and unusual bruising. 15:27 Neuro: Positive for speech changes, near syncope, weakness. Exam: 12:51 ECG was reviewed by the Attending Physician. kayy 15:32 Constitutional: This is a well developed, well nourished patient who is awake, alert, kayy and in no acute distress. Head/Face: Normocephalic, atraumatic. Eyes: Pupils equal round and reactive to light, extra-ocular motions intact. Lids and lashes normal. Conjunctiva and sclera are non-icteric and not injected. Cornea within normal limits. Periorbital areas with no swelling, redness, or edema. ENT: Nares patent. No nasal discharge, no septal abnormalities noted. Tympanic membranes are normal and external auditory canals are clear. Oropharynx with no redness, swelling, or masses, exudates, or evidence of obstruction, uvula midline. Mucous membranes moist. Neck: Trachea midline, no thyromegaly or masses palpated, and no cervical lymphadenopathy. Supple, full range of motion without nuchal rigidity, or vertebral point tenderness. No Meningismus. Chest/axilla: Normal chest wall appearance and motion. Nontender with no deformity. No lesions are appreciated. Cardiovascular: Regular rate and rhythm with a normal S1 and S2. No gallops, murmurs, or rubs. Normal PMI, no JVD. No pulse deficits. Respiratory: Lungs have equal breath sounds bilaterally, clear to auscultation and percussion. No rales, rhonchi or wheezes noted. No increased work of breathing, no retractions or nasal flaring. Abdomen/GI: Soft, non-tender, with normal bowel sounds. No distension or tympany. No guarding or rebound. No evidence of tenderness throughout. Back: No spinal tenderness. No costovertebral tenderness. Full range of motion. MS/ Extremity: Pulses equal, no cyanosis. Neurovascular intact. Full, normal range of motion. Neuro: Awake and alert, GCS 15, oriented to person, place, time, and situation. Cranial nerves II-XII grossly intact. Motor strength 5/5 in all extremities. Sensory grossly intact. Cerebellar exam normal. Normal gait. Psych: Awake, alert, with orientation to person, place and time. Behavior, mood, and affect are within normal limits. 15:32 Neuro: Orientation: is normal, appropriate for stated age, no acute changes, Mentation: is normal, appropriate for stated age, no acute changes, Memory: immediate memory is intact, remote memory is impaired, recent memory is intact, Cranial nerves: is grossly normal based on the patient's age, no acute changes, CN II- XII are normal as tested, Cerebellar function: is grossly normal based on the patient's age, no acute changes, Motor: moves all fours, strength is 5/5 in all extremities, Sensation: no obvious gross deficits, appropriate no acute changes, Gait: not tested. Deep tendon reflexes are 1 (trace) + in the bilateral brachioradialis, bicep, tricep and patellar and Achilles tendons, Babinski testing is normal, seizure activity, is not displayed by the patient. 15:33 Radiologist reports: na, see report kayy Vital Signs: 12:44 BP 133 / 85; Pulse 68; Resp 12; Temp 97.1(O); Pulse Ox 98% on R/A; Weight 70.76 kg; ph Height 5 ft. 4 in. (162.56 cm); 13:56 BP 132 / 71; Pulse 68; Resp 18; Pulse Ox 99% on R/A; ph 14:58 BP 111 / 73; Pulse 67; Resp 18; Pulse Ox 98% on R/A; ph 15:56 BP 114 / 77; Pulse 67; Resp 17; Pulse Ox 98% on R/A; mh5 16:54 BP 119 / 87; Pulse 63; Resp 18; Pulse Ox 99% on R/A; ph 17:42 BP 124 / 61; Pulse 68; Resp 18; Pulse Ox 99% on R/A; ph 12:44 Body Mass Index 26.78 (70.76 kg, 162.56 cm) ph NIH Stroke Scale Scores: 17:41 NIHSS Score: 2 kayy [place] Coma Score: 17:41 Eye Response: spontaneous(4). Verbal Response: oriented(5). Motor Response: obeys [facility] commands(6). Total: 15. MDM: 12:48 Patient medically screened. kayy 15:30 Differential diagnosis: CVA, TIA, Dementia, metabolic disorder, drug effects. Data [facility] reviewed: vital signs, nurses notes, lab test result(s), EKG, radiologic studies, CT scan, MRI, plain films. Data interpreted: campus monitor: rate is 67 beats/min, rhythm is regular, Pulse oximetry: on room air is 98 %. Test interpretation: by ED physician or midlevel provider: ECG, plain radiologic studies. Counseling: I had a detailed discussion with the patient and/or guardian regarding: the historical points, exam findings, and any diagnostic results supporting the discharge/admit diagnosis, lab results, radiology results. 17:42 ED course: not a TPA candidate, began at 1700 hrs 02/06/20. [facility] 02/06 12:50 Order name: Basic Metabolic Panel [facility] 02/06 12:50 Order name: CBC with Diff [facility] 02/06 12:50 Order name: LFT's; Complete Time: 14:44 [facility] 02/06 12:50 Order name: Magnesium; Complete Time: 14:44 [facility] 02/06 12:50 Order name: NT PRO-BNP; Complete Time: 14:44 [facility] 02/06 12:50 Order name: PT-INR; Complete Time: 14:44 [facility] 02/06 12:50 Order name: Troponin (emerg Dept Use Only); Complete Time: 14:44 [facility] 02/06 12:50 Order name: Sed Rate; Complete Time: 14:44 [facility] 02/06 12:50 Order name: CRP; Complete Time: 14:44 [facility] 02/06 12:51 Order name: Basic Metabolic Panel; Complete Time: 14:44 EDMS 02/06 12:51 Order name: CBC with Automated Diff; Complete Time: 14:44 EDMS 02/06 15:48 Order name: Tegretol Level; Complete Time: 18:35 ph 02/06 16:23 Order name: Urine Culture [facility] 02/06 16:53 Order name: Urine Dipstick--Ancillary (enter results); Complete Time: 18:35 em1 02/06 12:50 Order name: XRAY Chest (1 view); Complete Time: 16:23 [facility] 02/06 12:50 Order name: EKG; Complete Time: 12:51 [facility] 02/06 12:50 Order name: Cardiac monitoring; Complete Time: 12:51 [facility] 02/06 12:50 Order name: EKG - Nurse/Tech; Complete Time: 12:51 [facility] 02/06 12:50 Order name: IV Saline Lock; Complete Time: 13:10 [facility] 02/06 12:50 Order name: Labs collected and sent; Complete Time: 13:10 [facility] 02/06 12:50 Order name: CT Head Brain wo Cont; Complete Time: 14:44 kayy 02/06 15:41 Order name: Brain Wo Cont; Complete Time: 17:43 EDMS 02/06 15:48 Order name: Pelvis XRAY; Complete Time: 17:43 02/06 15:48 Order name: Hip Right 2 View XRAY; Complete Time: 17:43 ph 02/06 16:16 Order name: Hip Left 2 View XRAY; Complete Time: 17:43 [facility] 02/06 17:02 Order name: Diet Heart Healthy; Complete Time: 17:02 ph 02/06 12:50 Order name: O2 Per Protocol; Complete Time: 13:00 [facility] 02/06 12:50 Order name: O2 Sat Monitoring; Complete Time: 13:00 [facility] 02/06 12:50 Order name: Urine Dipstick-Ancillary (obtain specimen); Complete Time: 16:52 [facility] EC:51 Rate is 70 beats/min. Rhythm is regular. QRS [place] is Normal. [place] interval is normal. QRS kayy interval is normal. QT interval is normal. No Q waves. T waves are Normal. No ST changes noted. Clinical impression: NSR w/ Non-specific ST/T Changes and No evidence of ischemia. Interpreted by me. Reviewed by me. Administered Medications: 13:56 Drug: NS 0.9% 1000 ml Route: IV; Rate: 1 bolus; Site: right antecubital; ph 16:30 Follow up: Response: No adverse reaction; IV Status: Completed infusion; IV Intake: ph 1000ml 13:56 Drug: foLIC Acid 1 mg Route: IVPB; Site: right antecubital; ph 14:30 Follow up: Response: No adverse reaction; IV Status: Completed infusion ph 19:08 Drug: Rocephin 2 grams Route: IV; Rate: per protocol; Site: right antecubital; ph 19:13 Follow up: Response: No adverse reaction; IV Status: Completed infusion ph Disposition: 02/07/20 16:23 Hospitalization ordered by Desmond Gorman for Inpatient Admission. Preliminary diagnosis are Altered mental status, unspecified, Repeated falls, Weakness, Mastoiditis and related conditions - left, Pain in left hip - recent fx, repair, Urinary tract infection, site not specified, Poisoning by iminostilbenes, accidental (unintentional) - tegretol toxicity. - Bed requested for Telemetry/MedSurg (Inpatient). - Status is Inpatient Admission. mg2 - Condition is Fair. - Problem is new. - Symptoms have improved. NIH Stroke Scale - NIH Stroke Score Date: 02/07/2020 Time: 17:41 Total Score = 2 1a. Level of Consciousness (LOC) - 0(Alert) 1b. Level of Consciousness (LOC) (Year \T\ Age) - 0(Both) 1c. LOC Commands (Open \T\ Closes Eyes/Box Folding Machine Operator) - 0(Both) 2. Best Gaze (Lateral Gaze Paresis) - 0(Normal) 3. Visual Field Loss - 0(No visual loss) 4. Facial Palsy - 0(Normal) 5a. Left Arm: Motor (10-second hold) - 0(No drift) 5b. Right Arm: Motor (10-second hold) - 0(No drift) 6a. Left Leg: Motor (5-second hold - always test supine) - 0(No drift) 6b. Right Leg: Motor (5-second hold - always test supine) - 0(No drift) 7. Limb Ataxia (finger/nose \T\ heel/samuels - test with eyes open) - 0(Absent) 8. Sensory Loss (pinprick arms/legs/face) - 0(Normal) 9. Best Language: Aphasia (description/naming/reading) - 1(Mild to moderate aphasia) 10. Dysarthria (speech clarity - read or repeat words) - 1(Mild to Moderate) 11. Extinction and Inattention (visual/tactile/auditory/spatial/personal) - 0(No abnormality) Initials: kayy Signatures: Dispatcher [employer] EDMack Schmitz MD MD cha Hall, Patricia, RN RN [place] Menchaca RN RN ja1 Edouard Brown RN RN mg2 Corrections: (The following items were deleted from the chart) 15:41 12:52 MR STROKE PROTOCOL+MRI.RAD.BRZ ordered. [facility] 17:45 16:23 Hospitalization Ordered by Desmond Gorman for Inpatient Admission. [facility] Preliminary diagnosis is Altered mental status, unspecified; Repeated falls; Weakness. Bed requested for Telemetry/MedSurg (Inpatient). Status is Inpatient Admission. Condition is Fair. Problem is new. Symptoms have improved. [facility] 17:46 17:45 02/07/2020 16:23 Hospitalization Ordered by Desmond Gorman for Inpatient kayy Admission. Preliminary diagnosis is Altered mental status, unspecified; Repeated falls; Weakness; Mastoiditis and related conditions - left. Bed requested for Telemetry/MedSurg (Inpatient). Status is Inpatient Admission. Condition is Fair. Problem is new. Symptoms have improved. [facility] 17:53 17:46 02/07/2020 16:23 Hospitalization Ordered by Desmond Gorman for Inpatient ja1 Admission. Preliminary diagnosis is Altered mental status, unspecified; Repeated falls; Weakness; Mastoiditis and related conditions - left; Pain in left hip - recent fx, repair; Urinary tract infection, site not specified. Bed requested for Telemetry/MedSurg (Inpatient). Status is Inpatient Admission. Condition is Fair. Problem is new. Symptoms have improved. [facility] 18:38 17:53 02/07/2020 16:23 Hospitalization Ordered by Desmond Gorman for Inpatient kayy Admission. Preliminary diagnosis is Altered mental status, unspecified; Repeated falls; Weakness; Mastoiditis and related conditions - left; Pain in left hip - recent fx, repair; Urinary tract infection, site not specified. Bed requested for Telemetry/MedSurg (Inpatient). Status is Inpatient Admission. Condition is Fair. Problem is new. Symptoms have improved. [facility] 20:05 18:38 02/07/2020 16:23 Hospitalization Ordered by Desmond Gorman for Inpatient mg2 Admission. Preliminary diagnosis is Altered mental status, unspecified; Repeated falls; Weakness; Mastoiditis and related conditions - left; Pain in left hip - recent fx, repair; Urinary tract infection, site not specified; Poisoning by iminostilbenes, accidental (unintentional) - tegretol toxicity. Bed requested for Telemetry/MedSurg (Inpatient). Status is Inpatient Admission. Condition is Fair. Problem is new. Symptoms have improved. kayy
--- NOTE | 2020-02-07 16:23 | ER ---
Nurse's Notes [facility] Name: Loly Hermosillo Age: 64 yrs Sex: Female : 1955 Arrival Date: 02/07/2020 Time: 12:42 Bed 8 Private MD: Diagnosis: Altered mental status, unspecified;Repeated falls;Weakness;Mastoiditis and related conditions-left;Pain in left hip-recent fx, repair;Urinary tract infection, site not specified;Poisoning by iminostilbenes, accidental (unintentional)-tegretol toxicity Presentation: 02/06 12:44 Chief complaint: EMS states: Pt from home, daughter reports that pt went to bed at ph approx 1700 last night, woke up during night and had 2 falls, also reports that pt has had 7 falls in the last 24 hours, hx of falls and recent R hip fracture, slurred speech and ataxic gait noted by EMS, family also reports that pt took psych medications this morning which include lorazepam, BP 115/65, HR 62 w/ L BBB, oral temp 97.2, and BGL 122, last known well 1700 yesterday. Coronavirus screen: Client denies travel out of the [place] in the last 14 days. At this time, the client does not indicate any symptoms associated with coronavirus-19. Ebola Screen: No symptoms or risks identified at this time. Initial Sepsis Screen: Does the patient meet any 2 criteria? No. Patient's initial sepsis screen is negative. Does the patient have a suspected source of infection? No. Patient's initial sepsis screen is negative. Risk Assessment: Do you want to hurt yourself or someone else? Patient reports no desire to harm self or others. Onset of symptoms was February 07, 2020. 12:44 Method Of Arrival: EMS: [facility] ph 12:44 Acuity: [place] 2 ph Historical: - Allergies: 12:58 [place] Carbonate; ph 12:58 thorazine; ph - Home Meds: 12:58 losartan 50 mg Oral tab 1 tab once daily [Active]; atorvastatin oral oral [Active]; ph Docusate Sodium Oral [Active]; benztropine Oral [Active]; Metoprolol Tartrate Oral [Active]; Thioridazine Oral [Active]; Lorazepam Oral [Active]; Carbamazepine Oral [Active]; - PMHx: 12:58 Anxiety; Bipolar disorder; cyst in right kidney; Hyperlipidemia; Hypertension; ph - PSHx: 12:58 R hip; ph - Immunization history:: Adult Immunizations unknown. - Social history:: Smoking status: Patient denies any tobacco usage or history of. - Family history:: not pertinent. Screenin:53 Abuse screen: Denies threats or abuse. Denies injuries from another. Nutritional ph screening: No deficits noted. Tuberculosis screening: No symptoms or risk factors identified. Fall Risk Fall in past 12 months (25 points). No secondary diagnosis (0 pts). IV access (20 points). Ambulatory Aid- None/Bed Rest/Nurse Assist (0 pts). Gait- Weak (10 pts.). Mental Status- Oriented to own ability (0 pts). Total Walker Fall Scale indicates High Risk Score (45 or more points). Fall prevention measures have been instituted. Side Rails Up X 2 Placed Close to Nursing Station Frequent Obs/Assessments Occuring As available patient and family educated on Fall Prevention Program and Strategies. 14:30 Patient has been NPO before screening. The patient is alert, able to follow commands. ph The patient exhibits slurred or garbled speech. no drooling noted, daughter at bedside reports that speech is close to baseline The patient is not exhibiting difficulty speaking. The patient does not exhibit difficulty understanding words. The patient is able to swallow own secretions with no drooling or need for suction. Patient tolerated one teaspoon of water. No drooling, immediate coughing, gurgling, or clearing of the throat was noted. The patient tolerated 90mL of water. No drooling, immediate coughing, gurgling, or clearing of the throat was noted. The patient passed the bedside swallow screening. Oral medications may be given as ordered. Contact Physician for further diet orders. Assessment: 12:59 General: Appears in no apparent distress. comfortable, well groomed, Behavior is calm, ph cooperative, appropriate for age. Pain: Complains of pain in right hip. Neuro: Level of Consciousness is awake, obeys commands, lethargic, Oriented to person, place, Speech is slurred. Cardiovascular: Capillary refill < 3 seconds in bilateral fingers Patient's skin is warm and dry. Respiratory: Airway is patent Respiratory effort is even, unlabored. GI: No signs and/or symptoms were reported involving the gastrointestinal system. Derm: Skin is pink, warm \T\ dry. Musculoskeletal: Circulation, motion, and sensation intact. 13:11 Reassessment: Pt taken to CT and MRI via stretcher. ph 14:51 Reassessment: provider at bedside at this time. tw2 15:45 Reassessment: Pt in imaging for MRI. ph 16:53 Reassessment: Patient appears in no apparent distress at this time. Patient and/or ph family updated on plan of care and expected duration. Pain level reassessed. Pt awake and alert, oriented to person and place, daughter at bedside, straight cathed to obtain urine sample, pt tolerated well, awaiting MRI results. 17:45 Reassessment: Patient appears in no apparent distress at this time. Patient and/or ph family updated on plan of care and expected duration. Pain level reassessed. Pt awake and alert, oriented to person and place, eating dinner, tolerating well. 18:08 Reassessment: Attempted to call report to second floor, receiving nurse unavailable. ph 18:53 Reassessment: Patient appears in no apparent distress at this time. Patient and/or ph family updated on plan of care and expected duration. Pain level reassessed. Pt awake and alert, oriented to person and place. Vital Signs: 12:44 BP 133 / 85; Pulse 68; Resp 12; Temp 97.1(O); Pulse Ox 98% on R/A; Weight 70.76 kg; ph Height 5 ft. 4 in. (162.56 cm); 13:56 BP 132 / 71; Pulse 68; Resp 18; Pulse Ox 99% on R/A; ph 14:58 BP 111 / 73; Pulse 67; Resp 18; Pulse Ox 98% on R/A; ph 15:56 BP 114 / 77; Pulse 67; Resp 17; Pulse Ox 98% on R/A; mh5 16:54 BP 119 / 87; Pulse 63; Resp 18; Pulse Ox 99% on R/A; ph 17:42 BP 124 / 61; Pulse 68; Resp 18; Pulse Ox 99% on R/A; ph 12:44 Body Mass Index 26.78 (70.76 kg, 162.56 cm) ph [place] Coma Score: 17:41 Eye Response: spontaneous(4). Verbal Response: oriented(5). Motor Response: obeys kayy commands(6). Total: 15. NIH Stroke Scale Scores: 17:41 NIHSS Score: 2 [facility] ED Course: 12:42 Patient arrived in ED. tw2 12:48 Mack Gamez MD is Attending Physician. kayy 12:51 Patient has correct armband on for positive identification. Placed in gown. Bed in low mh5 position. Call light in reach. Side rails up X2. Warm blanket given. site inspector on. Pulse ox on. NIBP on. 12:53 Triage completed. ph 12:54 Arm band placed on Patient placed in an exam room, on a stretcher, on national sales representative, ph on pulse oximetry. 13:01 Ranie Wang, RN is Primary Nurse. ph 13:04 Missed attempt(s): 22 gauge in left antecubital area. mh5 13:10 Initial lab(s) drawn, by tn, sent to lab. Inserted saline lock: 22 gauge in right ph antecubital area, using aseptic technique. Blood collected. 13:18 CT Head Brain wo Cont In Process Unspecified. EDMS 14:19 XRAY Chest (1 view) In Process Unspecified. EDMS 15:49 Brain Wo Cont In Process Unspecified. EDMS 16:20 Desmond Gorman is Hospitalizing Provider. kayy 16:40 Straight cath inserted, using sterile technique, 16 Fr. Returned gayle urine. Patient ph tolerated well. 16:52 Urine Culture Sent. mh5 16:52 Urine collected: straight cath specimen, cloudy. mh5 16:54 Pelvis XRAY In Process Unspecified. EDMS 16:55 Hip Right 2 View XRAY In Process Unspecified. EDMS 16:55 Hip Left 2 View XRAY In Process Unspecified. EDMS 17:04 No provider procedures requiring assistance completed. Patient admitted, IV remains in ph place. 18:01 Notified ED physician of a critical lab result(s). [id number]. sv Administered Medications: 13:56 Drug: NS 0.9% 1000 ml Route: IV; Rate: 1 bolus; Site: right antecubital; ph 16:30 Follow up: Response: No adverse reaction; IV Status: Completed infusion; IV Intake: ph 1000ml 13:56 Drug: foLIC Acid 1 mg Route: IVPB; Site: right antecubital; ph 14:30 Follow up: Response: No adverse reaction; IV Status: Completed infusion ph 19:08 Drug: Rocephin 2 grams Route: IV; Rate: per protocol; Site: right antecubital; ph 19:13 Follow up: Response: No adverse reaction; IV Status: Completed infusion ph Intake: 16:30 IV: 1000ml; Total: 1000ml. ph Outcome: 16:23 Decision to Hospitalize by Provider. kayy 19:42 Admitted to Med/surg accompanied by tech, room 232, with chart, Report called to geovani Tong RN 19:42 Condition: stable 19:42 Instructed on the need for admit, Demonstrated understanding of instructions. 20:05 [place] left the [place] [facility] [place] Stroke Scale - NIH Stroke Score Date: 02/07/2020 Time: 17:41 Total Score = 2 1a. Level of Consciousness (LOC) - 0(Alert) 1b. Level of Consciousness (LOC) (Year \T\ Age) - 0(Both) 1c. LOC Commands (Open \T\ Closes Eyes/Menu Planner) - 0(Both) 2. Best Gaze (Lateral Gaze Paresis) - 0(Normal) 3. Visual Field Loss - 0(No visual loss) 4. Facial Palsy - 0(Normal) 5a. Left Arm: Motor (10-second hold) - 0(No drift) 5b. Right Arm: Motor (10-second hold) - 0(No drift) 6a. Left Leg: Motor (5-second hold - always test supine) - 0(No drift) 6b. Right Leg: Motor (5-second hold - always test supine) - 0(No drift) 7. Limb Ataxia (finger/nose \T\ heel/samuels - test with eyes open) - 0(Absent) 8. Sensory Loss (pinprick arms/legs/face) - 0(Normal) 9. Best Language: Aphasia (description/naming/reading) - 1(Mild to moderate aphasia) 10. Dysarthria (speech clarity - read or repeat words) - 1(Mild to Moderate) 11. Extinction and Inattention (visual/tactile/auditory/spatial/personal) - 0(No abnormality) Initials: [facility] Signatures: Dispatcher [employer] Hemalatha Moreau RN RN sv Anderson, Corey, MD MD cha Hall, Patricia, RN RN Jaz Sams RN RN [facility] Jayla Poon [facility] Gardose, Edouard, RN RN mg2
--- NOTE | 2020-02-07 17:21 | RAD REPORT ---
EXAM DESCRIPTION: MRI - Brain Wo Cont - 02/07/2020 4:49 pm CLINICAL HISTORY: Slurred speech COMPARISON: June 2019 cat scan TECHNIQUE: Axial, sagittal, and coronal magnetic images of the brain were obtained. Contrast was not requested FINDINGS: Some images are degraded by patient motion artifact Moderate signal within periventricular, deep and subcortical white matter Diffusion-weighted/ADC mapping does not reveal evidence of acute infarction. The ventricles are normal caliber. An extra-axial fluid collection is not present Mild to moderate signal left mastoids IMPRESSION: Moderate signal within periventricular, deep and subcortical white matter probably secon gary to ischemic changes secondary to small vessel disease. Multiple sclerosis can also have this juan daniel earance. Mild to moderate signal within the left mastoids may indicate mastoiditis
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
--- NOTE | 2020-02-07 17:34 | RAD REPORT ---
EXAM DESCRIPTION: RAD - Hip Right 2 View - 02/07/2020 4:54 pm CLINICAL HISTORY: Right hip pain FINDINGS: No fracture or dislocation is seen. The bones are osteoporotic.
--- NOTE | 2020-02-07 17:51 | P.HP ---
Certification for Inpatient Patient admitted to: Inpatient With expected LOS: >2 Midnights Practitioner: I am a practitioner with admitting privileges, knowledge of patient current condition, hospital course, and medical plan of care. Services: Services provided to patient in accordance with Admission requirements found in Title 42 Section 412.3 of the Code of Federal Regulations Patient History Date of Service: 02/07/20 Reason for admission: Altered mental status History of Present Illness: 64-year-old woman with a history of paranoid schizophrenia, bipolar disorder on Thorazine was brought to the emergency department with a concern for acute stroke. Family noted patient speech was slurred, she fell multiple times today and had trouble using a walker. Family reports patient has been hospitalized multiple times for different medical problems and that she was discharged from [facility] just a few days ago. Before that patient had spent 2 weeks in the long-term as well as hospitalization at [facility]. Here in the ED, patient is not septic, CT head negative for acute stroke, UA is pending. Tegretol level is pending. MRI of the brain report moderate signal in the cortex suggesting small vessel ischemic changes. Patient is hospitalized for further management. Allergies chlorpromazine [From Thorazine] Allergy (Verified 06/29/19 17:30) Hives/Rash lithium Allergy (Verified 06/29/19 17:30) Hives/Rash Home Medications: Losartan Potassium 50 mg PO DAILY 07/02/19 haloperidoL [Haldol*] 10 mg PO DAILY 07/02/19 Sulfamethoxazole/Trimethoprim [Bactrim Ds Tablet] 1 each PO BID #6 tablet 07/04/19 - Past Medical/Surgical History Diabetic: No -: Hypertension -: Paranoid schizophrenia -: Bipolar disorder -: History of UTI Psychosocial/ Personal History: Patient lives at home - Family History Family History: Reviewed- Non-Contributory - Social History Alcohol use: No CD- Drugs: No Caffeine use: No Review of Systems Other: No reported nausea or vomiting or diarrhea or abdominal pain or shortness of breath. Except as documented, all other systems reviewed and negative. Physical Examination - Physical Exam General: Confused, Other (Awake) HEENT: Mucous membr. moist/pink, EOMI, Sclerae nonicteric Neck: Supple, JVD not distended Respiratory: Clear to auscultation bilaterally, Normal air movement Cardiovascular: No edema, Regular rate/rhythm, Normal S1 S2, No murmurs Capillary refill: <2 Seconds Gastrointestinal: Normal bowel sounds, Soft and benign, Non-distended, No tenderness Musculoskeletal: No swelling, No tenderness Integumentary: No rashes, No erythema Neurological: Normal speech, Normal strength at 5/5 x4 extr, Cranial nerves 3-12 intact - Studies Laboratory Data (last 24 hrs) 02/07/20 13:00: PT 10.7, INR 0.91 02/07/20 13:00: WBC 5.7, Hgb 10.3 L, Hct 30.7 L, Plt Count 240 02/07/20 13:00: Sodium 132 L, Potassium 3.9, BUN 17, Creatinine 0.81, Glucose 119 H, Magnesium 2.1, Total Bilirubin 0.2, AST 8 L, ALT 15, Alkaline Phosphatase 179 H Assessment and Plan - Problems (Diagnosis) (1) Altered mental status Current Visit: Yes Status: Acute (2) TIA (transient ischemic attack) Current Visit: Yes Status: Acute (3) Paranoid schizophrenia Current Visit: Yes Status: Acute (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 Drug overdoses seems unlikely as her medications are recently being administered by her daughter. Admit to the medical floor. Hydrate with IV normal saline. Start aspirin. Patient has no problem with swallow. Continue her psychiatric medications. Continue home benztropine. Consult to psychiatry Follow urine analysis for possible UTI. Social service consult. - Advance Directives Does patient have a Living Will: No Does patient have a Durable POA for Healthcare: No
[2020-02-07 18:02] LABS: Urine Blood TRACE (NEG); Urine Glucose NEGATIVE (NEG); Urine Protein 2+ (NEG); Urine Specific Gravity 1.015 (1.005-1.030); Urine pH 8.5 (5.0-7.0)
[2020-02-07] MEDS ORDERED: CEFTRIAXONE/SWI 1gm 2 GM/20 ML SYR ONE (18:42)
[2020-02-07 20:57] VITALS: BMI 26.8
[2020-02-07] MEDS: NA CHLORIDE 0.9% 1,000 ML IV SCH (21:53)
[2020-02-08 05:08] LABS: Absolute Lymphocytes (CBC) 1.9 K/uL (0.7-4.9); Basophils % 1.1 % (0-1.3); Hematocrit 28.5 % (36.0-45.0); Lymphocytes % 37.7 % (15.3-44.8); MPV 7.8 fL (7.6-11.3); RBC Red Blood Cell Count 3.18 M/uL (3.86-4.86)
[2020-02-08 05:38] LABS: Albumin 2.9 g/dL (3.4-5.0); Bilirubin Total 0.2 mg/dL (0.2-1.0); Magnesium 2.1 mg/dL (1.8-2.4); Phosphorus 3.9 mg/dL (2.5-4.9); Potassium 3.9 mmol/L (3.5-5.1); Protein, Total 6.4 g/dL (6.4-8.2); Thyroid Stimulating Hormone 1.82 uIU/mL (0.360-3.740)
[2020-02-08] MEDS: NA CHLORIDE 0.9% 1,000 ML IV SCH ×3 (07:04→21:28)
[2020-02-08] MEDS ORDERED: INFLUENZA VACCINE (for 3y+) 0.5 ML DOSE IMVAC ONE (08:00)
[2020-02-08] MEDS ORDERED: PNEUMOCOCCAL VACCINE 0.5 ML IMVAC ONE (08:00)
[2020-02-08] MEDS ORDERED: CEFTRIAXONE/SWI 1gm 1 GM/10 ML SYR IV SCH (09:00)
[2020-02-08] MEDS ORDERED: CEFTRIAXONE 1 GM/NS 50 ML 1 GM/50 ML BAG IV SCH (09:00)
[2020-02-08] MEDS ORDERED: POTASSIUM CL SA 10 MEQ TAB PO ONE (09:00)
[2020-02-08] MEDS: ACETAMINOPHEN 500 MG TAB PO PRN (09:07)
[2020-02-08] MEDS: ENOXAPARIN 40 MG/0.4 ML SQ SCH (09:07)
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
--- NOTE | 2020-02-08 19:17 | EKG ---
Test Date: 2020-02-07 Test Time: 12:47:09 Gauge Controller: SABRINA MEASUREMENT RESULTS: Intervals: Rate: 70 MS: 218 QRSD: 134 QT: 442 QTc: 477 [place]: P: 67 MS: 218 QRS: 9 T: 65 INTERPRETIVE STATEMENTS: Sinus rhythm with 1st degree AV block Left bundle branch block Abnormal ECG Compared to ECG 06/29/2019 12:49:47 First degree AV block now present Left bundle-branch block now present Myocardial infarct finding no longer present Prolonged QT interval no longer present Electronically Signed On 02-08-20 19:13:00 [employer]OOK HELPER PASTRY by Andrés Rosas
[2020-02-09] MEDS: ENOXAPARIN 40 MG/0.4 ML SQ SCH (09:01)
[2020-02-09] MEDS: NA CHLORIDE 0.9% 1,000 ML IV SCH ×2 (09:01→17:26)
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
[2020-02-09] MEDS: ACETAMINOPHEN 500 MG TAB PO PRN (17:26)
[2020-02-10] MEDS: NA CHLORIDE 0.9% 1,000 ML IV SCH ×2 (05:44→18:46)
[2020-02-10] MEDS: ENOXAPARIN 40 MG/0.4 ML SQ SCH (08:03)
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
[2020-02-10] MEDS: THIORIDAZINE 50 MG PO SCH ×2 (14:00→21:00)
[2020-02-10] MEDS: carBAMazepine 200 MG TAB PO SCH ×2 (16:46→22:12)
[2020-02-10] MEDS: LORAZEPAM 1 MG TABLET PO SCH ×2 (16:47→22:00)
--- NOTE | 2020-02-10 19:46 | CON ---
Reason For Consultation: Consultation called because of Tegretol toxicity and altered mental status. History Of Present Illness: Ms. Hermosillo is a 64-year-old patient with multiple psychiatric diagnose s including paranoid schizophrenia, bipolar disorder, who was been treated with Thorazine as well as Tegretol. The patient reportedly had more confusion, slurred speech, unsteady gait, trouble walking, and multiple falls. She was brought to [facility] where her head CT scan and brain MRI rev ealed no acute ischemic or hemorrhagic stroke. She did have moderate diffuse atrophy throughout. He r blood work revealed a carbamazepine level of 18.4, and a complete blood count with differential kristen wed a normal white blood cell count and hemoglobin was 10.1, hematocrit 28.5. INR unremarkable. Fatou mistries showed slightly low sodium on admission that is now corrected, potassium was normal, calcium slightly low at 8.0. Liver function studies shows elevated alkaline phosphate of 179. Thyroid func tion normal. Cholesterol panel unremarkable. Urinalysis was positive for nitrites, trace blood, 3+ esterase, consistent with urinary tract infection. COVID-19 negative. She has had some improvement in interaction, cognitive functioning, and 2 days ago Tegretol level was down to 10.8, hence Tegretol was held. Past Medical History: As indicated including hypertension and multiple urinary tract infections. Allergies: THORAZINE AND LITHIUM. Medications: At home, Haldol, losartan, sulfamethoxazole, and Tegretol. Family History: Noncontributory. Social History: The patient lives at home with family. No alcohol, tobacco, or IV drug use. Review of Systems: No recent nausea or vomiting. No myalgias or arthralgias. Physical Examination: Vital Signs: Blood pressure 140/84, pulse 68, respiratory rate 16, temperature 97.2, oxygen saturati on 98%. Weight 156 pounds, height 5 feet 4 inches, BMI 26.8. General: Ms. Hermosillo is resting in bed. She is in no acute distress. No abnormalities in the cran ial nerves. Intense focal deficits there. No incoordination. No problems with her motor examinatio n. She has normal sensory exam, intact to light touch, temperature, and with respect to gait, she simms s been refusing request to ambulate as specially when the physical therapist made several attempts to have her to be up and walk noting to the therapist that she would rather not walk and she is actuall y ready for discharge home. Assessment: Ms. Hermosillo is a 64-year-old patient with multiple psychiatric diagnoses and comes in w ith Tegretol toxicity, which is now resolving and she will be restarted on carbamazepine, would not d o a higher dose as she was on 400 mg 3 times a day, but that dosage should be cut to 1/2, 200 mg 3 ti mes daily. Cogentin may continue at 1 mg twice daily. Lopressor can be continued at 12.5 mg daily. She may be discharged home and follow up with Psychiatry as appropriate. Follow up with primary car e physician and she should have a repeat Tegretol level within a week of discharge. DEBI/BRAD Voice ID: [id number] Report ID: [id number]
[2020-02-10] MEDS: BENZTROPINE 1 MG TAB PO SCH (21:00)
[2020-02-10 21:04] VITALS: O2SAT 93
[2020-02-11] MEDS: NA CHLORIDE 0.9% 1,000 ML IV SCH (02:32)
[2020-02-11] MEDS: LORAZEPAM 1 MG TABLET PO SCH (05:29)
[2020-02-11] MEDS: THIORIDAZINE 50 MG PO SCH (09:00)
[2020-02-11] MEDS ORDERED: TAMSULOSIN 0.4 MG SR CAP PO SCH (09:00)
[2020-02-11] MEDS ORDERED: METOPROLOL TAR 25 MG TAB PO SCH (09:00)
[2020-02-11] MEDS: BENZTROPINE 1 MG TAB PO SCH (09:00)
[2020-02-11] MEDS ORDERED: carBAMazepine 200 MG TAB PO SCH (09:00)
[2020-02-11] MEDS: ENOXAPARIN 40 MG/0.4 ML SQ SCH (09:22)
--- NOTE | 2020-02-11 11:04 | P.PN ---
Subjective Date of Service: 02/11/20 Chief Complaint: Altered mental status Patient has no complain. She remained awake and alert She is also feeding well. Physical Examination - Vital Signs Temperature: 97.0 F Blood Pressure: 111/68 Pulse: 76 Respirations: 18 Pulse Ox (%): 99 - Physical Exam General: Alert, In no apparent distress Respiratory: Clear to auscultation bilaterally, Normal air movement Cardiovascular: No edema, Regular rate/rhythm, Normal S1 S2 Gastrointestinal: Soft and benign, Non-distended, No tenderness Musculoskeletal: No swelling Integumentary: No rashes Neurological: Other (Nonfocal) - Studies Microbiology Data (last 24 hrs): 02/07/20 16:47 Catheterized Urine [place] Count - Final >100,000 CFU/ML. 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 AMS resolved Tegretol level has improved and within therapeutic range. Tegretol resumed at a lower dose. Neurology input appreciated. Discontinue IV fluid. Continue aspirin for possible TIA. Patient has been debilitated from multiple hospitalizations and prior hip fracture. Psychiatric medications-Thorazine and benztropine resumed Urine culture: No significant growth Social service team assisting with disposition to skilled rehab.
--- NOTE | 2020-02-11 11:32 | P.DS ---
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 Family noted patient speech was slurred, she fell multiple times today and had trouble using a walker. Family reports patient has been hospitalized multiple times for different medical problems and that she was discharged from [facility] just a few days ago. Before that, patient [facility] [place] [facility] as hospitalization at [facility]. Here in the ED, patient was not septic, CT head negative for acute stroke, UA showed evidence of UTI Tegretol level was elevated to 18. MRI of the brain reported moderate signal in the cortex suggesting small vessel ischemic changes. Patient was hospitalized for further management. Hospital Course: Patient admitted to the medical floor. Her altered mental status was deemed secondary to Tegretol toxicity. UTI could also be contributing to the altered mental status. Her Tegretol was held for a few days until the level became low and then resumed at a lower dose. The altered mental status resolved. Patient was seen in consultation by neurology - Dr. Garcia recommended reduction in the Tegretol dose from 400 mg t.i.d. to 200 mg t.i.d. UTI was treated with IV Rocephin. Urine culture grew Proteus mirabilis sensitive to cephalosporin. Patient seen and evaluated by PT. Skilled rehab was recommended for multiple falls at home. Her other psych medications which include Thorazine and benztropine were resumed during the hospital stay. Patient has been accepted to SNF rehab. She is deemed clinically stable for discharge today. Vital Signs/Physical Exam: Temp Pulse Resp BP Pulse Ox 97.0 F 76 18 111/68 99 02/11/20 11:04 02/11/20 11:04 02/11/20 11:04 02/11/20 11:04 02/11/20 11:04 General: Alert, In no apparent distress HEENT: Mucous membr. moist/pink Neck: JVD not distended Respiratory: Clear to auscultation bilaterally, Normal air movement Cardiovascular: No edema, Regular rate/rhythm, Normal S1 S2 Gastrointestinal: Soft and benign, Non-distended, No tenderness Musculoskeletal: No swelling Integumentary: No rashes Neurological: Normal speech, Normal strength at 5/5 x4 extr, Cranial nerves 3-12 intact Laboratory Data at Discharge: WBC 5.1 K/uL (4.3-10.9) 02/08/20 04:54 Hgb 10.1 g/dL (12.0-15.0) L 02/08/20 04:54 Hct 28.5 % (36.0-45.0) L 02/08/20 04:54 Plt Count 241 K/uL (152-406) 02/08/20 04:54 PT 10.7 SECONDS (9.5-12.5) 02/07/20 13:00 INR 0.91 02/07/20 13:00 Sodium 138 mmol/L (136-145) 02/08/20 04:54 Potassium 3.9 mmol/L (3.5-5.1) 02/08/20 04:54 BUN 14 mg/dL (7-18) 02/08/20 04:54 Creatinine 0.82 mg/dL (0.55-1.3) 02/08/20 04:54 Glucose 82 mg/dL (74-106) 02/08/20 04:54 Phosphorus 3.9 mg/dL (2.5-4.9) 02/08/20 04:54 Magnesium 2.1 mg/dL (1.8-2.4) 02/08/20 04:54 Total Bilirubin 0.2 mg/dL (0.2-1.0) 02/08/20 04:54 AST 8 U/L (15-37) L 02/08/20 04:54 ALT 12 U/L (12-78) 02/08/20 04:54 Alkaline Phosphatase 166 U/L (45-117) H 02/08/20 04:54 Triglycerides 88 mg/dL (<150) 02/08/20 04:54 Cholesterol 198 mg/dL (<200) 02/08/20 04:54 HDL Cholesterol 51 mg/dL (40-60) 02/08/20 04:54 Cholesterol/HDL Ratio 3.88 02/08/20 04:54 Home Medications: Benztropine Mesylate [Cogentin*] 1 mg PO BID 02/10/20 LORazepam [Ativan*] 1 mg PO Q8H 02/10/20 Metoprolol Tartrate [Lopressor*] 12.5 mg PO DAILY 02/10/20 Tamsulosin HCl 0.4 mg PO DAILY 02/10/20 Thioridazine HCl 50 mg PO TID 02/10/20 carBAMazepine [Tegretol*] 200 mg PO TID tab 02/11/20 Diet: Regular Activity: Fall precautions Followup: Unknown,U [Primary Care Provider] - 2-3 Days Time spent managing pt's care (in minutes): 40
[2020-02-11 14:51] VITALS: BP 147/82; TEMP 97.4
== END 2020-02-11 12:44 | DRG 918 ==
LOC: ER 12:38 → ERHOLD 17:27 → 2ND 20:00
PROVIDERS: ADMIT Internal Medicine; ATTEND Internal Medicine
DX: T42.1X1A Poisoning by iminostilbenes, accidental (unintentional), initial encounter (principal); G45.9 Transient cerebral ischemic attack, unspecified; F20.0 Paranoid schizophrenia; N39.0 Urinary tract infection, site not specified; I10 Essential (primary) hypertension; E78.5 Hyperlipidemia, unspecified; B96.4 Proteus (mirabilis) (morganii) as the cause of diseases classified elsewhere; Z88.8 Allergy status to other drugs, medicaments and biological substances; Z91.81 History of falling; Z79.899 Other long term (current) drug therapy; Z20.828 Contact with and (suspected) exposure to other viral communicable diseases
CPT/HCPCS: 36415; 51702; 70450; 70551; 71045; 72170; 80048; 80053; 80061; 80076; 80156; 81003; 83735; 83880; 84100; 84443; 84484; 85025; 85610; 85652; 86140; 87077; 87086; 87088; 87186; 93005; 94760; 96361; 96365; 96375; 97110; 97116; 97161; 97530; 99285; J0696; J1650; J7030; U0002

== ENCOUNTER 2020-03-10 16:42 | Emergency (ER) | payer OTHER ==
--- OUTSIDE RECORDS SUMMARY | 2020-03-10 16:45 | XMS REPORT | Continuity of Care Document ---
:1955 Author Organization [facility] t Address [address] [place] [address] Care Team Providers Name Role Phone Stacey [...] e Post Op Promis 29 2019-10-19 00:00:00 [facility] Survey Physicians [U] XRAY HIP 2019-10-12 00:00:00 [place] [facility] UNILATERAL MIN 2 VWS Physicians LEFT [id number] Encounters Start End Encounter Admission Attending Care Care Encounter Source Date/Time Date/Time Type Type Clinicians Facility Department ID 2020-02-06 2020-02-06 Transition Gretchen Ibarra [id number] 00:00:00 00:00:00 of Care Gris Gonsalves [id number] [place] [id number] 2019-11-17 2019-11-17 Appointmen [facility] [id number] [facility] 09:45:00 09:45:00 t; JANNIE CASTREJON APRN [facility] 2019-10-13 2019-10-13 Appointmen [facility] [id number] Univers 10:00:00 10:00:00 t; JANNIE CASTREJON APRN [facility] Physici [place] [facility] [address] 2019-09-27 2019-09-27 Appointmen VINICIO JIMENEZ [facility] [id number] Univers 09:00:00 09:00:00 t; Hussain JIMENEZ M.D. [facility] Results Test Description Test Time Test Comments Results Result Sour e Comments [U] XRAY HIP 2019-11-17 [facility] o f UNILATERAL MIN 2 10:36:00 [facility] not [facility] LEFT [id number] reported on Physician s this accession number.
--- OUTSIDE RECORDS SUMMARY | 2020-03-10 16:45 | XMS REPORT | Summary of Care ---
:1955 Author Organization [facility] Address [address] [place] [id number] Care Team Providers Name Role Phone Gissel Jackson Primary Care Provider Reason for Visit Reason Comments Transition Of Care Encounter Details Date Type Department Care Team Description 02/06/[address] [facility] [address] [address] Allergies No Known Allergiesdocumented as of this [...] contact Unable to assess 01/29/2020 6:44 PM REGULATORY PROCESS MANAGER with someone who was confirmed or suspected to have Coronavirus / COVID-19? documented as of this encounter Last Filed Vital Signs Not on filedocumented in this encounter Miscellaneous Notes Telephone Encounter - Gris Ibarra RN - 02/07/2020 10:55 AM CST TRANSITIONAL CARE MANAGEMENT ASSESSMENT 02/07/2020 Loly Hermosillo [id number] Loly Hermosillo is a 64 year old /White female was admitted on 01/29/20 to [facility]. She was discharged on 02/04/20 with discharge disposition of HR- Routine Discharge. Admitting Physician: Irina Bashir Discharge Diagnosis: Linked Episodes Type: Episode: Status: Noted: Resolved: Last update: Updated by: TRANSITION OF CARE tcm Active 02/03/2020 02/07/2020 10:54 AM Gris Ibarra RN Comments:02/03/2020 TCM [id number] outreach documentation: Discharge Assessment Chart Assessed: 02/07/20 TCM Outreach Completed: 02/07/20 Care Transitions Nurse CM attempted to reach patient via telephone. No answer, voicemail full/not set up. Unable to leave message. THIERRY Maurice, RN, CCRN Android Platform Developer- DEREK Future Appointments: LATORY PROCESS MANAGER Telephone Encounter - Gris Ibarra RN - 02/06/2020 4:26 PM REGULATORY PROCESS MANAGER TRANSITIONAL CARE MANAGEMENT ASSESSMENT 02/06/2020 Loly Hermosillo [id number] Loly Hermosillo is a 64 year old /White female was admitted on 01/29/20 to [facility]. She was discharged on 02/04/20 with discharge disposition of HR- Routine Discharge. Admitting Physician: Irina Bashir Discharge Diagnosis: Hyponatremia SIADH No linked episodes TCM Jug-hhjf-[id number]-face outreach documentation: No valid phone number, unable to complete DEREK call. THIERRY Maurice, RN, CCRN Android Platform Developer- DEREK Future Appointments: LATORY PROCESS MANAGER documented in this encounter Plan of Treatment [...] Effective Phone Address T e Group Dates [facility] [id number] 2017-Pres [facility] HEALTHCARE ent Adv HM O MANAGED DUAL COMPLETE MEDICARE HMO [employer] [id number] 2008-Pres [address] Medicaid [facility] ent [id number] [place] [address] [facility] MEDICAID OF [id number] 2019-Pre [phone] [address] [facility] [place] sent [phone] [place] [address] documented as of this encounter Advance Directives Name Relationship Healthcare Agent Communication Relationship Lizette Graham Child Health Care Agent Darleen Graham Sibling [facility] Brenda Care Agent (Mobile)
[2020-03-10] MEDS ORDERED: WATER FOR INJ,STERILE 10 ML ONE (17:28)
[2020-03-10] MEDS ORDERED: ZIPRASIDONE MESYLA 20 MG/VIAL IM ONE (17:28)
[2020-03-10] MEDS ORDERED: LORazepam 2 MG/ML VIAL ONE (17:28)
[2020-03-10 17:52] LABS: Absolute Lymphocytes (CBC) 1.9 K/uL (0.7-4.9); Basophils % 1.3 % (0-1.3); Hematocrit 30.2 % (36.0-45.0); Lymphocytes % 37.2 % (15.3-44.8); MPV 7.6 fL (7.6-11.3); RBC Red Blood Cell Count 3.23 M/uL (3.86-4.86)
[2020-03-10 17:55] LABS: Protime INR 0.98
[2020-03-10 18:09] LABS: ALT/SGPT 16 U/L (12-78); AST/SGOT 16 U/L (15-37); Albumin 3.5 g/dL (3.4-5.0); Alkaline Phosphatase 159 U/L (45-117); BUN Blood Urea Nitrogen 7 mg/dL (7-18); Bicarbonate 27 mmol/L (21-32); Bilirubin Direct < 0.1 mg/dL (0-0.2); Bilirubin Total 0.2 mg/dL (0.2-1.0); Creatine Phosphokinase 129 U/L (26-192); Glucose Level 86 mg/dL (74-106); Potassium 3.4 mmol/L (3.5-5.1); Sodium Level 137 mmol/L (136-145); Troponin I < 0.02 ng/mL (0.0-0.045)
[2020-03-10 18:31] LABS: Urine Bacteria <20 /HPF (<20); Urine RBC NONE SEEN /HPF (NONE SEEN)
[2020-03-10 18:36] LABS: Barbiturates NEGATIVE (NEGATIVE); Benzodiazepines NEGATIVE (NEGATIVE); Cocaine NEGATIVE (NEGATIVE); METHAMPHETAM NEGATIVE (NEGATIVE); Methadone NEGATIVE (NEGATIVE); Opiates NEGATIVE (NEGATIVE); Phencyclidine NEGATIVE (NEGATIVE); THC Cannibis NEGATIVE (NEGATIVE)
[2020-03-10] MEDS ORDERED: DIAZEPAM 10 MG/2 ML INJ SYRINGE ONE (18:38)
[2020-03-10 18:42] LABS: Urine Blood NEGATIVE (NEG); Urine Glucose NEGATIVE (NEG); Urine Protein NEGATIVE (NEG); Urine Specific Gravity 1.015 (1.005-1.030)
--- NOTE | 2020-03-10 18:49 | RAD REPORT ---
EXAM DESCRIPTION: RAD - Chest Single View - 03/10/2020 6:39 pm CLINICAL HISTORY: AMS Chest pain. COMPARISON: Chest Single View dated 02/07/2020; Abdomen 1 View (KUB) dated 03/03/2019 FINDINGS: Portable technique limits examination quality. The lungs are grossly clear. The heart is normal in size. No displaced fractures. IMPRESSION: No acute intrathoracic process suspected.
[2020-03-10] MEDS ORDERED: HALOPERIDOL LACT 5 MG/ML INJ ONE (18:56)
--- NOTE | 2020-03-10 20:05 | RAD REPORT ---
EXAM DESCRIPTION: CT - Head Brain Wo Cont - 03/10/2020 7:58 pm CLINICAL HISTORY: MENTAL STATUS CHANGE Headache, drowsiness COMPARISON: Head Brain Wo Cont dated 02/07/2020; Head Brain Wo Cont dated 06/29/2019 TECHNIQUE: All CT scans are performed using dose optimization technique as appropriate and may inclu de automated exposure control or mA/KV adjustment according to patient size. FINDINGS: No intracranial hemorrhage, hydrocephalus or extra-axial fluid collection.Mild chronic per iventricular and deep white matter microvascular ischemic changes.No areas of brain edema or evidence of midline shift. The paranasal sinuses and mastoids are clear. The calvarium is intact. Left vertebral artery is calci fied. IMPRESSION: No acute intracranial abnormality.
--- NOTE | 2020-03-10 20:17 | EDPHYS ---
Physician Documentation [facility] Name: Loly Hermosillo Age: 64 yrs Sex: Female : 1955 Arrival Date: 03/10/2020 Time: 16:43 Bed 13 Private MD: ED Physician Kush Drake HPI: 03/10 17:05 This 64 yrs old Female presents to ER via EMS with complaints of Psych Problem.cp 17:05 The patient presents with agitation. cp 17:05 Onset: The symptoms/episode began/occurred today. Possible causes: not taking cp prescribed psych medications. Associated signs and symptoms: Pertinent positives: agitation, paranoia, Pertinent negatives: abdominal pain, chest pain, headache. Current symptoms: In the emergency department the patient's symptoms are unchanged from the initial presentation, despite EMS interventions. Patient's baseline: Neuro: alert and fully oriented, Motor: no deficits, Ambulation: walks without assistance, Speech: normal, The patient has a previous history of Bipolar disorder and Schizophrenia . Unable to obtain HPI due to patient is being uncooperative. Historical: - Allergies: 16:52 [place] Carbonate; em 16:52 thorazine; em - Home Meds: 16:52 atorvastatin Oral [Active]; benztropine Oral [Active]; Carbamazepine Oral [Active]; em Docusate Sodium Oral [Active]; Haloperidol 10 mg Oral 1 tab nightly [Active]; hydroxyzine HCl 25 mg Oral tab 1 tab twice a day [Active]; Lorazepam Oral [Active]; losartan 50 mg Oral tab 1 tab once daily [Active]; Metoprolol Tartrate Oral [Active]; tamsulosin 0.4 mg Oral cp24 1 cap once daily [Active]; Thioridazine Oral [Active]; - PMHx: 16:52 Anxiety; Bipolar disorder; cyst in right kidney; Hyperlipidemia; Hypertension; em - PSHx: 16:52 R hip; em - Immunization history:: Adult Immunizations unknown. - Social history:: Smoking status: unknown. ROS: 17:10 Constitutional: Negative for fever. cp 17:10 Cardiovascular: Negative for chest pain. cp 17:10 Respiratory: Negative for shortness of breath. 17:10 Abdomen/GI: Negative for abdominal pain. 17:10 Neuro: Negative for headache, weakness. 17:10 Psych: Positive for auditory hallucinations, visual hallucinations. 17:10 All other systems are negative. Exam: 17:15 Constitutional: The patient appears in no acute distress, alert, awake, cp non-diaphoretic, non-toxic, well developed, well nourished. 17:15 Head/Face: Normocephalic, atraumatic. cp 17:15 Eyes: Pupils: equal, round, and reactive to light and accomodation, Sclera: no appreciated abnormality, Lids and lashes: appear normal, bilaterally. 17:15 ENT: External ear(s): are unremarkable, Nose: is normal, Posterior pharynx: Airway: no evidence of obstruction, patent. 17:15 Neck: ROM/movement: is normal, is supple, without pain, no range of motions limitations. 17:15 Chest/axilla: Inspection: normal, Palpation: is normal, no crepitus, no tenderness. 17:15 Cardiovascular: Rate: normal, Rhythm: regular, JVD: is not appreciated. 17:15 Respiratory: the patient does not display signs of respiratory distress, Respirations: normal, no use of accessory muscles, no retractions, labored breathing, is not present, Breath sounds: are clear throughout, no decreased breath sounds, no stridor, no wheezing. 17:15 Abdomen/GI: Inspection: abdomen appears normal, Palpation: abdomen is soft and non-tender, in all quadrants. 17:15 Neuro: Orientation: to person, situation, Mentation: able to follow commands, Motor: moves all fours, strength is normal. 17:15 Psych: Behavior/mood is aggressive, uncooperative, Affect is animated. Vital Signs: 16:44 BP 145 / 86; Pulse 94; Resp 20; Pulse Ox 99% on R/A; em 16:44 Temp 98.7(TE); sv 20:25 Weight 72.57 kg; mw2 03/11 00:00 BP 136 / 56; Pulse 95; Resp 18; Temp 97.6(TE); Pulse Ox 99% on R/A; Pain 0/10; fu MDM: 03/10 16:52 Patient medically screened. cp 17:20 Differential Diagnosis: CVA, electrolyte abnormality, sepsis, volume depletion. cp 20:10 Data reviewed: vital signs, nurses notes, lab test result(s), radiologic studies, CT cp scan, plain films. 20:10 Counseling: I had a detailed discussion with the patient and/or guardian regarding: the cp historical points, exam findings, and any diagnostic results supporting the discharge/admit diagnosis, lab results, the need to transfer to another facility, to psych facility for treatment. 03/11 09:22 ED course: this is ms Salcido, pending transport to [facility] facility, her condition is ma2 unchanged she still crying and screaming, she received haldol valium 8 hrs ago, will give her ativan, her vs are wnl.. \E\. 03/10 16:59 Order name: Acetaminophen cp 03/10 16:59 Order name: Basic Metabolic Panel cp 03/10 16:59 Order name: CBC with Diff cp 03/10 16:59 Order name: ETOH Level cp 03/10 16:59 Order name: Hepatic Function cp 03/10 16:59 Order name: PT-INR cp 03/10 16:59 Order name: Ptt, Activated cp 03/10 16:59 Order name: Salicylate; Complete Time: 18:16 cp 03/10 16:59 Order name: Urine Drug Screen; Complete Time: 19:43 cp 03/10 16:59 Order name: AMMONIA; Complete Time: 18:16 cp 03/10 18:16 Interpretation: Reviewed. cp 03/10 16:59 Order name: Tegretol Level; Complete Time: 18:16 cp 03/10 16:59 Order name: Troponin I; Complete Time: 18:16 cp 03/10 16:59 Order name: Lactate; Complete Time: 18:16 cp 03/10 16:59 Order name: Urine Microscopic Only; Complete Time: 19:43 cp 03/10 20:08 Interpretation: Normal except: UWBC 20-50; SQEPI 5-10. cp 03/10 16:59 Order name: CT Head Brain wo Cont; Complete Time: 20:07 cp 03/10 16:59 Order name: Procalcitonin; Complete Time: 19:43 cp 03/10 16:59 Order name: Blood Culture Adult (2) cp 03/10 16:59 Order name: CK; Complete Time: 18:16 cp 03/10 17:00 Order name: Acetaminophen Level; Complete Time: 18:16 EDMS 03/10 17:00 Order name: Basic Metabolic Panel; Complete Time: 18:16 EDMS 03/10 18:20 Interpretation: Normal except: K 3.4; GFR 89; CA 8.4. 03/10 17:00 Order name: CBC with Automated Diff; Complete Time: 18:16 [facility] 03/10 18:17 Interpretation: Normal except: RBC 3.23; HGB 10.1; HCT 30.2; MCV 93.5. 03/10 17:00 Order name: Alcohol Serum/Plasma; Complete Time: 18:16 [facility] 03/10 17:00 Order name: Liver (Hepatic) Function; Complete Time: 18:16 [facility] 03/10 18:17 Interpretation: Normal except: ALK 159; A/G 1.0. 03/10 17:00 Order name: Protime (+INR); Complete Time: 19:43 [facility] 03/10 17:00 Order name: PTT, Activated Partial Thromb; Complete Time: 19:43 [facility] 03/10 17:12 Order name: XRAY Chest (1 view); Complete Time: 19:43 03/10 18:29 Order name: Urine Dipstick--Ancillary (enter results); Complete Time: 19:43 03/10 18:32 Order name: Urine Culture [facility] 03/10 21:54 Order name: SARS-COV-2 RT PCR; Complete Time: 01:42 [facility] 03/10 16:59 Order name: IV Saline Lock; Complete Time: 17:45 03/10 16:59 Order name: Labs collected and sent; Complete Time: 17:45 03/11 09:35 Order name: Diet Regular; Complete Time: 09:35 jl7 Administered Medications: 03/10 17:30 Drug: Geodon 10 mg Route: IM; Site: right deltoid; sv 18:34 Follow up: Response: No adverse reaction; No change in condition sv 17:30 Drug: Ativan 1 mg Route: IM; Site: right deltoid; sv 18:34 Follow up: Response: No adverse reaction; No change in condition sv 18:33 Drug: Diazepam 5 mg Route: IVP; Site: right antecubital; sv 18:54 Drug: HALdol (as decanoate) 5 mg Route: IM; Site: left deltoid; sv 20:16 Drug: Rocephin - (cefTRIAXone) 1 grams Route: IVPB; Infused Over: 30 mins; Site: left fu forearm; 20:44 Follow up: Response: No adverse reaction fu 22:16 Follow up: Response: No adverse reaction fu 21:23 Drug: NS 0.9% 1000 ml Route: IV; Rate: 1000 ml/hr; Site: right forearm; fu 03/11 04:53 Follow up: IV Intake: 1000ml fu 03/10 23:56 Drug: Diazepam 5 mg Route: IVP; Site: right forearm; fu 03/11 00:56 Follow up: Response: Anxiety decreased fu 08:14 Drug: Ativan 2 mg Route: IVP; Site: right antecubital; jl7 08:45 Follow up: Response: No adverse reaction; Marked relief of symptoms 7 13:55 Drug: Ativan 2 mg Route: IVP; Site: right antecubital; vg1 Disposition: 03/10 21:00 Chart complete. cp Disposition: 03/10/20 20:17 Transfer ordered to Psych Facility. Diagnosis are Paranoid schizophrenia, Urinary tract infection, site not specified. - Reason for transfer: Higher level of care. - Accepting physician is Doctor. - Condition is Stable. - Problem is an ongoing problem. - Symptoms have improved. Addendum: 03/12/2020 19:02 Co-signature as Attending Physician, Kush Drake MD I agree with the assessment and k dr plan of care. Signatures: Dispatcher [employer] Hemalatha Painter, RN Kush Rick MD MD kdr Munoz, Edgar RN RN em Mack Chaudhari, PA PA Calros Tapia RN RN jl7 Umadhay, Felix RN Gustavo Bradley MD MD ma2 Garcia, Victoria RN RN vg1 Corrections: (The following items were deleted from the chart) 03/10 18:20 18:17 Normal except: K 3.4; GFR 89. cp cp 19:02 16:59 Webber ordered. cp em 20:57 20:32 CORONAVIRUS+MR[facility]LAB[facility]. [facility]11 09:27 09:22 ED course: this is ms Salcido, pending tr. margie hanson 14:28 03/10 20:17 03/10/2020 20:17 Transfer ordered to Psych Facility. Diagnosis is Paranoid vg1 schizophrenia; Urinary tract infection, site not specified. Reason for transfer: Higher level of care. Accepting physician is Doctor. Condition is Stable. Problem is an ongoing problem. Symptoms have improved. cp
--- NOTE | 2020-03-10 20:17 | ER ---
Nurse's Notes [facility] Name: Loly Hermosillo Age: 64 yrs Sex: Female : 1955 Arrival Date: 03/10/2020 Time: 16:43 Bed 13 Private MD: Diagnosis: Paranoid schizophrenia;Urinary tract infection, site not specified Presentation: 03/10 16:44 Chief complaint: EMS states: [facility] called EMS for someone being paranoid, [facility] was on em scene for 30 minutes, pt was rambling inaudible words, pt has hx of bipolar and schizophrenia, family called EMS. Coronavirus screen: Client denies travel out of the [place] in the last 14 days. Ebola Screen: Patient negative for fever greater than or equal to 101.5 degrees Fahrenheit, and additional compatible Ebola Virus Disease symptoms Patient denies exposure to infectious person. Patient denies travel to an Ebola-affected area in the 21 days before illness onset. No symptoms or risks identified at this time. Initial Sepsis Screen: Does the patient meet any 2 criteria? Altered Mental Status. HR > 90 bpm. Yes Does the patient have a suspected source of infection? No. Patient's initial sepsis screen is negative. Risk Assessment: Do you want to hurt yourself or someone else? Patient reports no desire to harm self or others. Onset of symptoms was March 10, 2020. 16:44 Method Of Arrival: EMS: [facility] em 16:44 Acuity: [place] 2 em Historical: - Allergies: 16:52 [place] Carbonate; em 16:52 thorazine; em - Home Meds: 16:52 atorvastatin Oral [Active]; benztropine Oral [Active]; Carbamazepine Oral [Active]; em Docusate Sodium Oral [Active]; Haloperidol 10 mg Oral 1 tab nightly [Active]; hydroxyzine HCl 25 mg Oral tab 1 tab twice a day [Active]; Lorazepam Oral [Active]; losartan 50 mg Oral tab 1 tab once daily [Active]; Metoprolol Tartrate Oral [Active]; tamsulosin 0.4 mg Oral cp24 1 cap once daily [Active]; Thioridazine Oral [Active]; - PMHx: 16:52 Anxiety; Bipolar disorder; cyst in right kidney; Hyperlipidemia; Hypertension; em - PSHx: 16:52 R hip; em - Immunization history:: Adult Immunizations unknown. - Social history:: Smoking status: unknown. Screenin:49 Abuse screen: no apparent signs noted. Nutritional screening: No deficits noted. em Tuberculosis screening: No symptoms or risk factors identified. Fall Risk None identified. Assessment: 16:44 General: Appears distressed, Behavior is anxious, restless. Pain: Unable to use pain em scale. Patient appears to be crying. Neuro: Level of Consciousness is awake, confused. Cardiovascular: Capillary refill < 3 seconds Patient's skin is warm and dry. Respiratory: Airway is patent Respiratory effort is even, unlabored, Respiratory pattern is regular. Derm: Skin is intact. 18:24 Reassessment: x-ray at bedside. em 19:00 Reassessment: patient resting in bed, application technician at bedside, not in respiratory distress, fu refusing monitor. 22:12 Reassessment: Patient is alert, oriented x 3, equal unlabored respirations, skin fu warm/dry/pink. resting bed, IVF ongoing, staff in the room. 03/11 00:17 Reassessment: patient resting in bed, not in respiratory distress, staff at bedside. fu 02:09 Reassessment: Nurse to nurse report given to Susan Reyes RN at [facility]. 04:51 Reassessment: Patient refusing vital signs. fu 06:03 Reassessment: Asleep, not in respiratory distress. fu 07:54 Reassessment: Awaiting transfer. Pt noted to yell out, reports "I take Ativan." ERD jl7 notified, see MAR for orders. 12:04 Reassessment: Patient appears in no apparent distress at this time. Patient is alert, vg1 oriented x 3, equal unlabored respirations, skin warm/dry/pink. 12:33 Reassessment: Daughter Lizette [phone]. hb 13:55 Reassessment: Patient appears in no apparent distress at this time. Patient is alert, vg1 oriented x 3, equal unlabored respirations, skin warm/dry/pink. Psych: 03/10 16:44 Subjective: Patient's mood is irritable, Hallucinations are suspected. Objective: em Patient is irritable, suspicious, Speech is normal. Interventions: Removed personal items and placed in bag. Urine collected and sent for urine drug test. Suicide Risk Assessment: Sad Person Scale: Sex of patient: Female: Score 0 points. Age of patient: Score 0 point if patient falls outside of specified age parameters. Safety Checks: Personal items have been removed. Door is closed to patient's room. Pt denies substance abuse. Commitment: Patient will be an involuntary commitment. Vital Signs: 16:44 BP 145 / 86; Pulse 94; Resp 20; Pulse Ox 99% on R/A; em 16:44 Temp 98.7(TE); sv 20:25 Weight 72.57 kg; mw2 03/11 00:00 BP 136 / 56; Pulse 95; Resp 18; Temp 97.6(TE); Pulse Ox 99% on R/A; Pain 0/10; fu ED Course: 03/10 16:43 Patient arrived in ED. em 16:47 Mack Chaudhari PA is PHCP. cp 16:47 Kush Drake MD is Attending Physician. cp 16:50 Triage completed. em 16:52 Arm band placed on. em 17:08 Bjorn Mcguire, RN is Primary Nurse. em 17:35 Initial lab(s) drawn, by ut, sent to lab. Inserted saline lock: 22 gauge in right em antecubital area, using aseptic technique. Blood collected. 17:35 First set of blood cultures drawn by ED staff. jp3 17:45 Second set of blood cultures drawn by me. jp3 17:49 Patient has correct armband on for positive identification. em 18:22 Urine collected: clean catch specimen, clear, gayle colored, Legal drug screen obtained jp3 per protocol. 18:39 XRAY Chest (1 view) In Process Unspecified. EDMS 19:24 Primary Nurse role handed off by Bjorn Mcguire, MINO mw2 19:58 CT Head Brain wo Cont In Process Unspecified. EDMS 20:07 Jon Morris, MINO is Primary Nurse. fu 20:22 initiated a transfer with Maya from [facility] Transfer Center. mw2 20:26 faxed patients information to the [facility] transfer center to [phone]. mw2 20:43 initiated a transfer with Partha from [facility]. mw2 23:41 administrative approval given by Mary Desai/ patient has been accepted to [address]/ Dr. Machuca has accepted the patient in transfer/ report to be called to [phone] and Doc to Doc to be called to [phone]. The healthcare administrator stated " the patient has to have an CONG before coming to the facility because in her chart it states that she is confused.". 23:43 [facility] notified called [facility] to have a Mental [facility]w2 [facility] write an CONG for the patient. 03/11 00:34 [facility] evaluated the patient and stated " there is no reason to write an mw2 CONG on the patient. Try to call back [facility] and let them know that she doesn't need an CONG.". 00:40 Called [facility] spoke to Faustino the healthcare administrator to inform her that the mw2 patient will not have an CONG. She stated "well the patient has to have an CONG in order to be at this facility, so we are going to have to decline the transfer.". 00:42 initiated a transfer with [facility]. mw2 01:20 faxed over patient information to [facility]. mw2 03:21 called [facility] to get an update on the transfer and see if they received mw2 the fax of the patient's information. She stated "we received it , and now we are waiting for MD approval.". 05:04 called [facility] to get an update. She stated "we are still waiting on mw2 the Doctor we will call you back.". 07:24 called Beto from [facility]/ They were unable to reach their doctor construction controller eb last night and have repaged him this morning so we can do a doc to doc. 10:[address] Ibarra the psychiatrist construction controller for [facility] with Dr. Perez for patient eb transfer consultation. 10:39 repaged the [facility] in attempt to get an CONG for patient to be transferred.eb 12:02 Primary Nurse role handed off by Jon Morris, RN vg1 12:02 Ellie Zamora, RN is Primary Nurse. vg1 14:27 No provider procedures requiring assistance completed. IV discontinued, intact, vg1 bleeding controlled, No redness/swelling at site. Pressure dressing applied. Administered Medications: 03/10 17:30 Drug: Geodon 10 mg Route: IM; Site: right deltoid; sv 18:34 Follow up: Response: No adverse reaction; No change in condition sv 17:30 Drug: Ativan 1 mg Route: IM; Site: right deltoid; sv 18:34 Follow up: Response: No adverse reaction; No change in condition sv 18:33 Drug: Diazepam 5 mg Route: IVP; Site: right antecubital; sv 18:54 Drug: HALdol (as decanoate) 5 mg Route: IM; Site: left deltoid; sv 20:16 Drug: Rocephin - (cefTRIAXone) 1 grams Route: IVPB; Infused Over: 30 mins; Site: left fu forearm; 20:44 Follow up: Response: No adverse reaction fu 22:16 Follow up: Response: No adverse reaction fu 21:23 Drug: NS 0.9% 1000 ml Route: IV; Rate: 1000 ml/hr; Site: right forearm; fu 03/11 04:53 Follow up: IV Intake: 1000ml fu 03/10 23:56 Drug: Diazepam 5 mg Route: IVP; Site: right forearm; fu 03/11 00:56 Follow up: Response: Anxiety decreased fu 08:14 Drug: Ativan 2 mg Route: IVP; Site: right antecubital; jl7 08:45 Follow up: Response: No adverse reaction; Marked relief of symptoms jl7 13:55 Drug: Ativan 2 mg Route: IVP; Site: right antecubital; vg1 Intake: 04:53 IV: 1000ml; Total: 1000ml. fu Outcome: 03/10 20:17 ER care complete, transfer ordered by . 03/11 14:27 Transferred by ground EMS Transfer form completed. vg1 Condition: good Instructed on the need for transfer. 14:28 Patient left the ED. vg1 Signatures: Dispatcher [employer] Hemalatha Moreau RN Bjorn Levin RN Mack Villalobos PA PA cp Baxter, Heather RN Carlos Hernandez RN RN jl7 Jon Morris RN MINO Leonidas Jung mw2 Martita Chavez Jacob 3 Ellie Zamora RN RN vg1
[2020-03-10] MEDS ORDERED: CEFTRIAXONE/SWI 1gm 1 GM/10 ML SYR ONE (20:25)
[2020-03-10] MEDS ORDERED: NA CHLORIDE 0.9% 1,000 ML ONE (21:37)
[2020-03-11] MEDS ORDERED: DIAZEPAM 10 MG/2 ML INJ SYRINGE ONE (00:03)
[2020-03-11] MEDS ORDERED: LORazepam 2 MG/ML VIAL ONE ×3 (08:05→14:03)
[2020-03-11 14:41] VITALS: O2SAT 99
[2020-03-11 14:42] VITALS: BP 136/56; TEMP 97.6
== END 2020-03-11 14:28 ==
LOC: ER 16:42
DX: F20.0 Paranoid schizophrenia (principal); N39.0 Urinary tract infection, site not specified; Z20.822 Contact with and (suspected) exposure to COVID-19; I10 Essential (primary) hypertension; E78.5 Hyperlipidemia, unspecified; Z88.8 Allergy status to other drugs, medicaments and biological substances
CPT/HCPCS: 87040 ×2; 87088; 85025; 87086; 80048; 36415; 80320; 82140; 82550; 80156; 80329 ×2; 85610; 80076; 80307 ×8; 83605; 85730; 84484; 84145; 70450; 71045; U0003; J1630; J3360; J3486; J0696; J7030; 81003; 81015; 96372; 99285

== ENCOUNTER 2020-04-02 18:27 | Emergency (ER) | payer OTHER ==
[2020-04-02 19:05] LABS: Absolute Lymphocytes (CBC) 1.8 K/uL (0.7-4.9); Basophils % 0.9 % (0-1.3); Hematocrit 28.9 % (36.0-45.0); Lymphocytes % 33.4 % (15.3-44.8); MPV 7.4 fL (7.6-11.3); RBC Red Blood Cell Count 3.13 M/uL (3.86-4.86)
[2020-04-02 19:10] LABS: Protime INR 0.98
--- NOTE | 2020-04-02 19:20 | RAD REPORT ---
EXAM DESCRIPTION: RAD - Chest Single View - 04/02/2020 7:10 pm CLINICAL HISTORY: ams, shortness of breath, difficulty speaking COMPARISON: Portable March 10 TECHNIQUE: AP portable chest image was obtained 04/02/2020 7:10 pm . FINDINGS: Lungs are underinflated. No peripheral mass or consolidation. No significant failure or vo lume overload. Interstitial pattern is slightly more prominent which could be the affects of shallow inspiration, mild progressive fibrosis or less likely interstitial edema or infiltrate. Heart and vas culature are normal. No measurable pleural effusion and no pneumothorax. No acute bony abnormality se en. No acute aortic findings suspected. IMPRESSION: Low lung volume examination without peripheral mass or consolidation.
--- NOTE | 2020-04-02 19:21 | RAD REPORT ---
EXAM DESCRIPTION: CT - Head Brain Wo Cont - 04/02/2020 7:03 pm CLINICAL HISTORY: ams COMPARISON: Head Brain Wo Cont dated 03/10/2020 TECHNIQUE: Axial 5 mm thick images of the head were obtained without IV contrast. All CT scans are performed using dose optimization technique as appropriate and may include automated exposure control or mA/KV adjustment according to patient size. FINDINGS: No intracranial hemorrhage, mass, edema or shift of mid-line structures. No acute infarcti on changes seen. No cortical edema or sulcal effacement. Atrophy changes are mild. Mild to moderate c hronic ischemic changes are present in the cerebral white matter extending into each basal ganglia. V entricles are in proportion to the volume loss. Arterial calcifications are present. Intracranial fin dings are similar to comparison. Mastoid air cells and visualized portions of the paranasal sinuses are clear. No acute bony findings. IMPRESSION: Negative non-contrast CT head examination for acute finding. Atrophy and chronic ischemic changes match the March 10 study.
[2020-04-02 19:34] LABS: ALT/SGPT 23 U/L (12-78); AST/SGOT 21 U/L (15-37); Albumin 3.5 g/dL (3.4-5.0); Alkaline Phosphatase 215 U/L (45-117); BUN Blood Urea Nitrogen 13 mg/dL (7-18); Bicarbonate 28 mmol/L (21-32); Bilirubin Direct 0.1 mg/dL (0-0.2); Bilirubin Total 0.3 mg/dL (0.2-1.0); Glucose Level 107 mg/dL (74-106); Magnesium 1.9 mg/dL (1.8-2.4); NT PRO-BNP 145 pg/mL (<125); Sodium Level 135 mmol/L (136-145); Troponin (Emerg Dept Use Only) < 0.02 ng/mL (0.0-0.045)
--- NOTE | 2020-04-02 20:47 | EDPHYS ---
Physician Documentation [facility] Name: Loly Hermosillo Age: 64 yrs Sex: Female : 1955 Arrival Date: 04/02/2020 Time: 18:29 Bed 15 Private MD: ED Physician Jose Green HPI: 04/02 18:50 This 64 yrs old Female presents to ER via EMS with complaints of Seizure. [facility] 18:50 The patient presents with a history of multiple seizures, the episode(s) was witnessed, m by EMS personnel. Character of seizure(s): Loss of consciousness: the patient experienced loss of consciousness, Motor activity: generalized, Incontinence: none. Seizure onset: just prior to arrival. Seizure Hx: the patient has no previous seizure history. Associated injury: The patient did not suffer any apparent associated injury. Current symptoms: decreased level of consciousness. The patient has not experienced similar symptoms in the past. Historical: - Allergies: 18:30 [place] Carbonate; ll1 18:30 thorazine; ll1 - PMHx: 18:30 Hyperlipidemia; Hypertension; cyst in right kidney; Bipolar disorder; Anxiety; low ll1 sodium; - PSHx: 18:30 R hip; ll1 - Immunization history:: Adult Immunizations up to date. - Social history:: Smoking status: Patient denies any tobacco usage or history of. ROS: 18:50 Unable to obtain ROS due to altered mental status. [facility] Exam: 18:50 Neck: Trachea midline, Supple Chest/axilla: Normal chest wall appearance and motion. [facility] Cardiovascular: Regular rate and rhythm. No edema appreciated Respiratory: Normal respirations, no respiratory distress appreciated Abdomen/GI: Non distended, soft Skin: General appearance color normal 18:50 Constitutional: The patient appears post ictal 18:50 Head/face: Noted is contusion, of the right eye and left eye. 18:50 Musculoskeletal/extremity: Extremities: Vital Signs: 18:31 BP 120 / 83; Pulse 102; Resp 18; Temp 97.6; Pulse Ox 98% ; Pain 0/10; ll1 19:30 BP 131 / 76; Pulse 95; Resp 18; Pulse Ox 100% on R/A; jb4 MDM: 18:38 Patient medically screened. [facility] 20:43 Data reviewed: vital signs, nurses notes. Counseling: I had a detailed discussion with noemí the patient and/or guardian regarding: the historical points, exam findings, and any diagnostic results supporting the discharge/admit diagnosis, lab results, radiology results, the need for outpatient follow up, to return to the emergency department if symptoms worsen or persist or if there are any questions or concerns that arise at home. ED course: Patient is now a x o x 4. Evaluated by Dr. Caceres. Safe for home. Patient given strict return precautions. Patient understood and agrees with the plan of care. . 04/02 18:39 Order name: Basic Metabolic Panel; Complete Time: 19:40 [facility] 04/02 18:39 Order name: CBC with Diff; Complete Time: 19:14 [facility] 04/02 18:39 Order name: LFT's; Complete Time: 19:40 [facility] 04/02 18:39 Order name: Magnesium; Complete Time: 19:40 [facility] 04/02 18:39 Order name: NT PRO-BNP; Complete Time: 19:40 [facility] 04/02 18:39 Order name: PT-INR; Complete Time: 19:14 [facility] 04/02 18:39 Order name: Troponin (emerg Dept Use Only); Complete Time: 19:40 [facility] 04/02 18:39 Order name: XRAY Chest (1 view); Complete Time: 19:40 [facility] 04/02 18:39 Order name: CT Head Brain wo Cont; Complete Time: 19:40 [facility] 04/02 18:39 Order name: Acetaminophen; Complete Time: 19:40 [facility] 04/02 18:39 Order name: ETOH Level; Complete Time: 19:40 [facility] 04/02 18:39 Order name: Ptt, Activated; Complete Time: 19:14 [facility] 04/02 18:39 Order name: Salicylate; Complete Time: 19:51 m 04/02 18:39 Order name: EKG; Complete Time: 18:40 04/02 18:39 Order name: Cardiac monitoring; Complete Time: 19:40 [facility] 04/02 18:39 Order name: EKG - Nurse/Tech; Complete Time: 19:40 [facility] 04/02 18:39 Order name: IV Saline Lock; Complete Time: 18:42 [facility] 04/02 18:39 Order name: Labs collected and sent; Complete Time: 18:42 [facility] 04/02 18:39 Order name: O2 Per Protocol; Complete Time: 18:42 [facility] 04/02 18:39 Order name: O2 Sat Monitoring; Complete Time: 18:42 [facility] Administered Medications: 21:46 Drug: Ativan 1 mg Route: IVP; Site: right hand; jb4 Disposition: 04/02/20 20:46 Discharged to Home. Impression: Epilepsy and recurrent seizures. - Condition is Stable. - Discharge Instructions: Seizure, Adult. - Medication Reconciliation Form, Thank You Letter, Antibiotic Education, Prescription Opioid Use form. - Follow up: Private Physician; When: 2 - 3 days; Reason: Recheck today's complaints, Continuance of care, Re-evaluation by your physician. Addendum: 04/10/2020 18:56 Co-signature as Attending Physician, Jose Green MD. r n Signatures: Dispatcher [employer] EDMS Angel Milton PA PA jmm Nieto, Roman, MD MD rn Bryson, James, RN RN jb4 Rachel Luz RN RN ll1 Corrections: (The following items were deleted from the chart) 04/02 23:07 20:46 04/02/2020 20:46 Discharged to Home. Impression: Epilepsy and recurrent seizures. jb4 Condition is Stable. Forms are Medication Reconciliation Form, Thank You Letter, Antibiotic Education, Prescription Opioid Use. Follow up: Private Physician; When: 2 - 3 days; Reason: Recheck today's complaints, Continuance of care, Re-evaluation by your physician. [facility]
--- NOTE | 2020-04-02 20:47 | ER ---
Nurse's Notes [facility] Name: Loly Hermosillo Age: 64 yrs Sex: Female : 1955 Arrival Date: 04/02/2020 Time: 18:29 Bed 15 Private MD: Diagnosis: Epilepsy and recurrent seizures Presentation: 04/02 18:30 Coronavirus screen: Client denies travel out of the [place] in the last 14 days. Ebola ll1 Screen: Patient denies travel to an Ebola-affected area in the 21 days before illness onset. Initial Sepsis Screen: Does the patient meet any 2 criteria? No. Patient's initial sepsis screen is negative. Does the patient have a suspected source of infection? No. Patient's initial sepsis screen is negative. Risk Assessment: Do you want to hurt yourself or someone else? Patient reports no desire to harm self or others. Onset of symptoms was April 02, 2020. 18:30 Method Of Arrival: EMS: [facility] 1 18:30 Acuity: SULTANA 2 ll1 18:31 Chief complaint: Patient states: Found on ground in hallway at [facility]. Upon EMS ll1 arrival she was trying to speak, but had slurred incomprehensible speech. Then, proceeded to seize for 20 seconds. Was postictal and snoring after. Speech has slowly gotten better since EMS arrival. EMS: Fingerstick 157, HR 140's. 20 R thumb, NS 200 ml given. Historical: - Allergies: 18:30 [place] Carbonate; ll1 18:30 thorazine; ll1 - PMHx: 18:30 Hyperlipidemia; Hypertension; cyst in right kidney; Bipolar disorder; Anxiety; low ll1 sodium; - PSHx: 18:30 R hip; ll1 - Immunization history:: Adult Immunizations up to date. - Social history:: Smoking status: Patient denies any tobacco usage or history of. Screenin:37 Abuse screen: Denies threats or abuse. Nutritional screening: No deficits noted. ll1 Tuberculosis screening: No symptoms or risk factors identified. Fall Risk Fall in past 12 months (25 points). IV access (20 points). Gait- Impaired (20 pts.). Mental Status- Overestimates/Forgets Limitations (15 pts.). Total Walker Fall Scale indicates High Risk Score (45 or more points). Fall prevention measures have been instituted. Side Rails Up X 2 Frequent Obs/Assessments Occuring As available patient and family educated on Fall Prevention Program and Strategies. Assessment: 18:38 General: Appears distressed, Behavior is cooperative, drowsy. Pain: Denies pain. Neuro: ll1 Level of Consciousness is awake, alert, obeys commands, Oriented to person, place, Speeder Operator are weak bilaterally Full function Weakness Speech is slurred, Facial symmetry appears normal, Denies headache. Neuro: Reports a syncopal episode. Cardiovascular: No deficits noted. 19:05 Reassessment: PT remains confused, A\T\Ox3 to person, place, and what happened. Speech jb4 continues to be slurred. Respirations are even and unlabored with no s/s of pain or distress noted. Neuro: Level of Consciousness is awake, alert, obeys commands, Oriented to person, place, situation, Moves all extremities. Full function Speech is slurred, Facial symmetry appears normal. 20:31 Reassessment: Patient appears in no apparent distress at this time. Patient and/or jb4 family updated on plan of care and expected duration. Pain level reassessed. PT remains Alert and oriented x3. pt is no longer slurring and is now resting comfortably in bed. Vital Signs: 18:31 BP 120 / 83; Pulse 102; Resp 18; Temp 97.6; Pulse Ox 98% ; Pain 0/10; ll1 19:30 BP 131 / 76; Pulse 95; Resp 18; Pulse Ox 100% on R/A; jb4 ED Course: 18:29 Patient arrived in ED. 1 18:30 Arm band placed on Patient placed in an exam room, on a stretcher. 1 18:31 Triage completed. 1 18:34 Angel Milton PA is PHCP. [facility] 18:34 Jose Green MD is Attending Physician. [facility] 18:38 Patient has correct armband on for positive identification. Bed in low position. Call 1 light in reach. Side rails up X2. Pulse ox on. NIBP on. 18:38 Maintain EMS IV. Dressing intact. Good blood return noted. Site clean \T\ dry. Gauge \T\ ll 1 site: 20 R thumb. 18:53 Rachel Luz RN is Primary Nurse. 1 19:03 CT Head Brain wo Cont In Process Unspecified. EDMS 19:08 XRAY Chest (1 view) In Process Unspecified. EDMS Administered Medications: 21:46 Drug: Ativan 1 mg Route: IVP; Site: right hand; jb4 Outcome: 20:46 Discharge ordered by . noemí 23:07 Patient left the ED. jb4 Signatures: Dispatcher [employer] EDMS Angel Milton PA PA jmm Bryson, James RN RN jb4 Rachel Luz RN RN ll1
[2020-04-02] MEDS ORDERED: LORazepam 2 MG/ML VIAL ONE (21:48)
[2020-04-03 01:06] VITALS: BP 120/83; TEMP 97.6; O2SAT 98
--- NOTE | 2020-04-03 18:42 | EKG ---
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
--- OUTSIDE RECORDS SUMMARY | 2020-04-04 02:14 | XMS REPORT | Continuity of Care Document ---
:1955 Author Organization [facility] t Address [address] [place] [address] Care Team Providers Name Role Phone Stacey HERZOG, L Attending Clinician Unavailable LUCÍA Attending Clinician [...] Procedure Date / Time Performed Performing Clinician Sour e Post Op Promis 29 2019-10-19 00:00:00 [facility] Survey Physicians [U] XRAY HIP 2019-10-12 00:00:00 [facility] UNILATERAL MIN 2 VWS Physicians LEFT [id number] Encounters Start End Encounter Admission Attending Care Care Encounter Source Date/Time Date/Time Type Type Clinicians Facility Department ID 2020-02-06 2020-02-06 Transition Gretchen Ibarra [id number] 00:00:00 00:00:00 of Care Gris Gonsalves [id number] Noemy [id number] 2019-11-17 2019-11-17 Appointmen TRES CASTRE[facility] [id number] [facility] 09:45:00 09:45:00 t; JANNIE CASTREJON APRN - [facility] 2019-10-13 2019-10-13 Appointmen [facility] [id number] [facility] 10:00:00 10:00:00 t; JANNIE CASTREJON APRN [facility] Physici [place] - [facility] [address] 2019-09-27 2019-09-27 Appointmen VINICIO JIMENEZ, [facility] [phone] [id number] [facility] 09:00:00 09:00:00 t; Hussain JIMENEZ M.D. [facility] Results Test Description Test Time Test Comments Results Result Sour e Comments [U] XRAY HIP 2019-11-17 [facility] o f UNILATERAL MIN 2 10:36:00 acquired, not [place] [facility] LEFT [id number] reported on Physician s this accession number.
== END 2020-04-02 23:07 | disposition home or self-care (01) ==
LOC: ER 18:27
DX: G40.909 Epilepsy, unspecified, not intractable, without status epilepticus (principal); E78.5 Hyperlipidemia, unspecified; F31.9 Bipolar disorder, unspecified; F41.9 Anxiety disorder, unspecified; I10 Essential (primary) hypertension
CPT/HCPCS: 36415; 70450; 71045; 80048; 80076; 80320; 80329; 83735; 83880; 84484; 85025; 85610; 85730; 93005; 96374; 99284

== ENCOUNTER 2020-08-27 13:12 | Emergency (ER) | payer OTHER ==
--- OUTSIDE RECORDS SUMMARY | 2020-08-27 13:32 | XMS REPORT | Continuity of Care Document ---
:1955 Author Organization [facility] t Address [address] [place] [address] Care Team Providers Name Role Phone SRIKANTH Attending Clinician Unavailable Stacey HERZOG, L Attending Clinician Unavailable LUCÍA Attending Clinician Unavailable BARBARA Attending Clinician Unavailable Payers Payer Name Policy Type Policy Number Effective Date Expiration Date S [facility] COMM[facility] PLAN [id number] 2020 MEDICARE SNP 00:00:00 Problems Condition Condition Condition Status Onset Resolution [...] e Post Op Promis 29 2019-10-19 00:00:00 [facility] Survey Physicians [U] XRAY HIP 2019-10-12 00:00:00 [place] UNILATERAL MIN 2 VWS Physicians LEFT [id number] Encounters Start End Encounter Admission Attending Care Care Encounter Source Date/Time Date/Time Type Type Clinicians Facility Department ID 2020-08-21 [facility] [id number] [place] 12:09:59 [facility] 2020-08-21 Outpatient [facility] [id number] [place] 12:08:46 Health 2020-08-13 Outpatient SRIKANTH, [facility] [id number] [place] 14:01:05 [facility] 2020-02-06 2020-02-06 Transition Gretchen Ibarra [id number] 00:00:00 00:00:00 of Care Gris Turner Gonsalves [id number] [place] [id number] 2019-11-17 2019-11-17 Appointmen LUCÍA [facility] Orthopedics [id number] [facility] 09:45:00 09:45:00 t; JANNIE CASTREJON APRN [facility] Physic ans 2019-10-13 2019-10-13 Appointmen [facility] [id number] Univers 10:00:00 10:00:00 t; JANNIE CASTREJON APRN [facility] Physici [place] [facility] [address] 2019-09-27 2019-09-27 Appointmen VINICIO JIMENEZ, [facility] [id number] [facility] 09:00:00 09:00:00 t; Hussain JIMENEZ M.D. [facility] Results Test Description Test Time Test Comments Results Result Sour e Comments [U] XRAY HIP 2019-11-17 [facility] o f UNILATERAL MIN 2 10:36:00 [facility] [place] [facility] LEFT [id number] reported on Physician s this accession number.
[2020-08-27] MEDS ORDERED: NA CHLORIDE 0.9% 1,000 ML ONE (13:49)
[2020-08-27 14:04] LABS: Absolute Lymphocytes (CBC) 2.3 K/uL (0.7-4.9); Basophils % 0.8 % (0-1.3); Hematocrit 32.5 % (36.0-45.0); Lymphocytes % 36.9 % (15.3-44.8); MPV 8.7 fL (7.6-11.3); RBC Red Blood Cell Count 3.59 M/uL (3.86-4.86)
[2020-08-27 14:09] LABS: Protime INR 0.96
[2020-08-27 14:39] LABS: ALT/SGPT 26 U/L (12-78); AST/SGOT 30 U/L (15-37); Albumin 3.8 g/dL (3.4-5.0); Alkaline Phosphatase 108 U/L (45-117); BUN Blood Urea Nitrogen 22 mg/dL (7-18); Bicarbonate 27 mmol/L (21-32); Bilirubin Direct 0.2 mg/dL (0-0.2); Bilirubin Total 1.3 mg/dL (0.2-1.0); Glucose Level 106 mg/dL (74-106); Potassium 3.6 mmol/L (3.5-5.1); Sodium Level 136 mmol/L (136-145)
[2020-08-27 16:12] LABS: Urine Blood Negative (Negative); Urine Glucose Negative (Negative); Urine Protein Negative (Negative); Urine Specific Gravity 1.015 (1.005-1.030)
[2020-08-27 16:25] LABS: Barbiturates NEGATIVE (NEGATIVE); Benzodiazepines NEGATIVE (NEGATIVE); Cocaine NEGATIVE (NEGATIVE); METHAMPHETAM NEGATIVE (NEGATIVE); Methadone NEGATIVE (NEGATIVE); Opiates NEGATIVE (NEGATIVE); Phencyclidine NEGATIVE (NEGATIVE); THC Cannibis NEGATIVE (NEGATIVE)
--- NOTE | 2020-08-27 16:52 | RAD REPORT ---
EXAM DESCRIPTION: CT - Head Brain Wo Cont - 08/27/2020 4:46 pm CLINICAL HISTORY: CONFUSED Headache, drowsiness COMPARISON: Head Brain Wo Cont dated 04/02/2020; Head Brain Wo Cont dated 03/10/2020 TECHNIQUE: All CT scans are performed using dose optimization technique as appropriate and may inclu de automated exposure control or mA/KV adjustment according to patient size. FINDINGS: No intracranial hemorrhage, hydrocephalus or extra-axial fluid collection.Mild periventric ular and deep white matter chronic microvascular ischemic changes.No areas of brain edema or evidence of midline shift. Mild vertebral atherosclerosis. The paranasal sinuses and mastoids are clear. The calvarium is intact. IMPRESSION: No acute intracranial abnormality.
--- NOTE | 2020-08-27 18:45 | ER ---
Nurse's Notes [facility] Name: Loly Hermosillo Age: 65 yrs Sex: Female : 1955 Arrival Date: 08/27/2020 Time: 13:12 Bed 8 Private MD: Diagnosis: Bipolar disorder, current episode hypomanic Presentation: 08/27 13:28 Chief complaint: EMS states: Neighbor called PD because pt has been walk around kg confused rambling about needing food and medications. Coronavirus screen: Client denies travel out of the [place] in the last 14 days. At this time, unable to obtain information related to travel outside the [place] At this time, the client does not indicate any symptoms associated with coronavirus-19. Ebola Screen: Patient negative for fever greater than or equal to 101.5 degrees Fahrenheit, and additional compatible Ebola Virus Disease symptoms Patient denies exposure to infectious person. Patient denies travel to an Ebola-affected area in the 21 days before illness onset. Initial Sepsis Screen: Does the patient meet any 2 criteria? No. Patient's initial sepsis screen is negative. Does the patient have a suspected source of infection? No. Patient's initial sepsis screen is negative. Risk Assessment: Do you want to hurt yourself or someone else? Patient reports no desire to harm self or others. Onset of symptoms was August 27, 2020. 13:28 Method Of Arrival: EMS: [facility] kg 13:28 Acuity: SULTANA 3 kg Triage Assessment: 13:51 General: Appears unkempt, Behavior is calm, cooperative, appropriate for age, quiet. kg Pain: Denies pain. EENT: No deficits noted. Neuro: Level of Consciousness is awake, alert, obeys commands, confused, Oriented to person, place, Auctioneer Automobile are equal bilaterally Moves all extremities. Gait is shuffling, Speech Repetitive, rambles, difficulty following commands . Cardiovascular: No deficits noted. Respiratory: No deficits noted. GI: No deficits noted. : No deficits noted. Derm: No deficits noted. Musculoskeletal: No deficits noted. Historical: - Allergies: 13:51 [place] Carbonate; kg 13:51 thorazine; kg - PMHx: 13:51 Anxiety; Bipolar disorder; cyst in right kidney; Hyperlipidemia; Hypertension; low kg sodium; - Immunization history:: Adult Immunizations unknown, unknown. - Social history:: Smoking status: unknown. Screenin:54 Abuse screen: Denies threats or abuse. Denies injuries from another. Nutritional kg screening: No deficits noted. Tuberculosis screening: No symptoms or risk factors identified. Fall Risk None identified. No fall in past 12 months (0 pts). No secondary diagnosis (0 pts). IV access (20 points). Ambulatory Aid- None/Bed Rest/Nurse Assist (0 pts). Gait- Impaired (20 pts.). Mental Status- Overestimates/Forgets Limitations (15 pts.). Total Walker Fall Scale indicates Low Risk Score (25-44 pts). Fall prevention measures have been instituted. Side Rails Up X 2 Placed close to Nursing Station Frequent Obs/Assesments occuring As available Patient and Family Educated on Fall Prevention Program and strategies. Assessment: 14:38 Reassessment: Patient appears in no apparent distress at this time. Patient and/or ph family updated on plan of care and expected duration. Pain level reassessed. Pt resting quietly at this time, VSS. 17:16 Reassessment: Tried to call sister to get a ride home. Message left. Will try again. kg 19:21 Reassessment: Patient and/or family updated on plan of care and expected duration. Pain ea level reassessed. Patient is alert, oriented x 3, equal unlabored respirations, skin warm/dry/pink. Discharge instruction given to patient, verbalized the understanding of instruction. Pt left ED via cab. Pt tolerating well. Vital Signs: 13:28 BP 123 / 89; Pulse 89; Resp 21; Temp 98.1(O); Pulse Ox 98% on R/A; Weight 68.04 kg (R); kg Height 5 ft. 4 in. (162.56 cm) (R); Pain 0/10; 14:39 BP 125 / 92; Pulse 77; Resp 18; Pulse Ox 96% on R/A; ph 15:30 BP 141 / 84; Pulse 77; Resp 16; Pulse Ox 97% on R/A; ph 16:28 BP 132 / 86; Pulse 78; Resp 16; Pulse Ox 97% on R/A; ph 17:30 BP 114 / 95; Pulse 74; Resp 18; Pulse Ox 98% on R/A; kg 18:30 BP 114 / 75; Pulse 69; Resp 18; Pulse Ox 98% on R/A; kg 19:00 BP 119 / 73; Pulse 75; Resp 20; Pulse Ox 98% ; kg 13:28 Body Mass Index 25.75 (68.04 kg, 162.56 cm) kg ED Course: 13:12 Patient arrived in ED. iw 13:22 Henri Neal NP is PHCP. pm1 13:22 Mack Gamez MD is Attending Physician. pm1 13:45 Inserted saline lock: 22 gauge in left forearm, using aseptic technique. Blood mt collected. 13:48 Marueen Merrill, RN is Primary Nurse. kg 13:51 Triage completed. kg 13:51 Arm band placed on right wrist. kg 13:54 Patient has correct armband on for positive identification. Fall risk band placed. kg Placed in gown. Bed in low position. Call light in reach. Side rails up X2. 16:45 CT Head Brain wo Cont In Process Unspecified. EDMS 19:21 No provider procedures requiring assistance completed. IV discontinued, intact, ea bleeding controlled, No redness/swelling at site. Pressure dressing applied. Administered Medications: 13:45 Drug: NS 0.9% 1000 ml Route: IV; Rate: 1000 ml; Site: left forearm; kg 14:50 Follow up: Response: No adverse reaction; IV Status: Completed infusion; IV Intake: kg 1000ml Intake: 14:50 IV: 1000ml; Total: 1000ml. kg Outcome: 18:45 Discharge ordered by . pm1 19:22 Discharged to home ambulatory. ea 19:22 Condition: stable 19:22 Discharge instructions given to patient, Instructed on discharge instructions, follow up and referral plans. 19:22 Patient left the ED. ea Signatures: Dispatcher [employer] EDMS Paz Pettit RN RN Raine Wang RN RN Henri Neal NP EXTERNAL GRINDER pm1 Ruby Griffin mt, Elena, RN RN ea Graham, Kristen, RN RN kg
--- NOTE | 2020-08-27 18:45 | EDPHYS ---
Physician Documentation [facility] Name: Loly Hermosillo Age: 65 yrs Sex: Female : 1955 Arrival Date: 08/27/2020 Time: 13:12 Bed 8 Private MD: ED Physician Mack Gamez HPI: 08/27 13:36 This 65 yrs old Female presents to ER via EMS with complaints of confusion. pm1 13:36 The patient presents to the emergency department with confusion and rambling according pm1 to EMS report. Patient denies any complaints and is requesting food and water and the need to go home so she can take her medications. Past psychiatric history: Prior diagnosis: bipolar disorder. Associated signs and symptoms: The patient has no apparent associated signs or symptoms, Pertinent negatives: abdominal pain, chest pain, fever, hallucinations, headache, homicidal ideation, shortness of breath, suicide ideation. It is unknown whether or not the patient has had similar symptoms in the past. It is unknown whether or not the patient has recently seen a physician. Historical: - Allergies: 13:51 [place] Carbonate; kg 13:51 thorazine; kg - PMHx: 13:51 Anxiety; Bipolar disorder; cyst in right kidney; Hyperlipidemia; Hypertension; low kg sodium; - Immunization history:: Adult Immunizations unknown, unknown. - Social history:: Smoking status: unknown. ROS: 13:51 Constitutional: Negative for fever, chills, and weight loss, Cardiovascular: Negative pm1 for chest pain, palpitations, and edema, Respiratory: Negative for shortness of breath, cough, wheezing, and pleuritic chest pain, Abdomen/GI: Negative for abdominal pain, nausea, vomiting, diarrhea, and constipation, Back: Negative for injury and pain, : Negative for injury, bleeding, discharge, and swelling, MS/Extremity: Negative for injury and deformity, Skin: Negative for injury, rash, and discoloration, Neuro: Negative for headache, weakness, numbness, tingling, and seizure. 13:51 All other systems are negative. Exam: 13:51 Constitutional: This is a well developed, well nourished patient who is awake, alert, pm1 and in no acute distress. Head/Face: Normocephalic, atraumatic. 13:51 Back: No spinal tenderness. No costovertebral tenderness. Full range of motion. Skin: Warm, dry with normal turgor. Normal color with no rashes, no lesions, and no evidence of cellulitis. MS/ Extremity: Pulses equal, no cyanosis. Neurovascular intact. Full, normal range of motion. 13:51 Eyes: Exam is negative for acute changes, Periorbital structures: appear normal, Pupils: no acute changes, Extraocular movements: no acute changes, Conjunctiva: no acute changes, no injection. 13:51 ENT: Exam is negative for acute changes, Mouth: Lips: normal, Oral mucosa: normal, pink and intact, moist. 13:51 Cardiovascular: Rate: normal, Rhythm: regular, Pulses: no pulse deficits are appreciated. 13:51 Respiratory: Exam negative for acute changes, respiratory distress, shortness of breath. 13:51 Abdomen/GI: Inspection: abdomen appears normal, Palpation: abdomen is soft and non-tender, in all quadrants. 13:51 Neuro: Exam negative for acute changes, Orientation: is normal, Mentation: is normal, Motor: is normal, moves all fours. 13:51 Psych: Behavior/mood is cooperative, Affect is animated, Oriented to person, place, time, Patient has no thoughts/intents to harm self or others. Delusions/hallucinations are not present. Vital Signs: 13:28 BP 123 / 89; Pulse 89; Resp 21; Temp 98.1(O); Pulse Ox 98% on R/A; Weight 68.04 kg (R); kg Height 5 ft. 4 in. (162.56 cm) (R); Pain 0/10; 14:39 BP 125 / 92; Pulse 77; Resp 18; Pulse Ox 96% on R/A; ph 15:30 BP 141 / 84; Pulse 77; Resp 16; Pulse Ox 97% on R/A; ph 16:28 BP 132 / 86; Pulse 78; Resp 16; Pulse Ox 97% on R/A; ph 17:30 BP 114 / 95; Pulse 74; Resp 18; Pulse Ox 98% on R/A; kg 18:30 BP 114 / 75; Pulse 69; Resp 18; Pulse Ox 98% on R/A; kg 19:00 BP 119 / 73; Pulse 75; Resp 20; Pulse Ox 98% ; kg 13:28 Body Mass Index 25.75 (68.04 kg, 162.56 cm) kg MDM: 13:22 Patient medically screened. pm1 16:28 Data reviewed: vital signs. Data interpreted: Pulse oximetry: on room air is 96 %. pm1 Interpretation: normal. 17:59 Counseling: I had a detailed discussion with the patient and/or guardian regarding: the pm1 historical points, exam findings, and any diagnostic results supporting the discharge/admit diagnosis, lab results, radiology results, the need for outpatient follow up, to return to the emergency department if symptoms worsen or persist or if there are any questions or concerns that arise at home. 08/27 13:28 Order name: Acetaminophen; Complete Time: 14:41 pm1 08/27 13:28 Order name: Basic Metabolic Panel; Complete Time: 14:41 pm1 08/27 13:28 Order name: CBC with Diff; Complete Time: 14:21 pm1 08/27 13:28 Order name: ETOH Level; Complete Time: 14:29 pm1 08/27 13:28 Order name: Hepatic Function; Complete Time: 14:41 pm1 08/27 13:28 Order name: PT-INR; Complete Time: 14:21 pm1 08/27 13:28 Order name: Ptt, Activated; Complete Time: 14:21 pm1 08/27 13:28 Order name: Salicylate; Complete Time: 14:29 pm1 08/27 13:28 Order name: Urine Drug Screen; Complete Time: 16:27 pm1 08/27 13:28 Order name: EKG; Complete Time: 13:29 pm1 08/27 13:28 Order name: EKG - Nurse/Tech; Complete Time: 13:52 pm1 08/27 16:12 Order name: Urine Dipstick-Ancillary; Complete Time: 16:27 EDMS 08/27 16:30 Order name: CT Head Brain wo Cont; Complete Time: 17:02 pm1 08/27 13:28 Order name: IV Saline Lock; Complete Time: 13:44 pm1 08/27 13:28 Order name: Labs collected and sent; Complete Time: 13:44 pm1 Administered Medications: 13:45 Drug: NS 0.9% 1000 ml Route: IV; Rate: 1000 ml; Site: left forearm; kg 14:50 Follow up: Response: No adverse reaction; IV Status: Completed infusion; IV Intake: kg 1000ml Disposition: 08/28 18:48 Co-signature as Attending Physician, Mack Gamez MD I agree with the assessment and kayy plan of care. Disposition Summary: 08/27/20 18:45 Discharge Ordered Location: Home pm1 Problem: new pm1 Symptoms: have improved pm1 Condition: Stable pm1 Diagnosis - Bipolar disorder, current episode hypomanic pm1 Followup: pm1 - With: Emergency Department - When: As needed - Reason: Worsening of condition Followup: pm1 - With: Private Physician - When: 2 - 3 days - Reason: Recheck today's complaints, Continuance of care, Re-evaluation by your physician Discharge Instructions: - Discharge Summary Sheet pm1 - Managing Bipolar Disorder pm1 - Hypomania pm1 Forms: - Medication Reconciliation Form pm1 - Thank You Letter pm1 - Antibiotic Education pm1 - Prescription Opioid Use pm1 Signatures: Dispatcher [employer] EDMack Schmitz MD MD cha Marinas, Patrick, NP DIESEL INSPECTOR pm1 Maureen Merrill, RN RN kg
[2020-08-27 19:37] VITALS: TEMP 98.1
[2020-08-27 19:45] VITALS: O2SAT 98
[2020-08-27 19:48] VITALS: BP 119/73
--- NOTE | 2020-08-28 16:12 | EKG ---
Test Date: 2020-08-27 Test Time: 13:49:05 Finance Broker: KOURTNEY MEASUREMENT RESULTS: Intervals: Rate: 83 SD: 142 QRSD: 110 QT: 400 QTc: 470 [place]: P: 48 SD: 142 QRS: -25 T: 114 INTERPRETIVE STATEMENTS: Normal sinus rhythm Left ventricular hypertrophy with repolarization abnormality Inferior infarct, age undetermined Anterolateral infarct, age undetermined Abnormal ECG Compared to ECG 04/02/2020 19:36:46 Left ventricular hypertrophy now present Early repolarization now present Myocardial infarct finding still present Electronically Signed On 08-28-20 16:08:48 CDT by Andrés Rosas
== END 2020-08-27 19:22 | disposition home or self-care (01) ==
LOC: ER 13:12
DX: F31.0 Bipolar disorder, current episode hypomanic (principal); I10 Essential (primary) hypertension; Z91.048 Other nonmedicinal substance allergy status
CPT/HCPCS: 93005; 85025; 80048; 36415; 80320; 80329 ×2; 85610; 80076; 85730; 81003; 80307; 70450; 96360; 99284; J7030

== ENCOUNTER 2021-02-26 08:49 | Emergency (ER) | payer OTHER ==
--- OUTSIDE RECORDS SUMMARY | 2021-02-26 08:53 | XMS REPORT | Continuity of Care Document ---
:1955 Author Organization [facility] t Address [address] [place] [address] Care Team Providers Name Role Phone SRIKANTH Attending Clinician Unavailable DR FAITH Attending Clinician Unavailable DR EUGENE Attending Clinician Unavailable ADRIAN Attending Clinician Unavailable Stacey HERZOG, L Attending Clinician Unavailable Bob PRATT, G Attending Clinician Krysten SINGH Attending Clinician Ana SINGH Attending Clinician LUCÍA Attending Clinician Unavailable BARBARA Attending Clinician Unavailable GRAMM, A Attending Clinician Unavailable Gramm STORAGE CONSULTANT, A Attending Clinician THEODORA MORIN Attending Clinician Unavailable DR FAITH Admitting Clinician Unavailable DR EUGENE Admitting Clinician Unavailable JERAMY Admitting Clinician Unavailable Krysten SINGH Admitting Clinician Payers Payer Name Policy Type Policy Number Effective Date Expiration Date S sean [facility] [id number] 2017 DUAL COMPLETE HMO 00:00:00 [place] [id number] 2018 00:00:00 [facility] [id number] 2008 00:00:00 [employer] [id number] 2020 00:00:00 [employer] [id number] MEDICARE SNP 00:00:00 Advance Directives Directive Decision Effective Termination Comments Source Date Date Healthcare Agents on N/A Univ ersity FileNameRelationshipHealthcare of [place] Agent Medical RelationshipCommunicationLynda Scott Luann GaliciahildHealth Care [phone] (Mobile) Darleen Graham ChimalSiblingFirst Alternate Health Care [phone] (Mobile) Problems Condition Condition Condition Status Onset Resolution Last Treating Co mments Source Name Details Category Date Date Treatment Clinician Date Hyponatrem Hyponatrem Disease Active 2019-02 U nivers ia ia 2-07 ity of 00:00: [address] Obesity Obesity Disease Active 2019-02 Univers (BMI (BMI 2-07 ity of 30-39.9) 30-39.9) 00:00: [address] Pain of Pain of Problem Active Univers left femur left femur it y of [place] [facility] ans Closed Closed Problem Active Univers displaced displaced ity [place] anter[place] anter[place] Physici fracture fracture ans of left of left femur, femur, initial initial encounter encounter Allergies, Adverse Reactions, Alerts Allergy Allergy Status Severity Reaction(s) Onset Inactive Treating Comm ents Source Name Type Date Date Clinician NO KNOWN Drug Active Univers ALLERGIE Class ity of S [facility] Social History Social Habit Start Date Stop Date Quantity Comments Source Exposure to Unable to assess Univers ity of SARS-CoV-2 [facility] [place] [facility] (event) [place] Sex Assigned At Universit y of [facility] Tobacco use and 2020-01-29 2020-01-29 Never used Universit y of exposure 00:00:00 00:00:00 [facility] Alcohol intake 2020-01-29 2020-01-29 Current University 00:00:00 00:00:00 non-drinker of [facility] alcohol [place] (finding) Smoking Status Start Date Stop Date Source Never smoker [facility] Medications Ordered Filled Start Stop Current Ordering Indication Dosage Frequency Signature Comments Components Source Medication Medication Date Date Medication? Clinician (SIG) Name Name LOSARTAN 2019-02 Yes 50mg Take 50 mg Uni vers POTASSIUM 2-12 by mouth ity of (LOSARTAN 13:57: daily. [place] ORAL) [address] [place] [address] ATORVASTATI 2019-02 Yes 20mg Take 20 mg Univers N CALCIUM 2-12 by mouth ity of (ATORVASTAT 13:57: at [place] IN ORAL) 00 bedtime. Medical Branch BENZTROPINE 2019-02 Yes 1mg Take 1 mg U nivers MESYLATE 2-12 by mouth 2 ity o f (BENZTROPIN 13:57: (two) [place] E ORAL) 00 times Medical daily. Branch LOSARTAN 2019-02 Yes 50mg Take 50 mg Uni vers POTASSIUM 2-12 by mouth ity of (LOSARTAN 13:57: daily. [place] ORAL) 00 Medical Branch ATORVASTATI 2019-02 Yes 20mg Take 20 mg Univers N CALCIUM 2-12 by mouth ity of (ATORVASTAT 13:57: at [place] IN ORAL) 00 bedtime. Medical Branch BENZTROPINE 2019-02 Yes 1mg Take 1 mg U nivers MESYLATE 2-12 by mouth 2 ity o f (BENZTROPIN 13:57: (two) [place] E ORAL) 00 times Medical daily. Branch LOSARTAN 2019-02 Yes 50mg Take 50 mg Uni vers POTASSIUM 2-12 by mouth ity of (LOSARTAN 13:57: daily. [place] ORAL) 00 Medical Branch ATORVASTATI 2019-02 Yes 20mg Take 20 mg Univers N CALCIUM 2-12 by mouth ity of (ATORVASTAT 13:57: at [place] IN ORAL) 00 bedtime. Medical Branch BENZTROPINE 2019-02 Yes 1mg Take 1 mg U nivers MESYLATE 2-12 by mouth 2 ity o f (BENZTROPIN 13:57: (two) [place] E ORAL) 00 times Medical daily. Branch LOSARTAN 2019-02 Yes 50mg Take 50 mg Uni vers POTASSIUM 2-12 by mouth ity of (LOSARTAN 13:57: daily. [place] ORAL) 00 Medical Branch ATORVASTATI 2019-02 Yes 20mg Take 20 mg Univers N CALCIUM 2-12 by mouth ity of (ATORVASTAT 13:57: at [place] IN ORAL) 00 bedtime. Medical Branch BENZTROPINE 2019-02 Yes 1mg Take 1 mg U nivers MESYLATE 2-12 by mouth 2 ity o f (BENZTROPIN 13:57: (two) [place] E ORAL) 00 times Medical daily. Branch CHLORHEXIDI 2019-02 2020- No 1{dose} 1 Dose. Univers NE, BULK, 2-10 12-10 Swish and ity of MISC 16:24: 00:00 spit 1 cap [place] 16 :00 full by Medical mouth Branch twice daily haloperidol 2019-02 2020- No 10mg Take 10 mg Univers 10 mg -10 12-10 by mouth ity of tablet 16:24: 00:00 at [place] 16 :00 bedtime. Medical Branch hydrOXYzine 2019-02 2020- No 25mg Take 25 mg Univers 25 mg - 12-10 by mouth 2 ity of tablet 16:24: 00:00 (two) [place] 16 :00 times Medical daily. Branch enoxaparin 2019-02 Yes 40mg 40 mg, Unive rs (LOVENOX) 09 Subcutaneo ity of injection 02:00: us, Q24H, Jamal as 40 mg 00 First dose Medical (after Branch last modificati on) on [facility] 01/31/20 at 2000, Until Discontinu ed, Routine KCL 2019-02 2020- No 40meq 40 mEq, Univers (KLOR-CON 04-02 Oral, ity of M20) tablet 16:15: 16:10 ONCE, 1 [place] 40 mEq 00 :00 dose, [facility] 01/31/20 at Branch 1015, Routine losartan 2019-02 Yes 50mg 50 mg, Univers (COZAAR) -08 Oral, ity of tablet 50 15:00: DAILY, [place] mg 00 First dose Medical on [facility] 01/31/20 at 0900, Until Discontinu ed pantoprazol 2019-02 2020- No 20mg 20 mg, Uni vers e 04-02-08 Oral, ity of (PROTONIX) 15:00: 15:32 DAILY, [place] EC tablet 00 :38 First dose Medi yara 20 mg on [facility] 01/31/20 at 0900, Until Discontinu ed, Routine D5W IV 2019-02 2020- No 1000mL at 125 Univer s infusion 04-02-09 mL/hr, IV ity o f 1,000 mL 07:15: 17:42 Infusion, Jamal as 00 :35 CONTINUOUS Medical , Starting Branch Thu01/31/20 at 0115, Until Thu02/01/20 at 1142, Routine acetaminoph 2019-02 Yes 650mg 650 mg, Un larry en 2-08 Oral, ity of (TYLENOL) 07:05: Q6HPRN, [place] tablet 650 08 Starting Medic al mg [facility] 01/31/20 at 0105, Until Discontinu ed, Routine, Pain (scale 1-3) D5W IV 2019-02 2020- No 1000mL at 75 Univers infusion 04-02 12-08 mL/hr, IV ity o f 1,000 mL 04:30: 07:06 Infusion, Jamal as 00 :06 CONTINUOUS Medical , Starting Branch [facility] 01/30/20 at 2230, Until [facility] 01/31/20 at 0106, Routine atorvastati 2019-02 Yes 20mg 20 mg, Univ ers n (LIPITOR) 2-08 Oral, QHS, it y of tablet 20 03:00: [place] dose [place] mg 00 on [facility] 01/30/20 at Branch 2100, Until Discontinu ed D5W IV 2019-02 2020- No 1000mL at 50 Univers infusion 04-02 12-08 mL/hr, IV ity o f 1,000 mL 02:00: 04:29 Infusion, Jamal as 00 :08 CONTINUOUS Medical , Starting Branch [facility] 01/30/20 at 2000, Until [facility] 01/30/20 at 2229, Routine docusate 2019-02 Yes 100mg 100 mg, Unive rs (COLACE) 2-07 Oral, BID, ity o f capsule 100 14:00: First dose [place] mg 00 on [facility] 01/30/20 at Branch 0800, Until Discontinu ed, Routine NaCl 0.9% 2019-02 2020- No 1000mL at 30 Univ ers (NS) IV 04-01 12-07 mL/hr, IV ity of infusion 14:00: 14:18 Infusion, Jamal as 1,000 mL 00 :00 ONCE, 1 Medical dose, [facility] 01/30/20 at 0800, Routine heparin 2019-02 2020- No 5000U 5,000 Univers (porcine) 2 12-08 Units, ity of injection 12:00: 15:25 Subcutaneo [place] 5,000 Units 00 :27 us, Q8H, Medi yara First dose Branch on [facility] 01/30/20 at 0600, Until Discontinu ed, Routine ondansetron 2019-02 Yes 4mg 4 mg, Slow Univers (ZOFRAN 2-07 IV Push, ity of (PF)) 10:52: Q6HPRN, [place] injection 4 53 Starting Medi yara mg Mon Branch 01/30/20 at 0452, Until Discontinu ed, NEEMA, Nausea and Vomiting (N/V) KCL 10 2019-02- No 10meq 10 mEq, IV Uni vers mEq/50 mL 04-01 Piggyback, ity of Piggyback 09:30: 08:51 ONCE, 1 [place] 10 mEq 00 :00 dose, Mon Medical 01/30/20 at Branch 0330, 50 mL magnesium 2019-02- No 2g 2 g, IV Univ ers sulfate in 04-01 Piggyback, it y of water 2 09:30: 08:51 ONCE, 1 [place] gram/50 mL 00 :00 dose, Mon Medi yara (4 %) 01/30/20 at [place] infusion 2 0330, g Routine NaCl 0.9% 2019-02- No 1000mL at 30 Univ ers (NS) IV 04-01 mL/hr, IV ity of infusion 08:15: 07:25 Infusion, Jamal as 1,000 mL 00 :00 ONCE, 1 Medical dose, [facility] Branch 01/30/20 at 0215, Routine pantoprazol 2019-02 2020- No 40mg 40 mg, IV Univers e 04-01 Piggyback, ity of (PROTONIX) 06:30: 15:46 Q24H, 3 Jamal as 40 mg in 00 :33 doses, Medical NaCl 0.9% First dose Bran ch (NS) 100 mL on Thu MINI-BAG 01/30/20 at 0030, Last dose on Thu02/01/20 at 0030, 100 mL ipratropium 2019-02 Yes 3mL 3 mL, Unive rs -albuteroL 04-01 Inhalation ity of (DUONEB) 06:24: , Q6HPRN, [place] 0.5 mg-3 27 Starting Medical mg(2.5 mg [facility] base)/3 mL 01/30/20 at nebulizer 0024, solution 3 Until mL Discontinu ed, Routine, Wheezing glucagon 2019-02 Yes 1mg 1 mg, Univers (GLUCAGEN 04-01 Intramuscu ity of DIAGNOSTIC 06:23: lar, PRN, [place] KIT) 57 Starting Medical injection 1 Mon Branch mg 01/30/20 at 0023, Until Discontinu ed, NEEMA, Blood Glucose < or = 70 mg/dL and patient is unable to swallow or has mental changes. dextrose 50 2019-02 Yes 25mL 25 mL, Univ ers % in water 2 Slow IV ity of (D50W) 06:23: Push, PRN, [place] injection 57 Starting Medica l 25 mL Mon [place] 01/30/20 at 0023, Until Discontinu ed, NEEMA, Blood Glucose < or = 70 mg/dL and patient is unable to swallow or has mental status changes. NaCl 0.9% 2019-02- No 1000mL at 250 Uni vers (NS) IV 04-01 mL/hr, ity of infusion 04:57: 06:33 Intravenou [place] 1,000 mL 25 :08 s, Medical CONTINUOUS [place] , Starting [place] 01/29/20 at 2300, Until 01/30/20 at 0033, NEEMA ondansetron 2019-02- No 4mg 4 mg, Slow Univers (ZOFRAN 04-01 IV Push, ity of (PF)) 04:53: 04:56 ONCE, 1 [place] injection 4 00 :00 dose, [place] Med ical mg 01/29/20 at Branch 2300, NEEMA naloxone 2019-02- No 1mg 1 mg, Slow Un larry (NARCAN) 04-01 IV Push, ity of injection 1 02:15: 02:13 ONCE, 1 [place] mg 00 :00 dose, [facility] 01/29/20 at Branch 2015, NEEMA NaCl 0.9% 2019-02- No 1000mL at 999 Uni vers (NS) bolus 04-01 mL/hr, ity of infusion 01:15: 04:39 1,000 mL, Jamal as 1,000 mL 00 :00 IV Medical Infusion, [place] ONCE, 1 dose, [place] 01/29/20 at 1915, NEEMA sulfamethox Yes [id number] 1{tbl} Take [address] [facility] azole-trime 6-21 tablet by ity of thoprim 00:00: mouth 2 [place] (BACTRIM 00 (two) Medical DS) 800-160 times Branch mg per daily. tablet sulfamethox 2020- No [id number] 1{tbl} Take 1 Univers azole-trime 6-21 12-10 tablet by it y of oprim 00:00: 00:00 mouth 2 [place] (BACTRIM 00 :00 (two) Medical DS) 800-160 times Branch mg per daily. tablet BENZTROPINE Yes 1mg Take 1 mg U nivers MESYLATE 6-14 by mouth 2 ity o f (BENZTROPIN 14:57: (two) [place] E ORAL) 24 times Medical daily. Branch hydrOXYzine Yes 25mg Take 25 mg Univers 25 mg 6-14 by mouth 2 ity of tablet 14:54: (two) [place] 28 times Medical daily. Branch haloperidol Yes 10mg Take 10 mg Univers 10 mg 6-14 by mouth ity of tablet 14:53: at [place] 38 bedtime. Medical Branch ATORVASTATI Yes 20mg Take 20 mg Univers N CALCIUM 6-14 by mouth ity of (ATORVASTAT 14:53: at [place] IN ORAL) 19 bedtime. Medical Branch LOSARTAN Yes 50mg Take 50 mg Uni vers POTASSIUM 6-14 by mouth ity of (LOSARTAN 14:52: daily. [place] ORAL) 52 Medical Branch CHLORHEXIDI Yes 1{dose} 1 Dose. Univers NE, BULK, 6-14 Swish and ity o f MIS 14:51: spit 1 cap [place] 23 full by Medical mouth Branch twice daily Vital Signs Vital Name Observation Time Observation Value Comments Source Systolic blood 2020-02-04 09:32:00 112 mm[Hg] Univer sity of pressure [facility] Diastolic blood 2020-02-04 09:32:00 69 mm[Hg] Unive rsity of pressure [facility] Heart rate 2020-02-04 09:32:00 75 /min [facility] Body temperature 2020-02-04 09:32:[address] [facility] [place] [facility] Respiratory rate 2020-02-04 09:32:00 17 /min [facility] Oxygen saturation in 2020-02-04 09:32:00 93 /min [facility] Arterial blood by [facility] Pulse oximetry Branch Body height 2020-01-30 06:30:00 167.6 cm [facility] Body weight 2020-01-30 00:58:00 102.059 kg [facility] BMI 2020-01-30 00:58:00 36.32 kg/m2 [facility] Procedures Procedure Date / Time Performing Clinician Source Performed BASIC METABOLIC PANEL 2020-02-03 07:48:00 Heath Stephenson [facility] (NA, K, CL, CO2, GLUCOSE, Medica l Branch BUN, CREATININE, CA) BASIC METABOLIC PANEL 2020-02-02 09:37:00 FroilanHeath hunt [facility] (NA, K, CL, CO2, GLUCOSE, Medica l Branch BUN, CREATININE, CA) BASIC METABOLIC PANEL 2020-02-01 11:31:00 Adrian [facility] (NA, K, CL, CO2, GLUCOSE, Medica l Branch BUN, CREATININE, CA) CBC WITH DIFF 2020-02-01 11:31:00 Adrian [facility] BASIC METABOLIC PANEL 2020-01-31 23:48:00 Abu Estephania Nguyen [facility] (NA, K, CL, CO2, GLUCOSE, Medica l Branch BUN, CREATININE, CA) MAGNESIUM 2020-01-31 10:04:00 Abu [facility] BASIC METABOLIC PANEL 2020-01-31 10:04:00 Abu Estephania Nguyen [facility] (NA, K, CL, CO2, GLUCOSE, Medica l Branch BUN, CREATININE, CA) CBC WITH DIFF 2020-01-31 10:04:00 Adrian [facility] BASIC METABOLIC PANEL 2020-01-31 06:38:00 Abu Estephania Nguyen [facility] (NA, K, CL, CO2, GLUCOSE, Medica l Branch BUN, CREATININE, CA) BASIC METABOLIC PANEL 2020-01-31 03:51:00 Abu Estephania Nguyen [facility] (NA, K, CL, CO2, GLUCOSE, Medica l Branch BUN, CREATININE, CA) BASIC METABOLIC PANEL 2020-01-30 23:01:00 Krysten [facility] (NA, K, CL, CO2, GLUCOSE, Medica l Branch BUN, CREATININE, CA) BASIC METABOLIC PANEL 2020-01-30 18:25:00 [facility] (NA, K, CL, CO2, GLUCOSE, Medica l Branch BUN, CREATININE, CA) SODIUM, URINE RANDOM 2020-01-30 18:25:00 Heath Stephenson [facility] BASIC METABOLIC PANEL 2020-01-30 15:10:00 [facility] (NA, K, CL, CO2, GLUCOSE, Medica l Branch BUN, CREATININE, CA) BASIC METABOLIC PANEL 2020-01-30 11:15:00 [facility] (NA, K, CL, CO2, GLUCOSE, Medica l Branch BUN, CREATININE, CA) EXTRA TUBE LAV 2020-01-30 11:15:00 Faustino Perez [facility] [place] XR KUB 2020-01-30 07:29:55 [facility] XR CHEST 1 VW 2020-01-30 06:45:01 [facility] ACUTE CARE ARTERIAL BLOOD 2020-01-30 06:42:00 [facility] GAS [facility] PHOSPHORUS 2020-01-30 06:41:00 [facility] MAGNESIUM 2020-01-30 06:41:00 [facility] HEPATIC FUNCTION PANEL 2020-01-30 06:41:00 [facility] ([id number]) (ALB,T.PRO,[facility] T,BU/BC,ALT,AST,ALK PHOS) BASIC METABOLIC PANEL 2020-01-30 06:41:00 [facility] (NA, K, CL, CO2, GLUCOSE, Medica l Branch BUN, CREATININE, CA) CBC WITH DIFF 2020-01-30 06:41:00 [facility] PROTHROMBIN TIME / INR 2020-01-30 06:41:00 [facility] ACTIVATED PARTIAL 2020-01-30 06:41:00 Krysten, [facility] HOSPITAL ADMISSION MISC - 2020-01-30 06:01:00 Doctor Unassigned, [facility] MEDICARE PATIENTS RIGHTS [place] [facility] IMPORTANT MESSAGE CARBAMZEPINE, FREE AND 2020-01-30 03:06:00 Lynette Rojas [facility] TOTAL [facility] POCT GLUCOSE(AGE >30DAYS) 2020-01-30 02:32:00 [facility] OSMOLAL[facility] URINE 2020-01-30 02:23:00 Lynette Rojas [facility] [place] OSMOLALITY SERUM 2020-01-30 02:21:00 Lynette Rojas [facility] [place] BLOOD CULTURE SCREEN 2020-01-30 02:15:00 Lynette Rojas [facility] POCT GLUCOSE (AUTOMATED) 2020-01-30 02:12:00 Lynette Rojas [facility] AC ABG + LACTIC ACID 2020-01-30 02:03:00 Lynette Rojas [facility] BLOOD CULTURE SCREEN 2020-01-30 01:45:00 Lynette Rojas [facility] CT CERVICAL SPINE WO 2020-01-30 01:43:19 Lynette Rojas [facility] CONTRAST [facility] CT HEAD WO CONTRAST 2020-01-30 01:42:18 Lynette Rojas [facility] URINE CULTURE 2020-01-30 01:29:00 Lynette Rojas [facility] [place] ADC / LCC - DRUG SCREEN 2020-01-30 01:29:00 Lynette Rojas [facility] TRIAGE [facility] Branch COVID-19 (ID NOW RAPID 2020-01-30 01:29:00 Lynette Rojas [facility] TESTING) Medical Branch LAB ONLY COVID 2020-01-30 01:29:00 Lynette Rojas [facility] INTERPRETATION [facility] PHOSPHORUS 2020-01-30 01:28:00 Lynette Rojas [facility] [place] LIPASE 2020-01-30 01:28:00 Lynette Rojas [facility] [place] MAGNESIUM 2020-01-30 01:28:00 Lynette Rojas [facility] [place] TROPONIN I 2020-01-30 01:28:00 Lynette Rojas [facility] [place] HEPATIC FUNCTION PANEL 2020-01-30 01:28:00 Lynette Rojas [facility] ([id number]) (ALB,T.PRO,BILI Medical Branch T,BU/BC,ALT,AST,ALK PHOS) BASIC METABOLIC PANEL 2020-01-30 01:28:00 Lynette Rojas [facility] (NA, K, CL, CO2, GLUCOSE, Medica l Branch BUN, CREATININE, CA) ETHANOL 2020-01-30 01:28:00 Lynette Rojas [facility] [place] CBC WITH DIFF 2020-01-30 01:28:00 Lynette Rojas [facility] [place] PROTHROMBIN TIME / INR 2020-01-30 01:28:00 Lynette Rojas [facility] ACTIVATED PARTIAL 2020-01-30 01:28:00 Lynette Rojas [facility] THRMPLAS JANIYA [facility] HB ECG ROUTINE & RHYTHM 2020-01-30 01:12:03 Lynette Rojas [facility] [place] [facility] CRITICAL CARE 2020-01-30 00:45:00 Lynette Rojas [facility] [place] EMERGENCY SERVICES 2020-01-29 06:01:00 Doctor Unassigned, [facility] AGREEMENTS AND [facility] [place] [facility] AUTHORIZATIONS Post Op Promis 29 Survey 2019-10-19 00:00:00 [facility] [U] XRAY HIP UNILATERAL 2019-10-12 00:00:00 [facility] MIN 2 VWS LEFT [id number] Physicians Encounters Start End Encounter Admission Attending Care Care Encounter Source Date/Time Date/Time Type Type Clinicians Facility Department ID 2020-12-22 Emergency [facility] [id number] [facility] 09:30:08 [facility] [place] [facility] 2020-08-21 Outpatient SRIKANTH, [facility] [id number] [place] 12:09:59 [facility] 2020-08-21 Outpatient [facility] [id number] [place] 12:08:46 Health 2020-08-13 Outpatient SRIKANTH, [facility] [id number] [place] 14:01:05 [facility] 2020-10-27 2020-10-27 Outpatient ERICH HORVATH [facility] [id number] [place] 09:03:00 11:15:00 Medica l [place] 2020-09-04 2020-10-05 Inpatient C EUGENE [facility] [id number] [facility] 17:00:00 15:20:00 MASHA Medica l [place] 2020-08-30 2020-09-04 Inpatient ADRIAN, [facility] [id number] [place] 00:00:00 00:00:00 [address] 2020-02-06 2020-02-06 Transition Gretchen Ibarra [id number] Univers 00:00:00 00:00:00 of Care Gris L Gonsalves [id number] i ty of [place] [id number] [place] [id number] [facility] 403 Branch 2020-02-06 2020-02-06 Transition Gretchen Ibarra [id number] 00:00:00 00:00:00 of Care Gris L Gonsalves [id number] [place] [id number] [facility] 2020-01-29 2020-02-04 [facility] Lynette Rojas [facility] [id number] Univers 18:50:00 07:00:00 Encounter [facility] [id number] ity of Faustino Perez [id number] [facility] [id number] [facility] 110 Branch (CLC) 2019-11-17 2019-11-17 TRES [facility] [id number] Univers 09:45:00 09:45:00 t; JANNIE CASTREJON [facility]N [facility] 2019-10-13 2019-10-13 TRES [facility] [id number] Univers 10:00:00 10:00:00 t; JANNIE CASTREJON APRN at [facility], Sports [facility] Medicine Physici [facility] [address] 2019-09-27 2019-09-27 VINICIO [place] [facility] [id number] Univers 09:00:00 09:00:00 t; Hussain JIMENEZ ity of Hussain MOONEY [place] [facility] ans 2019-05-31 2019-05-31 Outpatient Yeimi MORRELL [facility] [id number] Univers 10:00:00 10:00:00 CORI jaime [facility] 2019-05-13 2019-05-13 Daniel Morrell [facility] [id number] Univers 00:00:00 00:00:00 Cori Germainton [id number] [facility] [id number] Dana Luciaessio [id number] Ar [address] 2018-07-08 2018-07-08 Outpatient [facility] [id number] Univers 00:00:00 00:00:00 DUYEN [id number] [facility] [place] [facility] 2018-06-10 2018-06-10 [facility] [id number] Univers 00:00:00 00:00:00 DUYEN [facility] [place] [facility] 2018-05-25 2018-05-25 Outpatient [facility] [id number] Univers 09:15:00 09:25:28 [facility] Results Test Description Test Time Test Comments Results Result Comments Source SARS-CoV (RAPID ANTIGEN) 2020-10-05 15:16:00 Test Item Value Reference Range Interpretation Comme nts SARS-CoV (ANTIGEN) (test code = NEGATIVE NEGATIVE COVAG) COVID AG (test code = COVAGC) This test has been marketed under the FDA Emergency Use Authorization (EUA) to meet challenges of the COVID-19 pandemic. The validation standards normally enforced by the FDA and the [employer] of the [place] [employer] (CAP) are more stringent than those required for this test. Therefore, the result should be interpreted with caution and close attention to other clinical and epidemiological data URINE [id number] 11:19:00 Test Item Value Reference Range Interpretation Comments Culture Observations THREE OR MORE SPECIES (test code = COB1) OF BACTERIA ISOLATED. PROBABLE CONTAMINATION. Culture Observations IDENTIFICATION AND (test code = COB17) SUSCEPTIBILITY NOT INDICATED. RECOLLECTION RECOMMENDED VALPROIC ACID (DEPAKENE)2020-10-05 08:20:00 Test Item Value Reference Range Interpretation Comments VALP ACID (test code = 95A) 64.8 ug/mL 50.0-100.0 VALPROIC ACID (DEPAKENE)2020-09-30 06:47:00 Test Item Value Reference Range Interpretation Comments VALP ACID (test code = 95A) 79.8 ug/mL 50.0-100.0 MRI BRAIN W/O [id number] 14:47:02 [facility] CENTERName: NATALI PAZ : 1955 Sex: FMRI brain without contrastLocation code: [id number] history: Feeling agitatedComparison: CT brain dated 09/24/2020Technique: Multiplanar multisequence MR imaging of the brain was performed without contrast. Findings: There is no area of restricted diffusion to suggest acute or recent infarct. There is no acute intracranial hemorrhage or extra-axial collection. There is moderate generalized volume loss.Moderate increased T2/FLAIR signal within the periventricular white matter is noted compatible with chronic small vessel disease. There is no space-occupying mass, or lesion. There is no hydrocephalus,intracranial edema, or midline shift. The posterior fossa and internal auditory canals are unremarkable. Chronic appearing mucosal thickening and fluid seen within the lateral mastoid air cells on the l eft.Impression: Moderate deep white matter chronic small vessel disease with otherwise no acute intracranial abnormality. Mucosal thickening and fluid within the lateral mastoid air cells on the left of mild degree.Electronically signed by: Morgan Browning MD 09/26/2020 2:47 PM CDT ANGIO HEAD W W/O [id number] 14:14:43 [facility] 1955 Sex: FEXAMINATION:CT ANGIO HEAD W W/O CONTRASTCLINICAL INDICATION:Female, 65 years old with Feeling agitatedTECHNIQUE: Axial CT images were obtained from the skull base to the vertex before and after intravenous contrast utilizing CTA protocol. Maximum intensity projection images were created from the dataset.One or more of the following dose reduction techniques were used: Automated exposure control, adj ustment of the mA and/or kV according to patient size, and/or iterative reconstruction. COMPARISON: NoneFINDINGS:ICA: The petrous, cavernous, and supraclinoid segments of the bilateral internal carotidarteries contain mild atherosclerotic plaque without significant stenosis.. The ophthalmic artery migue gins are visualized and normal. The posterior communicating arteries are patent.GIOVANA: Anterior cerebral arteries are normal bilaterally. The anterior communicating artery is patent.MCA: Middle cerebral arteries are normal bilaterally.INTERACTIVE MULTIMEDIA DESIGNER: Both posterior cerebral arteries are normal.Vertebrobasilar: Th e vertebral arteries are patent and codominant. The basilar artery and origins of the bilateral posterior inferior cerebellar arteries, anterior inferior cerebellar arteries, and superior cerebellar arteries are normal.Maximum intensity projection images confirm these findings.IMPRESSION:Normal head C TA.Electronically signed by: Matthew Perez MD 09/26/2020 2:14 PM CDT NECK/CAROTID [id number] 14:12:20 [facility] : 1955 Sex: FEXAMINATION:CTA NECK/CAROTID W/WOCLINICAL INDICATION:Female, 65 years old with Feeling agitatedTECHNIQUE: Axial CT images were obtained of the neck before and after intravenous contrast. Coronal and sagittal reformatted images were created from the data set. Maximum intensity projection reformatted images were obtained for the purpose of a CT angiogram.One or more of the following dose reduction tech niques were used: Automated exposure control, adjustment of the mA and/or kV according to patient size, and/or iterative reconstruction. COMPARISON: NoneFINDINGS:Vascular: There is no significant atherosclerotic plaque. The bilateral carotid and vertebral arteries are widely patent.Aerodigestive tract: The aerodigestive structures are within normal limits. Specifically, the nasal cavity, nasopharynx, oral cavity, oropharynx, hypopharynx, larynx, and visualized trachea and esophagus demonstrate no masses.Lymph Nodes: No pathologically enlarged, necrotic, or otherwise abnormal lymph nodes.Salivary Gl ands: The parotid and submandibular glands appear within normal limits. Thyroid: The thyroid gland is normal in size without focal abnormality.Brain: Evaluation of the visualized portions of the brainparenchyma and orbits demonstrates no abnormality. Sinuses: The visualized paranasal sinuses are pre dominantly clear. The tympanomastoid cavities are unopacified. Lungs: Limited evaluation of the lung apices demonstrates no abnormality. Bones: The visualized osseous structures are within normal limits.IMPRESSION:Normal neck CTA.Electronically signed by: Matthew Perez MD 09/26/2020 2:12 PM CDT Wor kstation: [id number] HEAD W/O [id number] 13:45:23 [facility] : 1955 Sex: FLocation code: [id number]: Feeling agitated, transient alteration of awareness.COMMENT:Axial imagingof the patient's brain was obtained without IV contrast. Soft tissue and bone window images were provided. No priorsDose lowering technique with automatic exposure control utilized. There is no evidence for acute mass effect, midline shift, hemorrhage, or herniation. The ventricles, sulci, and cisterns within normal limits. No intra or extra-axial fluid collections. Mild periventricular and deep white matter changes noted.The bone-windowing examination demonstrates no focal bony abnormalities. No abnormality within the sinuses.IMPRESSION: 1. No acute intracranial findings.2. Sequelae of mild microvascular ischemic diseaseElectronically signed by: Romeo Tate MD 09/24/2020 1:45 PM CDT [id number] METABOLIC [id number] 06:39:00 Test Item Value Reference Range Interpretation Comments GLUCOSE (test code 86 mg/dL 75-100 = 06D) SODIUM (test code 141 mmol/L 136-145 = 01A) POTASSIUM (test 4.6 mmol/L 3.6-5.1 code = 01B) CHLORIDE (test 112 mmol/L 98-107 H code = 04A) CO2 (test code = 23 mmol/L 22-32 02A) ANION GAP (test 10.6 mmol/L code = ANG) BUN (test code = 22 mg/dL 7-18 H 05D) CREATININE (test 0.7 mg/dL 0.4-1.1 code = 03E) GFR (test code = 92 See_Comment [Automated GFR) mL/min/1.73m\\S\\2 message] e system which generated this result transmit celeste reference range : >=90. The reference range was not used to interpret this result as normal/abnormal . GFR 107 See_Comment [Automated IVORIAN (test mL/min/1.73m\\S\\2 message] The code = GFRAA) system which generated this result transmit celeste reference range : >=90. The reference range was not used to interpret this result as normal/abnormal . EGFR (test code = eGFR BY EGFR) CKD-EPI CALCULATION IS NOT RECOMMENDED FOR PATIENTS UNDER 18 YEARS OF AGE. BUN/CREA (test 33 12-20 H code = BCR) CALCIUM (test code 9.1 mg/dL 8.3-9.5 = 09D) URINALYSIS WITH [id number] 03:07:00 Test Item Value Reference Range Interpretation Comments COLOR (test code = COLU) YELLOW YELLOW CLARITY (test code = CLA) CLOUDY CLEAR A GLUCOSE UR (test code = UA GLUCOSE) NEGATIVE NEGATIVE BILI UR (test code = BILE) NEGATIVE NEGATIVE KETONES UR (test code = SANDEEP) 1+ NEGATIVE A SP GRAVITY (test code = SPGR) 1.021 1.005-1.030 PH UR (test code = PH) 7.0 4.5-8.0 PROTEIN UR (test code = PU) 1+ NEGATIVE A UROBIL UR (test code = UROQ) 1.0 EU/dL 0.2-1.0 NITRITE UR (test code = NITRITE) NEGATIVE NEGATIVE BLOOD UR (test code = UA BLOOD) NEGATIVE NEGATIVE LEUK ES UR (test code = LEUK) 2+ NEGATIVE A WBC UR (test code = UWBC) 8 /HPF 0-5 H RBC UR (test code = URBC) 1 /HPF 0-2 EPITH UR (test code = UEPC) FEW /LPF FEW BACTERIA UR (test code = UBACT) MANY /HPF NONE A CAST UR (test code = CAST) /LPF NONE CRYSTAL UR (test code = CRYU) / LPF NONE MUCUS UR (test code = MUC) / HPF NONE AMORPH UR (test code = KERRY) / HPF NONE TRICH UR (test code = UTRICH) /HPF NONE YEAST UR (test code = UY) /HPF NONE SPERM UR (test code = USPERM) /HPF NONE GLUCOMETER GLUCOSE- LAB USE [id number] 15:58:00 Test Item Value Reference Range Interpretation Comments GLUCOMETER (test code = 90 mg/dL 70-100 Mete r ID: GMG) [id number] tor: 15[address] IMMONS VALPROIC ACID (DEPAKENE)2020-09-21 06:38:00 Test Item Value Reference Range Interpretation Comments VALP ACID (test code = 95A) 51.2 ug/mL 50.0-100.0 VALPROIC ACID (DEPAKENE)2020-09-16 06:48:00 Test Item Value Reference Range Interpretation Comments VALP ACID (test code = 95A) 40.1 ug/mL 50.0-100.0 LL CARBAMAZEPHINE (TEGRETOL)2020-09-06 01:22:00 Test Item Value Reference Range Interpretation Comments CARBAMAZPN (test code = 98A) 2.2 ug/mL 4.0-12.0 LL THYROID PANEL/SCREEN (TSH)2020-09-06 01:17:00 Test Item Value Reference Range Interpretation Comments TSH (test code = A57) 3.680 uIU/mL 0.358-3.740 [id number] 01:04:00 Test Item Value Reference Range Interpretation Comments PREALBUMIN (test code = 08E) 17 mg/dL 18-38 L [id number] 00:53:00 Test Item Value Reference Range Interpretation Comments Hb A1C % (test code 5.1 % 3.8-6.4 = HBA) A1C % (test code = HbA1c (% ) A1C) Reference Range Normal <5.7 Prediabetes 5.7-6.4 Diabetic >=6.5 [id number] 00:52:00 Test Item Value Reference Range Interpretation Comments MAGNESIUM (test code = 48A) 2.3 mg/dL 1.8-2.4 BLOOD CULTURE [id number] 02:57:00 Test Item Value Reference Range Interpretation Comments Blood Culture-Aerobic No organisms No growth Previo us (test code = 14867-9) isolated prelim inary verified result was Culture In Progress on 01/30/2020 at 00 01 CSTPrevious preliminary verified result was No growth a t 24 hours on 01/30/2020 at 21 01 CSTPrevious preliminary verified result was No growth a t 48 hours on 01/31/2020 at 21 01 CSTPrevious preliminary verified result was No growth a t 72 hours on 02/01/2020 at 21 01 [employer] Blood No organisms No growth Previous Culture-Anaerobic isolated preliminar y (test code = 91545-6) verifi ed result was Culture In Progress on 01/30/2020 at 00 01 CSTPrevious preliminary verified result was No growth a t 24 hours on 01/30/2020 at 21 01 CSTPrevious preliminary verified result was No growth a t 48 hours on 01/31/2020 at 21 01 CSTPrevious preliminary verified result was No growth a t 72 hours on 02/01/2020 at 21 01 [employer] Lab Interpretation Normal (test code = 65484-7) [facility] [id number] 02:01:00 Test Item Value Reference Range Interpretation Comments Blood Culture-Aerobic No organisms No growth Previo us (test code = 57496-8) isolated prelim inary verified result was Culture In Progress on 01/29/2020 at 23 01 CSTPrevious preliminary verified result was No growth a t 24 hours on 01/30/2020 at 20 01 CSTPrevious preliminary verified result was No growth a t 48 hours on 01/31/2020 at 20 01 CSTPrevious preliminary verified result was No growth a t 72 hours on 02/01/2020 at 20 01 [employer] Blood No organisms No growth Previous Culture-Anaerobic isolated preliminar y (test code = 38873-5) verifi ed result was Culture In Progress on 01/29/2020 at 23 01 CSTPrevious preliminary verified result was No growth a t 24 hours on 01/30/2020 at 20 01 CSTPrevious preliminary verified result was No growth a t 48 hours on 01/31/2020 at 20 01 CSTPrevious preliminary verified result was No growth a t 72 hours on 02/01/2020 at 20 01 [employer] Lab Interpretation Normal (test code = 79794-0) [facility] (NA, K, CL, CO2, GLUCOSE, BUN, CREATININE, CA)2020-02-03 08:08:00 Test Item Value Reference Range Interpretation Comments NA (test code = 132 mmol/L 135-145 L 7859044474) K (test code = 3.7 mmol/L 3.5-5 7008451464) CL (test code = 99 mmol/L 98-108 1821146854) CO2 TOTAL (test code = 26 mmol/L 23-31 6846792369) AGAP (test code = 2-16 0171808283) BUN (test code = 14 mg/dL 7-23 5338598231) GLUCOSE (test code = 103 mg/dL 70-110 1000021945) CREATININE (test code = 0.75 mg/dL 0.5-1.04 0066969941) CALCIUM (test code = 9.0 mg/dL 8.6-10.6 6458949177) eGFR Calculation mL/min/1.73m2 (Non-) (test code = 4907457529) eGFR Calculation mL/min/1.73m2 () (test code = 2896786981) ANGEL (test code = ANGEL) Association of Glomerular Filtration Rate (GFR) and Staging of Kidney Disease* + --+ --+ ------+| GFR (mL/min/1.73 m2) ?| With Kidney Damage ?| ?Without Kidney Damage+ --------+ --------+ +| ?>90 ?| ?Stage one ?| ? Normal ?+ ---+ ---+ -------+| ?60-89 ?| ?Stage two ?| ? Decreased GFR ? + --+ --+ ------+| ?30-59 ?| ?Stage three ?| ? Stage three ? + --+ --+ ------+| ?15-29 ?| ?Stage four ? | ? Stage four ?+ ---+ ---+ -------+| ?<15 (or dialysis) ? ?| ?Stage five ? | ? Stage five ?+ ---+ ---+ -------+ *Each stage assumes the associated GFR level has been in effect for at least three months. ?Stages 1 to 5, with or without kidney disease, indicate chronic kidney disease. Notes: Determination of stages one and two (with eGFR >59mL/min/1.73 m2) requires estimation of kidney damage for at least three months as defined by structural or functional abnormalities of the kidney, manifested by either:Pathological abnormalities or Markers of kidney damage (including abnormalities in the composition of the blood or urine or abnormalities in imaging tests). Lab Interpretation Abnormal (test code = 35715-3) [facility] (NA, K, CL, CO2, GLUCOSE, BUN, CREATININE, CA)2020-02-02 09:55:00 Test Item Value Reference Range Interpretation Comments NA (test code = 133 mmol/L 135-145 L 0903958151) K (test code = 3.8 mmol/L 3.5-5 5487448334) CL (test code = 101 mmol/L 98-108 5247885901) CO2 TOTAL (test code = 25 mmol/L 23-31 1949042001) AGAP (test code = 2-16 3870060855) BUN (test code = 10 mg/dL 7-23 7645293999) GLUCOSE (test code = 100 mg/dL 70-110 6337610581) CREATININE (test code = 0.67 mg/dL 0.5-1.04 8654482825) CALCIUM (test code = 9.0 mg/dL 8.6-10.6 9100421340) eGFR Calculation mL/min/1.73m2 (Non-) (test code = 1975931625) eGFR Calculation mL/min/1.73m2 () (test code = 4358115870) ANGEL (test code = ANGEL) Association of Glomerular Filtration Rate (GFR) and Staging of Kidney Disease* + --+ --+ ------+| GFR (mL/min/1.73 m2) ?| With Kidney Damage ?| ?Without Kidney Damage+ --------+ --------+ +| ?>90 ?| ?Stage one ?| ? Normal ?+ ---+ ---+ -------+| ?60-89 ?| ?Stage two ?| ? Decreased GFR ? + --+ --+ ------+| ?30-59 ?| ?Stage three ?| ? Stage three ? + --+ --+ ------+| ?15-29 ?| ?Stage four ? | ? Stage four ?+ ---+ ---+ -------+| ?<15 (or dialysis) ? ?| ?Stage five ? | ? Stage five ?+ ---+ ---+ -------+ *Each stage assumes the associated GFR level has been in effect for at least three months. ?Stages 1 to 5, with or without kidney disease, indicate chronic kidney disease. Notes: Determination of stages one and two (with eGFR >59mL/min/1.73 m2) requires estimation of kidney damage for at least three months as defined by structural or functional abnormalities of the kidney, manifested by either:Pathological abnormalities or Markers of kidney damage (including abnormalities in the composition of the blood or urine or abnormalities in imaging tests). Lab Interpretation Abnormal (test code = 73951-1) [facility] METABOLIC PANEL (NA, K, CL, CO2, GLUCOSE, BUN, CREATININE, CA)2020-02-01 11:55:00 Test Item Value Reference Range Interpretation Comments NA (test code = 131 mmol/L 135-145 L 0842533141) K (test code = 3.6 mmol/L 3.5-5 5808671903) CL (test code = 99 mmol/L 98-108 6741547400) CO2 TOTAL (test code = 23 mmol/L 23-31 9520364739) AGAP (test code = 2-16 6034094195) BUN (test code = 9 mg/dL 7-23 2846624278) GLUCOSE (test code = 119 mg/dL 70-110 H 6598687433) CREATININE (test code = 0.72 mg/dL 0.5-1.04 1133818333) CALCIUM (test code = 9.0 mg/dL 8.6-10.6 3685898498) eGFR Calculation mL/min/1.73m2 (Non-) (test code = 0144146463) eGFR Calculation mL/min/1.73m2 () (test code = 1757557934) ANGEL (test code = ANGEL) Association of Glomerular Filtration Rate (GFR) and Staging of Kidney Disease* + --+ --+ ------+| GFR (mL/min/1.73 m2) ?| With Kidney Damage ?| ?Without Kidney Damage+ --------+ --------+ +| ?>90 ?| ?Stage one ?| ? Normal ?+ ---+ ---+ -------+| ?60-89 ?| ?Stage two ?| ? Decreased GFR ? + --+ --+ ------+| ?30-59 ?| ?Stage three ?| ? Stage three ? + --+ --+ ------+| ?15-29 ?| ?Stage four ? | ? Stage four ?+ ---+ ---+ -------+| ?<15 (or dialysis) ? ?| ?Stage five ? | ? Stage five ?+ ---+ ---+ -------+ *Each stage assumes the associated GFR level has been in effect for at least three months. ?Stages 1 to 5, with or without kidney disease, indicate chronic kidney disease. Notes: Determination of stages one and two (with eGFR >59mL/min/1.73 m2) requires estimation of kidney damage for at least three months as defined by structural or functional abnormalities of the kidney, manifested by either:Pathological abnormalities or Markers of kidney damage (including abnormalities in the composition of the blood or urine or abnormalities in imaging tests). Lab Interpretation Abnormal (test code = 50383-9) [facility] WITH [id number] 11:44:00 Test Item Value Reference Range Interpretation Comments WBC (test code = See_Comment [Automated 6690-2) message] The sy stem which generated this result transmitted reference range : 4.30 - 11.10 10*3/?L. The reference range was not used to interpret this result as normal/abnormal . RBC (test code = See_Comment L [Automated 789-8) message] The sy stem which generated this result transmitted reference range : 3.93 - 5.25 10*6/?L. The reference range was not used to interpret this result as normal/abnormal . HGB (test code = 11.3 g/dL 11.6-15 L 718-7) HCT (test code = 33.2 % 35.7-45.2 L 4544-3) MCV (test code = 88.3 fL 80.6-95.5 787-2) MCH (test code = 30.1 pg 25.9-32.8 785-6) MCHC (test code = 34.0 g/dL 31.6-35.1 786-4) RDW-SD (test code = 41.9 fL 39-49.9 18163-8) RDW-CV (test code = 13.1 % 12-15.5 788-0) PLT (test code = See_Comment [Automated 777-3) message] The sy stem which generated this result transmitted reference range : 166 - 358 10*3/ ?L. The reference r amie was not used to interpret this result as normal/abnormal . MPV (test code = 9.7 fL 9.5-12.9 81955-3) NRBC/100 WBC (test See_Comment [Automat ed code = 4907440899) message] The system which generated this result transmitted reference range : 0.0 - 10.0 /100 WBCs. The refer ence range was not u sed to interpret th is result as normal/abnormal . NRBC x10^3 (test code <0.01 See_Comment [Auto mated = 6576167898) message] The s ystem which generated this result transmitted reference range : 10*3/?L. The reference range was not used to interpret this result as normal/abnormal . GRAN MAT (NEUT) % 45.0 % (test code = 770-8) IMM GRAN % (test code 0.40 % = 0480746299) LYMPH % (test code = 38.1 % 736-9) MONO % (test code = 12.6 % 5905-5) EOS % (test code = 3.3 % 713-8) BASO % (test code = 0.6 % 706-2) GRAN MAT x10^3(ANC) 2.35 10*3/uL 1.88-7.09 (test code = 0967255791) IMM GRAN x10^3 (test <0.03 0-0.06 code = 1934828510) LYMPH x10^3 (test code 1.99 10*3/uL 1.32-3.29 = 731-0) MONO x10^3 (test code 0.66 10*3/uL 0.33-0.92 = 742-7) EOS x10^3 (test code = 0.17 10*3/uL 0.03-0.39 711-2) BASO x10^3 (test code 0.03 10*3/uL 0.01-0.07 = 704-7) Lab Interpretation Abnormal (test code = 95018-1) [facility] (NA, K, CL, CO2, GLUCOSE, BUN, CREATININE, CA)2020-02-01 00:08:00 Test Item Value Reference Range Interpretation Comments NA (test code = 132 mmol/L 135-145 L 4860269790) K (test code = 3.9 mmol/L 3.5-5 6180837743) CL (test code = 101 mmol/L 98-108 5121578040) CO2 TOTAL (test code = 23 mmol/L 23-31 1033634902) AGAP (test code = 2-16 2916361728) BUN (test code = 8 mg/dL 7-23 4784209658) GLUCOSE (test code = 96 mg/dL 70-110 6482519298) CREATININE (test code = 0.59 mg/dL 0.5-1.04 4115385145) CALCIUM (test code = 9.1 mg/dL 8.6-10.6 3638461268) eGFR Calculation mL/min/1.73m2 (Non-) (test code = 5261743910) eGFR Calculation mL/min/1.73m2 () (test code = 6961375371) ANGEL (test code = ANGEL) Association of Glomerular Filtration Rate (GFR) and Staging of Kidney Disease* + --+ --+ ------+| GFR (mL/min/1.73 m2) ?| With Kidney Damage ?| ?Without Kidney Damage+ --------+ --------+ +| ?>90 ?| ?Stage one ?| ? Normal ?+ ---+ ---+ -------+| ?60-89 ?| ?Stage two ?| ? Decreased GFR ? + --+ --+ ------+| ?30-59 ?| ?Stage three ?| ? Stage three ? + --+ --+ ------+| ?15-29 ?| ?Stage four ? | ? Stage four ?+ ---+ ---+ -------+| ?<15 (or dialysis) ? ?| ?Stage five ? | ? Stage five ?+ ---+ ---+ -------+ *Each stage assumes the associated GFR level has been in effect for at least three months. ?Stages 1 to 5, with or without kidney disease, indicate chronic kidney disease. Notes: Determination of stages one and two (with eGFR >59mL/min/1.73 m2) requires estimation of kidney damage for at least three months as defined by structural or functional abnormalities of the kidney, manifested by either:Pathological abnormalities or Markers of kidney damage (including abnormalities in the composition of the blood or urine or abnormalities in imaging tests). Lab Interpretation Abnormal (test code = 02750-1) [facility] AND [id number] 23:27:00 Test Item Value Reference Range Interpretation Comments Carbamazepine, Total 16.6 ug/mL 4.0-12.0 H Total drug analysis (test code = 3432-2) is used as first line testing to dete rmine adequate dosing . Free drug analysis i s used after adequate dosing has been establ ished for the at risk patient (renal, hepatic, protei n diseases etc.) to determine the d egree of protein bind ing problems to mor e specifically ad just dosage. Carbamazepine, Free 3.8 ug/mL 1.0-3.0 H (test code = 3433-0) % Free Carbamazepine 22.9 % 8.0-35.0 INTERPR ETIVE (test code = 23317-9) INFORM ATION: Carbamazepine, Free and Total, ? Serum or PlasmaThe therapeutic ran ge is based on serum pre-dose (troug h) draw at steady-state concentration. Free carbamazepine m ay be important to mo nitor in patients wit h altered or unpredictable p rotein binding capacit y. Carbamazepine i s also subject to drug -drug interactions du e to displacement of protein binding and extensive metab olism. Cross-reactivit y with metabolites may account for differences in carbamazepine a olga analytical meth ods. Calculating per cent free attempts t o minimize differ ences in assay cross-reactivit y and may be useful i n dose optimization. A rare adverse drug re action to carbamazepin e therapy include s Blackmon-Jean syndrome or tox ic epidermal necro lysis. Patients of [place]i an ancestry with t he presence of the HLA-B*15:02 hav e an increased risk for this carbamazepine-i nduced life-threatenin g reaction. Pharmacogenetic testing for HLA-B*15:02 is recommended for patients at [facility] k for carbamazepine hypersensitivit y prior to treatment. T his information has been included in the FDA-approved la bel for carbamazepine (https://www.ac cessdat a.fda.gov/scrip ts/cder /daf/index.cfm? event=o verview.process &varApp jTq=171610) and guideline from the Clinical Pharmacogenetic s Implementation Consortium (https://www.ph armgkb. org/guidelines) [ARUP test code 85750 49, HLA-B*15:02 Genotyping, Carbamazepine Hypersensitivit y.] A combination of therapeutic andrew g monitoring with HLA-B*15:02 pharmacogenetic s genotyping may benefit patients who ar e at increased risk for developing carbamazepine-i nduced adverse events due to rare genotypes other than HLA-B*15:0 2 variant allele.Performe d By: DAYLIN [address] [place], [place] [address]Bpvasroknp Director: Jennifer Dee MD Lab Interpretation Abnormal (test code = 10310-9) [facility] [id number] 13:19:00 Test Item Value Reference Range Interpretation Comments URINE CULTURE (test No aerobic growth (< code = 630-4) 1000 CFU/mL) [facility] (NA, K, CL, CO2, GLUCOSE, BUN, CREATININE, CA)2020-01-31 10:24:00 Test Item Value Reference Range Interpretation Comments NA (test code = 125 mmol/L 135-145 L 1703099005) K (test code = 3.2 mmol/L 3.5-5 L 9674699211) CL (test code = 91 mmol/L 98-108 L 3019014761) CO2 TOTAL (test code = 25 mmol/L 23-31 2358447410) AGAP (test code = 2-16 2872136578) BUN (test code = 9 mg/dL 7-23 6718703571) GLUCOSE (test code = 107 mg/dL 70-110 1777737813) CREATININE (test code = 0.64 mg/dL 0.5-1.04 7077573308) CALCIUM (test code = 8.5 mg/dL 8.6-10.6 L 8614630485) eGFR Calculation mL/min/1.73m2 (Non-) (test code = 9746222195) eGFR Calculation mL/min/1.73m2 () (test code = 8762281883) ANGEL (test code = ANGEL) Association of Glomerular Filtration Rate (GFR) and Staging of Kidney Disease* + --+ --+ ------+| GFR (mL/min/1.73 m2) ?| With Kidney Damage ?| ?Without Kidney Damage+ --------+ --------+ +| ?>90 ?| ?Stage one ?| ? Normal ?+ ---+ ---+ -------+| ?60-89 ?| ?Stage two ?| ? Decreased GFR ? + --+ --+ ------+| ?30-59 ?| ?Stage three ?| ? Stage three ? + --+ --+ ------+| ?15-29 ?| ?Stage four ? | ? Stage four ?+ ---+ ---+ -------+| ?<15 (or dialysis) ? ?| ?Stage five ? | ? Stage five ?+ ---+ ---+ -------+ *Each stage assumes the associated GFR level has been in effect for at least three months. ?Stages 1 to 5, with or without kidney disease, indicate chronic kidney disease. Notes: Determination of stages one and two (with eGFR >59mL/min/1.73 m2) requires estimation of kidney damage for at least three months as defined by structural or functional abnormalities of the kidney, manifested by either:Pathological abnormalities or Markers of kidney damage (including abnormalities in the composition of the blood or urine or abnormalities in imaging tests). Lab Interpretation Abnormal (test code = 03727-1) [facility]00 Test Item Value Reference Range Interpretation Comments MAGNESIUM (test code = 4254667676) 2.2 mg/dL 1.7-2.4 Lab Interpretation (test code = Normal 39620-6) [facility] WITH [id number] 10:12:00 Test Item Value Reference Range Interpretation Comments WBC (test code = See_Comment [Automated 6690-2) message] The sy stem which generated this result transmitted reference range : 4.30 - 11.10 10*3/?L. The reference range was not used to interpret this result as normal/abnormal . RBC (test code = See_Comment L [Automated 189-8) message] The sy stem which generated this result transmitted reference range : 3.93 - 5.25 10*6/?L. The reference range was not used to interpret this result as normal/abnormal . HGB (test code = 10.3 g/dL 11.6-15 L 718-7) HCT (test code = 28.6 % 35.7-45.2 L 4544-3) MCV (test code = 85.1 fL 80.6-95.5 787-2) MCH (test code = 30.7 pg 25.9-32.8 785-6) MCHC (test code = 36.0 g/dL 31.6-35.1 H 786-4) RDW-SD (test code = 39.2 fL 39-49.9 53018-5) RDW-CV (test code = 12.6 % 12-15.5 788-0) PLT (test code = See_Comment [Automated 777-3) message] The sy stem which generated this result transmitted reference range : 166 - 358 10*3/ ?L. The reference r amie was not used to interpret this result as normal/abnormal . MPV (test code = 10.0 fL 9.5-12.9 36155-2) NRBC/100 WBC (test See_Comment [Automat ed code = 8500154668) message] The system which generated this result transmitted reference range : 0.0 - 10.0 /100 WBCs. The refer ence range was not u sed to interpret th is result as normal/abnormal . NRBC x10^3 (test code <0.01 See_Comment [Auto mated = 8489186227) message] The s ystem which generated this result transmitted reference range : 10*3/?L. The reference range was not used to interpret this result as normal/abnormal . GRAN MAT (NEUT) % 47.1 % (test code = 770-8) IMM GRAN % (test code 0.20 % = 4469990757) LYMPH % (test code = 39.9 % 736-9) MONO % (test code = 10.0 % 5905-5) EOS % (test code = 2.2 % 713-8) BASO % (test code = 0.6 % 706-2) GRAN MAT x10^3(ANC) 2.31 10*3/uL 1.88-7.09 (test code = 8689901474) IMM GRAN x10^3 (test <0.03 0-0.06 code = 6084613640) LYMPH x10^3 (test code 1.96 10*3/uL 1.32-3.29 = 731-0) MONO x10^3 (test code 0.49 10*3/uL 0.33-0.92 = 742-7) EOS x10^3 (test code = 0.11 10*3/uL 0.03-0.39 711-2) BASO x10^3 (test code 0.03 10*3/uL 0.01-0.07 = 704-7) Lab Interpretation Abnormal (test code = 94857-3) [facility] METABOLIC PANEL (NA, K, CL, CO2, GLUCOSE, BUN, CREATININE, CA)2020-01-31 06:59:00 Test Item Value Reference Range Interpretation Comments NA (test code = 126 mmol/L 135-145 L 5927115661) K (test code = 3.1 mmol/L 3.5-5 L 2384525846) CL (test code = 92 mmol/L 98-108 L 4659151373) CO2 TOTAL (test code = 26 mmol/L 23-31 0719764426) AGAP (test code = 2-16 3226687545) BUN (test code = 8 mg/dL 7-23 1611421405) GLUCOSE (test code = 104 mg/dL 70-110 0530721333) CREATININE (test code = 0.63 mg/dL 0.5-1.04 2212375401) CALCIUM (test code = 8.5 mg/dL 8.6-10.6 L 5489083651) eGFR Calculation mL/min/1.73m2 (Non-) (test code = 5806191998) eGFR Calculation mL/min/1.73m2 () (test code = 6551791321) ANGEL (test code = ANGEL) Association of Glomerular Filtration Rate (GFR) and Staging of Kidney Disease* + --+ --+ ------+| GFR (mL/min/1.73 m2) ?| With Kidney Damage ?| ?Without Kidney Damage+ --------+ --------+ +| ?>90 ?| ?Stage one ?| ? Normal ?+ ---+ ---+ -------+| ?60-89 ?| ?Stage two ?| ? Decreased GFR ? + --+ --+ ------+| ?30-59 ?| ?Stage three ?| ? Stage three ? + --+ --+ ------+| ?15-29 ?| ?Stage four ? | ? Stage four ?+ ---+ ---+ -------+| ?<15 (or dialysis) ? ?| ?Stage five ? | ? Stage five ?+ ---+ ---+ -------+ *Each stage assumes the associated GFR level has been in effect for at least three months. ?Stages 1 to 5, with or without kidney disease, indicate chronic kidney disease. Notes: Determination of stages one and two (with eGFR >59mL/min/1.73 m2) requires estimation of kidney damage for at least three months as defined by structural or functional abnormalities of the kidney, manifested by either:Pathological abnormalities or Markers of kidney damage (including abnormalities in the composition of the blood or urine or abnormalities in imaging tests). Lab Interpretation Abnormal (test code = 32857-5) [facility] (NA, K, CL, CO2, GLUCOSE, BUN, CREATININE, CA)2020-01-31 04:09:00 Test Item Value Reference Range Interpretation Comments NA (test code = 125 mmol/L 135-145 L 1197196559) K (test code = 3.0 mmol/L 3.5-5 L 2490816409) CL (test code = 92 mmol/L 98-108 L 8728819397) CO2 TOTAL (test code = 25 mmol/L 23-31 8094401601) AGAP (test code = 2-16 1988345160) BUN (test code = 8 mg/dL 7-23 2014488770) GLUCOSE (test code = 95 mg/dL 70-110 9420601602) CREATININE (test code = 0.61 mg/dL 0.5-1.04 8423690704) CALCIUM (test code = 8.5 mg/dL 8.6-10.6 L 5134437497) eGFR Calculation mL/min/1.73m2 (Non-) (test code = 3934201242) eGFR Calculation mL/min/1.73m2 () (test code = 7998388468) ANGEL (test code = ANGEL) Association of Glomerular Filtration Rate (GFR) and Staging of Kidney Disease* + --+ --+ ------+| GFR (mL/min/1.73 m2) ?| With Kidney Damage ?| ?Without Kidney Damage+ --------+ --------+ +| ?>90 ?| ?Stage one ?| ? Normal ?+ ---+ ---+ -------+| ?60-89 ?| ?Stage two ?| ? Decreased GFR ? + --+ --+ ------+| ?30-59 ?| ?Stage three ?| ? Stage three ? + --+ --+ ------+| ?15-29 ?| ?Stage four ? | ? Stage four ?+ ---+ ---+ -------+| ?<15 (or dialysis) ? ?| ?Stage five ? | ? Stage five ?+ ---+ ---+ -------+ *Each stage assumes the associated GFR level has been in effect for at least three months. ?Stages 1 to 5, with or without kidney disease, indicate chronic kidney disease. Notes: Determination of stages one and two (with eGFR >59mL/min/1.73 m2) requires estimation of kidney damage for at least three months as defined by structural or functional abnormalities of the kidney, manifested by either:Pathological abnormalities or Markers of kidney damage (including abnormalities in the composition of the blood or urine or abnormalities in imaging tests). Lab Interpretation Abnormal (test code = 80856-0) [facility] [id number] 00:11:00COVID DMT InterpretationInterpretation/Recommendations: Molecular NAAT Tests for Active Infection with the SARS-CoV-2 Virus: This result indicates that the patient has tested negative on one occasion for the SARS-CoV-2 virus that causes COVID-19 illness. This most likely indicates that the patient does not have an active infection with the SARS-CoV-2 virus. However, infection is not completely ruled out as the false negative rate for molecular NAAT testing using a nasopharyngeal sample can be up to 30%, mostly dependent on the timing of sample collection in relation to illness onset and any deficiencies in sampling techniques. If the patient continues to have persistent or worsening symptoms concerning for COVID-19 illness, a repeat NAAT test (PCR, Rapid ID Now, etc.) should be performed, at which time the SARS-CoV-2 virus - if present - may have reached a detectable viral load (usually peaking by the end of the first week of symptoms). Tests for IgM and/or IgG Antibodies to SARS-CoV-2 Virus: Testing for IgM and IgG antibodies 1-3 weeks after illness onset will indicate whether the patient has produced antibodies to the virus. At this time, it is not known if the production of antibodies - specifically IgG antibodies - indicates whether the patient is immune to future infections with the SARS-CoV-2 virus. ? ? Interp retation Result Comments: These interpretation comments are based upon aggregate COVID-19 test results pooled from [facility]. They apply to the following tests offered at [facility] and assume the acceptable specimen type(s) were used: A. Tests for the Identification of SARS-CoV-2 RNA (Molecular NAAT Tests): ?- SARS-CoV-2 PCR assays including [employer] Aptima, [place] Fusion, Granado RealTime, and GreenWave Reality Xpert Xpress. ?- SARS-CoV-2 Rapid ID NOW by the ID NOW assay. ? B. Tests for the Identification of SARS-CoV-2 Antibodies: ?- Chemiluminescent immunoassays including Access SARS-CoV-2 IgM (DXI 600), Orbis [employer]S Tdnb-VDGR-GnV-2 IgG (Vitros 5600 and Vitros 3600), and Granado SARS-CoV-2 IgG (INTERNAL CONTROL CONSULTANT I System). These interpretations are autopopulated into [facility] based on computerized algorithms matching an interpretation code to the patient's set of test results, and a clinical pathologist evaluates the comments for accuracy. However, these comments do not consider testing a patient may have hadoutside of the [facility] system. If results for COVID-19 infection continue to be negative in the contextof a suspected viral respiratory illness, it is possible the patient may have an infection with another respiratory virus. Influenza testing and a respiratory pathogen panel if clinically indicated maybe beneficial in this setting. If there continues to be a high degree of clinical suspicion for COVID- 19 illness despite multiple negative tests on nasopharyngeal specimens, then it may be necessary totest the patient for the SARS-CoV-2 virus using lower respiratory tract samples (such as sputum, bronchoalveolar lavage fluid (BAL), tracheal aspirate, etc.). ? [facility] LABORATORY SERVICESCOVID PxnafkwAHDY-XcI-5 Rapid ID NOW (no units) ? ? Date ? Value ? 01/29/2020 ? Not Detected ? [facility] METABOLIC PANEL (NA, K, CL, CO2, GLUCOSE, BUN, CREATININE, CA)2020-01-30 23:41:00 Test Item Value Reference Range Interpretation Comments NA (test code = 124 mmol/L 135-145 L 5561001172) K (test code = 3.5 mmol/L 3.5-5 8821150025) CL (test code = 91 mmol/L 98-108 L 2866073419) CO2 TOTAL (test code = 25 mmol/L 23-31 3709340734) AGAP (test code = 2-16 4983177147) BUN (test code = 7 mg/dL 7-23 9074245457) GLUCOSE (test code = 90 mg/dL 70-110 8088413695) CREATININE (test code = 0.59 mg/dL 0.5-1.04 7894474387) CALCIUM (test code = 8.5 mg/dL 8.6-10.6 L 5389150857) eGFR Calculation mL/min/1.73m2 (Non-) (test code = 8898139632) eGFR Calculation mL/min/1.73m2 () (test code = 6990919017) ANGEL (test code = ANGEL) Association of Glomerular Filtration Rate (GFR) and Staging of Kidney Disease* + --+ --+ ------+| GFR (mL/min/1.73 m2) ?| With Kidney Damage ?| ?Without Kidney Damage+ --------+ --------+ +| ?>90 ?| ?Stage one ?| ? Normal ?+ ---+ ---+ -------+| ?60-89 ?| ?Stage two ?| ? Decreased GFR ? + --+ --+ ------+| ?30-59 ?| ?Stage three ?| ? Stage three ? + --+ --+ ------+| ?15-29 ?| ?Stage four ? | ? Stage four ?+ ---+ ---+ -------+| ?<15 (or dialysis) ? ?| ?Stage five ? | ? Stage five ?+ ---+ ---+ -------+ *Each stage assumes the associated GFR level has been in effect for at least three months. ?Stages 1 to 5, with or without kidney disease, indicate chronic kidney disease. Notes: Determination of stages one and two (with eGFR >59mL/min/1.73 m2) requires estimation of kidney damage for at least three months as defined by structural or functional abnormalities of the kidney, manifested by either:Pathological abnormalities or Markers of kidney damage (including abnormalities in the composition of the blood or urine or abnormalities in imaging tests). Lab Interpretation Abnormal (test code = 83461-9) [facility] METABOLIC PANEL (NA, K, CL, CO2, GLUCOSE, BUN, CREATININE, CA)2020-01-30 19:03:00 Test Item Value Reference Range Interpretation Comments NA (test code = 115 mmol/L 135-145 LL 3492097807) K (test code = 3.6 mmol/L 3.5-5 6720331213) CL (test code = 82 mmol/L 98-108 L 3512200125) CO2 TOTAL (test code = 24 mmol/L 23-31 3822070833) AGAP (test code = 2-16 4663957318) BUN (test code = 7 mg/dL 7-23 0086808319) GLUCOSE (test code = 109 mg/dL 70-110 8421812520) CREATININE (test code = 0.48 mg/dL 0.5-1.04 L 6285679224) CALCIUM (test code = 8.0 mg/dL 8.6-10.6 L 9246914773) eGFR Calculation mL/min/1.73m2 (Non-) (test code = 4351232895) eGFR Calculation mL/min/1.73m2 () (test code = 8116304006) ANGEL (test code = ANGEL) Association of Glomerular Filtration Rate (GFR) and Staging of Kidney Disease* + --+ --+ ------+| GFR (mL/min/1.73 m2) ?| With Kidney Damage ?| ?Without Kidney Damage+ --------+ --------+ +| ?>90 ?| ?Stage one ?| ? Normal ?+ ---+ ---+ -------+| ?60-89 ?| ?Stage two ?| ? Decreased GFR ? + --+ --+ ------+| ?30-59 ?| ?Stage three ?| ? Stage three ? + --+ --+ ------+| ?15-29 ?| ?Stage four ? | ? Stage four ?+ ---+ ---+ -------+| ?<15 (or dialysis) ? ?| ?Stage five ? | ? Stage five ?+ ---+ ---+ -------+ *Each stage assumes the associated GFR level has been in effect for at least three months. ?Stages 1 to 5, with or without kidney disease, indicate chronic kidney disease. Notes: Determination of stages one and two (with eGFR >59mL/min/1.73 m2) requires estimation of kidney damage for at least three months as defined by structural or functional abnormalities of the kidney, manifested by either:Pathological abnormalities or Markers of kidney damage (including abnormalities in the composition of the blood or urine or abnormalities in imaging tests). Lab Interpretation Abnormal (test code = 74080-5) [facility], URINE [id number] 19:03:00 Test Item Value Reference Range Interpretation Comments NA URINE (test code = 1788015108) 77 mmol/L [facility] (NA, K, CL, CO2, GLUCOSE, BUN, CREATININE, CA)2020-01-30 15:33:00 Test Item Value Reference Range Interpretation Comments NA (test code = 114 mmol/L 135-145 LL 6780638938) K (test code = 3.7 mmol/L 3.5-5 9201611925) CL (test code = 82 mmol/L 98-108 L 8091771139) CO2 TOTAL (test code = 22 mmol/L 23-31 L 2685853515) AGAP (test code = 2-16 3884919799) BUN (test code = 8 mg/dL 7-23 6753165936) GLUCOSE (test code = 123 mg/dL 70-110 H 6396744548) CREATININE (test code = 0.47 mg/dL 0.5-1.04 L 9403998969) CALCIUM (test code = 8.0 mg/dL 8.6-10.6 L 4891170489) eGFR Calculation mL/min/1.73m2 (Non-) (test code = 6768461126) eGFR Calculation mL/min/1.73m2 () (test code = 6899310392) ANGEL (test code = ANGEL) Association of Glomerular Filtration Rate (GFR) and Staging of Kidney Disease* + --+ --+ ------+| GFR (mL/min/1.73 m2) ?| With Kidney Damage ?| ?Without Kidney Damage+ --------+ --------+ +| ?>90 ?| ?Stage one ?| ? Normal ?+ ---+ ---+ -------+| ?60-89 ?| ?Stage two ?| ? Decreased GFR ? + --+ --+ ------+| ?30-59 ?| ?Stage three ?| ? Stage three ? + --+ --+ ------+| ?15-29 ?| ?Stage four ? | ? Stage four ?+ ---+ ---+ -------+| ?<15 (or dialysis) ? ?| ?Stage five ? | ? Stage five ?+ ---+ ---+ -------+ *Each stage assumes the associated GFR level has been in effect for at least three months. ?Stages 1 to 5, with or without kidney disease, indicate chronic kidney disease. Notes: Determination of stages one and two (with eGFR >59mL/min/1.73 m2) requires estimation of kidney damage for at least three months as defined by structural or functional abnormalities of the kidney, manifested by either:Pathological abnormalities or Markers of kidney damage (including abnormalities in the composition of the blood or urine or abnormalities in imaging tests). Lab Interpretation Abnormal (test code = 04609-4) [facility] [id number] 14:59:13 No acute intracranial abnormality. No acute fracture or traumatic malalignment of the cervical spine. Preliminary Report Dictated by Resident: Mike Andres I, Joseluis Denson MD., have reviewed this study and agree with the abovereport.Exam: CT HEAD WITHOUT CONTRAST Exam: CT C-SPINE WITHOUT CONTRAST HISTORY: Altered mental status (AMS), unclear cause COMPARISON: None. TECHNIQUE: Routine CTs of the head and cervical spine were performedwithout intravenous contrast, and coronal and sagittal reformatted imageswere generated. FINDINGS: CT HEAD: The ventricles and cerebral sulci are normal in caliber and configuration.No hydrocephalus, midline shift or pathological extra-axial fluidcollection ispresent. The basal cisterns are unremarkable. There is no acute intracranial hemorrhage or significant mass effect. Noacute transcortical infarct. Few scattered hypodensities in the bilateralcerebral white matter, nonspecific likely present microvascular ischemicchanges. Hypodensity is in bilateral basal ganglia likely represent remotelacunar infarcts. No calvarial fracture. The mastoid air cells andvisualized paranasal airsinuses are clear. 0.6 cm mid occipital enostosis is noted. CT CERVICAL SPINE: Mild straightening of the normal anatomic cervical lordosis is noted. Thevertebral bodies are sajan l in height and alignment. No facet fracture orsubluxation is present. The craniocervical junction is intact. Mild spondylotic changes at C5-C6 manifested by disc space narrowing andmarginal osteophytes. Disc spaces are otherwise a preserved. Mild nonspecific thickening of the cervical esophagus is noted. Theprevertebral soft tissues are unremarkable. [facility], Radiant Results Inft User - 01/30/2020 9:00 AM CSTExam: CT HEAD WITHOUT CONTRASTExam: CT C-SPINE WITHOUT CONTRASTHISTORY: Altered mental status (AMS), unclear cause COMPARISON: None.TECHNIQUE: Routine CTs of the head and cervical spine were performedwithout intravenous contrast, and coronal and sagittal reformatted imageswere generated. FINDINGS: CT HEAD:The ventricles and cerebral sulci are normal in caliber and configuration.No hydrocephalus, midline shift or pathological extra-axial fluidcollection is present. The basal cisterns are unremarkable.There is no acute intracranial hemorrhage or significant mass effect. Noacute transcortical infarct. Few scattered hypodensities in the bilateralcerebral white matter, nonspecific likely present microvascular ischemicchanges. Hypodensity is in bilateral basal ganglia likely represent remotelacunar infarcts.No calvarial fracture. The mastoid air cells and visualized paranasal airsinuses are clear. 0.6 cm mid occipital enostosis is noted.CT CERVICAL SPINE:Mild straightening of the normal anatomic cervical lordosis is noted. Thevertebral bodies are normal in height and alignment. No facet fracture orsubluxation is present. The craniocervical junction is intact. Mild spondylotic changes at C5-C6 manifested by disc space narrowing andmarginal osteophytes. Disc spaces are otherwise a preserved.Mild nonspecific thickening of the cervical esophagus is noted. Theprevertebral soft tissues are unremarkable.IMPRESSIONNo acute intracranial abnormality.No acute fracture or traumatic malalignment of the cervical spine.Preliminary Report Dictated by Resident: Joseluis Villanueva MD., have reviewed this study and agree with the abovereport.[facility] WO [id number] 14:59:13 No acute intracranial abnormality. No acute fracture or traumatic malalignment of the cervical spine. Preliminary Report Dictated by Resident: Joseluis Heart MD., have reviewed this study and agree with the abovereport.Exam: CT HEAD WITHOUT CONTRAST Exam: CT C-SPINE WITHOUT CONTRAST HISTORY: Altered mental status (AMS), unclear cause COMPARISON: None. TECHNIQUE: Routine CTs of the head and cervical spine were performedwithout intravenous contrast, and coronal and sagittal reformatted imageswere generated. FINDINGS: CT HEAD: The ventricles and cerebral sulci are normal in caliber and configuration.No hydrocephalus, midline shift or pathological extra-axial fluidcollection is present. The basal cisterns are unremarkable. There is no acute intracranial hemorrhage or significant mass effect. Noacute transcortical infarct. Few scattered hypodensities in the bilateralcerebral white matter, nonspecific likely present microvascular ischemicchanges. Hypodensity is in bilateral basal ganglia likely represent remotelacunar infarcts. No calvarial fracture. The mastoid air cells andvisualized paranasal airsinuses are clear. 0.6 cm mid occipital enostosis is noted. CT CERVICAL SPINE: Mild straightening of the normal anatomic cervical lordosis is noted. Thevertebral bodies are normal in height and alignment. No facet fracture orsubluxation is present. The craniocervical junction is intact. Mild spondylotic changes at C5-C6 manifested by disc space narrowing andmarginal osteophytes. Disc spaces are otherwise a preserved. Mild nonspecific thickening of the cervical esophagus is noted. Theprevertebral soft tissues are unremarkable. [facility], Radiant Results Inft User - 01/30/2020 9:00 AM CSTExam: CT HEAD WITHOUT CONTRASTExam: CT C-SPINE WITHOUT CONTRASTHISTORY: Altered mental status (AMS), unclear cause COMPARISON: None.TECHNIQUE: Routine CTs of the head and cervical spine were performedwithout intravenous contrast, and coronal and sagittal reformatted imageswere generated. FINDINGS: CT HEAD:The ventricles and cerebral sulci are normal in caliber and configuration.No hydrocephalus, midline shift or pathological extra-axial fluidcollection is present. The basal cisterns are unremarkable.There is no acute intracranial hemorrhage or significant mass effect. Noacute transcortical infarct. Few scattered hypodensities in the bilateralcerebral white matter, nonspecific likely present microvascular ischemicchanges. Hypodensity is in bilateral basal ganglia likely represent remotelacunar infarcts.No calvarial fracture. The mastoid air cells and visualized paranasal airsinuses are clear. 0.6 cm mid occipital enostosis is noted.CT CERVICAL SPINE:Mild straightening of the normal anatomic cervical lordosis is noted. Thevertebral bodies are normal in height and alignment. No facet fracture orsubluxation is present. The craniocervical junction is intact. Mild spondylotic changes at C5-C6 manifested by disc space narrowing andmarginal osteophytes. Disc spaces are otherwise a preserved.Mild nonspecific thickening of the cervical esophagus is noted. Theprevertebral soft tissues are unremarkable.IMPRESSIONNo acute intracranial abnormality.No acute fracture or traumatic malalignment of the cervical spine.Preliminary Report Dictated by Resident: Mike Mcintosh, Joseluis Denson MD., have reviewed this study and agree with the abovereport.[facility] (NA, K, CL, CO2, GLUCOSE, BUN, CREATININE, CA)2020-01-30 11:42:00 Test Item Value Reference Range Interpretation Comments NA (test code = 112 mmol/L 135-145 LL 6992533451) K (test code = 3.6 mmol/L 3.5-5 7666107297) CL (test code = 81 mmol/L 98-108 L 6036776129) CO2 TOTAL (test code = 21 mmol/L 23-31 L 1901235548) AGAP (test code = 2-16 1834952619) BUN (test code = 9 mg/dL 7-23 2360058309) GLUCOSE (test code = 151 mg/dL 70-110 H 6549115447) CREATININE (test code = 0.45 mg/dL 0.5-1.04 L 3001708140) CALCIUM (test code = 7.9 mg/dL 8.6-10.6 L 7062700948) eGFR Calculation mL/min/1.73m2 (Non-) (test code = 9169830973) eGFR Calculation mL/min/1.73m2 () (test code = 2412660417) ANGEL (test code = ANGEL) Association of Glomerular Filtration Rate (GFR) and Staging of Kidney Disease* + --+ --+ ------+| GFR (mL/min/1.73 m2) ?| With Kidney Damage ?| ?Without Kidney Damage+ --------+ --------+ +| ?>90 ?| ?Stage one ?| ? Normal ?+ ---+ ---+ -------+| ?60-89 ?| ?Stage two ?| ? Decreased GFR ? + --+ --+ ------+| ?30-59 ?| ?Stage three ?| ? Stage three ? + --+ --+ ------+| ?15-29 ?| ?Stage four ? | ? Stage four ?+ ---+ ---+ -------+| ?<15 (or dialysis) ? ?| ?Stage five ? | ? Stage five ?+ ---+ ---+ -------+ *Each stage assumes the associated GFR level has been in effect for at least three months. ?Stages 1 to 5, with or without kidney disease, indicate chronic kidney disease. Notes: Determination of stages one and two (with eGFR >59mL/min/1.73 m2) requires estimation of kidney damage for at least three months as defined by structural or functional abnormalities of the kidney, manifested by either:Pathological abnormalities or Markers of kidney damage (including abnormalities in the composition of the blood or urine or abnormalities in imaging tests). Lab Interpretation Abnormal (test code = 12561-7) [facility] [id number] 07:48:05Impression: 1. No evidence of bowel obstruction.2. Extensive colonic stool suggests constipation. RL: [id number]: [id number] End of Report Exam: Abdomen (1 View), 01/30/2020 1:15 AM. Ordering Physician: JEFF FARMER. History: Vomiting. Technique: One view of the abdomen. Comparison: None. Findings: There is no organomegaly or abdominal mass effect. Psoas and renal outlinesare unremarkable. There is no abnormal abdominal calcification. Bowel gaspattern is nonobstructive. There is extensive colonic stool. Calcificationsin the pelvis likely represent phleboliths. Visualized lungs are clear.Osseous structures show degenerative changes. There is diffuse osteopenia.There are changes of left hip internal fixation. [facility], Radiant Results Inft User -01/30/2020 1:49 AM CSTExam: Abdomen (1 View), 01/30/2020 1:15 AM.Ordering Physician: JEFF FARMER.History: Vomiting.Technique: One view of the abdomen.Comparison: None.Findings: There is no organomegaly or abdominal mass effect. Psoas and renal outlinesare unremarkable. There is no abnormal abdominal calcification. Bowel gaspattern is nonobstructive. There is extensive colonic stool. Calcificationsin the pelvis likely represent phleboliths. Visualized lungs are clear.Osseous structures show degenerative changes. There is diffuse osteopenia.There are changes of left hip internal fixation.IMPRESSI ONImpression: 1. No evidence of bowel obstruction.2. Extensive colonic stool suggests constipation.RL: 2824AFC: [id number] of Report [facility] CenterOSMOLAL[facility] [id number] 07:33:00 Test Item Value Reference Range Interpretation Comments OSMOLALITY (test code = See_Comment LL [Au tomated message] 4601533071) The system [employer] generated this result transmitted ref erence range: 278 - 30 5 mOsm/kg. The reference range was not used to int erpret this result as normal/abnormal . Lab Interpretation (test Abnormal code = 96813-9) [facility]2020[facility] 07:20:00 Test Item Value Reference Range Interpretation Comments APTT Patient (test code = See_Comment [ Automated message] 3173-2) The system [employer] generated this result transmitted ref erence range: 26 - 36 Seconds. The re ference range was not u sed to interpret this result as normal/abnor mal. Lab Interpretation (test Normal code = 31054-8) [facility] TexasProthrombin Time / [id number] 07:20:00 Test Item Value Reference Range Interpretation Comments PROTIME PATIENT (test See_Comment [Auto mated message] code = 5964-2) The system [facility] generated this result transmitted ref erence range: 10.1 - 1 2.6 Seconds. The re ference range was not u sed to interpret this result as normal/abnor mal. INR (test code = 6301-6) Nor mal INR <1.1; Warfarin Therap eutic range 2.0 to 3. 0 or 2.5 to 3.5, dep ending upon the indica tions. Lab Interpretation (test Normal code = 26756-5) [facility] TexasOSMOLALITY [id number] 07:15:00 Test Item Value Reference Range Interpretation Comments OSMO U (test code = See_Comment [Automa celeste message] 2609988581) [facility] generated this result transmitted ref erence range: 50-1,100 mOsm/kg. The re ference range was not u sed to interpret this result as normal/abnor mal. Lab Interpretation (test Normal code = 21932-4) [facility] (NA, K, CL, CO2, Glucose, BUN, Creatinine, CA)2020-01-30 07:10:00 Test Item Value Reference Range Interpretation Comments NA (test code = 112 mmol/L 135-145 LL 5739843783) K (test code = 3.2 mmol/L 3.5-5 L 5975855647) CL (test code = 81 mmol/L 98-108 L 4065440551) CO2 TOTAL (test code = 19 mmol/L 23-31 L 0394515013) AGAP (test code = 2-16 5787420632) BUN (test code = 10 mg/dL 7-23 9878251221) GLUCOSE (test code = 163 mg/dL 70-110 H 8299290795) CREATININE (test code = 0.39 mg/dL 0.5-1.04 L 3523970239) CALCIUM (test code = 7.8 mg/dL 8.6-10.6 L 0220909717) eGFR Calculation mL/min/1.73m2 (Non-) (test code = 0912592545) eGFR Calculation mL/min/1.73m2 () (test code = 0414028096) ANGEL (test code = ANGEL) Association of Glomerular Filtration Rate (GFR) and Staging of Kidney Disease* + --+ --+ ------+| GFR (mL/min/1.73 m2) ?| With Kidney Damage ?| ?Without Kidney Damage+ --------+ --------+ +| ?>90 ?| ?Stage one ?| ? Normal ?+ ---+ ---+ -------+| ?60-89 ?| ?Stage two ?| ? Decreased GFR ? + --+ --+ ------+| ?30-59 ?| ?Stage three ?| ? Stage three ? + --+ --+ ------+| ?15-29 ?| ?Stage four ? | ? Stage four ?+ ---+ ---+ -------+| ?<15 (or dialysis) ? ?| ?Stage five ? | ? Stage five ?+ ---+ ---+ -------+ *Each stage assumes the associated GFR level has been in effect for at least three months. ?Stages 1 to 5, with or without kidney disease, indicate chronic kidney disease. Notes: Determination of stages one and two (with eGFR >59mL/min/1.73 m2) requires estimation of kidney damage for at least three months as defined by structural or functional abnormalities of the kidney, manifested by either:Pathological abnormalities or Markers of kidney damage (including abnormalities in the composition of the blood or urine or abnormalities in imaging tests). Lab Interpretation Abnormal (test code = 33184-5) [facility] TexasMagnesium [id number] 07:02:00 Test Item Value Reference Range Interpretation Comments MAGNESIUM (test code = 5715667423) 1.3 mg/dL 1.7-2.4 L Lab Interpretation (test code = Abnormal 49875-7) [facility] TexasPhosphorus [id number] 07:02:00 Test Item Value Reference Range Interpretation Comments PHOSPHORUS (test code = 6007192098) 2.8 mg/dL 2.5-5 Lab Interpretation (test code = Normal 54669-7) [facility] Function Panel (ALB, T.PRO, BILI T, BU/BC, ALT, AST, ALK, PHOS)2020-01-30 07:02:00 Test Item Value Reference Range Interpretation Comments TOTAL BILI (test code = 1200126831) 0.9 mg/dL 0.1-1.1 BILI UNCON (test code = 7222061384) 0.8 mg/dL 0.1-1.1 BILI CONJ (test code = 8186888895) 0.0 mg/dL 0-0.3 T PROTEIN (test code = 8195099877) 6.7 g/dL 6.3-8.2 ALBUMIN (test code = 5019865464) 3.6 g/dL 3.5-5 ALK PHOS (test code = 6490896208) 166 U/L 34-122 H ALTv (test code = 1742-6) 15 U/L 5-35 AST(SGOT) (test code = 4715863011) 19 U/L 13-40 Lab Interpretation (test code = Abnormal 26895-9) [facility] CHEST 1 [id number] 07:01:40Impression: 1. No acute abnormalities evident.2. Tortuosity of the thoracic aorta may reflect atherosclerosis orhypertension. AF: 20641 RL: 460 End of Report Ordering Physician: ?RADHESHYAM KRYSTEN History: ?Hyponatremia. Hypoxia. Technique: Chest, single view Comparison: None Findings: ? The lungs are clear. No pleural effusions are evident. Heart size isnormal. Tortuosity of the thoracic aorta is noted, with displacement of thetracheato the right. No acute bony abnormalities are evident. [facility], Radiant Results Inft User - 01/30/20201:02 AM CSTOrdering Physician: RADJAYDON BHATTHistory: Hyponatremia. Hypoxia.Technique: Chest, single viewComparison: NoneFindings: The lungs are clear. No pleural effusions are evident. Heart size isnormal. Tortuosity of the thoracic aorta is noted, with displacement of thetrachea to the right. No acute bony abnormalities are evident.IMPRESSIONImpression:1. No acute abnormalities evident.2. Tortuosity of the thoracic aorta may reflect atherosclerosis orhypertension.AFC: 29225DI: 460End of Report [facility] with [id number] 06:50:00 Test Item Value Reference Range Interpretation Comments WBC (test code = See_Comment [Automated 6690-2) message] The sy stem which generated this result transmitted reference range : 4.30 - 11.10 10*3/?L. The reference range was not used to interpret this result as normal/abnormal . RBC (test code = See_Comment L [Automated 789-8) message] The sy stem which generated this result transmitted reference range : 3.93 - 5.25 10*6/?L. The reference range was not used to interpret this result as normal/abnormal . HGB (test code = 10.2 g/dL 11.6-15 L 718-7) HCT (test code = 27.4 % 35.7-45.2 L 4544-3) MCV (test code = 83.8 fL 80.6-95.5 787-2) MCH (test code = 31.2 pg 25.9-32.8 785-6) MCHC (test code = 37.2 g/dL 31.6-35.1 H 786-4) RDW-SD (test code = 37.2 fL 39-49.9 L 16939-9) RDW-CV (test code = 12.2 % 12-15.5 788-0) PLT (test code = See_Comment [Automated 777-3) message] The sy stem which generated this result transmitted reference range : 166 - 358 10*3/ ?L. The reference r amie was not used to interpret this result as normal/abnormal . MPV (test code = 9.7 fL 9.5-12.9 63983-3) NRBC/100 WBC (test See_Comment [Automat ed code = 9705703055) message] The system which generated this result transmitted reference range : 0.0 - 10.0 /100 WBCs. The refer ence range was not u sed to interpret th is result as normal/abnormal . NRBC x10^3 (test code <0.01 See_Comment [Auto mated = 3237802336) message] The s ystem which generated this result transmitted reference range : 10*3/?L. The reference range was not used to interpret this result as normal/abnormal . GRAN MAT (NEUT) % 80.7 % (test code = 770-8) IMM GRAN % (test code 0.30 % = 8580396751) LYMPH % (test code = 12.4 % 736-9) MONO % (test code = 6.0 % 5905-5) EOS % (test code = 0.3 % 713-8) BASO % (test code = 0.3 % 706-2) GRAN MAT x10^3(ANC) 5.40 10*3/uL 1.88-7.09 (test code = 7892208373) IMM GRAN x10^3 (test <0.03 0-0.06 code = 7488337719) LYMPH x10^3 (test code 0.83 10*3/uL 1.32-3.29 L = 731-0) MONO x10^3 (test code 0.40 10*3/uL 0.33-0.92 = 742-7) EOS x10^3 (test code = <0.03 0.03-0.39 L 711-2) BASO x10^3 (test code <0.03 0.01-0.07 = 704-7) Lab Interpretation Abnormal (test code = 80622-8) [facility]2020-01-30 06:48:00 Test Item Value Reference Range Interpretation Comments PH (test code = 2) 7.35-7.45 PCO2 (test code = See_Comment [Automat ed message] 7244059919) The system [employer] generated this result transmitted ref erence range: 35 - 45 mmHg. The reference r amie was not used to interpret this result as normal/abnor mal. PO2 (test code = See_Comment L [Automated message] 5314196450) The system [employer] generated this result transmitted ref erence range: 80 - 100 mmHg. The reference r amie was not used to interpret this result as normal/abnor mal. HCO3 (test code = See_Comment L [Automate d message] 6222250066) The system [employer] generated this result transmitted ref erence range: 22 - 26 mEq/L. The reference r amie was not used to interpret this result as normal/abnor mal. BE (test code = See_Comment [Automated message] 8689157671) The system [employer] generated this result transmitted ref erence range: -3.0 - 3 .0 mEq/L. The refe rence range was not u sed to interpret this result as normal/abnor mal. Lab Interpretation (test Abnormal code = 95983-2) [facility] GLUCOSE(AGE >30DAYS)2020-01-30 02:32:00 Test Item Value Reference Range Interpretation Comments POCT Glu (age>30days) (test code = 123 mg/dL 70-110 A 3342) Lab Interpretation (test code = Abnormal 68874-0) [facility] GLUCOSE (AUTOMATED)2020-01-30 02:19:00 Test Item Value Reference Range Interpretation Comments POCT GLU (test code = 3936572842) 123 mg/dL 70-110 H Lab Interpretation (test code = Abnormal 81181-4) [facility] / [facility] - DRUG SCREEN [id number] 02:17:00 Test Item Value Reference Range Interpretation Comments BENZO U (test code = Presumptive Positive Negative A 0117542427) YENNY U (test code = Negative Negative 2594800006) AMPHET (test code = Negative Negative 4513698074) THC (test code = Negative Negative 3717973304) METHADONE (test code = Negative Negative 0599579933) Meth U (test code = Negative Negative 9552540131) OPIATES (test code = Negative Negative 7714270430) Cocaine Metabolite (test Negative Negative code = 7064685176) PROPOXY (test code = Negative Negative 7008629317) Tric U (test code = Negative Negative 1635251471) PCP (test code = Negative Negative 9242770678) OXYCOD (test code = Negative Negative 8650019567) ANGEL (test code = ANGEL) Urine Drug Cutoff Ranges Benzodiazepines: ? ? 150 ng/mLBarbiturates: ?200 ng/mLAmphetamine: ? 500 ng/mLCannabinoids: ?50 ?ng/mLMethadone: ? 200 ng/mLMethamphetamine: ? ? 500 ng/mL Opiates: ? 100 ng/mL or 2000 ng/mLCocaine: ? 150 ng/mLPropoxyphene: ?300 ng/mLTricyclics: ?300 ng/mLOxycodone: ? 100 ng/mLPCP: ? 25 ?ng/mL The results are to be used only for medical (i.e., treatment) purposes. Unconfirmed screening results must not be used for non-medical purposes (e.g., employment testing, legal testing). Lab Interpretation (test Abnormal code = 17019-5) [facility] (ID NOW RAPID TESTING)2020-01-30 02:14:00 Test Item Value Reference Range Interpretation Comments SARS-CoV-2 Rapid ID NOW Not Detected Not Detected (test code = 14954-0) ANGEL (test code = ANGEL) ID NOW COVID-19 Assay is an isothermal nucleic acid amplification test intended for the qualitative detection of nucleic acid from SARS-CoV-2 viral RNA in nasopharyngeal (SCHEDULE ANNOUNCER) specimens. It is used under Emergency Use Authorization (EUA) by FDA. The limit of detection (LOD) of the assay is 125 Genome Equivalents/mL. A positive result is indicative of the presence of SARS-CoV-2 RNA. ?Clinical correlation with patient history and other diagnostic [...] for repeat patient testing if clinically indicated. Lab Interpretation Normal (test code = 73460-2) [facility] TexasTroponin [id number] 02:13:00 Test Item Value Reference Range Interpretation Comments TROPONIN I (test <0.012 See_Comment [Automated code = 4064172181) message] The system which generated this result transmitted reference range : <=0.034 ng/mL. The reference range was not used to interpr et this result as normal/abnormal . ANGEL (test code = Equal or Less than ANGEL) 0.034 ng/ml---Normal ?Note: Cardiac troponin begins to rise 3-4 hours after the onset of ischemia. Repeat in 4-6 hours if the sample was drawn within 3-4 hours of the onset of the symptom and found normal. Between 0.035 and 0.120 ng/mL--- Borderline. Questionable myocardial injury or necrosis ? ?Note: Serial measurement may be necessary to confirm or exclude the diagnosis of myocardial injury or necrosis; Clinical correlation (symptoms, EKGs, imaging studies, and others) required; Repeat in 4-6 hours if clinically indicated. ? Equal or Higher than 0.121 ng/mL---Abnormal. Myocardial Injury or Necrosis Likely ? Biotin has been reported to cause a negative bias, interpret results relative to patient's use of biotin. ? Lab Interpretation Normal (test code = 41911-4) [facility] (NA, K, CL, CO2, GLUCOSE, BUN, CREATININE, CA)2020-01-30 02:10:00 Test Item Value Reference Range Interpretation Comments NA (test code = 111 mmol/L 135-145 LL 2064325260) K (test code = 3.6 mmol/L 3.5-5 7547746364) CL (test code = 79 mmol/L 98-108 L 7116423851) CO2 TOTAL (test code = 25 mmol/L 23-31 0259059071) AGAP (test code = 2-16 7560300952) BUN (test code = 14 mg/dL 7-23 3910165671) GLUCOSE (test code = 116 mg/dL 70-110 H 1604946890) CREATININE (test code = 0.56 mg/dL 0.5-1.04 8911266764) CALCIUM (test code = 8.2 mg/dL 8.6-10.6 L 7635517016) eGFR Calculation mL/min/1.73m2 (Non-) (test code = 4660273083) eGFR Calculation mL/min/1.73m2 () (test code = 9568956229) ANGEL (test code = ANGEL) Association of Glomerular Filtration Rate (GFR) and Staging of Kidney Disease* + --+ --+ ------+| GFR (mL/min/1.73 m2) ?| With Kidney Damage ?| ?Without Kidney Damage+ --------+ --------+ +| ?>90 ?| ?Stage one ?| ? Normal ?+ ---+ ---+ -------+| ?60-89 ?| ?Stage two ?| ? Decreased GFR ? + --+ --+ ------+| ?30-59 ?| ?Stage three ?| ? Stage three ? + --+ --+ ------+| ?15-29 ?| ?Stage four ? | ? Stage four ?+ ---+ ---+ -------+| ?<15 (or dialysis) ? ?| ?Stage five ? | ? Stage five ?+ ---+ ---+ -------+ *Each stage assumes the associated GFR level has been in effect for at least three months. ?Stages 1 to 5, with or without kidney disease, indicate chronic kidney disease. Notes: Determination of stages one and two (with eGFR >59mL/min/1.73 m2) requires estimation of kidney damage for at least three months as defined by structural or functional abnormalities of the kidney, manifested by either:Pathological abnormalities or Markers of kidney damage (including abnormalities in the composition of the blood or urine or abnormalities in imaging tests). Lab Interpretation Abnormal (test code = 33349-7) [facility]2020-12-07 02:09:00 Test Item Value Reference Range Interpretation Comments APTT Patient (test See_Comment [Automat ed code = 3173-2) message] The system which generated this result transmitted reference range : 23 - 38 Seconds . The reference range was not used to interpr et this result as normal/abnormal . ANGEL (test code = ANGEL) The [facility] patient population mean normal value for aPTT is 30 seconds. Lab Interpretation Normal (test code = 72365-9) [facility] TexasProthrombin Time (PT) / [id number] 02:08:00 Test Item Value Reference Range Interpretation Comments PROTIME PATIENT (test See_Comment [Auto mated message] code = 5964-2) The system wh ich generated this result transmitted ref erence range: 12.0 - 1 4.7 Seconds. The re ference range was not u sed to interpret this result as normal/abnor mal. INR (test code = 6301-6) Nor mal INR <1.1; Warfarin Therap eutic range 2.0 to 3. 0 or 2.5 to 3.5, dep ending upon the indica tions. Lab Interpretation (test Normal code = 40486-3) [facility] TexasEthanol [id number] 02:07:00 Test Item Value Reference Range Interpretation Comments ALCOHOL (test code = <10 mg/dL 4218034749) ANGEL (test code = ANGEL) <10 Wuzxcurr04-903 Toxic>100 Depression of WATER RESOURCE MANAGER>400 Fatalities Reported [facility] TexasAC ABG + LACTIC [id number] 02:06:00 Test Item Value Reference Range Interpretation Comments PH (test code = 2) 7.35-7.45 H PCO2 (test code = See_Comment L [Automat ed 0485011039) message] The sy stem which generated this result transmitted reference range : 35 - 45 mmHg. The reference range was not used to interpret this result as normal/abnormal . PO2 (test code = See_Comment L [Automated 6106567368) message] The sy stem which generated this result transmitted reference range : 80 - 100 mmHg. The reference range was not used to interpret this result as normal/abnormal . HCO3 (test code = See_Comment [Automate d 9644330308) message] The sy stem which generated this result transmitted reference range : 22 - 26 mEq/L. The reference range was not used to interpret this result as normal/abnormal . BE (test code = See_Comment [Automated 4335976196) message] The sy stem which generated this result transmitted reference range : -3.0 - 3.0 mEq/ L. The reference r amie was not used to interpret this result as normal/abnormal . LACTIC ACID (test code 0.74 mmol/L = 9466944020) Lab Interpretation Abnormal (test code = 07582-1) [facility] Function [facility] (ALB, T.PRO, BILI T, BU/BC, ALT, AST, ALK PHOS)2020-01-30 02:01:00 Test Item Value Reference Range Interpretation Comments TOTAL BILI (test code = 7605458335) 0.8 mg/dL 0.1-1.1 BILI UNCON (test code = 4592709621) 0.8 mg/dL 0.1-1.1 BILI CONJ (test code = 6614599507) 0.0 mg/dL 0-0.3 T PROTEIN (test code = 1914613877) 6.5 g/dL 6.3-8.2 ALBUMIN (test code = 3649308126) 3.7 g/dL 3.5-5 ALK PHOS (test code = 8902608229) 172 U/L 34-122 H ALTv (test code = 1742-6) 13 U/L 5-35 AST(SGOT) (test code = 6637479657) 19 U/L 13-40 Lab Interpretation (test code = Abnormal 25517-2) [facility] TexasLipase [id number] 02:01:00 Test Item Value Reference Range Interpretation Comments LIPASE (test code = 9040716466) 30 U/L 0-220 Lab Interpretation (test code = Normal 64427-0) [facility] TexasMAGNESIUM2020-12-07 02:01:00 Test Item Value Reference Range Interpretation Comments MAGNESIUM (test code = 7652039502) 1.6 mg/dL 1.7-2.4 L Lab Interpretation (test code = Abnormal 43186-1) [facility] TexasPHOSPHORUS2020-12-07 02:01:00 Test Item Value Reference Range Interpretation Comments PHOSPHORUS (test code = 8657034026) 3.2 mg/dL 2.5-5 Lab Interpretation (test code = Normal 95921-1) [facility] TexasCB with [id number] 01:47:00 Test Item Value Reference Range Interpretation Comments WBC (test code = See_Comment [Automated 6690-2) message] The sy stem which generated this result transmitted reference range : 4.30 - 11.10 10*3/?L. The reference range was not used to interpret this result as normal/abnormal . RBC (test code = See_Comment L [Automated 909-8) message] The sy stem which generated this result transmitted reference range : 3.93 - 5.25 10*6/?L. The reference range was not used to interpret this result as normal/abnormal . HGB (test code = 10.1 g/dL 11.6-15 L 718-7) HCT (test code = 27.8 % 35.7-45.2 L 4544-3) MCV (test code = 84.8 fL 80.6-95.5 787-2) MCH (test code = 30.8 pg 25.9-32.8 785-6) MCHC (test code = 36.3 g/dL 31.6-35.1 H 786-4) RDW-SD (test code = 37.3 fL 39-49.9 L 67863-4) RDW-CV (test code = 12.2 % 12-15.5 788-0) PLT (test code = See_Comment [Automated 777-3) message] The sy stem which generated this result transmitted reference range : 166 - 358 10*3/ ?L. The reference r amie was not used to interpret this result as normal/abnormal . MPV (test code = 10.0 fL 9.5-12.9 95475-7) NRBC/100 WBC (test See_Comment [Automat ed code = 0437203574) message] The system which generated this result transmitted reference range : 0.0 - 10.0 /100 WBCs. The refer ence range was not u sed to interpret th is result as normal/abnormal . NRBC x10^3 (test code <0.01 See_Comment [Auto mated = 4687317040) message] The s ystem which generated this result transmitted reference range : 10*3/?L. The reference range was not used to interpret this result as normal/abnormal . GRAN MAT (NEUT) % 74.0 % (test code = 770-8) IMM GRAN % (test code 0.50 % = 1429601455) LYMPH % (test code = 14.4 % 736-9) MONO % (test code = 9.4 % 5905-5) EOS % (test code = 1.4 % 713-8) BASO % (test code = 0.3 % 706-2) GRAN MAT x10^3(ANC) 4.73 10*3/uL 1.88-7.09 (test code = 7819327928) IMM GRAN x10^3 (test 0.03 10*3/uL 0-0.06 code = 3142294065) LYMPH x10^3 (test code 0.92 10*3/uL 1.32-3.29 L = 731-0) MONO x10^3 (test code 0.60 10*3/uL 0.33-0.92 = 742-7) EOS x10^3 (test code = 0.09 10*3/uL 0.03-0.39 711-2) BASO x10^3 (test code <0.03 0.01-0.07 = 704-7) Lab Interpretation Abnormal (test code = 90193-6) [facility] TexasCritical [id number] 00:45:00DrLynette sevilla NP ? ? 01/29/2020 11:31 PMCritical CarePerformed by: Lynette Rojas NPAuthorizedby: Lynette Rojas NP Critical care provider statement: ?Critical care time (minutes): ?40 ?Critical care was necessary to treat or prevent imminent or life-threatening deterioration of the following conditions: ?Circulatory failure, WATER RESOURCE MANAGER failure or compromise, dehydration, endocrine crisis and metabolic crisis ?Critical care was time spent personally by me on the following activities: ?Ordering and performing treatments and interventions, ordering and review of laboratory studies, ordering and review of radiographic studies, development of treatment plan with patient or surrogate, discussions w [facility] consultants, evaluation of patient's response to treatment, examination of patient and obtaininghistory from patient or surrogate ?I assumed direction of critical care for this patient from another provider in my specialty: no ? [facility][U] XRAY HIP UNILATERAL MIN 2 VWS LEFT [id number] 2019-11-17 10:36:00Images acquired, not reported on this accession number. [facility]"
[2021-02-26] MEDS ORDERED: HALOPERIDOL LACT 5 MG/ML INJ ONE (09:35)
[2021-02-26] MEDS ORDERED: NA CHLORIDE 0.9% 1,000 ML ONE (09:35)
[2021-02-26 10:06] LABS: Absolute Lymphocytes (CBC) 1.5 K/uL (0.7-4.9); Hematocrit 33.8 % (36.0-45.0); Lymphocytes % 32.7 % (15.3-44.8); MPV 8.1 fL (7.6-11.3); RBC Red Blood Cell Count 3.73 M/uL (3.86-4.86)
--- NOTE | 2021-02-26 10:11 | RAD REPORT ---
EXAM DESCRIPTION: RAD - Pelvis - 02/26/2021 9:48 am CLINICAL HISTORY: Pelvic pain FINDINGS: Intramedullary lisandra and compression screw affix an old left femoral fracture. No acute fracture or dislocation seen. Heterotopic bone formation adjacent to the lesser trochanter. Bones are osteoporotic. Mild osteoarthritis involves the hips.
--- NOTE | 2021-02-26 10:12 | RAD REPORT ---
EXAM DESCRIPTION: RAD - Hip Left 2 View - 02/26/2021 9:48 am CLINICAL HISTORY: Left hip pain FINDINGS: Intramedullary lisandra and compression screw affix an old left femoral fracture. No acute fracture or dislocation seen. Heterotopic bone formation adjacent to the lesser trochanter. Bones are osteoporotic. Mild osteoarthritis involves the hips.
[2021-02-26 10:15] LABS: Potassium 3.9 mmol/L (3.5-5.1)
--- NOTE | 2021-02-26 11:14 | EKG ---
Test Date: 2021-02-26 Test Time: 09:29:14 Lead Systems Engineer: PATRICIA MEASUREMENT RESULTS: Intervals: Rate: 109 SD: 148 QRSD: 110 QT: 346 QTc: 465 [place]: P: 68 SD: 148 QRS: 14 T: 122 INTERPRETIVE STATEMENTS: Sinus tachycardia Septal infarct, age undetermined T wave abnormality, consider lateral ischemia Abnormal ECG Compared to ECG 08/27/2020 13:49:05 T-wave abnormality now present Possible ischemia now present Sinus rhythm no longer present Left ventricular hypertrophy no longer present Early repolarization no longer present Myocardial infarct finding still present Electronically Signed On 02-26-21 11:13:57 DRESSAGE INSTRUCTOR by Andrés Rosas
[2021-02-26 15:41] LABS: Urine Blood Negative (Negative); Urine Glucose Negative (Negative); Urine Protein Negative (Negative); Urine Specific Gravity 1.015 (1.005-1.030); Urine pH 6.5 (5.0-7.0)
--- NOTE | 2021-02-26 15:54 | EDPHYS ---
Physician Documentation [facility] [place], [place] Name: Loly Hermosillo Age: 65 yrs Sex: Female : 1955 Arrival Date: 02/26/2021 Time: 08:53 Bed 18 Private MD: ED Physician Jose Green HPI: 02/26 09:00 This 65 yrs old Female presents to ER via Unassigned with complaints of AMS, rn agitation. 09:00 The patient presents with agitation. Onset: The symptoms/episode began/occurred 2 rn week(s) ago. Possible causes: unknown. Associated signs and symptoms: Pertinent positives: agitation, Pertinent negatives: abdominal pain, chest pain, headache, seizure. Current symptoms: In the emergency department the patient's symptoms are unchanged from the initial presentation. The patient has experienced similar episodes in the past. The patient has not recently seen a physician. Per detention, patient not compliant with her psychiatric medications for the last 2 weeks and has become increasingly difficult to handle with agitation and going in and out of patient's rooms. No fever. No known trauma. No focal complaints.. Historical: - Allergies: 09:20 [place] Carbonate; jd3 09:20 thorazine; jd3 - Home Meds: 02/27 08:55 aspirin 81 mg Oral chew 1 tab once daily [Active]; atorvastatin 40 mg oral tab 1 tab jg9 bedtime [Active]; benztropine 0.5 mg Oral tab 1 tab every 72 hours, 9a-9p-last administered 02/25/21 [Active]; clonazepam 1 mg Oral tab 1 tab 3 times per day [Active]; divalproex 125 mg oral TbEC 4 capsules 3 times per day [Active]; Haldol 2 mg Oral tab 1 tab 2 times per day [Active]; Invega 234mg/1.5ML oral 1.5 mL once daily, IM on Thursday [Active]; loratadine 10 mg oral tab 1 tab once daily [Active]; melatonin 5 mg oral tab 5 mg nightly [Active]; trazodone 50 mg Oral tab 1.5 tab at bedtime [Active]; - PMHx: 02/26 09:20 cyst in right kidney; Hyperlipidemia; Bipolar disorder; Hypertension; Anxiety; low jd3 sodium; Schizophrenia; - Immunization history:: Adult Immunizations unknown. - Social history:: Smoking status: unknown. - Family history:: not pertinent. - Hospitalizations: : No recent hospitalization is reported. - History obtained from: EMS. ROS: 09:00 Unable to obtain ROS due to altered mental status, patient being uncooperative. rn Exam: 09:00 Constitutional: Thin female, agitated and rambling with pressured speech Head/Face: rn Normocephalic, atraumatic. Eyes: Periorbital areas with no swelling, redness, or edema. ENT: Dry mucous membranes Cardiovascular: Tachycardic, regular. No pulse deficits Respiratory: No increased work of breathing, no retractions or nasal flaring. Abdomen/GI: Soft, non-tender Skin: Warm, dry, no cellulitis MS/ Extremity: Pulses equal, no cyanosis. Neurovascular intact. Full, normal range of motion. Equal circumference. Neuro: Awake and alert, moves all 4 extremities, pressured speech but redirectable. 12:08 ECG was reviewed by the Attending Physician. rn Vital Signs: 09:20 BP 110 / 95; Pulse 113; Resp 18 S; Temp 98.5(TE); Pulse Ox 94% on R/A; Weight 58.97 kg jd3 (R); Height 5 ft. 5 in. (165.10 cm) (R); Pain 5/10; 11:15 BP 113 / 87; Pulse 79; Resp 18 S; Pulse Ox 98% on R/A; jd3 12:34 BP 112 / 80; Pulse 81; Resp 18 S; Pulse Ox 97% on R/A; jd3 13:31 Pulse 79; Resp 16 S; Pulse Ox 99% on R/A; jd3 15:33 Pulse 78; Resp 16 S; Pulse Ox 99% on R/A; jd3 17:07 BP 133 / 92; Pulse 97; Resp 16 S; Temp 97.4(TE); Pulse Ox 97% on R/A; jd3 19:03 BP 121 / 71; Pulse 109; Resp 18; Pulse Ox 98% on R/A; mk 20:05 BP 132 / 76; Pulse 74; Resp 18; Pulse Ox 98% on R/A; mk 21:06 BP 134 / 70; Pulse 98; Resp 18; Pulse Ox 97% on R/A; mk 22:10 BP 109 / 80; Pulse 101; Resp 18; Pulse Ox 98% on R/A; mk 23:51 Pulse 83; Resp 16; Pulse Ox 98% on R/A; isa 02/27 00:34 Pulse 78; Resp 16; Pulse Ox 99% on R/A; isa 02:52 Pulse 80; Resp 18; Pulse Ox 97% on R/A; isa 04:53 BP 152 / 106; Pulse 76; Resp 22; Pulse Ox 96% on R/A; isa 05:40 BP 118 / 79; Pulse 84; Resp 16; Pulse Ox 97% on R/A; isa 06:22 BP 118 / 79; Pulse 93; Resp 20; Temp 97.3; Pulse Ox 97% ; isa 07:30 BP 101 / 79; Pulse 80; Resp 17 S; Pulse Ox 97% on R/A; jg9 08:30 BP 113 / 80; Pulse 81; Resp 20 S; Pulse Ox 98% on R/A; jg9 09:30 BP 123 / 80; Pulse 81; Resp 17 S; Pulse Ox 98% on R/A; jg9 10:30 BP 118 / 68; Pulse 80; Resp 18 S; Pulse Ox 97% on R/A; jg9 11:30 BP 99 / 88; Pulse 84; Resp 18 S; Pulse Ox 98% on R/A; jg9 12:30 BP 121 / 68; Pulse 82; Resp 19 S; Pulse Ox 98% on R/A; jg9 13:30 BP 122 / 70; Pulse 81; Resp 18 S; Pulse Ox 96% ; jg9 15:30 BP 110 / 78; Pulse 78; Resp 16 S; Pulse Ox 97% on R/A; jg9 17:00 BP 120 / 80; Pulse 82; Resp 16; Pulse Ox 96% on R/A; jg9 18:20 BP 105 / 83; Pulse 86; Resp 20 S; Pulse Ox 97% on R/A; jg9 19:26 BP 108 / 88; Pulse 80; Resp 16; Pulse Ox 99% on R/A; ic1 22:33 BP 102 / 56; Pulse 98; Resp 20; Pulse Ox 99% on R/A; ic1 02/26 09:20 Body Mass Index 21.63 (58.97 kg, 165.10 cm) jd3 [place] Coma Score: 02/26 19:03 Eye Response: spontaneous(4). Verbal Response: confused(4). Motor Response: obeys mk commands(6). Total: 14. 20:05 Eye Response: spontaneous(4). Verbal Response: confused(4). Motor Response: obeys mk commands(6). Total: 14. 21:06 Eye Response: spontaneous(4). Verbal Response: confused(4). Motor Response: obeys mk commands(6). Total: 14. 22:10 Eye Response: spontaneous(4). Verbal Response: confused(4). Motor Response: obeys mk commands(6). Total: 14. MDM: 08:53 Patient medically screened. rn 10:23 ED course: Pt much more calm, no longer screaming or rambling. . rn 15:52 Differential Diagnosis: electrolyte abnormality, UTI, volume depletion, delirium, UTI. rn Differential Diagnosis: CVA. Data reviewed: vital signs, nurses notes, lab test result(s), radiologic studies, plain films, and as a result, I will admit patient. Counseling: I had a detailed discussion with the patient and/or guardian regarding: the historical points, exam findings, and any diagnostic results supporting the discharge/admit diagnosis, lab results, radiology results, the need for further work-up and treatment in the hospital. Response to treatment: the patient's symptoms have mildly improved after treatment, and as a result, I will admit patient. Admission orders: after a detailed discussion of the patient's condition and case, the admit orders are written by me. ED course: Pt with improvement after Haldol, + UTI, will admit for UTI and delirium. . 17:14 ED course: Pt evaluated by Dr. Green, who recommends psychiatric transfer, has cleared rn patient regarding UTI. Will attempt to transfer for psychiatric care. . 02/27 06:11 ED course: Patient became agitated and received Haldol 5 mg IM and is known resting mh7 comfortably. No acute distress, vital signs stable, no focal neuro deficits.. 18:29 ED course: Nurse to nurse has been done at [facility]. rn Per report they are just waiting on a signed form from the detention that states they will accept patient back when they are finished stabilizing her and then they will take patient.. 18:38 ED course: Accepted for transfer by Dr. Zarate \\T\\ 1840, dod to doc performed. rn 02/26 08:55 Order name: CBC with Diff rn 02/26 08:55 Order name: Basic Metabolic Panel rn 02/26 08:55 Order name: Procalcitonin rn 02/26 08:55 Order name: Urine Microscopic Only rn 02/26 08:55 Order name: Urine Drug Screen rn 02/26 08:56 Order name: CBC with Automated Diff; Complete Time: 10:14 EDMS 02/26 08:56 Order name: Basic Metabolic Panel; Complete Time: 10:45 EDMS 02/26 08:56 Order name: Procalcitonin; Complete Time: 11:09 EDMS 02/26 08:56 Order name: Urine Microscopic Only; Complete Time: 17:11 EDMS 02/26 08:56 Order name: Urine Drug Screen; Complete Time: 17:11 EDMS 02/26 08:58 Order name: SARS-COV-2 RT PCR (Document "Date of Onset" if Symptomatic); Complete Time: rn 14:00 02/26 09:06 Order name: XRAY Hip LEFT 2 view; Complete Time: 10:14 rn 02/26 15:41 Order name: Urine Dipstick-Ancillary; Complete Time: 17:11 EDMS 02/26 15:41 Order name: Urine Culture rn 02/26 08:55 Order name: IV Start; Complete Time: 09:55 rn 02/26 08:55 Order name: Urine Dipstick-Ancillary (obtain specimen); Complete Time: 19:23 rn 02/26 08:56 Order name: EKG; Complete Time: 08:57 rn 02/26 08:56 Order name: EKG - Nurse/Tech; Complete Time: 09:32 rn 02/26 08:56 Order name: Cardiac monitoring; Complete Time: 09:13 rn 02/26 08:56 Order name: O2 Sat Monitoring; Complete Time: 09:13 rn 02/26 08:56 Order name: Glucose Level; Complete Time: 10:58 rn 02/26 09:22 Order name: XRAY Pelvis; Complete Time: 10:14 rn 02/27 08:54 Order name: Diet Finger Food; Complete Time: 08:55 mh5 EC/04 12:08 Rate is 109 beats/min. Rhythm is regular. QRS Pool is Normal. NH interval is normal. rn QRS interval is normal. QT interval is normal. No Q waves. T waves are Inverted in leads I, aVL. No ST changes noted. Clinical impression: Sinus tachycardia. Interpreted by me. Reviewed by me. Administered Medications: 09:38 Drug: HALdol (as decanoate) 5 mg Route: IM; Site: right deltoid; jd3 10:30 Follow up: Response: No adverse reaction jd3 09:54 Drug: NS 0.9% 1000 ml Route: IV; Rate: 1000 ml; Site: right forearm; jd3 11:00 Follow up: IV Status: Completed infusion jg9 02/27 03:45 Drug: HALdol (as decanoate) 5 mg Route: IM; Site: right gluteus; isa 05:28 Follow up: Response: No adverse reaction isa 07:53 Drug: Rocephin (cefTRIAXone) 1 grams Route: IV; Rate: calculated rate; Site: left jg9 forearm; 08:51 Follow up: Response: No adverse reaction jg9 10:11 Follow up: IV Status: Completed infusion; IV Intake: 10ml jg9 09:30 Drug: Depakote (divalproex) 500 mg Route: PO; jg9 10:11 Follow up: Response: No adverse reaction jg9 09:36 Drug: traZODONE 100 mg Route: PO; jg9 10:10 Follow up: Response: No adverse reaction jg9 18:54 Drug: HALdol (as decanoate) 5 mg Route: IM; Site: right deltoid; jg9 Disposition Summary: 02/26/21 17:15 Transfer Ordered Transfer Location: [facility] rn Reason: Higher level of care rn Condition: Stable(02/26/21 17:15) rn Problem: chronic(02/26/21 17:15) rn Symptoms: have improved(02/26/21 17:15) rn Accepting Physician: (02/27/21 22:36) ic1 Diagnosis - Schizophrenia, unspecified rn - Bipolar disorder, unspecified rn - Altered mental status, unspecified(02/26/21 17:15) rn - UTI/ Urinary tract infection, site not specified(02/26/21 17:15) 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 Instructions: - Discharge Summary Sheet rn - Urinary Tract Infection, Adult rn Forms: - Medication Reconciliation Form rn - SBAR form rn Prescriptions: - cefpodoxime 100 mg Oral Tablet - take 2 tablets by ORAL route every 12 hours for 10 days take with food; 40 rn tablet; Refills: 0, Product Selection Permitted 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: 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 [employer] EDMS Jose Green MD MD rn Davies, Jonathon RN RN [email or web address] Karlo Adlre MD MD mh7 Wen Womack jg9 Roseann Wiseman RN Carley Atwood RN RN ic1 Corrections: (The following items were deleted from the chart) 02/26 09:02 09:00 Unable to obtain ROS due to altered mental status, rn rn 17:12 15:54 Inpatient Admission rn rn 17:12 15:54 Thaddeus Green rn rn 17:12 15:54 Telemetry/MedSurg (Inpatient) rn rn 17:12 15:54 Stable rn rn 17:12 15:54 new rn rn 17:12 15:54 have improved rn rn 17:12 15:54 Standard rn rn 17:12 15:54 rn rn 17:12 15:54 UTI/ Urinary tract infection, site not specified rn rn 17:12 15:54 Delirium due to known physiological condition rn rn 17:12 15:54 Altered mental status, unspecified rn rn 02/27 07:29 07:28 Home Meds: atorvastatin Oral; jg9 jg9 09:06 08:55 Home Meds: divalproex oral; jg9 jg9 18:40 18:38 ED course: Accepted for transfer. . rn rn 22:36 02/26 17:15 rn ic1
--- NOTE | 2021-02-26 15:54 | ER ---
Nurse's Notes [facility] Name: Loly Hermosillo Age: 65 yrs Sex: Female : 1955 Arrival Date: 02/26/2021 Time: 08:53 Bed 18 Private MD: Diagnosis: Schizophrenia, unspecified;Bipolar disorder, unspecified;Altered mental status, unspecified;UTI/ Urinary tract infection, site not specified Presentation: 02/26 09:14 Acuity: SULTANA 2 jd3 09:16 Chief complaint: EMS states: "pt had not been taking psych meds for about 2 weeks and jd3 has been refusing medications. from [facility]. pt has an extensive psych history with bipolar, schizophrenia and was becoming a potential danger to the other pt's at [facility] by walking around and grabbing others.". Coronavirus screen: At this time, the client does not indicate any symptoms associated with coronavirus-19. Ebola Screen: Patient negative for fever greater than or equal to 101.5 degrees Fahrenheit, and additional compatible Ebola Virus Disease symptoms. Initial Sepsis Screen: Does the patient meet any 2 criteria? No. Patient's initial sepsis screen is negative. Does the patient have a suspected source of infection? No. Patient's initial sepsis screen is negative. Risk Assessment: Do you want to hurt yourself or someone else? Patient reports no desire to harm self or others. Onset of symptoms was February 26, 2021. 09:16 Method Of Arrival: EMS: [facility] jd3 Historical: - Allergies: 09:20 [place] Carbonate; jd3 09:20 thorazine; jd3 - Home Meds: 02/27 08:55 aspirin 81 mg Oral chew 1 tab once daily [Active]; atorvastatin 40 mg oral tab 1 tab jg9 bedtime [Active]; benztropine 0.5 mg Oral tab 1 tab every 72 hours, 9a-9p-last administered 02/25/21 [Active]; clonazepam 1 mg Oral tab 1 tab 3 times per day [Active]; divalproex 125 mg oral TbEC 4 capsules 3 times per day [Active]; Haldol 2 mg Oral tab 1 tab 2 times per day [Active]; Invega 234mg/1.5ML oral 1.5 mL once daily, IM on Thursday [Active]; loratadine 10 mg oral tab 1 tab once daily [Active]; melatonin 5 mg oral tab 5 mg nightly [Active]; trazodone 50 mg Oral tab 1.5 tab at bedtime [Active]; - PMHx: 02/26 09:20 cyst in right kidney; Hyperlipidemia; Bipolar disorder; Hypertension; Anxiety; low jd3 sodium; Schizophrenia; - Immunization history:: Adult Immunizations unknown. - Social history:: Smoking status: unknown. - Family history:: not pertinent. - Hospitalizations: : No recent hospitalization is reported. - History obtained from: EMS. Screenin:56 Abuse screen: Denies threats or abuse. Nutritional screening: No deficits noted. jd3 Tuberculosis screening: No symptoms or risk factors identified. Fall Risk IV access (20 points). Mental Status- Overestimates/Forgets Limitations (15 pts.). Total Walker Fall Scale indicates Low Risk Score (25-44 pts). Fall prevention measures have been instituted. Side Rails Up X 2 Placed close to Nursing Station Frequent Obs/Assesments occuring. Assessment: 09:55 General: Appears comfortable, Behavior is agitated, anxious, fussy, inappropriate for jd3 age, restless. Pain: Complains of pain in left hamstring. Neuro: Level of Consciousness is awake, confused, Oriented to person. Cardiovascular: Capillary refill < 3 seconds Patient's skin is warm and dry. Rhythm is sinus tachycardia. Respiratory: Airway is patent Respiratory effort is even, unlabored, Respiratory pattern is regular, symmetrical, Breath sounds are clear bilaterally. GI: No signs and/or symptoms were reported involving the gastrointestinal system. : No signs and/or symptoms were reported regarding the genitourinary system. EENT: No signs and/or symptoms were reported regarding the EENT system. Derm: Skin is intact, Skin is dry, Skin is normal, Skin temperature is warm. Musculoskeletal: Circulation, motion, and sensation intact. Range of motion: intact in all extremities. 10:15 Reassessment: Patient appears in no apparent distress at this time. No changes from jd3 previously documented assessment. Patient and/or family updated on plan of care and expected duration. Pain level reassessed. pt resting in bed. speaking to self in jumbled words. 11:15 Reassessment: Patient appears in no apparent distress at this time. No changes from jd3 previously documented assessment. Patient and/or family updated on plan of care and expected duration. Pain level reassessed. pt resting in bed with eyes closed, appears asleep at this time. call martinez in reach and pt in view of nurse. 12:33 Reassessment: Patient appears in no apparent distress at this time. No changes from jd3 previously documented assessment. Patient and/or family updated on plan of care and expected duration. Pain level reassessed. pt resting in bed with eyes closed. continues to talk to self with incomprehensible words. 13:31 Reassessment: Patient appears in no apparent distress at this time. No changes from jd3 previously documented assessment. Patient and/or family updated on plan of care and expected duration. Pain level reassessed. 14:30 Reassessment: Patient appears in no apparent distress at this time. No changes from jd3 previously documented assessment. Patient and/or family updated on plan of care and expected duration. Pain level reassessed. 15:32 Reassessment: Patient appears in no apparent distress at this time. No changes from jd3 previously documented assessment. Patient and/or family updated on plan of care and expected duration. Pain level reassessed. KJ quality assurance qa lab technician at bedside attempting to help get a urine sample at this time. 17:06 Reassessment: Patient appears in no apparent distress at this time. No changes from jd3 previously documented assessment. Patient and/or family updated on plan of care and expected duration. Pain level reassessed. hospitalist at bedside. 18:30 Reassessment: Patient appears in no apparent distress at this time. No changes from jd3 previously documented assessment. Patient and/or family updated on plan of care and expected duration. Pain level reassessed. awaiting potential transfer. 19:10 General: Appears uncomfortable. Pain: Denies pain. Neuro: Level of Consciousness is mk awake, confused, Oriented to person. Neuro: Level of Consciousness is awake, confused, Oriented to person. Cardiovascular: Capillary refill < 3 seconds Patient's skin is warm and dry. Pulses are 2+ in right radial artery, right dorsalis pedis artery, left radial artery and left dorsalis pedis artery. Respiratory: Airway is patent Trachea midline Respiratory effort is even, unlabored, Breath sounds are clear. GI: Abdomen is flat, non-distended. :. Derm: Skin is fragile, Skin is dry. Musculoskeletal: Circulation, motion, and sensation intact. Capillary refill < 3 seconds, Range of motion: intact in all extremities. 20:15 Reassessment: Patient appears in no apparent distress at this time. No changes from mk previously documented assessment. Patient and/or family updated on plan of care and expected duration. Pain level reassessed. 21:15 Reassessment: Patient appears in no apparent distress at this time. No changes from mk previously documented assessment. Patient and/or family updated on plan of care and expected duration. Pain level reassessed. 22:10 Reassessment: pt confused, trying to get out of bed, moving to another nursing station. mk 23:36 Reassessment: No changes from previously documented assessment. isa 23:53 General: The pt was placed on the pulse ox and monitor technician, per orders. Her speech isa is unintelligible at times, but she is not pulling lines or trying to get out of bed. She is resting, albeit, talking constantly, but pleasantly. . 02/27 01:16 General: The pt's status remains unchanged. She is singing cartoon songs and screams isa each time I attempt to take a blood pressure. She is easily redirected, so she does not strike you. . 01:40 General: I am finding it difficult to have the pt hold still for the bp monitor. MD is isa aware. She remains unchanged. . 05:29 GI: The pt was given peyman care and her diaper was changed. She was able to cooperate isa after much convincing, without screaming or striking. Derm: Wound noted buttocks and left leg Other: The pt has dressings to both her left lower leg and left buttocks that are clean, dry and intact. 06:22 General: The pt was given ketty crackers and juice, as she has very few teeth and she isa was hungry. She voided in the diaper, a great amount, and was changed, again. She remains confused, but pleasant. . 07:19 Reassessment: MINO Nash called from [place] [email or web address] [facility] \\[id number] to get reports on the jg9 patient, after giving the information to informed me that she was going to speak to the doctor and determine if they were able to take the patient. she called back 0715 stating that they were not going to be able to accept the patient due to her needing wound care and not being able to perform her ADL's (patient is incontinent). Charge nurse notified and call placed to social media coordinatorZara who stated she would look into it. General: Appears Patient appears to be resting/sleeping in bed, no distress noted. . 13:55 Reassessment: Spoke to intake nurse at [facility]. All ss Clinical information faxed. Awaiting to hear back from facility. 15:39 Reassessment: 1520 pm spoke to Regino from [facility] [place] requested provided, she advised this nurse that the RN will be calling me back. 17:58 Reassessment: Information provider to nurse Kin at [address]-information relating to ambulation status of patient, fall history, and event leading up to patient being seen here in the ED. Mercy advised once letter of return from N. is received she will call back and get things going with getting the patient a room. Charge notified/updated on this information. 19:01 Reassessment: Patient report called to MINO Kaur, [address] at [address] Vital Signs: 02/26 09:20 BP 110 / 95; Pulse 113; Resp 18 S; Temp 98.5(TE); Pulse Ox 94% on R/A; Weight 58.97 kg jd3 (R); Height 5 ft. 5 in. (165.10 cm) (R); Pain 5/10; 11:15 BP 113 / 87; Pulse 79; Resp 18 S; Pulse Ox 98% on R/A; jd3 12:34 BP 112 / 80; Pulse 81; Resp 18 S; Pulse Ox 97% on R/A; jd3 13:31 Pulse 79; Resp 16 S; Pulse Ox 99% on R/A; jd3 15:33 Pulse 78; Resp 16 S; Pulse Ox 99% on R/A; jd3 17:07 BP 133 / 92; Pulse 97; Resp 16 S; Temp 97.4(TE); Pulse Ox 97% on R/A; jd3 19:03 BP 121 / 71; Pulse 109; Resp 18; Pulse Ox 98% on R/A; mk 20:05 BP 132 / 76; Pulse 74; Resp 18; Pulse Ox 98% on R/A; mk 21:06 BP 134 / 70; Pulse 98; Resp 18; Pulse Ox 97% on R/A; mk 22:10 BP 109 / 80; Pulse 101; Resp 18; Pulse Ox 98% on R/A; mk 23:51 Pulse 83; Resp 16; Pulse Ox 98% on R/A; isa 02/27 00:34 Pulse 78; Resp 16; Pulse Ox 99% on R/A; isa 02:52 Pulse 80; Resp 18; Pulse Ox 97% on R/A; isa 04:53 BP 152 / 106; Pulse 76; Resp 22; Pulse Ox 96% on R/A; isa 05:40 BP 118 / 79; Pulse 84; Resp 16; Pulse Ox 97% on R/A; isa 06:22 BP 118 / 79; Pulse 93; Resp 20; Temp 97.3; Pulse Ox 97% ; isa 07:30 BP 101 / 79; Pulse 80; Resp 17 S; Pulse Ox 97% on R/A; jg9 08:30 BP 113 / 80; Pulse 81; Resp 20 S; Pulse Ox 98% on R/A; jg9 09:30 BP 123 / 80; Pulse 81; Resp 17 S; Pulse Ox 98% on R/A; jg9 10:30 BP 118 / 68; Pulse 80; Resp 18 S; Pulse Ox 97% on R/A; jg9 11:30 BP 99 / 88; Pulse 84; Resp 18 S; Pulse Ox 98% on R/A; jg9 12:30 BP 121 / 68; Pulse 82; Resp 19 S; Pulse Ox 98% on R/A; jg9 13:30 BP 122 / 70; Pulse 81; Resp 18 S; Pulse Ox 96% ; jg9 15:30 BP 110 / 78; Pulse 78; Resp 16 S; Pulse Ox 97% on R/A; jg9 17:00 BP 120 / 80; Pulse 82; Resp 16; Pulse Ox 96% on R/A; jg9 18:20 BP 105 / 83; Pulse 86; Resp 20 S; Pulse Ox 97% on R/A; jg9 19:26 BP 108 / 88; Pulse 80; Resp 16; Pulse Ox 99% on R/A; ic1 22:33 BP 102 / 56; Pulse 98; Resp 20; Pulse Ox 99% on R/A; ic1 02/26 09:20 Body Mass Index 21.63 (58.97 kg, 165.10 cm) jd3 Brandon Coma Score: 02/26 19:03 Eye Response: spontaneous(4). Verbal Response: confused(4). Motor Response: obeys mk commands(6). Total: 14. 20:05 Eye Response: spontaneous(4). Verbal Response: confused(4). Motor Response: obeys mk commands(6). Total: 14. 21:06 Eye Response: spontaneous(4). Verbal Response: confused(4). Motor Response: obeys mk commands(6). Total: 14. 22:10 Eye Response: spontaneous(4). Verbal Response: confused(4). Motor Response: obeys mk commands(6). Total: 14. ED Course: 08:53 Patient arrived in ED. rn 08:53 Jose Green MD is Attending Physician. rn 09:13 Rico Luna RN is Primary Nurse. jd3 09:14 Triage completed. jd3 09:21 Arm band placed on. jd3 09:48 XRAY Hip LEFT 2 view In Process Unspecified. EDMS 09:48 XRAY Pelvis In Process Unspecified. EDMS 09:55 Inserted saline lock: 20 gauge in right forearm, using aseptic technique. Blood jd3 collected. 09:57 Patient has correct armband on for positive identification. Bed in low position. Call jd3 light in reach. Side rails up X2. monitor tech on. Pulse ox on. NIBP on. 15:53 Thaddeus Green MD is Hospitalizing Provider. rn 18:52 spoke with Faustino at [facility] to initiate transfer, requested information to [address] [facility] [place]. 19:21 Urine Culture Sent. mk 19:22 Urine Drug Screen Sent. mk 19:23 Urine Microscopic Only Sent. mk 19:23 CBC with Diff Sent. mk 19:23 Basic Metabolic Panel Sent. mk 19:23 Procalcitonin Sent. mk 02/27 01:41 No provider procedures requiring assistance completed. isa 05:29 faxed off to Patrice Garcia, Sonya Lala, and [place] to try to get 9 approval. 06:32 Appears to be sleeping. Unbelievably, the pt is sleeping. isa 09:30 Diet: Patient given water. finger food tray provided-patient ate <10%. jg9 10:08 No apparent distress. Resting quietly. transfer Awaiting bed assignment. Patient jg9 requests liquids. 15:41 Warm blanket given. Pillow given. patient cleaned and changed, upon assessing area jg9 under bandages put in place prior to the start of my shift it was noted that there were no pressure ulcers founded to the hip/buttock region on either lower extremity, there was some bruising noted. 18:32 Appears tearful. transfer approval from receiving facility. jg9 19:30 monitor tech on. Pulse ox on. NIBP on. Sitter at bedside. ic1 19:30 Door closed. Noise minimized. Lights dimmed. Warm blanket given. Pillow given. Head of ic1 bed elevated. Administered Medications: 02/26 09:38 Drug: HALdol (as decanoate) 5 mg Route: IM; Site: right deltoid; jd3 10:30 Follow up: Response: No adverse reaction jd3 09:54 Drug: NS 0.9% 1000 ml Route: IV; Rate: 1000 ml; Site: right forearm; jd3 11:00 Follow up: IV Status: Completed infusion jg9 02/27 03:45 Drug: HALdol (as decanoate) 5 mg Route: IM; Site: right gluteus; isa 05:28 Follow up: Response: No adverse reaction isa 07:53 Drug: Rocephin (cefTRIAXone) 1 grams Route: IV; Rate: calculated rate; Site: left jg9 forearm; 08:51 Follow up: Response: No adverse reaction jg9 10:11 Follow up: IV Status: Completed infusion; IV Intake: 10ml jg9 09:30 Drug: Depakote (divalproex) 500 mg Route: PO; jg9 10:11 Follow up: Response: No adverse reaction jg9 09:36 Drug: traZODONE 100 mg Route: PO; jg9 10:10 Follow up: Response: No adverse reaction jg9 18:54 Drug: HALdol (as decanoate) 5 mg Route: IM; Site: right deltoid; jg9 Intake: 10:11 IV: 10ml; Total: 10ml. jg9 Output: 06:22 Other: 2 (Diapers) ; Total: 0ml. isa Outcome: 01/04 15:54 Decision to Hospitalize by Provider. rn 17:15 ER care complete, transfer ordered by . mino 02/27 01:41 Condition: stable isa 22:34 Transferred ic1 22:36 Patient left the ED. ic1 Signatures: Dispatcher [employer] EDMS Jose Green MD MD rn Smirch, Shelby, RN RN ss Herrera, Deanna [facility] Rico Luna RN RN jd3 Stanford, Christine [facility] Wen Womack j9 Roseann Wiseman RN RN bo Kotarski, Madeline RN Carley Ly RN RN ic1 Corrections: (The following items were deleted from the chart) 07:29 07:28 Home Meds: atorvastatin Oral; jg9 jg9 09:06 08:55 Home Meds: divalproex oral; jg9 jg9 09:37 09:37 IV Status: Completed infusion jg9 jg9 09:39 07:30 BP 95 / 79; Pulse 80bpm; Resp 17bpm; Spontaneous; Pulse Ox 97% RA; jg9 jg9 09:39 07:30 BP 95 / 79; Pulse 79bpm; Resp 18bpm; Spontaneous; Pulse Ox 97% RA; jg9 jg9 10:11 09:37 IV Status: Completed infusion jg9 jg9
[2021-02-26 16:03] LABS: Barbiturates NEGATIVE (NEGATIVE); Benzodiazepines NEGATIVE (NEGATIVE); Cocaine NEGATIVE (NEGATIVE); METHAMPHETAM NEGATIVE (NEGATIVE); Methadone NEGATIVE (NEGATIVE); Opiates NEGATIVE (NEGATIVE); Phencyclidine NEGATIVE (NEGATIVE); THC Cannibis NEGATIVE (NEGATIVE)
[2021-02-26 16:04] LABS: Urine Bacteria 20-50 /HPF (<20); Urine Mucus 1+ /HPF (NONE SEEN)
--- NOTE | 2021-02-26 17:56 | P.CNS ---
Date of Consult: 02/26/21 Reason for Consult: eval for admission Requesting Physician: Jose Green Chief Complaint: Altered mental status, danger to self and others History of Present Illness: 65-year-old female, PMH: Paranoid schizophrenia, bipolar disorder, hypertension. Patient was instituted the ED from [facility] due to altered mental status. Patient is unable to give an accurate history. ER reports patient has been more altered over the last week, refusing to take her psych medications, and a danger to other patients/residents at [facility]. Staff have been unable to get the patient to take her medications, she has been refusing. At the time of my exam, patient had received Haldol and she was more calm, initially screaming and yelling in the ED. She was easily agitated, reported that she felt like killing herself, has been seeing things that are not there, and does not know exactly where she has had. When she was told she was at [facility], she stated she hated this place and would want to go to [facility]. When asked about [facility], she stated she had a bad experience and somebody called her ugly, then proceeded to start yelling and smacking her stretcher. She then stated she wanted to be transferred to [facility], [facility], or [place]. In the ED, patient was found to have UTI, with no leukocytosis, normal electrolytes, CT head unremarkable. She had some slight improvement of her agitation with Haldol. ED physician requested evaluation for possible admission. Allergies chlorpromazine [From Thorazine] Allergy (Verified 06/29/19 17:30) Hives/Rash lithium Allergy (Verified 06/29/19 17:30) Hives/Rash Home Medications: Benztropine Mesylate [Cogentin*] 1 mg PO BID 02/10/20 LORazepam [Ativan*] 1 mg PO Q8H 02/10/20 Metoprolol Tartrate [Lopressor*] 12.5 mg PO DAILY 02/10/20 Tamsulosin HCl 0.4 mg PO DAILY 02/10/20 Thioridazine HCl 50 mg PO TID 02/10/20 carBAMazepine [Tegretol*] 200 mg PO TID tab 02/11/20 - Past Medical/Surgical History Diabetic: No -: Hypertension -: Paranoid schizophrenia -: Bipolar disorder -: History of UTI Past Surgical History: Unable to obtain - Family History Sister Medical History: Other (see notes) Notes: Thyroid problem - Social History Smoking Status: Unknown if ever smoked Alcohol use: No CD- Drugs: No Caffeine use: No Review of Systems is unable to be obtained (Reported left posterior thigh pain, but then denied when asked again. Review of systems were inaccurate and changed throughout discussion) Physical Examination General: Alert, Oriented x2 (To self and year only), Confused HEENT: Sclerae nonicteric Neck: Supple Respiratory: Clear to auscultation bilaterally, Normal air movement Cardiovascular: No edema, Regular rate/rhythm Gastrointestinal: Soft and benign, Non-distended, No tenderness Musculoskeletal: No swelling Integumentary: No rashes Neurological: Other (Pressured speech, agitated, yelling. Moves all extremities equally) Laboratory Data (last 24 hrs) 02/26/21 09:48: Sodium 135 L, Potassium 3.9, BUN 12, Creatinine 1.01, Glucose 118 H 02/26/21 09:48: WBC 4.60, Hgb 11.5 L, Hct 33.8 L, Plt Count 191 Physician Review Additional Text: Problem list Acute psychosis, with suicidal and homicidal ideation Paranoid schizophrenia Bipolar disorder Hypertension UTI Patient's UA suggestive of urinary tract infection. Patient continued to contradict all of her review of systems throughout my history and exam. Denied and then agreed that she was having dysuria, which since her change multiple times She is afebrile, vitals okay, with some initial tachycardia when she was very agitated and improved after Haldol Patient does not appear septic Does not seem to have acute delirium secondary to infection This seems to be all psychosis/paranoid schizophrenia/bipolar disorder, as patient has reportedly not been taking her medications for a week Nursing staff from her halfway state she has been a danger to the other staff and residents at the facility, and a danger to herself. Refusing medications Patient without history of resistant bacteriuria Recommend IV Rocephin, and/or p.o. antibiotics She is otherwise cleared from medical standpoint She would most benefit from inpatient psych facility Recommend initiation for transfer to an inpatient psych facility and outpatient treatment for this UTI Time Spent Managing Pts care (In Minutes): 60
[2021-02-26] MEDS ORDERED: ONDANSETRON 4 MG/2 ML VIAL ONE (23:31)
[2021-02-27] MEDS ORDERED: HALOPERIDOL LACT 5 MG/ML INJ ONE ×2 (03:24→18:39)
[2021-02-27] MEDS ORDERED: CEFTRIAXONE 1000 MG/VIAL ONE (07:40)
[2021-02-27] MEDS ORDERED: ONDANSETRON 4 MG (ODT) TAB ONE (08:37)
[2021-02-27] MEDS ORDERED: DIVALPROEX DR 250 MG TAB PO ONE (09:18)
[2021-02-27] MEDS ORDERED: TRAZODONE 50 MG TABLET PO ONE (10:00)
[2021-02-27 22:59] VITALS: TEMP 97.3
[2021-02-27 23:12] VITALS: O2SAT 99
[2021-02-27 23:13] VITALS: BP 102/56
== END 2021-02-27 22:36 ==
LOC: ER 08:49
DX: N39.0 Urinary tract infection, site not specified (principal); F20.9 Schizophrenia, unspecified; F31.9 Bipolar disorder, unspecified; Z20.822 Contact with and (suspected) exposure to COVID-19
CPT/HCPCS: 96365; 96361; 93005; 87088; 85025; 87086; 80048; 36415; 87077; 87186; 84145; 80307; 72170; 73502; 96372; 99285; 96366; U0003; J1630 ×3; J7030; J2405; 81003; 81015

== ENCOUNTER 2023-06-02 20:31 | Emergency (ER) | payer OTHER ==
[2023-06-02] MEDS ORDERED: ZIPRASIDONE MESYLA 20 MG/VIAL IM ONE (20:46)
[2023-06-02] MEDS ORDERED: WATER FOR INJ,STERILE 10 ML ONE (20:47)
--- NOTE | 2023-06-02 21:08 | RAD REPORT ---
EXAM DESCRIPTION: CT - [id number] - 06/02/2023 9:01 pm CLINICAL HISTORY: Trauma, head and neck injury. fall at home, syncope COMPARISON: <Comparisons> TECHNIQUE: Axial 5 mm thick images of the head were obtained. Axial 2 mm thick images of the cervical spine were obtained with sagittal and coronal reconstruction images generated and reviewed. All CT scans are performed using dose optimization technique as appropriate and may include automated exposure control or mA/KV adjustment according to patient size. FINDINGS: CT HEAD WITHOUT CONTRAST: No acute hemorrhage, hydrocephalus or extra-axial collection is identified.Mild generalized brain atr ophy is present with mild periventricular and deep white matter chronic microvascular ischemic change s.No areas of brain edema or midline shift. The paranasal sinuses and mastoids are clear.Vertebral atherosclerosis.The calvarium is intact. CT CERVICAL SPINE WITHOUT CONTRAST: No fracture or subluxation.Mild lower cervical degenerative changes.No prevertebral soft tissues swel ling is identified. IMPRESSION: No acute intracranial or cervical spine findings.
--- NOTE | 2023-06-02 21:12 | RAD REPORT ---
EXAM DESCRIPTION: RAD - Chest Single View - 06/02/2023 9:06 pm CLINICAL HISTORY: AMS Chest pain. COMPARISON: <Comparisons> FINDINGS: Portable technique limits examination quality. The lungs are grossly clear. The heart is normal in size. No displaced fractures. IMPRESSION: No acute intrathoracic process suspected.
[2023-06-02 21:30] LABS: Albumin 3.6 g/dL (3.4-5.0); Anion Gap 10.4 mEq/L (5.0-15.0); Bilirubin Direct 0.2 mg/dL (0-0.2); Bilirubin Indirect, Calculated 0.4 mg/dL (0.2-0.8); Bilirubin Total 0.6 mg/dL (0.2-1.0); Globulin 3.6 g/dL (2.3-3.5); Magnesium 1.9 mg/dL (1.6-2.4); Potassium 3.4 mEq/L (3.5-5.1); Protein, Total 7.2 g/dL (6.4-8.2); Troponin High Sensitivity 8.1 pg/mL (<58.9)
[2023-06-02 21:32] LABS: Absolute Lymphocytes (CBC) 1.9 K/uL (0.7-4.9); Absolute Monocytes 0.7 K/uL (0.1-1.3); Absolute Neutrophil 2.9 K/uL (1.8-8.0); Basophils % 0.8 % (0-1.3); Eosinophils % 0.7 % (0-4.4); Hematocrit 31.3 % (36.0-45.0); Lymphocytes % 34.1 % (15.3-44.8); MCH 33.2 pg (27.0-35.0); MCHC 35.2 g/dL (32.0-36.0); MCV 94.2 fL (80-100); MPV 8.1 fL (7.6-11.3); Monocytes % 12.9 % (3.3-12.3); Neutrophils % 51.5 % (41.7-73.7); Platelets 275 thou/uL (152-406); RBC Red Blood Cell Count 3.32 M/uL (3.86-4.86)
[2023-06-02] MEDS ORDERED: NA CHLORIDE 0.9% 2,000 ML ONE (22:43)
[2023-06-02] MEDS ORDERED: KCL 20 MEQ/100 mL IVPB 100 ML IV ONE (22:43)
--- NOTE | 2023-06-03 00:17 | ER ---
Nurse's Notes [facility] Name: Loly Hermosillo Age: 68 yrs Sex: Female : 1955 Arrival Date: 06/02/2023 Time: 20:31 Bed 5 Private MD: Diagnosis: Acute convulsive activity, acute recurrent seizure, agitation and anxiety Presentation: 06/01 20:38 Chief complaint: EMS states: called out for a fall from sitting position. granddaughter as6 reported to EMS that pt was shaking. Coronavirus screen: At this time, the client does not indicate any symptoms associated with coronavirus-19. Ebola Screen: No symptoms or risks identified at this time. Initial Sepsis Screen: Does the patient meet any 2 criteria? No. Patient's initial sepsis screen is negative. Does the patient have a suspected source of infection? No. Patient's initial sepsis screen is negative. Risk Assessment: Do you want to hurt yourself or someone else? Patient reports no desire to harm self or others. Onset of symptoms was June 02, 2023. 20:38 Acuity: SUL[place] 2 as6 20:38 Method Of Arrival: EMS: [facility] as6 Historical: - Allergies: 20:37 [place] Carbonate; as6 20:37 thorazine; as6 - PMHx: 20:37 Bipolar disorder; cyst in right kidney; Schizophrenia; low sodium; low sodium; Anxiety; as6 Hyperlipidemia; Hypertension; - Immunization history:: Adult Immunizations up to date. - Infectious Disease History:: Denies. - Social history:: Smoking status: Patient denies any tobacco usage or history of. - Family history:: not pertinent. Screenin:35 [facility] ED Fall Risk Assessment (Adult) History of falling in the last 3 months, vc1 including since admission Yes- single mechanical fall (1 pt) Confusion or Disorientation Yes (5 pts) Intoxicated or Sedated No (0 pts) Impaired Gait Yes (1 pt) Mobility Assist Device Used Yes (1 pt) Altered Elimination Yes (1 pt) Score/Fall Risk Level 3 or more points = High Risk Oriented to surroundings, Maintained a safe environment, Educated pt \T\ family on fall prevention, incl call for assistance when getting out of bed. Abuse screen: Denies threats or abuse. Nutritional screening: No deficits noted. Tuberculosis screening: No symptoms or risk factors identified. Assessment: 20:40 General: Appears in no apparent distress. comfortable, Behavior is anxious, fussy, jw7 restless, uncooperative. 20:40 Pain: Denies pain. Neuro: Level of Consciousness is awake, alert, obeys commands, jw7 Oriented to person, place, time. Cardiovascular: Heart tones S1 S2 present Capillary refill < 3 seconds Clubbing of nail beds is absent JVD is absent Patient's skin is warm and dry. Respiratory: Airway is patent Trachea midline Respiratory effort is even, unlabored, Respiratory pattern is regular, symmetrical, Breath sounds are clear bilaterally. GI: Abdomen is flat, non-distended, Bowel sounds present X 4 quads. Abd is soft and non tender X 4 quads. : No deficits noted. No signs and/or symptoms were reported regarding the genitourinary system. EENT: No deficits noted. No signs and/or symptoms were reported regarding the EENT system. Derm: Skin is intact, is healthy with good turgor, Skin is dry, Skin is normal, Skin temperature is warm. Musculoskeletal: Circulation, motion, and sensation intact. Range of motion: intact in all extremities. 22:00 Reassessment: Patient appears in no apparent distress at this time. No changes from jw7 previously documented assessment. Patient and/or family updated on plan of care and expected duration. Pain level reassessed. 23:00 Reassessment: Patient appears in no apparent distress at this time. No changes from jw7 previously documented assessment. Patient and/or family updated on plan of care and expected duration. Pain level reassessed. 06/02 00:00 Reassessment: Patient appears in no apparent distress at this time. No changes from jw7 previously documented assessment. Patient and/or family updated on plan of care and expected duration. Pain level reassessed. 00:45 Reassessment: Patient appears in no apparent distress at this time. No changes from jw7 previously documented assessment. Patient and/or family updated on plan of care and expected duration. Pain level reassessed. Vital Signs: 06/01 20:38 BP 140 / 99; Pulse 106; Resp 18; Temp 97.9; Pulse Ox 97% ; Weight 58.97 kg; Height 5 as6 ft. 4 in. ; 22:53 BP 130 / 82; Pulse 70; Resp 17; Temp 98.1; Pulse Ox 99% on R/A; vc1 06/02 00:00 BP 126 / 82; Pulse 71; Resp 17; Pulse Ox 100% ; vc1 00:45 BP 146 / 93; Pulse 98; Resp 18 S; Pulse Ox 99% on R/A; jw7 06/01 20:38 Body Mass Index 22.31 (58.97 kg, 162.56 cm) as6 Fransico Coma Score: 00:21 Eye Response: spontaneous(4). Motor Response: obeys commands(6). Verbal Response: sp4 confused(4). Total: 14. ED Course: 06/01 20:33 Patient arrived in ED. ty 20:35 Patient has correct armband on for positive identification. Bed in low position. Call vc1 light in reach. Side rails up X2. Pulse ox on. NIBP on. 20:37 Arm band placed on. as6 20:38 Chris Burleson MD is Attending Physician. sp4 20:40 Triage completed. as6 20:40 Provided Education on: Use of Call Light. jw7 21:00 CT Head C Spine In Process Unspecified. EDMS 21:07 XRAY Chest (1 view) In Process Unspecified. EDMS 21:09 Initial lab(s) drawn, by me, sent to lab. vk 21:10 Lactate w/ 2H reflex if indic. Sent. vk 21:10 Troponin HS Sent. vk 21:10 PT-INR Sent. vk 21:10 NT PRO-BNP Sent. vk 21:10 Magnesium Sent. vk 21:10 LFT's Sent. vk 21:10 CBC with Diff Sent. vk 21:10 Basic Metabolic Panel Sent. vk 21:30 Door closed. Noise minimized. Warm blanket given. Pillow given. jw7 06/02 00:04 Sulema Johnson, RN is Primary Nurse. vc1 00:30 No provider procedures requiring assistance completed. IV discontinued, intact, jw7 bleeding controlled, No redness/swelling at site. Pressure dressing applied. Administered Medications: 06/01 20:52 Drug: Geodon IM 20 mg IM once Route: IM; Site: right deltoid; as6 06/02 00:05 Follow up: Response: No adverse reaction vc1 06/01 22:00 Drug: NS 0.9% IV 1000 ml IV at 1 bolus Per protocol; 1000 mL bolus Route: IV; Rate: 1 jw7 bolus; Site: right forearm; 06/02 00:56 Follow up: Response: No adverse reaction; IV Status: Completed infusion; IV Intake: jw7 1000ml 06/01 22:00 Drug: Potassium Chloride IV 20 mEq IV at calculated rate once; administer over 1-2 jw7 hours Route: IV; Rate: calculated rate; Site: right forearm; 06/02 00:56 Follow up: Response: No adverse reaction; IV Status: Completed infusion; IV Intake: jw7 100ml 06/01 23:44 Drug: NS 0.9% IV 1000 ml IV at 125 ml/hr continuous Route: IV; Rate: 125 ml/hr; Site: jw7 right forearm; 06/02 00:56 Follow up: Response: No adverse reaction; IV Status: Completed infusion; IV Intake: jw7 250ml Medication: 00:04 VIS not applicable for this client. vc1 Intake: 00:56 IV: 100ml; Total: 100ml. jw7 00:56 IV: 1000ml; Total: 1100ml. jw7 00:56 IV: 250ml; Total: 1350ml. jw7 Outcome: 00:17 Discharge ordered by . piter 00:55 Discharged to home via wheelchair, with family, jw7 00:55 Condition: stable 00:55 Discharge instructions given to patient, family, Instructed on discharge instructions, follow up and referral plans. Demonstrated understanding of instructions, follow-up care, 00:57 Patient left the ED. jw7 Signatures: Dispatcher [employer] EDWilfrido Garcias RN RN as6 Sulema Johnson RN RN vc1 Alicia Higgins RN RN jw7 Chris Burleson MD MD sp4 Marta Bermeo Tylor ty
--- NOTE | 2023-06-03 00:17 | EDPHYS ---
Physician Documentation [facility] Name: Loly Hermosillo Age: 68 yrs Sex: Female : 1955 Arrival Date: 06/02/2023 Time: 20:31 Bed 5 Private MD: ED Physician Chris Burleson HPI: 06/01 20:38 This 68 yrs old Female presents to ER via Unassigned with complaints of sp4 agitation . 06/02 00:13 Six 8-year-old female presents after she accidentally fell in her apartment and hit was sp4 described as brief period Of convulsive activity. . 00:21 Patient on arrival is mildly agitated not able to provide any history. . sp4 00:21 Patient's medications at home include benztropine 1 mg p.o. twice daily, risperidone sp4 0.5 mg in the morning, risperidone 1 mg in the evening, Depakote 250 mg twice a day. 00:26 Past medical history includes schizophrenia, bipolar disorder, hypertension, and sp4 anxiety. Historical: - Allergies: 06/01 20:37 [place] Carbonate; as6 20:37 thorazine; as6 - PMHx: 20:37 Bipolar disorder; cyst in right kidney; Schizophrenia; low sodium; low sodium; Anxiety; as6 Hyperlipidemia; Hypertension; - Immunization history:: Adult Immunizations up to date. - Infectious Disease History:: Denies. - Social history:: Smoking status: Patient denies any tobacco usage or history of. - Family history:: not pertinent. ROS: 06/02 00:21 Constitutional: Positive for convulsive episode at home and fall at home sp4 All other systems are negative, Exam: 00:21 Constitutional: This is a well developed, well nourished patient who is awake, alert, sp4 mildly agitated and confused Head/Face: Normocephalic, atraumatic. Eyes: Pupils equal round and reactive to light, extra-ocular motions intact. Lids and lashes normal. Conjunctiva and sclera are not injected. Cornea within normal limits. Periorbital areas with no swelling, redness, or edema. ENT: Nares patent. No nasal discharge, no septal abnormalities noted. Tympanic membranes are normal and external auditory canals are clear. Oropharynx with no redness, swelling, or masses, exudates, or evidence of obstruction, uvula midline. Mucous membranes moist. Neck: Trachea midline, no thyromegaly or masses palpated, and no cervical lymphadenopathy. Supple, full range of motion without nuchal rigidity, or vertebral point tenderness. Chest/axilla: Normal chest wall appearance and motion. Nontender with no deformity. No lesions are appreciated. Cardiovascular: Regular rate and rhythm with a normal S1 and S2. No gallops, murmurs, or rubs. Normal PMI, no JVD. No pulse deficits. Respiratory: Lungs have equal breath sounds bilaterally, clear to auscultation and percussion. No rales, rhonchi or wheezes noted. No increased work of breathing, no retractions or nasal flaring. Abdomen/GI: Soft, with normal bowel sounds. No distension or tympany. No guarding or rebound. No evidence of tenderness throughout. Back: No spinal tenderness. No costovertebral tenderness. Skin: Warm, dry with normal turgor. Normal color with no rashes, no lesions, and no evidence of cellulitis. MS/ Extremity: Pulses equal, no cyanosis. Neurovascular intact. Full, normal range of motion. Neuro: Awake and alert, oriented to person, place, Cranial nerves II-XII grossly intact. Motor strength 5/5 in all extremities. Sensory grossly intact. 00:21 ECG was reviewed by the Attending Physician. EKG at 2122 normal sinus rhythm at a rate of 83. Incomplete left bundle branch block Vital Signs: 06/01 20:38 BP 140 / 99; Pulse 106; Resp 18; Temp 97.9; Pulse Ox 97% ; Weight 58.97 kg; Height 5 as6 ft. 4 in. ; 22:53 BP 130 / 82; Pulse 70; Resp 17; Temp 98.1; Pulse Ox 99% on R/A; vc1 06/02 00:00 BP 126 / 82; Pulse 71; Resp 17; Pulse Ox 100% ; vc1 00:45 BP 146 / 93; Pulse 98; Resp 18 S; Pulse Ox 99% on R/A; jw7 06/01 20:38 Body Mass Index 22.31 (58.97 kg, 162.56 cm) as6 Fransico Coma Score: 00:21 Eye Response: spontaneous(4). Motor Response: obeys commands(6). Verbal Response: sp4 confused(4). Total: 14. MDM: 06/01 21:51 Patient medically screened. sp4 23:54 ED course: EXAM DESCRIPTION: CT - [id number] - 06/02/2023 9:01 pm CLINICAL HISTORY: sp4 Trauma, head and neck injury. fall at home, syncope COMPARISON: TECHNIQUE: Axial 5 mm thick images of the head were obtained. Axial 2 mm thick images of the cervical spine were obtained with sagittal and coronal reconstruction images generated and reviewed. All CT scans are performed using dose optimization technique as appropriate and may include automated exposure control or mA/KV adjustment according to patient size. FINDINGS: CT HEAD WITHOUT CONTRAST: No acute hemorrhage, hydrocephalus or extra-axial collection is identified.Mild generalized brain atrophy is present with mild periventricular and deep white matter chronic microvascular ischemic changes.No areas of brain edema or midline shift. The paranasal sinuses and mastoids are clear.Vertebral atherosclerosis.The calvarium is intact. CT CERVICAL SPINE WITHOUT CONTRAST: No fracture or subluxation. Mild lower cervical degenerative changes.No prevertebral soft tissues swelling is identified. IMPRESSION: No acute intracranial or cervical spine findings.. 06/02 00:21 Differential Diagnosis altered mental status, sepsis, flu, Recurrent seizure. Data sp4 reviewed: vital signs, nurses notes, EMS record, old medical records, lab test result(s), EKG, radiologic studies, CT scan. Consideration of Admission/Observation Escalation of care including admission/observation considered. Management of patient was discussed with the following:. ED course: Patient has improved significantly in the emergency room.. ED course: After intramuscular Geodon patient's agitation has subsided. Patient is alert and oriented x 4, patient managed to ambulate to the bathroom with some assistance. Patient is stable for discharge home at this time. Will advise to continue current medications as prescribed.. 06/01 20:40 Order name: Basic Metabolic Panel; Complete Time: 22:37 sp4 06/01 20:40 Order name: CBC with Diff; Complete Time: 22:37 sp4 06/01 20:40 Order name: LFT's; Complete Time: 22:37 sp4 06/01 20:40 Order name: Magnesium; Complete Time: 22:37 sp4 06/01 20:40 Order name: NT PRO-BNP; Complete Time: 22:37 4 06/01 20:40 Order name: PT-INR; Complete Time: 22:37 4 06/01 20:40 Order name: Troponin HS; Complete Time: :37 4 06/01 20:45 Order name: Lactate w/ 2H reflex if indic.; Complete Time: 22:37 4 06/01 20:40 Order name: XRAY Chest (1 view); Complete Time: 22:37 4 06/01 20:45 Order name: CT Head C Spine; Complete Time: :37 4 06/01 20:40 Order name: EKG; Complete Time: 20:40 4 06/01 20:40 Order name: Cardiac monitoring; Complete Time: 21: 4 06/01 20:40 Order name: EKG - Nurse/Tech; Complete Time: : 4 06/01 20:40 Order name: IV Saline Lock; Complete Time: :4 06/01 20:40 Order name: Labs collected and sent; Complete Time: 21: 4 06/01 20:40 Order name: O2 Per Protocol; Complete Time: : [facility] 06/01 20:40 Order name: O2 Sat Monitoring; Complete Time: : EC:21 Rate is 83 beats/min. Rhythm is regular, Normal Sinus Rhythm. QRS [place] is Normal. DE sp4 interval is normal. QRS interval is prolonged. QT interval is normal. No Q waves. T waves are Normal. No ST changes noted. Clinical impression: No evidence of ischemia. Interpreted by me. Reviewed by me. Administered Medications: 06/01 20:52 Drug: Geodon IM 20 mg IM once Route: IM; Site: right deltoid; as6 06/02 00:05 Follow up: Response: No adverse reaction vc1 06/01 22:00 Drug: NS 0.9% IV 1000 ml IV at 1 bolus Per protocol; 1000 mL bolus Route: IV; Rate: 1 jw7 bolus; Site: right forearm; 06/02 00:56 Follow up: Response: No adverse reaction; IV Status: Completed infusion; IV Intake: jw7 1000ml 06/01 22:00 Drug: Potassium Chloride IV 20 mEq IV at calculated rate once; administer over 1-2 jw7 hours Route: IV; Rate: calculated rate; Site: right forearm; 06/02 00:56 Follow up: Response: No adverse reaction; IV Status: Completed infusion; IV Intake: jw7 100ml 06/01 23:44 Drug: NS 0.9% IV 1000 ml IV at 125 ml/hr continuous Route: IV; Rate: 125 ml/hr; Site: jw7 right forearm; 06/02 00:56 Follow up: Response: No adverse reaction; IV Status: Completed infusion; IV Intake: jw7 250ml Disposition Summary: 06/03/23 00:17 Discharge Ordered Problem: new sp4 Symptoms: have improved sp4 Condition: Stable sp4 Diagnosis - Acute convulsive activity, acute recurrent seizure, agitation and anxiety sp4 Followup: sp4 - With: Private Physician - When: 7 - 10 days - Reason: Recheck today's complaints Discharge Instructions: - Discharge Summary Sheet sp4 - Seizure, Adult, [id number] sp4 Forms: - Patient Portal Instructions sp4 Signatures: Dispatcher [employer] Wilfrido Casey RN RN as6 Alicia Higgins RN RN jw7 Chris Burleson MD MD sp4 CalcoteSulema RN vc1 Corrections: (The following items were deleted from the chart) 06/01 20:41 20:40 BASIC METABOLIC PANEL+C.LAB.BRZ ordered. EDMS EDMS 20:41 20:40 CBC+H.LAB.BRZ ordered. EDMS EDMS 20:41 20:40 HEPATIC FUNCTION+C.LAB.BRZ ordered. EDMS EDMS 20:41 20:40 MAGNESIUM+C.LAB.BRZ ordered. EDMS EDMS 20:41 20:40 PROBNP+C.LAB.BRZ ordered. EDMS EDMS 20:41 20:40 PROTIME (+INR)+COAG.LAB.BRZ ordered. EDMS EDMS 20:41 20:40 Troponin High Sensitivity+C.LAB.BRZ ordered. EDMS EDMS
[2023-06-03 03:07] VITALS: BP 146/93; TEMP 98.1; O2SAT 99
--- NOTE | 2023-06-03 12:34 | EKG ---
Test Date: 2023-06-02 Test Time: 21:22:24 Patient Care Technician: CHECO MEASUREMENT RESULTS: Intervals: Rate: 83 RI: 160 QRSD: 120 QT: 398 QTc: 467 [place]: P: 52 RI: 160 QRS: -25 T: 109 INTERPRETIVE STATEMENTS: Normal sinus rhythm Anterior infarct, age undetermined Abnormal ECG Compared to ECG 02/26/2021 09:29:14 Sinus tachycardia no longer present T-wave abnormality no longer present Possible ischemia no longer present Myocardial infarct finding still present Electronically Signed On 06-03-23 12:32:36 CDT by Santiago Washington
== END 2023-06-03 00:57 | disposition home or self-care (01) ==
LOC: ER 20:31
DX: G40.909 Epilepsy, unspecified, not intractable, without status epilepticus (principal); F20.9 Schizophrenia, unspecified; Z88.8 Allergy status to other drugs, medicaments and biological substances
CPT/HCPCS: 93005; 85025; 80048; 36415; 83735; 85610; 80076; 83605; 84484; 83880; 70450; 72125; 71045; J3480; J3486; J7030